=== PATIENT | female | born 1950 | race Hispanic/Latino ===

== ENCOUNTER 2017-05-11 16:00 | Emergency (ER) | payer OTHER, MEDICARE ==
[~2017-05-11 16:00] MED LIST: ACET1TAB25 PO; AMLO10TA2 PO; AMOX-426 PO; CHOL500050 PO; CLON0.1T PO; COLC0.6C3 PO; FAMO20TA8 PO; FENO145T37 PO; FURO20TA4 PO; GABA-531 PO; LACT10SO9 PO; LEVO100 PO; METO25TA6 PO
[2017-05-11 19:16] LABS: BASOPHILS % (AUTO) 0.7 % (0.0-5.0); EOSINOPHILS % (AUTO) 3.3 % (0.0-8.0); HEMATOCRIT 35.8 % (36-48); LYMPHOCYTES % (AUTO) 56.6 % (21.0-51.0); MEAN CORPUSCULAR HEMOGLOBIN 32.7 pg (27.0-33.0); MEAN CORPUSCULAR HGB CONC 34.5 g/dL (32.0-36.0); MONOCYTES % (AUTO) 6.4 % (3.0-13.0); PLATELET COUNT (AUTO) 269 K/uL (130-400); RED BLOOD CELL COUNT(AUTO) 3.77 MIL/uL (4.00-5.50); WHITE BLOOD COUNT (AUTO) 5.8 K/uL (4.8-10.8)
[2017-05-11 19:18] LABS: APPEARANCE,URINE Clear (CLEAR); BILIRUBIN,URINE Negative (NEGATIVE); COLOR,URINE Yellow (YELLOW); GLUCOSE, URINE (UA) Negative (NEGATIVE); KETONES,URINE Negative (NEGATIVE); LEUKOCYTE ESTERASE ,URINE Small (NEGATIVE); NITRATE,URINE Positive (NEGATIVE); OCCULT BLOOD,URINE Negative (NEGATIVE); PROTEIN,URINE 300 (NEGATIVE)
[2017-05-11 19:29] LABS: INR 0.98 (0.85-1.15); PROTHROMBIN TIME 10.3 SEC (9.6-11.6)
[2017-05-11 19:30] LABS: CREATININE 1.6 mg/dL (0.5-1.5); POTASSIUM 4.2 mmol/L (3.5-5.1)
[2017-05-11 19:44] LABS: ALBUMIN 3.2 g/dL (3.5-5.0); BILIRUBIN,TOTAL 0.3 mg/dL (0.2-1.0); CREATINE KINASE MB 0.9 ng/mL (0.5-3.6); TOTAL PROTEIN, SERUM 7.2 g/dL (6.0-8.3)
[2017-05-11 20:04] LABS: B-TYPE NATRIURETIC PEPTIDE 123 pg/mL (0-100)
[2017-05-11 20:08] LABS: BACTERIA,URINE Moderate /HPF (None Seen); RBC,URINE 0-1 /HPF (0-1); SQUAMOUS EPITHELIAL CELL,UR Few /LPF (0-2)
[2017-05-11] MEDS ORDERED: CEPHALEXIN 500 MG CAPSULE ONE (20:38)
== END 2017-05-11 22:25 | disposition home or self-care (01) ==
LOC: EDH 16:00
DX: I16.9 Hypertensive crisis, unspecified (principal); R00.1 Bradycardia, unspecified; R21 Rash and other nonspecific skin eruption; E78.00 Pure hypercholesterolemia, unspecified; E07.9 Disorder of thyroid, unspecified; M19.90 Unspecified osteoarthritis, unspecified site; Z90.49 Acquired absence of other specified parts of digestive tract
CPT/HCPCS: 36415; 71045; 80053; 81001; 82550; 82553; 83880; 84484; 85025; 85610; 85730; 87088; 87186; 93005

== ENCOUNTER 2017-05-14 11:49 | Emergency (ER) | payer OTHER, MEDICARE ==
[2017-05-14 12:35] LABS: BASOPHILS % (AUTO) 0.8 % (0.0-5.0); EOSINOPHILS % (AUTO) 3.5 % (0.0-8.0); HEMATOCRIT 37.9 % (36-48); LYMPHOCYTES % (AUTO) 48.1 % (21.0-51.0); MEAN CORPUSCULAR HEMOGLOBIN 33.2 pg (27.0-33.0); MEAN CORPUSCULAR HGB CONC 35.4 g/dL (32.0-36.0); MEAN CORPUSCULAR VOLUME 93.8 fL (79-99); MONOCYTES % (AUTO) 6.1 % (3.0-13.0); NEUTROPHILS % (AUTO) 41.5 % (40.0-77.0); PLATELET COUNT (AUTO) 247 K/uL (130-400); RED BLOOD CELL COUNT(AUTO) 4.04 MIL/uL (4.00-5.50); WHITE BLOOD COUNT (AUTO) 6.6 K/uL (4.8-10.8)
[2017-05-14 12:44] LABS: CREATININE 1.6 mg/dL (0.5-1.5); POTASSIUM 4.5 mmol/L (3.5-5.1)
[2017-05-14 12:57] LABS: ALBUMIN 3.4 g/dL (3.5-5.0); BILIRUBIN,TOTAL 0.4 mg/dL (0.2-1.0); CREATINE KINASE MB 1.5 ng/mL (0.5-3.6); TOTAL PROTEIN, SERUM 7.6 g/dL (6.0-8.3)
[2017-05-14] MEDS ORDERED: CLONIDINE HCL 0.1 MG TABLET ONE (13:20)
== END 2017-05-14 15:29 | disposition home or self-care (01) ==
LOC: EDH 11:49
DX: I10 Essential (primary) hypertension (principal); R00.1 Bradycardia, unspecified; R07.89 Other chest pain; R42 Dizziness and giddiness; M19.90 Unspecified osteoarthritis, unspecified site; E78.00 Pure hypercholesterolemia, unspecified; E07.9 Disorder of thyroid, unspecified
CPT/HCPCS: 36415; 71045; 80053; 82550; 82553; 83880; 84484; 85025; 93005

== ENCOUNTER 2017-05-16 00:13 | Emergency (ER) | payer OTHER, MEDICARE ==
[2017-05-16 00:56] LABS: EOSINOPHILS % (AUTO) 3.3 % (0.0-8.0); HEMATOCRIT 36.9 % (36-48); LYMPHOCYTES % (AUTO) 46.9 % (21.0-51.0); MEAN CORPUSCULAR HEMOGLOBIN 33.1 pg (27.0-33.0); MEAN CORPUSCULAR HGB CONC 34.2 g/dL (32.0-36.0); MEAN CORPUSCULAR VOLUME 96.8 fL (79-99); NEUTROPHILS % (AUTO) 40.8 % (40.0-77.0); NUCLEATED RED BLOOD CELLS 0.1 % (0.0-0.19); PLATELET COUNT (AUTO) 241 K/uL (130-400); RED BLOOD CELL COUNT(AUTO) 3.81 MIL/uL (4.00-5.50); WHITE BLOOD COUNT (AUTO) 5.8 K/uL (4.8-10.8)
[2017-05-16] MEDS ORDERED: PROCHLORPERAZINE EDISYLATE 10 MG/2 ML VIAL ONE (01:02)
[2017-05-16] MEDS ORDERED: KETOROLAC TROMETHAMINE 30MG/ML ONE (01:02)
[2017-05-16] MEDS ORDERED: ONDANSETRON HCL MDV 20ML 2 MG/ML VIAL ONE (01:08)
[2017-05-16 01:22] LABS: INR 0.97 (0.85-1.15); PARTIAL THROMBOPLASTIN TIME 21.7 SEC (26.3-35.5); PROTHROMBIN TIME 10.2 SEC (9.6-11.6)
[2017-05-16 01:39] LABS: CREATININE 1.8 mg/dL (0.5-1.5); POTASSIUM 4.2 mmol/L (3.5-5.1)
[2017-05-16 01:44] LABS: ALBUMIN 3.4 g/dL (3.5-5.0); BILIRUBIN,TOTAL 0.4 mg/dL (0.2-1.0); TOTAL PROTEIN, SERUM 7.5 g/dL (6.0-8.3)
== END 2017-05-16 02:37 | disposition home or self-care (01) ==
LOC: EDH 00:13
DX: I10 Essential (primary) hypertension (principal); R51 Headache; R07.89 Other chest pain; N28.9 Disorder of kidney and ureter, unspecified; E78.00 Pure hypercholesterolemia, unspecified; E11.9 Type 2 diabetes mellitus without complications; M19.90 Unspecified osteoarthritis, unspecified site
CPT/HCPCS: 36415; 70450; 80053; 84484; 85025; 85610; 85730; 93005; 96374; 96375; 99285; J0780; J1885

== ENCOUNTER → 2018-02-10 | Outpatient (CLI) | payer OTHER, MEDICARE ==
[~2018-02-10] MED LIST changes: -AMLO10TA2 PO; +AMLO10TA6 PO; +REGADENOSON 0.4 MG/5 ML PF SYG IVP SCH
== END | disposition home or self-care (01) ==
LOC: SHCH 08:43
PROVIDERS: ATTEND Internal Medicine Cardiovascular Disease
DX: I10 Essential (primary) hypertension (principal); R06.00 Dyspnea, unspecified; R06.02 Shortness of breath
CPT/HCPCS: 78452; 93017; 96374; A9500 ×2

== ENCOUNTER → 2020-09-30 | Outpatient (CLI) | payer OTHER, MEDICARE ==
[~2020-09-30] MED LIST changes: +AMLO-258 PO; -AMLO10TA6 PO; -AMOX-426 PO; +COLC0.6T73 PO; +FENO145T26 PO; -FENO145T37 PO; +LEVO500T2 PO; +PRED20B PO; -REGADENOSON 0.4 MG/5 ML PF SYG IVP SCH
== END | disposition home or self-care (01) ==
LOC: SHCH 09:33
PROVIDERS: ATTEND Internal Medicine Cardiovascular Disease
DX: I10 Essential (primary) hypertension (principal)
CPT/HCPCS: 93306; 93356

== ENCOUNTER → 2020-10-06 | Outpatient (CLI) | payer OTHER, MEDICARE ==
[~2020-10-06] VITALS: Ht 154.9 cm; Wt 107.5 kg
[~2020-10-06] MED LIST changes: +REGADENOSON 0.4 MG/5 ML PF SYG IVP SCH
== END | disposition home or self-care (01) ==
LOC: SHCH 09:00
PROVIDERS: ATTEND Internal Medicine Cardiovascular Disease
DX: I10 Essential (primary) hypertension (principal); R07.9 Chest pain, unspecified
CPT/HCPCS: 78452; 93017; 96374; A9500 ×2; J2785

== ENCOUNTER 2021-07-10 15:52 | Emergency (ER) | payer OTHER, MEDICARE ==
[~2021-07-10] VITALS: Ht 154.9 cm; Wt 111.1 kg
[~2021-07-10 15:52] MED LIST changes: +ACET-2079 PO; -ACET1TAB25 PO; -REGADENOSON 0.4 MG/5 ML PF SYG IVP SCH
[2021-07-10 16:20] VITALS: BP 194/68
[2021-07-10 16:52] LABS: BASOPHILS % (AUTO) 0.4 % (0.0-5.0); EOSINOPHILS % (AUTO) 2.7 % (0.0-8.0); HEMATOCRIT 33.8 % (36-48); MEAN CORPUSCULAR HEMOGLOBIN 30.7 pg (27.0-33.0); MEAN CORPUSCULAR HGB CONC 31.1 g/dL (32.0-36.0); MEAN CORPUSCULAR VOLUME 98.8 fL (79-99); MONOCYTES % (AUTO) 5.6 % (3.0-13.0); NEUTROPHILS % (AUTO) 64.7 % (40.0-77.0); PLATELET COUNT (AUTO) 207 K/uL (130-400); RED BLOOD CELL COUNT(AUTO) 3.42 MIL/uL (4.00-5.50); RED CELL DISTRIBUTION WIDTH 13.9 % (11.0-15.5)
[2021-07-10 17:02] LABS: CREATININE 3.2 mg/dL (0.5-1.5); POTASSIUM 4.6 mmol/L (3.5-5.1)
[2021-07-10 17:07] LABS: ALBUMIN 2.1 g/dL (3.5-5.0); BILIRUBIN,TOTAL 0.2 mg/dL (0.2-1.0); TOTAL PROTEIN, SERUM 6.4 g/dL (6.0-8.3)
[2021-07-10] MEDS ORDERED: ALBUHFA IH (17:52)
== END 2021-07-10 18:02 | disposition home or self-care (01) ==
LOC: EDH 15:52
DX: J20.9 Acute bronchitis, unspecified (principal); R07.89 Other chest pain; Z20.822 Contact with and (suspected) exposure to COVID-19; M19.90 Unspecified osteoarthritis, unspecified site; I25.10 Atherosclerotic heart disease of native coronary artery without angina pectoris; E11.9 Type 2 diabetes mellitus without complications; I10 Essential (primary) hypertension; E03.9 Hypothyroidism, unspecified; Z90.49 Acquired absence of other specified parts of digestive tract; Z79.899 Other long term (current) drug therapy
CPT/HCPCS: 36415; 71045; 80053; 84484; 85025; 87635; 87804 ×2; 93005; 99285; C9803

== ENCOUNTER → 2021-08-28 | Outpatient (CLI) | payer OTHER, MEDICARE ==
[~2021-08-28] MED LIST changes: +ALBUHFA IH
== END | disposition home or self-care (01) ==
LOC: SHCH 10:04
PROVIDERS: ATTEND Internal Medicine Cardiovascular Disease
DX: I08.2 Rheumatic disorders of both aortic and tricuspid valves (principal); I27.20 Pulmonary hypertension, unspecified; I25.119 Atherosclerotic heart disease of native coronary artery with unspecified angina pectoris
CPT/HCPCS: 93306

== ENCOUNTER 2022-03-20 11:01 | Inpatient (IN) | payer OTHER, MEDICARE ==
[~2022-03-20] VITALS: Ht 160 cm; Wt 105.2 kg
[2022-03-20 11:22] LABS: ABG BASE EXCESS -12.8 mmol/L (-2.0-3.0); ABG OXYGEN SATURATION 83.8 % (95.0-99.0); ABG PCO2 49 mmHg (32-45)
[2022-03-20 11:30] LABS: BASOPHILS % (AUTO) 0.3 % (0.0-5.0); EOSINOPHILS % (AUTO) 0.1 % (0.0-8.0); HEMATOCRIT 32.5 % (36-48); LYMPHOCYTES % (AUTO) 11.5 % (21.0-51.0); MEAN CORPUSCULAR HEMOGLOBIN 31.4 pg (27.0-33.0); MEAN CORPUSCULAR HGB CONC 31.7 g/dL (32.0-36.0); MEAN CORPUSCULAR VOLUME 99.1 fL (79-99); MONOCYTES % (AUTO) 6.9 % (3.0-13.0); NEUTROPHILS % (AUTO) 79.7 % (40.0-77.0); NUCLEATED RED BLOOD CELLS 0.3 % (0.0-0.19); PLATELET COUNT (AUTO) 178 K/uL (130-400); RED BLOOD CELL COUNT(AUTO) 3.28 MIL/uL (4.00-5.50); RED CELL DISTRIBUTION WIDTH 14.1 % (11.0-15.5); WHITE BLOOD COUNT (AUTO) 9.8 K/uL (4.8-10.8)
[2022-03-20 11:52] LABS: B-TYPE NATRIURETIC PEPTIDE 1830 pg/mL (0-100)
[2022-03-20 11:54] LABS: ALBUMIN 2.5 g/dL (3.5-5.0); CREATININE 3.7 mg/dL (0.5-1.5); POTASSIUM 5.1 mmol/L (3.5-5.1); TOTAL PROTEIN, SERUM 6.7 g/dL (6.0-8.3)
[2022-03-20] MEDS ORDERED: FUROSEMIDE 40MG VIAL IV STA (12:09)
[2022-03-20 13:10] LABS: APPEARANCE,URINE CLEAR (CLEAR); BILIRUBIN,URINE NEGATIVE (NEGATIVE); COLOR,URINE LIGHT-YELLOW (YELLOW); GLUCOSE, URINE (UA) 200 mg/dL (NEGATIVE); KETONES,URINE NEGATIVE (NEGATIVE); LEUKOCYTE ESTERASE ,URINE NEGATIVE Leu/uL (NEGATIVE); NITRATE,URINE NEGATIVE (NEGATIVE); OCCULT BLOOD,URINE NEGATIVE (NEGATIVE); PROTEIN,URINE 600 mg/dL (NEGATIVE); UROBILINOGEN,URINE 0.2 mg/dL (0.2-1.0)
[2022-03-20] MEDS ORDERED: ALBUTEROL 0.083% 2.5 MG/3 ML INH IH ONE ×2 (13:14)
[2022-03-20 13:22] LABS: BACTERIA,URINE RARE /HPF (None Seen); MUCUS,URINE RARE LPF (None Seen); SQUAMOUS EPITHELIAL CELL,UR RARE /HPF (0-2)
[2022-03-20] MEDS ORDERED: POTASSIUM CHLORIDE 20MEQ/100ML 100 ML IV PRN (13:30)
[2022-03-20] MEDS ORDERED: MAGNESIUM 2GM PREMIX 50ML 50 ML IV PRN (13:30)
[2022-03-20] MEDS ORDERED: LACTULOSE 20 GM/30 ML UDCUP PO PRN (13:30)
[2022-03-20] MEDS ORDERED: ONDANSETRON 4MG INJ IV PRN (13:30)
[2022-03-20] MEDS ORDERED: DiphenhydrAMINE HCL 50 MG/ML VIAL IV PRN (13:30)
[2022-03-20] MEDS ORDERED: DIPHENHYDRAMINE HCL 25 MG CAPSULE PO PRN (13:30)
[2022-03-20] MEDS ORDERED: ACETAMINOPHEN 325 MG TAB PO PRN (13:30)
[2022-03-20] MEDS ORDERED: GUAIFENESIN-DM 200/20 MG 10 ML PO PRN (13:30)
[2022-03-20] MEDS ORDERED: NITROGLYCERIN 0.4 MG SL TAB SL PRN (13:30)
[2022-03-20] MEDS ORDERED: LIDOCAINE HCL-MPF 1% 2ML VIAL IV PRN (13:30)
[2022-03-20] MEDS ORDERED: GLUCAGON 1MG KIT 1 MG ML IM PRN (13:30)
[2022-03-20] MEDS ORDERED: POTASSIUM CHLORIDE 10% ELIXIR 20 MEQ/15 ML UDCUP PO PRN (13:30)
[2022-03-20] MEDS ORDERED: MAG/ALUM/SIMETH 30 ML UDCUP PO PRN (13:30)
[2022-03-20] MEDS ORDERED: DEXTROSE 50%-WATER 50 ML DISP.SYRIN IV PRN (13:30)
[2022-03-20] MEDS ORDERED: FUROSEMIDE 40MG VIAL IV ONE (14:00)
[2022-03-20] MEDS: HEPARIN 5,000 UNIT VIAL SQ SCH ×2 (14:38→20:11)
[2022-03-20 15:30] VITALS: BP 101/42
[2022-03-20] MEDS: INSULIN HUMULIN R 100 UNIT/ML 3ML SQ SCH ×2 (15:47→21:00)
[2022-03-20] MEDS ORDERED: CARV3.12 PO (17:33)
[2022-03-20] MEDS ORDERED: ROSU20TA31 PO (17:33)
[2022-03-20] MEDS ORDERED: FERR-72 PO (17:33)
[2022-03-20] MEDS ORDERED: LINA5TAB PO (17:33)
[2022-03-20] MEDS ORDERED: HYDR100T27 PO (17:33)
[2022-03-20] MEDS ORDERED: AMLO-257 PO (17:33)
[2022-03-20] MEDS ORDERED: ISOS30TA92 PO (17:33)
[2022-03-20] MEDS ORDERED: CALC0.253 PO (17:33)
[2022-03-20] MEDS ORDERED: GABA-529 PO (17:33)
[2022-03-20] MEDS ORDERED: AEC81 PO (17:33)
[2022-03-20] MEDS ORDERED: LEVO88CA4 PO (17:33)
[2022-03-20] MEDS ORDERED: FUROSEMIDE 40MG VIAL IV SCH (18:00)
[2022-03-20 19:06] VITALS: BP 136/58
[2022-03-20] MEDS: FUROSEMIDE 40MG VIAL IV SCH (20:11)
[2022-03-20] MEDS: ZOSYN 3.375GM+NS 50ML 50 ML IV SCH (20:11)
[2022-03-20] MEDS: FAMOTIDINE 20MG TAB PO SCH (20:12)
[2022-03-20] MEDS: FAMOTIDINE 20MG VIAL IV SCH (20:12)
[2022-03-20] MEDS ORDERED: ZOSYN 3.375GM+NS 50ML 50 ML IV SCH (21:00)
[2022-03-21 00:06] VITALS: BP 140/48
[2022-03-21 03:06] VITALS: BP 124/93
[2022-03-21 03:47] LABS: BASOPHILS % (AUTO) 0.3 % (0.0-5.0); EOSINOPHILS % (AUTO) 0.4 % (0.0-8.0); HEMATOCRIT 28.8 % (36-48); LYMPHOCYTES % (AUTO) 18.1 % (21.0-51.0); MEAN CORPUSCULAR HEMOGLOBIN 31.4 pg (27.0-33.0); MEAN CORPUSCULAR HGB CONC 31.3 g/dL (32.0-36.0); MEAN CORPUSCULAR VOLUME 100.3 fL (79-99); MONOCYTES % (AUTO) 8.7 % (3.0-13.0); NEUTROPHILS % (AUTO) 71.6 % (40.0-77.0); NUCLEATED RED BLOOD CELLS 0.4 % (0.0-0.19); PLATELET COUNT (AUTO) 150 K/uL (130-400); RED BLOOD CELL COUNT(AUTO) 2.87 MIL/uL (4.00-5.50); RED CELL DISTRIBUTION WIDTH 14.1 % (11.0-15.5); WHITE BLOOD COUNT (AUTO) 7.6 K/uL (4.8-10.8)
[2022-03-21 04:02] LABS: CREATININE 4.3 mg/dL (0.5-1.5); MAGNESIUM 2.8 mg/dL (1.80-2.40); PHOSPHORUS 7.4 mg/dL (2.5-4.9); URIC ACID 8.9 mg/dL (2.6-7.2)
[2022-03-21 04:54] LABS: % IRON SATURATION 16.2 % (22-44)
[2022-03-21] MEDS: INSULIN HUMULIN R 100 UNIT/ML 3ML SQ SCH ×4 (06:03→20:58)
[2022-03-21 07:00] VITALS: BP 136/55
[2022-03-21] MEDS: FUROSEMIDE 40MG VIAL IV SCH ×2 (09:09→20:33)
[2022-03-21] MEDS: Vitamin B Complex/Vit C/Folic Acid PO SCH (09:09)
[2022-03-21] MEDS: ZOSYN 3.375GM+NS 50ML 50 ML IV SCH ×2 (09:12→20:29)
[2022-03-21] MEDS: HEPARIN 5,000 UNIT VIAL SQ SCH ×3 (09:16→20:29)
[2022-03-21] MEDS: ACETAMINOPHEN 325 MG TAB PO PRN (09:26)
[2022-03-21 11:00] VITALS: BP 143/45
[2022-03-21] MEDS ORDERED: COMPOUND IV MISC 1 EACH IVSOLN MISC PRN (15:00)
[2022-03-21 16:00] VITALS: BP 136/56
[2022-03-21 17:58] LABS: HEMATOCRIT 31.5 % (36-48)
[2022-03-21 18:14] LABS: ALBUMIN 2.3 g/dL (3.5-5.0)
[2022-03-21 19:06] VITALS: BP 138/61
[2022-03-21] MEDS: IRON SUCROSE COMPLEX 300 MG in 0.9% NACL 250ML 250 ML IV SCH (19:17)
[2022-03-21] MEDS: FAMOTIDINE 20MG VIAL IV SCH (20:28)
[2022-03-21] MEDS: FAMOTIDINE 20MG TAB PO SCH (20:33)
[2022-03-22] VITALS (21 sets, daily range): BP systolic 122–169; BP diastolic 53–91
[2022-03-22 03:58] LABS: BASOPHILS % (AUTO) 0.3 % (0.0-5.0); HEMATOCRIT 30.5 % (36-48); LYMPHOCYTES % (AUTO) 18.5 % (21.0-51.0); MEAN CORPUSCULAR HEMOGLOBIN 30.9 pg (27.0-33.0); MEAN CORPUSCULAR HGB CONC 31.1 g/dL (32.0-36.0); MEAN CORPUSCULAR VOLUME 99.3 fL (79-99); MONOCYTES % (AUTO) 8.7 % (3.0-13.0); NEUTROPHILS % (AUTO) 69.3 % (40.0-77.0); NUCLEATED RED BLOOD CELLS 0.4 % (0.0-0.19); PLATELET COUNT (AUTO) 168 K/uL (130-400); RED BLOOD CELL COUNT(AUTO) 3.07 MIL/uL (4.00-5.50); RED CELL DISTRIBUTION WIDTH 14.1 % (11.0-15.5); WHITE BLOOD COUNT (AUTO) 6.9 K/uL (4.8-10.8)
[2022-03-22 04:10] LABS: INR 0.98 (0.85-1.15); PROTHROMBIN TIME 10.7 SEC (9.6-11.6)
[2022-03-22 04:12] LABS: CREATININE 5.5 mg/dL (0.5-1.5); PHOSPHORUS 8.4 mg/dL (2.5-4.9); POTASSIUM 5.3 mmol/L (3.5-5.1)
[2022-03-22 04:18] LABS: HEPATITIS B SURFACE ANTIGEN Non-Reactive (Nonreactive)
[2022-03-22] MEDS: INSULIN HUMULIN R 100 UNIT/ML 3ML SQ SCH ×4 (06:34→21:00)
[2022-03-22] MEDS: Vitamin B Complex/Vit C/Folic Acid PO SCH (09:00)
[2022-03-22] MEDS: HEPARIN 5,000 UNIT VIAL SQ SCH ×3 (09:00→22:29)
[2022-03-22] MEDS: ZOSYN 3.375GM+NS 50ML 50 ML IV SCH ×2 (11:54→22:06)
[2022-03-22] MEDS: FUROSEMIDE 40MG VIAL IV SCH ×2 (12:18→22:06)
[2022-03-22] MEDS ORDERED: HEPARIN 1,000 UNIT VIAL ONE (15:03)
[2022-03-22] MEDS ORDERED: LIDOCAINE HCL 1% MDV 50ML VIAL ONE (15:04)
[2022-03-22] MEDS: FAMOTIDINE 20MG TAB PO SCH (21:00)
[2022-03-22] MEDS: IRON SUCROSE COMPLEX 300 MG in 0.9% NACL 250ML 250 ML IV SCH (22:06)
[2022-03-22] MEDS: FAMOTIDINE 20MG VIAL IV SCH (22:06)
[2022-03-23] VITALS (19 sets, daily range): BP systolic 96–175; BP diastolic 43–98
[2022-03-23] MEDS: ZOSYN 3.375GM+NS 50ML 50 ML IV SCH ×3 (01:32→21:26)
[2022-03-23 04:41] LABS: HEMATOCRIT 29.8 % (36-48); MEAN CORPUSCULAR HEMOGLOBIN 31.1 pg (27.0-33.0); MEAN CORPUSCULAR HGB CONC 32.2 g/dL (32.0-36.0); MEAN CORPUSCULAR VOLUME 96.4 fL (79-99); NUCLEATED RED BLOOD CELLS 0.3 % (0.0-0.19); PLATELET COUNT (AUTO) 148 K/uL (130-400); RED BLOOD CELL COUNT(AUTO) 3.09 MIL/uL (4.00-5.50); RED CELL DISTRIBUTION WIDTH 13.9 % (11.0-15.5)
[2022-03-23 04:58] LABS: ALBUMIN 2.1 g/dL (3.5-5.0); CREATININE 5.2 mg/dL (0.5-1.5); POTASSIUM 4.1 mmol/L (3.5-5.1); TOTAL PROTEIN, SERUM 6.5 g/dL (6.0-8.3)
[2022-03-23 05:05] LABS: BAND NEUTROPHILS % (MANUAL) 1 % (0-2); EOSINOPHILS % (MANUAL) 3 % (1-6); LYMPHOCYTES % (MANUAL) 13 % (22-44); MAN.DIFF COMMENT-IMPRESSION MANUAL DIFFERENTIAL; MONOCYTES % (MANUAL) 7 % (2-9); PLATELET MORPHOLOGY COMMENT ADEQUATE; SEGMENTED NEUTROPHILS % 76 % (40-70)
[2022-03-23] MEDS: INSULIN HUMULIN R 100 UNIT/ML 3ML SQ SCH ×4 (06:34→20:53)
[2022-03-23] MEDS: Vitamin B Complex/Vit C/Folic Acid PO SCH (09:19)
[2022-03-23] MEDS: ACETAMINOPHEN 325 MG TAB PO PRN ×2 (09:19→21:44)
[2022-03-23] MEDS: HEPARIN 5,000 UNIT VIAL SQ SCH ×3 (09:20→21:45)
[2022-03-23] MEDS: HEPARIN 5,000 UNIT VIAL IJ PRN (14:35)
[2022-03-23] MEDS ORDERED: HYDRALAZINE 20MG/ML VIAL IV PRN (17:00)
[2022-03-23] MEDS ORDERED: LABETALOL 20MG VIAL IV PRN (17:00)
[2022-03-23] MEDS: FAMOTIDINE 20MG TAB PO SCH ×2 (19:48→21:26)
[2022-03-23] MEDS: FAMOTIDINE 20MG VIAL IV SCH (20:54)
[2022-03-23] MEDS: IRON SUCROSE COMPLEX 300 MG in 0.9% NACL 250ML 250 ML IV SCH (21:26)
[2022-03-24] VITALS (8 sets, daily range): BP systolic 116–155; BP diastolic 44–65
[2022-03-24] MEDS: INSULIN HUMULIN R 100 UNIT/ML 3ML SQ SCH ×4 (06:19→20:12)
[2022-03-24 08:44] LABS: HEMATOCRIT 30.3 % (36-48); MEAN CORPUSCULAR HEMOGLOBIN 30.7 pg (27.0-33.0); MEAN CORPUSCULAR VOLUME 95.9 fL (79-99); NUCLEATED RED BLOOD CELLS 0.4 % (0.0-0.19); PLATELET COUNT (AUTO) 117 K/uL (130-400); RED BLOOD CELL COUNT(AUTO) 3.16 MIL/uL (4.00-5.50); RED CELL DISTRIBUTION WIDTH 14.1 % (11.0-15.5); WHITE BLOOD COUNT (AUTO) 6.9 K/uL (4.8-10.8)
[2022-03-24 09:02] LABS: MAGNESIUM 2.5 mg/dL (1.80-2.40); POTASSIUM 3.4 mmol/L (3.5-5.1)
[2022-03-24] MEDS: ZOSYN 3.375GM+NS 50ML 50 ML IV SCH ×2 (09:09→20:26)
[2022-03-24] MEDS: AMLODIPINE 5 MG TAB PO SCH (09:10)
[2022-03-24] MEDS: ACETAMINOPHEN 325 MG TAB PO PRN ×2 (09:10→20:27)
[2022-03-24] MEDS: Vitamin B Complex/Vit C/Folic Acid PO SCH (09:10)
[2022-03-24] MEDS: HEPARIN 5,000 UNIT VIAL SQ SCH ×3 (09:11→20:36)
[2022-03-24 10:51] LABS: EOSINOPHILS % (MANUAL) 4 % (1-6); LYMPHOCYTES % (MANUAL) 18 % (22-44); MAN.DIFF COMMENT-IMPRESSION MANUAL DIFFERENTIAL; MONOCYTES % (MANUAL) 7 % (2-9); PLATELET MORPHOLOGY COMMENT ADEQUATE; SEGMENTED NEUTROPHILS % 71 % (40-70)
[2022-03-24] MEDS: FAMOTIDINE 20MG VIAL IV SCH (19:49)
[2022-03-24] MEDS ORDERED: 0.9%NACL 50ML 50 ML IV ONE (20:08)
[2022-03-24] MEDS: FAMOTIDINE 20MG TAB PO SCH (20:26)
[2022-03-25] VITALS (17 sets, daily range): BP systolic 120–154; BP diastolic 44–76
[2022-03-25 05:21] LABS: BASOPHILS % (AUTO) 0.4 % (0.0-5.0); EOSINOPHILS % (AUTO) 1.6 % (0.0-8.0); HEMATOCRIT 29.7 % (36-48); LYMPHOCYTES % (AUTO) 17.5 % (21.0-51.0); MEAN CORPUSCULAR HEMOGLOBIN 31.4 pg (27.0-33.0); MONOCYTES % (AUTO) 12.2 % (3.0-13.0); NEUTROPHILS % (AUTO) 66.8 % (40.0-77.0); NUCLEATED RED BLOOD CELLS 0.4 % (0.0-0.19); PLATELET COUNT (AUTO) 103 K/uL (130-400); RED BLOOD CELL COUNT(AUTO) 3.03 MIL/uL (4.00-5.50); RED CELL DISTRIBUTION WIDTH 14.1 % (11.0-15.5); WHITE BLOOD COUNT (AUTO) 7.4 K/uL (4.8-10.8)
[2022-03-25 05:35] LABS: CREATININE 5.5 mg/dL (0.5-1.5); MAGNESIUM 2.4 mg/dL (1.80-2.40); POTASSIUM 3.3 mmol/L (3.5-5.1)
[2022-03-25] MEDS: INSULIN HUMULIN R 100 UNIT/ML 3ML SQ SCH ×4 (06:28→21:00)
[2022-03-25] MEDS: AMLODIPINE 5 MG TAB PO SCH (09:00)
[2022-03-25] MEDS: ZOSYN 3.375GM+NS 50ML 50 ML IV SCH ×2 (11:02→21:16)
[2022-03-25] MEDS: Vitamin B Complex/Vit C/Folic Acid PO SCH (11:02)
[2022-03-25] MEDS: HEPARIN 5,000 UNIT VIAL SQ SCH ×3 (11:03→21:29)
[2022-03-25] MEDS: ACETAMINOPHEN 325 MG TAB PO PRN (11:11)
[2022-03-25] MEDS: FAMOTIDINE 20MG VIAL IV SCH (21:00)
[2022-03-25] MEDS: FAMOTIDINE 20MG TAB PO SCH (21:16)
[2022-03-26] VITALS (25 sets, daily range): BP systolic 81–168; BP diastolic 40–93
[2022-03-26 04:38] LABS: BASOPHILS % (AUTO) 0.4 % (0.0-5.0); EOSINOPHILS % (AUTO) 2.7 % (0.0-8.0); HEMATOCRIT 29.8 % (36-48); MEAN CORPUSCULAR HEMOGLOBIN 30.8 pg (27.0-33.0); MEAN CORPUSCULAR HGB CONC 32.6 g/dL (32.0-36.0); MEAN CORPUSCULAR VOLUME 94.6 fL (79-99); MONOCYTES % (AUTO) 12.2 % (3.0-13.0); NEUTROPHILS % (AUTO) 68.5 % (40.0-77.0); NUCLEATED RED BLOOD CELLS 0.5 % (0.0-0.19); PLATELET COUNT (AUTO) 110 K/uL (130-400); RED BLOOD CELL COUNT(AUTO) 3.15 MIL/uL (4.00-5.50); RED CELL DISTRIBUTION WIDTH 14.1 % (11.0-15.5); WHITE BLOOD COUNT (AUTO) 8.3 K/uL (4.8-10.8)
[2022-03-26 04:50] LABS: % IRON SATURATION 19.2 % (22-44)
[2022-03-26 05:17] LABS: CREATININE 4.7 mg/dL (0.5-1.5); POTASSIUM 3.2 mmol/L (3.5-5.1); THYROID STIMULATING HORMONE 2.54 uIU/mL (0.36-3.74)
[2022-03-26] MEDS: INSULIN HUMULIN R 100 UNIT/ML 3ML SQ SCH ×4 (06:26→21:00)
[2022-03-26] MEDS ORDERED: LIDOCAINE HCL 1% 20 ML VIAL ONE (07:13)
[2022-03-26] MEDS ORDERED: HEPARIN 1,000 UNIT VIAL ONE (07:14)
[2022-03-26] MEDS: AMLODIPINE 5 MG TAB PO SCH (09:00)
[2022-03-26] MEDS: HEPARIN 5,000 UNIT VIAL SQ SCH ×3 (09:00→21:23)
[2022-03-26] MEDS: Vitamin B Complex/Vit C/Folic Acid PO SCH (09:34)
[2022-03-26] MEDS: ACETAMINOPHEN 325 MG TAB PO PRN ×2 (09:34→22:22)
[2022-03-26] MEDS: ZOSYN 3.375GM+NS 50ML 50 ML IV SCH ×2 (14:43→21:28)
[2022-03-26] MEDS: KCL 20 MEQ ERTAB PO PRN ×2 (14:53→17:49)
[2022-03-26] MEDS: HEPARIN 5,000 UNIT VIAL IJ PRN (14:56)
[2022-03-26] MEDS ORDERED: LUBIPROSTONE 24 MCG CAP PO SCH (18:00)
[2022-03-26] MEDS: BISACODYL 5 MG TABLET.DR PO SCH (21:00)
[2022-03-26] MEDS: FAMOTIDINE 20MG VIAL IV SCH (21:00)
[2022-03-26] MEDS: FAMOTIDINE 20MG TAB PO SCH (21:17)
[2022-03-27 04:11] VITALS: BP 153/64
[2022-03-27 05:42] LABS: BASOPHILS % (AUTO) 0.2 % (0.0-5.0); EOSINOPHILS % (AUTO) 1.9 % (0.0-8.0); HEMATOCRIT 30.1 % (36-48); LYMPHOCYTES % (AUTO) 20.8 % (21.0-51.0); MEAN CORPUSCULAR HGB CONC 31.9 g/dL (32.0-36.0); MEAN CORPUSCULAR VOLUME 97.1 fL (79-99); MONOCYTES % (AUTO) 11.4 % (3.0-13.0); NEUTROPHILS % (AUTO) 64.3 % (40.0-77.0); NUCLEATED RED BLOOD CELLS 0.2 % (0.0-0.19); PLATELET COUNT (AUTO) 113 K/uL (130-400); RED CELL DISTRIBUTION WIDTH 14.4 % (11.0-15.5); WHITE BLOOD COUNT (AUTO) 8.9 K/uL (4.8-10.8)
[2022-03-27 05:51] LABS: CREATININE 4.3 mg/dL (0.5-1.5); POTASSIUM 3.3 mmol/L (3.5-5.1)
[2022-03-27] MEDS: INSULIN HUMULIN R 100 UNIT/ML 3ML SQ SCH ×4 (06:36→20:25)
[2022-03-27] MEDS: BISACODYL 5 MG TABLET.DR PO SCH ×3 (09:00→20:22)
[2022-03-27] MEDS: Vitamin B Complex/Vit C/Folic Acid PO SCH (09:20)
[2022-03-27] MEDS: KCL 20 MEQ ERTAB PO PRN ×2 (09:21→13:35)
[2022-03-27] MEDS: AMLODIPINE 5 MG TAB PO SCH (09:22)
[2022-03-27] MEDS: ZOSYN 3.375GM+NS 50ML 50 ML IV SCH ×2 (09:23→20:22)
[2022-03-27] MEDS: HEPARIN 5,000 UNIT VIAL SQ SCH ×3 (10:48→20:24)
[2022-03-27] MEDS ORDERED: COLCHICINE 0.6 MG TABLET PO SCH ×2 (13:30)
[2022-03-27 16:00] VITALS: BP 123/47
[2022-03-27 20:00] VITALS: BP 135/48
[2022-03-27] MEDS: FAMOTIDINE 20MG TAB PO SCH (20:22)
[2022-03-27] MEDS: FAMOTIDINE 20MG VIAL IV SCH (20:24)
[2022-03-28] VITALS (22 sets, daily range): BP systolic 100–171; BP diastolic 32–78
[2022-03-28 05:26] LABS: ALBUMIN 1.8 g/dL (3.5-5.0); CREATININE 4.9 mg/dL (0.5-1.5); POTASSIUM 3.5 mmol/L (3.5-5.1); TOTAL PROTEIN, SERUM 6.3 g/dL (6.0-8.3)
[2022-03-28] MEDS: INSULIN HUMULIN R 100 UNIT/ML 3ML SQ SCH ×4 (05:30→20:44)
[2022-03-28] MEDS: BISACODYL 5 MG TABLET.DR PO SCH ×3 (09:00→20:44)
[2022-03-28] MEDS: AMLODIPINE 5 MG TAB PO SCH (09:00)
[2022-03-28] MEDS: ZOSYN 3.375GM+NS 50ML 50 ML IV SCH ×2 (09:44→20:44)
[2022-03-28] MEDS: Vitamin B Complex/Vit C/Folic Acid PO SCH (09:44)
[2022-03-28] MEDS: HEPARIN 5,000 UNIT VIAL SQ SCH ×3 (09:46→20:44)
[2022-03-28] MEDS: ACETAMINOPHEN 325 MG TAB PO PRN (13:28)
[2022-03-28] MEDS: HEPARIN 5,000 UNIT VIAL IJ PRN (14:13)
[2022-03-28] MEDS ORDERED: COLCHICINE 0.6 MG TABLET PO SCH (14:30)
[2022-03-28] MEDS: EPOETIN ALFA-EPBX (NON-ESRD) 10,000 UNIT/ML VIAL SQ SCH (16:58)
[2022-03-28] MEDS: FAMOTIDINE 20MG TAB PO SCH (20:42)
[2022-03-28] MEDS: FAMOTIDINE 20MG VIAL IV SCH (20:45)
[2022-03-29 03:00] LABS: HEMATOCRIT 29.3 % (36-48); MEAN CORPUSCULAR HEMOGLOBIN 31.4 pg (27.0-33.0); MEAN CORPUSCULAR HGB CONC 32.4 g/dL (32.0-36.0); MEAN CORPUSCULAR VOLUME 96.7 fL (79-99); NUCLEATED RED BLOOD CELLS 0.4 % (0.0-0.19); RED BLOOD CELL COUNT(AUTO) 3.03 MIL/uL (4.00-5.50); RED CELL DISTRIBUTION WIDTH 14.4 % (11.0-15.5); WHITE BLOOD COUNT (AUTO) 8.3 K/uL (4.8-10.8)
[2022-03-29 03:08] LABS: CREATININE 4.2 mg/dL (0.5-1.5); POTASSIUM 3.2 mmol/L (3.5-5.1)
[2022-03-29 03:21] LABS: INR 0.98 (0.85-1.15); PROTHROMBIN TIME 10.7 SEC (9.6-11.6)
[2022-03-29 04:06] VITALS: BP 149/75
[2022-03-29] MEDS: INSULIN HUMULIN R 100 UNIT/ML 3ML SQ SCH ×4 (05:37→21:00)
[2022-03-29 08:00] VITALS: BP 133/54
[2022-03-29] MEDS: Vitamin B Complex/Vit C/Folic Acid PO SCH (10:25)
[2022-03-29] MEDS: ZOSYN 3.375GM+NS 50ML 50 ML IV SCH ×2 (10:25→20:34)
[2022-03-29] MEDS: BISACODYL 5 MG TABLET.DR PO SCH ×3 (10:25→20:30)
[2022-03-29] MEDS: AMLODIPINE 5 MG TAB PO SCH (10:26)
[2022-03-29] MEDS: HEPARIN 5,000 UNIT VIAL SQ SCH ×3 (10:27→20:35)
[2022-03-29 11:50] VITALS: BP 112/70
[2022-03-29 16:00] VITALS: BP 140/64
[2022-03-29 20:28] VITALS: BP 165/75
[2022-03-29] MEDS: FAMOTIDINE 20MG VIAL IV SCH (20:34)
[2022-03-29] MEDS: FAMOTIDINE 20MG TAB PO SCH (20:38)
[2022-03-29 23:27] VITALS: BP 167/78
[2022-03-30] VITALS (20 sets, daily range): BP systolic 127–204; BP diastolic 56–94
[2022-03-30] MEDS: INSULIN HUMULIN R 100 UNIT/ML 3ML SQ SCH ×4 (07:11→20:28)
[2022-03-30] MEDS: BISACODYL 5 MG TABLET.DR PO SCH ×3 (09:00→20:27)
[2022-03-30] MEDS: AMLODIPINE 5 MG TAB PO SCH (09:00)
[2022-03-30] MEDS: Vitamin B Complex/Vit C/Folic Acid PO SCH (09:41)
[2022-03-30] MEDS: ZOSYN 3.375GM+NS 50ML 50 ML IV SCH (09:41)
[2022-03-30] MEDS: HEPARIN 5,000 UNIT VIAL SQ SCH ×3 (09:45→20:28)
[2022-03-30 10:37] LABS: HEMATOCRIT 30.3 % (36-48); MEAN CORPUSCULAR HEMOGLOBIN 31.3 pg (27.0-33.0); MEAN CORPUSCULAR HGB CONC 31.4 g/dL (32.0-36.0); MEAN CORPUSCULAR VOLUME 99.7 fL (79-99); NUCLEATED RED BLOOD CELLS 0.3 % (0.0-0.19); PLATELET COUNT (AUTO) 167 K/uL (130-400); RED BLOOD CELL COUNT(AUTO) 3.04 MIL/uL (4.00-5.50); RED CELL DISTRIBUTION WIDTH 14.7 % (11.0-15.5); WHITE BLOOD COUNT (AUTO) 7.3 K/uL (4.8-10.8)
[2022-03-30 10:45] LABS: CREATININE 5.7 mg/dL (0.5-1.5); POTASSIUM 3.1 mmol/L (3.5-5.1)
[2022-03-30 11:18] LABS: EOSINOPHILS % (MANUAL) 3 % (1-6); LYMPHOCYTES % (MANUAL) 31 % (22-44); MONOCYTES % (MANUAL) 9 % (2-9); SEGMENTED NEUTROPHILS % 57 % (40-70)
[2022-03-30 11:19] LABS: MAN.DIFF COMMENT-IMPRESSION MANUAL DIFFERENTIAL; PLATELET MORPHOLOGY COMMENT ADEQUATE
[2022-03-30] MEDS ORDERED: PREDNISONE 10 MG TABLET PO SCH (16:00)
[2022-03-30] MEDS: EPOETIN ALFA-EPBX (NON-ESRD) 10,000 UNIT/ML VIAL SQ SCH (16:56)
[2022-03-30] MEDS: HEPARIN 5,000 UNIT VIAL IJ PRN (18:47)
[2022-03-30] MEDS: FAMOTIDINE 20MG TAB PO SCH (20:27)
[2022-03-30] MEDS: KCL 20 MEQ ERTAB PO PRN (21:43)
[2022-03-31] MEDS ORDERED: ALLOPURINOL 100 MG TABLET PO SCH (09:00)
== END 2022-03-31 00:04 | DRG 640 ==
LOC: EDH 11:01 → EDHIP 13:29 → 2DH 15:31 → 4CH 03-25 00:19
PROVIDERS: ADMIT Internal Medicine; ATTEND Internal Medicine
PROC: 5A09357 Assistance with Respiratory Ventilation, Less than 24 Consecutive Hours, Continuous Positive Airway Pressure (ICD-10-PCS; 2022-03-20)
PROC: 5A09357 Assistance with Respiratory Ventilation, Less than 24 Consecutive Hours, Continuous Positive Airway Pressure (ICD-10-PCS; 2022-03-21)
PROC: 02HV33Z Insertion of Infusion Device into Superior Vena Cava, Percutaneous Approach (ICD-10-PCS; principal; 2022-03-22)
PROC: B5181ZA Fluoroscopy of Superior Vena Cava using Low Osmolar Contrast, Guidance (ICD-10-PCS; 2022-03-22)
PROC: 5A1D70Z Performance of Urinary Filtration, Intermittent, Less than 6 Hours Per Day (ICD-10-PCS; 2022-03-22)
PROC: 5A09357 Assistance with Respiratory Ventilation, Less than 24 Consecutive Hours, Continuous Positive Airway Pressure (ICD-10-PCS; 2022-03-22)
PROC: 5A1D70Z Performance of Urinary Filtration, Intermittent, Less than 6 Hours Per Day (ICD-10-PCS; 2022-03-23)
PROC: 5A09357 Assistance with Respiratory Ventilation, Less than 24 Consecutive Hours, Continuous Positive Airway Pressure (ICD-10-PCS; 2022-03-24)
PROC: 5A1D70Z Performance of Urinary Filtration, Intermittent, Less than 6 Hours Per Day (ICD-10-PCS; 2022-03-25)
PROC: 5A09357 Assistance with Respiratory Ventilation, Less than 24 Consecutive Hours, Continuous Positive Airway Pressure (ICD-10-PCS; 2022-03-25)
PROC: 0JH63XZ Insertion of Tunneled Vascular Access Device into Chest Subcutaneous Tissue and Fascia, Percutaneous Approach (ICD-10-PCS; 2022-03-26)
PROC: 02H633Z Insertion of Infusion Device into Right Atrium, Percutaneous Approach (ICD-10-PCS; 2022-03-26)
PROC: B5181ZA Fluoroscopy of Superior Vena Cava using Low Osmolar Contrast, Guidance (ICD-10-PCS; 2022-03-26)
PROC: 5A1D70Z Performance of Urinary Filtration, Intermittent, Less than 6 Hours Per Day (ICD-10-PCS; 2022-03-26)
PROC: 5A1D70Z Performance of Urinary Filtration, Intermittent, Less than 6 Hours Per Day (ICD-10-PCS; 2022-03-28)
DX: E87.70 Fluid overload, unspecified (principal); J96.01 Acute respiratory failure with hypoxia; N18.6 End stage renal disease; I12.0 Hypertensive chronic kidney disease with stage 5 chronic kidney disease or end stage renal disease; J81.1 Chronic pulmonary edema; Z68.41 Body mass index [BMI] 40.0-44.9, adult; Z20.822 Contact with and (suspected) exposure to COVID-19; D64.9 Anemia, unspecified; E66.01 Morbid (severe) obesity due to excess calories; E11.22 Type 2 diabetes mellitus with diabetic chronic kidney disease; E11.51 Type 2 diabetes mellitus with diabetic peripheral angiopathy without gangrene; E78.00 Pure hypercholesterolemia, unspecified; E87.6 Hypokalemia; Z79.82 Long term (current) use of aspirin; Z91.199 Patient's noncompliance with other medical treatment and regimen due to unspecified reason; Z99.2 Dependence on renal dialysis; Z79.84 Long term (current) use of oral hypoglycemic drugs
CPT/HCPCS: 36415; 36556; 36580; 36600; 71045; 77001; 80048; 80053; 80061; 81001; 82040; 82435; 82565; 82607; 82728; 82746; 82803; 82947; 82948; 83540; 83550; 83605; 83735; 83880; 84100; 84132; 84145; 84295; 84443; 84484; 84520; 84550; 85014; 85018; 85025; 85027; 85045; 85610; 85730; 86701; 86704; 86706; 87040; 87340; 87390; 87635; 90935; 93005; 93306; 93356; 93970; 93971; 94640; 94660; 97039; C1750; C1752; G0378; J0360; J1200; J1644; J1756; J1940; J2543; J3490; J7050; J7512; Q0163

== ENCOUNTER 2022-07-20 20:31 | Emergency (ER) | payer OTHER, MEDICARE ==
[~2022-07-20] VITALS: Ht 157.5 cm; Wt 93.0 kg
[~2022-07-20 20:31] MED LIST changes: -ACET-2079 PO; +AEC81 PO; +AMLO-257 PO; -AMLO-258 PO; +CALC0.253 PO; +CARV3.12 PO; -CHOL500050 PO; -CLON0.1T PO; -COLC0.6C3 PO; -FAMO20TA8 PO; -FENO145T26 PO; +FERR-72 PO; -FURO20TA4 PO; +GABA-529 PO; -GABA-531 PO; +HYDR100T27 PO; +ISOS30TA92 PO; -LACT10SO9 PO; -LEVO100 PO; -LEVO500T2 PO; +LEVO88CA4 PO; +LINA5TAB PO; -METO25TA6 PO; -PRED20B PO; +ROSU20TA31 PO
[2022-07-20 22:02] VITALS: BP 145/45
== END 2022-07-20 23:14 | disposition home or self-care (01) ==
LOC: EDH 20:31
DX: S60.222A Contusion of left hand, initial encounter (principal); X58.XXXA Exposure to other specified factors, initial encounter; Y93.89 Activity, other specified; Y92.89 Other specified places as the place of occurrence of the external cause; Y99.8 Other external cause status; I10 Essential (primary) hypertension; E11.9 Type 2 diabetes mellitus without complications; E78.00 Pure hypercholesterolemia, unspecified; E03.9 Hypothyroidism, unspecified; Z90.49 Acquired absence of other specified parts of digestive tract; Z79.82 Long term (current) use of aspirin; Z79.899 Other long term (current) drug therapy; Z98.890 Other specified postprocedural states
CPT/HCPCS: 73130

== ENCOUNTER 2022-08-07 07:17 | Day surgery (SDC) | payer OTHER, MEDICARE ==
[2022-08-07] VITALS (18 sets, daily range): BP systolic 115–184; BP diastolic 36–90
[~2022-08-07] VITALS: Ht 154.9 cm; Wt 97.3 kg
[~2022-08-07 07:17] MED LIST changes: -ROSU20TA31 PO; +ROSU20TA73 PO
[2022-08-07 08:10] LABS: HEMATOCRIT 31.9 % (36-48); MEAN CORPUSCULAR HEMOGLOBIN 33.1 pg (27.0-33.0); MEAN CORPUSCULAR HGB CONC 32.6 g/dL (32.0-36.0); MEAN CORPUSCULAR VOLUME 101.6 fL (79-99); RED BLOOD CELL COUNT(AUTO) 3.14 MIL/uL (4.00-5.50); RED CELL DISTRIBUTION WIDTH 12.9 % (11.0-15.5); WHITE BLOOD COUNT (AUTO) 7.2 K/uL (4.8-10.8)
[2022-08-07 08:21] LABS: CREATININE 3.3 mg/dL (0.5-1.5); POTASSIUM 4.9 mmol/L (3.5-5.1)
[2022-08-07 08:24] LABS: INR 0.98 (0.85-1.15); PROTHROMBIN TIME 10.7 SEC (9.6-11.6)
[2022-08-07 08:25] LABS: PARTIAL THROMBOPLASTIN TIME 29.2 SEC (26.3-35.5)
[2022-08-07] MEDS ORDERED: CEFAZOLIN SODIUM 2 GM VIAL ONE (08:46)
[2022-08-07] MEDS ORDERED: AMLO-258 PO (09:18)
[2022-08-07] MEDS ORDERED: FOLI0.8T2 PO (09:18)
[2022-08-07] MEDS ORDERED: ISOS30TA92 PO (09:18)
[2022-08-07] MEDS ORDERED: HYDR200T75 PO (09:18)
[2022-08-07] MEDS ORDERED: ASPI-1197 PO (09:18)
[2022-08-07] MEDS ORDERED: LINA5TAB PO (09:18)
[2022-08-07] MEDS ORDERED: HYDR100T27 PO (09:18)
[2022-08-07] MEDS ORDERED: ROSU20TA73 PO (09:18)
[2022-08-07] MEDS ORDERED: LEVO88CA4 PO (09:18)
[2022-08-07] MEDS ORDERED: CARV3.12 PO (09:18)
[2022-08-07] MEDS ORDERED: CLON0.1T PO (09:18)
[2022-08-07] MEDS ORDERED: GABA-529 PO (09:18)
[2022-08-07] MEDS ORDERED: SUCCINYLCHOLINE CHLORIDE 20 MG/ML 10 ML VIAL ONE (09:21)
[2022-08-07] MEDS ORDERED: DEXAMETHASONE SOD PHOSPHATE 10MG/ML 1ML VIAL ONE (09:21)
[2022-08-07] MEDS ORDERED: LIDOCAINE PF 100MG/5ML (2%) SYRINGE 5ML ONE (09:21)
[2022-08-07] MEDS ORDERED: PROPOFOL 10 MG/ML 20ML VIAL IV ONE (09:22)
[2022-08-07] MEDS ORDERED: GLYCOPYRROLATE 1 MG/5 ML SYRINGE ONE (09:22)
[2022-08-07] MEDS ORDERED: NEOSTIGMINE 5MG/5ML SYR IV ONE (09:22)
[2022-08-07] MEDS ORDERED: ROCURONIUM 10MG/1ML SYR 10 MG/ML ML ONE ×2 (09:22→09:54)
[2022-08-07] MEDS ORDERED: ONDANSETRON 4MG INJ ONE ×2 (09:22→11:10)
[2022-08-07] MEDS ORDERED: FENTANYL CITRATE PF 50 MCG/1 ML 2ML VIAL ONE (09:22)
[2022-08-07] MEDS ORDERED: PHENYLEPHRINE HCL 10 MG/ML 1ML VIAL IV ONE (09:23)
[2022-08-07] MEDS ORDERED: EPHEDRINE SULFATE 50 MG/ML AMPULE ONE (09:32)
[2022-08-07] MEDS ORDERED: ATROPINE 1MG SYG IVP ONE (09:33)
[2022-08-07] MEDS ORDERED: CEFAZOLIN SODIUM 1 GM VIAL ONE (09:39)
[2022-08-07] MEDS ORDERED: BUPIVACAINE/PF 0.5% 10ML VIAL ONE (10:18)
[2022-08-07] MEDS ORDERED: BUPIVACAINE/PF 0.25% 30ML VIAL IJ ONE (10:18)
[2022-08-07] MEDS ORDERED: LIDOCAINE HCL-MPF 2% 10ML AMP IJ ONE (10:20)
[2022-08-07] MEDS ORDERED: LIDOCAINE HCL 1% 10 ML VIAL ONE (10:22)
[2022-08-07] MEDS ORDERED: SUGAMMADEX SODIUM 200 MG/2 ML VIAL IV ONE (10:24)
[2022-08-07] MEDS ORDERED: GLYCOPYRROLATE 0.2 MG/ML 5 ML VIAL ONE (11:21)
== END 2022-08-07 11:35 | disposition home or self-care (01) ==
LOC: DAH 07:17
PROVIDERS: ATTEND Thoracic Surgery (Cardiothoracic Vascular Surgery)
DX: E11.22 Type 2 diabetes mellitus with diabetic chronic kidney disease (principal); Z20.822 Contact with and (suspected) exposure to COVID-19; I12.0 Hypertensive chronic kidney disease with stage 5 chronic kidney disease or end stage renal disease; N18.6 End stage renal disease; E03.9 Hypothyroidism, unspecified; E66.01 Morbid (severe) obesity due to excess calories; E78.5 Hyperlipidemia, unspecified; I49.1 Atrial premature depolarization; Z99.2 Dependence on renal dialysis; Z98.890 Other specified postprocedural states; Z90.49 Acquired absence of other specified parts of digestive tract; Z79.899 Other long term (current) drug therapy; Z79.82 Long term (current) use of aspirin; Z68.38 Body mass index [BMI] 38.0-38.9, adult; Z79.01 Long term (current) use of anticoagulants
CPT/HCPCS: 36821; 80048; 85027; 85610; 85730; 86850; 86900; 86901; 82948 ×2; 87426; 36415; 71045; 93005; A4663; A6207; J7030; J0690 ×2; J3490 ×6; J1100; J2710; J0330; J2001; J0461; J2704; J2405 ×2; J1644; J2370; A4649 ×2; C1713 ×2; A4930 ×2; A4215; A4223; A4222; A4221; J3010

== ENCOUNTER 2024-02-14 16:27 | Emergency (ER) | payer OTHER, MEDICARE ==
[~2024-02-14] VITALS: Ht 157.5 cm; Wt 106.6 kg
[~2024-02-14 16:27] MED LIST changes: -AEC81 PO; -ALBUHFA IH; -AMLO-257 PO; +AMLO-258 PO; +ASPI-1197 PO; -CALC0.253 PO; +CLON0.1T PO; -COLC0.6T73 PO; -FERR-72 PO; +FOLI0.8T2 PO; +HYDR100T15 PO; -HYDR100T27 PO; +HYDR200T75 PO; -ROSU20TA73 PO; +ROSU20TA98 PO
--- NOTE | 2024-02-14 16:38 | ERN ---
ED Note History of Present Illness Stated Complaint: BODYACHES Chief Complaint: Flu Symptoms Time Seen by MD: 16:29 Dictation: PATIENT IS A 73-YEAR-OLD FEMALE COMING IN WITH FEVER CHILLS COUGH AND BODY ACHES ONSET THIS MORNING. SHE WAS AT HEMODIALYSIS AND HAD COMPLETED HER HEMODIALYSIS, WHEN SHE STARTED HAVING THE CHILLS AND AN EMS UNIT WAS CALLED TO TRANSPORT HER TO [facility] [place]. SHE DENIES NAUSEA VOMITING NO DIARRHEA NO LOSS OF TASTE OR SMELL. Allergies: Coded Allergies: No Known Drug Allergies (Unverified Allergy, Unknown, 10/20/14) Home Meds Reported Medications Isosorbide Mononitrate (Isosorbide Mononitrate ER) 30 Mg Tab.er.24h, 30 MG PO DAILY, TAB 08/07/22 Amlodipine Besylate (Amlodipine Besylate) 10 Mg Tablet, 10 MG PO DAILY for 30 Days, #30 TAB 0 Refills 08/07/22 Clonidine HCl (Clonidine HCl) 0.1 Mg Tablet, 0.1 MG PO BID, TAB 08/07/22 Carvedilol (Carvedilol) 3.125 Mg Tablet, 3.125 MG PO BID, TAB 08/07/22 Hydralazine HCl (Hydralazine HCl) 100 Mg Tablet, 100 MG PO TID, TAB 08/07/22 Aspirin (Aspirin) 81 Mg Tab.chew, 81 MG PO DAILY, TAB.CHEW 08/07/22 Folic Acid/Vitamin B Comp W-C (Nephro-Eric Tablet) 0.8 Mg Tablet, 0.8 MG PO DAILY, TAB 08/07/22 Rosuvastatin Calcium (Rosuvastatin Calcium) 20 Mg Tablet, 20 MG PO HS, TAB 08/07/22 Linagliptin (Tradjenta) 5 Mg Tablet, 5 MG PO DAILY, TAB 08/07/22 Hydroxychloroquine Sulfate (Hydroxychloroquine Sulfate) 200 Mg Tablet, 200 MG PO DAILY, TAB 08/07/22 Gabapentin (Gabapentin) 100 Mg Capsule, 100 MG PO DAILY, CAP 08/07/22 Levothyroxine Sodium (Levothyroxine) 88 Mcg Capsule, 88 MCG PO DAILY, CAP 08/07/22 Past Medical History Past Medical History: Anemia, Diabetes-Type II, Hypertension, Hypothyroid, Renal Disese, Renal Failure Additional Past Medical Hx: DIALYSIS TUES,THURS,SAT Surgical History: LAVA Surgical History Other: DIALYSIS SHUNT/PORT TO CHEST Social History: Negative, Other RN Note Reviewed/Agreed w/PFSH: Yes Review of System Dictation CONSTITUTIONAL: NEGATIVE EXCEPT FOR HPI FEVER CHILLS HEAD/FACE: NEGATIVE EXCEPT FOR HPI EENT: NEGATIVE EXCEPT FOR HPI RESPIRATORY: NEGATIVE EXCEPT FOR HPI GASTROINTESTINAL/ABDOMINAL: NEGATIVE EXCEPT FOR HPI GENITOURINARY: NEGATIVE EXCEPT FOR HPI MUSCULOSKELETAL: NEGATIVE EXCEPT FOR HPI MALAISE INTEGUMENTARY: NEGATIVE EXCEPT FOR HPI NEUROLOGICAL/PSYCH: NEGATIVE EXCEPT FOR HPI HEMATOLOGIC/LYMPHATIC: NEGATIVE EXCEPT FOR HPI ALL SYSTEMS NEGATIVE, EXCEPT NOTED ABOVE. 13 POINT REVIEW OF SYSTEMS ASSESSED AND ALL NEGATIVE EXCEPT FOR ABOVE. Initial Vital Sign VS Vital Signs Date Time Temp Pulse Resp B/P (MAP) Pulse Ox O2 Delivery O2 Flow Rate FiO2 02/14/24 16:28 98.2 75 18 125/65 98 Room Air 0 02/14/24 16:41 21 Physical Exam Dictation VITAL SIGNS REVIEWED GENERAL APPEARANCE: ALERT, ORIENTED X 3, MY ACUTE DISTRESS, WELL DEVELOPED, NOURISHED. HEAD AND FACE: NON-TRAUMATIC. EYES: PERRL, PINK CONJUNCTIVAS, EYELID NO TRAUMA, ANTERIOR CHAMBER WITH ARCUS SENILIS. EARS: PINNAS INTACT AND NO SIGNS OF TRAUMA OR ERYTHEMA EAR CANALS CLEAR AND NO DISCHARGE TM NO ERYTHEMA NOSE: N CLEAR DISCHARGE, NO BLEEDING. OROPHARYNX: MOUTH NORMAL, TONGUE PINK, PHARYNX CLEAR, MILD PHARYNGEAL ERYTHEMA, TONSILS NO EXUDATES, NO ABSCESSES NOTED, MUCOUS MEMBRANE MOIST UVULA MIDLINE, VOICE IS CLEAR NECK: SUPPLE, NON-TENDER, NO THYROMEGALY, NO MASSES, NO JVD, NO BRUITS BREAST:DEFERRED CHEST:NO TENDERNESS, NO CREPITUS, NO PARADOXICAL MOVEMENT, NO RETRACTIONS LUNGS:CLEAR, WELL-VENTILATED, SYMMETRIC, NO RALES, NO WHEEZING, NO RHONCHI, NO STRIDOR, GOOD BREATH SOUNDS BILATERALLY HEART: REGULAR RATE, REGULAR RHYTHM, NO MURMUR, NO GALLOPS VASCULAR: NO PERIPHERAL EDEMA, LEFT ARM FISTULA WITH A GOOD THRILL AND BRUIT ABDOMEN: SOFT, POSITIVE BOWEL SOUNDS, NONDISTENDED, NO GUARDING, NONTENDER, NO REBOUND, NO MASSES NO HEPATOMEGALY, NO SPLENOMEGALY, NO MARCIAL'S SIGN, NO HERNIAS. RECTAL: DEFERRED GENITAL: DEFERRED NEUROLOGICAL: NORMAL SPEECH, MOTOR FUNCTION INTACT, SENSORY FUNCTION INTACT MUSCULOSKELETAL: NECK NONTENDER, FULL RANGE OF MOTION, BACK NONTENDER, FULL RANGE OF MOTION, EXTREMITIES: NONTENDER, FULL RANGE OF MOTION SKIN: COLOR PINK, DRY, NO TURGOR, NO RASH, NO LACERATIONS, NO ABRASIONS, NO CONTUSIONS. LYMPHATIC: DEFERRED Results (Laboratory/Radiology) Laboratory/Radiology Laboratory Tests Test 02/14/24 16:51 02/14/24 16:57 White Blood Count 8.5 K/uL (4.8-10.8) Red Blood Count 3.32 MIL/uL (4.00-5.50) L Hemoglobin 11.7 g/dL (12.0-16.0) L Hematocrit 33.8 % (36-48) L Mean Corpuscular Volume 101.8 fL (79-99) H Mean Corpuscular Hemoglobin 35.2 pg (27.0-33.0) H Mean Corpuscular Hemoglobin Concent 34.6 g/dL (32.0-36.0) Red Cell Distribution Width 12.4 % (11.0-15.5) Platelet Count 156 K/uL (130-400) Mean Platelet Volume 9.8 fL (7.5-10.5) Immature Granulocyte % (Auto) 0.5 % (0-1) Neutrophils (%) (Auto) 90.1 % (40.0-77.0) H Lymphocytes (%) (Auto) 5.3 % (21.0-51.0) L Monocytes (%) (Auto) 2.6 % (3.0-13.0) L Eosinophils (%) (Auto) 1.1 % (0.0-8.0) Basophils (%) (Auto) 0.4 % (0.0-5.0) Neutrophils # (Auto) 7.6 K/uL (1.8-7.7) Lymphocytes # (Auto) 0.5 K/uL (1.0-4.8) L Monocytes # (Auto) 0.2 K/uL (0.1-1.0) Eosinophils # (Auto) 0.09 K/uL (0.00-0.70) Basophils # (Auto) 0.03 K/uL (0.00-0.20) Absolute Immature Granulocyte (auto 0.04 K/uL (0-1) Nucleated Red Blood Cells 0.0 % (0.0-0.19) White Cell Morphology Comment See comments Sodium Level 142 mmol/L (136-145) Potassium Level 3.6 mmol/L (3.5-5.1) Chloride Level 102 mmol/L (101-111) Carbon Dioxide Level 31 mmol/L (21-32) Blood Urea Nitrogen 31 mg/dL (7-18) H Creatinine 3.4 mg/dL (0.5-1.0) H Glomerular Filtration Rate Calc 14 mL/min (>90) Random Glucose 141 mg/dL (70-105) H Lactic Acid Level 1.9 mmol/L (0.8-2.5) Total Calcium 8.1 mg/dL (8.5-10.1) L Troponin I High Sensitivity 16 ng/L (4-50) Influenza Type A Antigen Negative For Type A Influenza Type B Antigen Negative For Type B SARS-CoV-2 Antigen (Rapid) PRESUMPTIVE NEGATIVE SERVICE 1634 REASON: SOB/COUGH ORDERING PHYSICIAN: CARISSA REYES 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 FINDINGS: Lungs are clear. The cardiac size is enlarged but stable. The bony structures are within normal limits. IMPRESSION: Stable cardiomegaly. Labs Reviewed?: Yes ED Course ED Course Orders Procedure Category Date Status Time Blood Cult YANG 02/14/24 In Process 16:34 Lactic Acid LAB 02/14/24 Complete 16:34 Covid19 (Sars Antigen LAB 02/14/24 Complete Rapid) 16:34 Influenza Type A & B, LAB 02/14/24 Complete Rapid 16:34 Cbc With Differential LAB 02/14/24 Complete 16:34 Troponin I High LAB 02/14/24 Complete Sensitivity 16:34 12 Lead Ekg Tracing- EKG 02/14/24 Logged Technical 16:34 Chest 1vw RAD 02/14/24 Resulted 16:34 Basic Metabolic Panel LAB 02/14/24 Complete 16:34 Acetaminophen 500mg PHA 02/14/24 Complete Tab (Tylenol 500mg T 17:00 Urinalysis Profile LAB 02/14/24 Logged 16:34 Current Medications Medications (Trade) Dose Ordered Sig/Brandon Route PRN Reason Start Time Stop Time Status Last Admin Dose Admin Acetaminophen (TYLenol 500MG TAB) 1,000 mg ONCE ONCE PO 02/14/24 17:00 02/14/24 17:01 DC 02/14/24 16:48 Vital Signs Date Time Temp Pulse Resp B/P (MAP) Pulse Ox O2 Delivery O2 Flow Rate FiO2 02/14/24 18:13 99.0 67 23 120/42 93 Room Air* 0 21 02/14/24 17:01 99.3 73 22 122/43 94 Room Air* 0 21 02/14/24 16:48 100.8 02/14/24 16:41 100.8 80 12 175/50 96 Room Air* 0 21 02/14/24 16:28 98.2 75 18 125/65 98 Room Air 0 EIGHTEEN 50, PATIENT IS HEMODYNAMICALLY STABLE AFEBRILE. NO LABS X-RAY ETC. TO SUPPORT ADMISSION DIAGNOSIS WILL BE VIRAL SYNDROME PATIENT WILL BE DISCHARGED HOME TO FOLLOW UP WITH HER PRIMARY CARE DOCTOR IN THE NEXT 1-2 DAYS. Medical Decision Making MDM MDM: DIFFERENTIAL DIAGNOSIS: PNEUMONIA/BRONCHITIS/COVID SYNDROME/INFLUENZA/VIRAL SYNDROME/ELECTROLYTE IMBALANCE/DEHYDRATION/CHF RATIONALE: TESTS CONSIDERED AND ORDERED SECONDARY TO SHARED DECISION MAKING INCLUDE: EKG/LABS/RADIOLOGY/SWABS PREVIOUS OUTSIDE RECORDS REVIEWED: OLD ER VISITS. REVIEWED RISK OF COMPLICATION AND/OR MORBIDITY OR MORTALITY OF PATIENT MANAGEMENT: NONE MEDICATIONS-PER MEDICATION RECONCILIATION SEE NURSE'S NOTES NEED FOR HOSPITALIZATION: PATIENT DOES NOT MEET CRITERIA FOR HOSPITALIZATION. NO CRITERIA AT THIS TIME NEED FOR EMERGENCY MAJOR/MINOR SURGERY: NO THERE ARE NO SOCIAL CONCERNS WITH THIS PATIENT. PRESCRIPTION DRUG MANAGEMENT NONE PRESCRIPTIONS WILL INCLUDE SYMPTOMATIC CARE PATIENT'S PRIOR EXTERNAL MEDICAL RECORDS FROM OTHER ER VISITS WERE REVIEWED BY ME INDICATED. PRIOR TESTING AND RESULTS FROM PREVIOUS VISITS WERE REVIEWED. PRIOR TESTS WERE TAKEN INTO ACCOUNT WITH MEDICAL DECISION MAKING AND RESOURCE UTILIZATION, INDEPENDENT HISTORIAN/HISTORIANS WERE USED TO OBTAIN COMPLETE MEDICAL HISTORY. I INDEPENDENTLY INTERPRETED THE TEST THAT WERE PERFORMED, RESULTS WERE REVIEWED BY ME AND CONSIDERED FINDINGS ON RADIOLOGY IF ORDERED. MEDICAL MANAGEMENT AND EXAMINATION INTERPRETATION DISCUSSIONS WERE HAD BY ME WITH OTHER QUALIFIED HEALTHCARE PROFESSIONALS INDICATED FOR THE PATIENT'S CARE. DX & DISP Disposition: Discharge Departure Impression: Primary Impression: Viral syndrome Additional Impressions: ESRD (end stage renal disease) on dialysis, Anemia, chronic renal failure Condition: Stable Additional Instructions: FOLLOW-UP WITH PRIMARY CARE PROVIDER IN 1 TO 2 DAYS. TAKE MEDICATIONS DIRECTED HERE IN THE EMERGENCY ROOM. OKAY TO CONTINUE HOME MEDICATIONS UNLESS OTHERWISE DISCUSSED DURING YOUR VISIT IN THE EMERGENCY ROOM TODAY. RETURN TO YOUR NEAREST EMERGENCY ROOM IF SYMPTOMS WORSEN OR IF THERE IS NO IMPROVEMENT. CALL 911 IF YOU NEED IMMEDIATE ASSISTANCE. TAKE TYLENOL OR MOTRIN [id number] NEEDED AND IF NO CONTRAINDICATIONS ARE PRESENT. INCREASE OR AL HYDRATION. A WOUND CULTURE OR URINE CULTURE WAS ORDERED HERE IN THE EMERGENCY ROOM DEPARTMENT PLEASE FOLLOW-UP WITH PRIMARY CARE PROVIDER AND ADVISE THEM TO GET REPEAT PORTS FROM OUR FACILITY. IF YOU HAD ANY JENNY WRAP/SPLINTS THAT WERE APPLIED HERE, PLEASE DO NOT REMOVE THEM UNTIL YOU SEE YOUR PRIMARY CARE OR SPECIALTY. DIET AND ACTIVITY TOLERATED. SEE YOUR PRIMARY CARE DOCTOR ON FRIDAY FOR FOLLOW UP Referrals: AFR[facility] PACE M.D. (PCP) Time of Disposition: 18:55 I have reviewed the case, and I agree with, Diagnosis and Plan CARISSA REYES NP Feb 14, 2024 16:38
[2024-02-14] MEDS: acetaMINOPHEN 500 MG TABLET PO ONE (16:48)
--- NOTE | 2024-02-14 16:49 | NUR ---
PATIENT IS EXTREMELY WEAK AND ONLY VOIDS THREE TO FOUR TIMES A DAY.
[2024-02-14 17:08] LABS: BASOPHILS # (AUTO) 0.03 K/uL (0.00-0.20); BASOPHILS % (AUTO) 0.4 % (0.0-5.0); EOSINOPHILS # (AUTO) 0.09 K/uL (0.00-0.70); EOSINOPHILS % (AUTO) 1.1 % (0.0-8.0); HEMATOCRIT 33.8 % (36-48); IMMATURE GRANULOCYTE ABSOLUTE 0.04 K/uL (0-1); LYMPHOCYTES # (AUTO) 0.5 K/uL (1.0-4.8); LYMPHOCYTES % (AUTO) 5.3 % (21.0-51.0); MEAN CORPUSCULAR HEMOGLOBIN 35.2 pg (27.0-33.0); MEAN CORPUSCULAR HGB CONC 34.6 g/dL (32.0-36.0); MEAN CORPUSCULAR VOLUME 101.8 fL (79-99); MONOCYTES # (AUTO) 0.2 K/uL (0.1-1.0); MONOCYTES % (AUTO) 2.6 % (3.0-13.0); NEUTROPHILS # (AUTO) 7.6 K/uL (1.8-7.7); NEUTROPHILS % (AUTO) 90.1 % (40.0-77.0); PLATELET COUNT (AUTO) 156 K/uL (130-400); RED BLOOD CELL COUNT(AUTO) 3.32 MIL/uL (4.00-5.50); RED CELL DISTRIBUTION WIDTH 12.4 % (11.0-15.5); WHITE BLOOD COUNT (AUTO) 8.5 K/uL (4.8-10.8)
[2024-02-14 17:18] LABS: CREATININE 3.4 mg/dL (0.5-1.0); POTASSIUM 3.6 mmol/L (3.5-5.1)
[2024-02-14 17:20] LABS: COVID19 (SARS ANTIGEN RAPID) PRESUMPTIVE NEGATIVE (NEGATIVE)
[2024-02-14 17:21] LABS: INFLUENZA TYPE A Negative For Type A (NEGATIVE); INFLUENZA TYPE B Negative For Type B (NEGATIVE)
[2024-02-14 17:27] VITALS: TEMP 99.4
[2024-02-14 18:13] VITALS: TEMP 99
--- NOTE | 2024-02-14 18:33 | NUR ---
PLACED PATIENT ON BED [place]ARSON AND WAS UNABLE TO VOID. WILL ATTEMPT TO COLLECT AGAIN AT LATER TIME.
--- NOTE | 2024-02-14 18:44 | HMCIMG ---
CHEST 1VW CLINICAL HISTORY: SOB/COUGH COMPARISON: 08/07/2022 TECHNIQUE: Single view of the chest was obtained. FINDINGS: Lungs are clear. The cardiac size is enlarged but stable. The bony structures are within normal limits. IMPRESSION: Stable cardiomegaly.
[2024-02-14 18:58] VITALS: BP 120/47; PULSE 65; RESP 20; O2SAT 97
--- NOTE | 2024-02-15 17:20 | EKG ---
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1950 Requested By: CARISSA REYES Order Number: [id number] Reading MD: Ryan Mcdonough Measurements Intervals [place] Rate: 80 P: 8 AK: 123 QRS: 21 QRSD: 102 T: 84 QT: 411 QTc: 457 Interpretive Statements Sinus rhythm Multiform ventricular premature complexes Low voltage, precordial leads Consider anterior infarct Compared to ECG 05/16/2023 07:38:42 Ventricular premature complex(es) now present Low QRS voltage now present Myocardial infarct finding now present Atrial premature complex(es) no longer present Electronically Signed On 02-15-2024 17:43:02 CUTTING AND CREASING PRESS OPERATOR by Ryan Mcdonough Please click the below link to view image of tracing.
== END 2024-02-14 19:19 | disposition home or self-care (01) ==
LOC: EDH 16:27
DX: B34.9 Viral infection, unspecified (principal); E11.22 Type 2 diabetes mellitus with diabetic chronic kidney disease; I12.0 Hypertensive chronic kidney disease with stage 5 chronic kidney disease or end stage renal disease; N18.6 End stage renal disease; D63.1 Anemia in chronic kidney disease; E03.9 Hypothyroidism, unspecified; Z20.822 Contact with and (suspected) exposure to COVID-19; Z79.82 Long term (current) use of aspirin; Z79.84 Long term (current) use of oral hypoglycemic drugs; Z79.890 Hormone replacement therapy; Z79.899 Other long term (current) drug therapy; Z99.2 Dependence on renal dialysis
CPT/HCPCS: 36415; 71045; 80048; 83605; 84484; 85025; 87040; 87426; 87804; 93005; 99285

== ENCOUNTER 2024-02-17 21:12 | Inpatient (IN) | payer OTHER, MEDICARE ==
[~2024-02-17] VITALS: Ht 152.4 cm; Wt 90.6 kg
[2024-02-17 21:36] LABS: RAPID GROUP A STREP negative (NEGATIVE)
--- NOTE | 2024-02-17 21:42 | ERN ---
ED Note History of Present Illness Stated Complaint: GENERAL WEAKNESS Chief Complaint: General Complaint Time Seen by MD: 21:19 Time Seen by Midlevel: 21:19 Dictation: The patient is a 73-year-old female with a history of diabetes, ESRD on dialysis, last dialysis today, cholecystectomy who presents to the emergency department with complaints of generalized body weakness, bilateral flank pain, nausea, right upper abdominal pain onset two days ago. Patient reported occasional burning urination. Denies any known fever but patient was febrile in ER. Denies any cough, sore throat, ear pain. Denies hematuria. Allergies: Coded Allergies: No Known Drug Allergies (Unverified Allergy, Unknown, 10/20/14) Home Meds Reported Medications Isosorbide Mononitrate (Isosorbide Mononitrate ER) 30 Mg Tab.er.24h, 30 MG PO DAILY, TAB 08/07/22 Amlodipine Besylate (Amlodipine Besylate) 10 Mg Tablet, 10 MG PO DAILY for 30 Days, #30 TAB 0 Refills 08/07/22 Clonidine HCl (Clonidine HCl) 0.1 Mg Tablet, 0.1 MG PO BID, TAB 08/07/22 Carvedilol (Carvedilol) 3.125 Mg Tablet, 3.125 MG PO BID, TAB 08/07/22 Hydralazine HCl (Hydralazine HCl) 100 Mg Tablet, 100 MG PO TID, TAB 08/07/22 Aspirin (Aspirin) 81 Mg Tab.chew, 81 MG PO DAILY, TAB.CHEW 08/07/22 Folic Acid/Vitamin B Comp W-C (Nephro-Eric Tablet) 0.8 Mg Tablet, 0.8 MG PO DAILY, TAB 08/07/22 Rosuvastatin Calcium (Rosuvastatin Calcium) 20 Mg Tablet, 20 MG PO HS, TAB 08/07/22 Linagliptin (Tradjenta) 5 Mg Tablet, 5 MG PO DAILY, TAB 08/07/22 Hydroxychloroquine Sulfate (Hydroxychloroquine Sulfate) 200 Mg Tablet, 200 MG PO DAILY, TAB 08/07/22 Gabapentin (Gabapentin) 100 Mg Capsule, 100 MG PO DAILY, CAP 08/07/22 Levothyroxine Sodium (Levothyroxine) 88 Mcg Capsule, 88 MCG PO DAILY, CAP 08/07/22 Past Medical History Past Medical History: Diabetes-Type II, Heart Disease, Hypertension, Renal Disese Additional Past Medical Hx: DIALYSIS TUES,THURS,SAT Surgical History: LAVA Surgical History Other: DIALYSIS SHUNT/PORT TO CHEST Social History: Negative, Other RN Note Reviewed/Agreed w/PFSH: Yes Review of System Dictation Constitutional: Negative for ,chills, and weight loss positive for fever Eyes: Negative for injury, pain,redness, and discharge ENT: Negative for injury,pain or swelling Cardiovascular: Negative for chest pain, palpitations, and edema Respiratory: Negative for shortness of breath, cough, and wheezing, Abdomen/GI: Negative for vomiting, diarrhea, and constipation positive for abdominal pain, nausea Back: Negative for injury and pain : Negative for injury, bleeding and discharge positive for burning urination, flank pain MS/Extremity: Negative for injury and deformity Skin: Negative for rash, and discoloration Neuro: Negative for headache, weakness, numbness, tingling, and seizure Psych: Negative for suicide ideation, homicidal ideation, and hallucinations Initial Vital Sign VS Vital Signs Date Time Temp Pulse Resp B/P (MAP) Pulse Ox O2 Delivery O2 Flow Rate FiO2 02/17/24 21:13 101.1 72 18 144/50 97 Room Air 0 02/17/24 21:45 28 Physical Exam Dictation Vital Signs reviewed General Appearance: Alert, oriented x 3, no acute distress, well developed, nourished. Head and Face: non-traumatic. Eyes: PERRL, pink conjunctivas, eyelid no trauma, anterior chamber with arcus senilis. Ears: Pinnas intact and no signs of trauma or erythema ear canals clear and no discharge TM no erythema Nose: No discharge, no bleeding. Oropharynx: Mouth normal, tongue pink. pharynx clear,no erythema, tonsils no exudates, no abscesses noted, mucous membrane moist Neck: Supple, non-tender, no thyromegaly, no masses, no JVD, no bruits Breast:Deferred Chest:No tenderness, no crepitus, no paradoxical movement, no retractions Lungs:Clear, well-ventilated, symmetric, no rales, no wheezing, no rhonchi, no stridor, good breath sounds bilaterally Heart: Regular rate, regular rhythm, no murmur, no gallops Vascular: no peripheral edema, Abdomen: Soft, positive bowel sounds, nondistended, no guarding, Right upper quadrant tenderness, no rebound, no masses no hepatomegaly, no splenomegaly, no Serrano's sign, no hernias. Rectal: Deferred Genital: Deferred Neurological: Normal speech, motor function intact, sensory function intact Musculoskeletal: Neck nontender, full range of motion, back nontender, full range of motion, Extremities: nontender, full range of motion Skin: Color pink, dry, no turgor, no rash, no lacerations, no abrasions, no contusions. Lymphatic: Deferred Results (Laboratory/Radiology) Laboratory/Radiology Laboratory Tests Test 02/17/24 21:17 02/17/24 21:40 02/17/24 22:15 Influenza Type A Antigen Negative For Type A Influenza Type B Antigen Negative For Type B SARS-CoV-2 Antigen (Rapid) PRESUMPTIVE NEGATIVE Group A Streptococcus Rapid negative (NEGATIVE) White Blood Count 14.1 K/uL (4.8-10.8) H Red Blood Count 2.96 MIL/uL (4.00-5.50) L Hemoglobin 10.2 g/dL (12.0-16.0) L Hematocrit 29.9 % (36-48) L Mean Corpuscular Volume 101.0 fL (79-99) H Mean Corpuscular Hemoglobin 34.5 pg (27.0-33.0) H Mean Corpuscular Hemoglobin Concent 34.1 g/dL (32.0-36.0) Red Cell Distribution Width 12.4 % (11.0-15.5) Platelet Count 151 K/uL (130-400) Mean Platelet Volume 10.4 fL (7.5-10.5) Immature Granulocyte % (Auto) 0.8 % (0-1) Neutrophils (%) (Auto) 81.4 % (40.0-77.0) H Lymphocytes (%) (Auto) 7.0 % (21.0-51.0) L Monocytes (%) (Auto) 10.6 % (3.0-13.0) Eosinophils (%) (Auto) 0.0 % (0.0-8.0) Basophils (%) (Auto) 0.2 % (0.0-5.0) Neutrophils # (Auto) 11.4 K/uL (1.8-7.7) H Lymphocytes # (Auto) 1.0 K/uL (1.0-4.8) Monocytes # (Auto) 1.5 K/uL (0.1-1.0) H Eosinophils # (Auto) 0.00 K/uL (0.00-0.70) Basophils # (Auto) 0.03 K/uL (0.00-0.20) Absolute Immature Granulocyte (auto 0.11 K/uL (0-1) Nucleated Red Blood Cells 0.0 % (0.0-0.19) Sodium Level 138 mmol/L (136-145) Potassium Level 3.7 mmol/L (3.5-5.1) Chloride Level 99 mmol/L (101-111) L Carbon Dioxide Level 29 mmol/L (21-32) Blood Urea Nitrogen 31 mg/dL (7-18) H Creatinine 3.6 mg/dL (0.5-1.0) H Glomerular Filtration Rate Calc 13 mL/min (>90) Random Glucose 172 mg/dL (70-105) H Lactic Acid Level 2.3 mmol/L (0.8-2.5) Total Calcium 8.2 mg/dL (8.5-10.1) L Total Bilirubin 1.1 mg/dL (0.2-1.0) H Direct Bilirubin 0.5 mg/dL (0.0-0.3) H Aspartate Amino Transf (AST/SGOT) 35 U/L (10-37) Alanine Aminotransferase (ALT/SGPT) 49 U/L (12-78) Alkaline Phosphatase 282 U/L (50-136) H Troponin I High Sensitivity 29 ng/L (4-50) B-Type Natriuretic Peptide 1430 pg/mL (0-100) H Total Protein 7.3 g/dL (6.0-8.3) Albumin 2.9 g/dL (3.5-5.0) L Lipase 40 U/L (16-77) Procalcitonin 23.66 ng/mL (0.05-0.5) H Urine Color YELLOW (YELLOW) Urine Appearance CLOUDY (CLEAR) H Urine pH 6.0 (5.0-8.0) Urine Specific [place] 1.017 (1.001-1.031) Urine Protein 600 mg/dL (NEGATIVE) H Urine Glucose (UA) 200 mg/dL (NEGATIVE) H Urine Ketones NEGATIVE mg/dL (NEGATIVE) Urine Occult Blood SMALL (NEGATIVE) H Urine Nitrate NEGATIVE (NEGATIVE) Urine Bilirubin 0.5 mg/dL (NEGATIVE) H Urine Urobilinogen 2.0 mg/dL (0.2-1.0) H Urine Leukocyte Esterase NEGATIVE Fidelina/uL Urine RBC 0-1 /HPF (0-1) Urine WBC 2-5 /HPF (0-1) H Urine Squamous Epithelial Cells RARE /HPF (0-2) Urine Bacteria RARE /HPF (None Seen) REASON: bilateral flank pain, ruq pain ORDERING PHYSICIAN: TOM PATEL PROCEDURE: ABD PEL WO - CT ABDOMEN/PELVIS W/O CONTRAST CT ABDOMEN/PELVIS W/O CONTRAST HISTORY: Bilateral flank pain COMPARISON: 01/13/2016 TECHNIQUE: Multiple sequential axial images of the abdomen and pelvis were obtained from the dome of the diaphragm through symphysis pubis. Patient was not given contrast through intravenous route. Oral contrast was not given. FINDINGS: No pleural effusion is seen bilaterally. There is no evidence of parenchymal disease or pulmonary nodule of the visualized lower lungs. Degenerative changes of the thoracolumbar spine are present. The heart is not enlarged. There is 3.7 cm right hepatic nodule. Intrahepatic biliary air is seen. Postcholecystectomy changes are seen. There are bilateral renal cortical scarring. Bilateral renal vascular calcifications are seen. The liver, spleen, adrenal glands and pancreas are unremarkable. There is no evidence of hydronephrosis bilaterally. No evidence of renal stone is seen. There is diverticulosis. Fecal material is seen in the colon. There are normal size retroperitoneal and mesenteric lymph nodes. No ascites is seen. Atherosclerotic changes are present. Uterus is enlarged with calcifications suggestive of fibroid uterus. Pelvic sidewalls are symmetric bilaterally. Bladder is poorly distended. IMPRESSION: 1. There is 3.7 cm right hepatic mass with neoplastic process not excluded. Intrahepatic biliary air is seen with postcholecystectomy changes. Fibroid uterus. Diverticulosis. CT was performed with one or more following dose reduction techniques: automated exposure control, adjustment of the mA and kv according to patient's size, or use of a iterative reconstruction technique. Labs Reviewed?: Yes EKG: (+) rhythm (Sinus rhythm), (+) MS (130) EKG Comment: EKG 02/17/2024 2141 ventricular rate 73, regular rate and rhythm, normal sinus rhythm, no STEMI, Pac ED Course ED Course Orders Procedure Category Date Status Time Influenza Type A & B, LAB 02/17/24 Complete Rapid 21:19 Covid19 (Sars Antigen LAB 02/17/24 Complete Rapid) 21:19 Rapid (Group A Strep) LAB 02/17/24 Complete 21:19 Cbc With Differential LAB 02/17/24 Complete 21:33 Troponin I High LAB 02/17/24 Complete Sensitivity 21:33 Urinalysis Profile LAB 02/17/24 Complete 21:33 12 Lead Ekg Tracing- EKG 02/17/24 Logged Technical 21:33 Acetaminophen 325 Tab PHA 02/17/24 Complete (Tylenol 325mg Tab 22:00 Ondansetron 4mg Inj PHA 02/17/24 Complete (Zofran 4mg Inj) 22:00 Chest 1vw RAD 02/17/24 Taken 21:33 Lipase LAB 02/17/24 Complete 21:33 Basic Metabolic Panel LAB 02/17/24 Complete 21:33 Blood Cult YANG 02/17/24 In Process 21:33 B-Type Natriuretic LAB 02/17/24 Complete Peptide 21:33 Procalcitonin LAB 02/17/24 Complete 21:33 Lactic Acid LAB 02/17/24 Complete 21:33 Ceftriaxone 2gm Vial PHA 02/17/24 Complete (Rocephin 2gm Inj) 22:00 Hepatic Function Panel LAB 02/17/24 Complete 21:33 Ct Abdomen/Pelvis W/O CT 02/17/24 Resulted Contrast 21:38 Zosyn 3.375gm+Ns 50ml PHA 02/18/24 In Process (Zosyn 3.375gm+Ns 00:30 Vancomycin Protocol PHA 02/18/24 In Process (Vancomycin Protocol 00:30 Pharmacy PHA 02/18/24 Complete Communication 00:30 Pharmacy To Renal PHA 02/18/24 Complete Dose (Renal Dose) 00:08 Mrcp(Abdwwo)Cholangiopancreato MRI 02/18/24 Logged 00:08 Vital Signs Every 4 CPOE 02/18/24 Transmitted Hours 00:10 Daily Weights CPOE 02/18/24 Transmitted 00:10 I&O Q Shift CPOE 02/18/24 Transmitted 00:10 Activity: Bed Rest CPOE 02/18/24 Transmitted 00:10 Nothing By Mouth DIET 02/18/24 Transmitted Breakfast Albuterol 0.083% PHA 02/18/24 Logged 2.5mg/3ml (Proventil 00:30 Cbc With Differential LAB 02/19/24 Verified 04:00 Basic Metabolic Panel LAB 02/19/24 Verified 04:00 Magnesium LAB 02/19/24 Verified 04:00 Phosphorus LAB 02/19/24 Verified 04:00 Thyroid Stimulating LAB 02/19/24 Verified Hormone 04:00 Vancomycin Protocol PHA 02/18/24 Complete (Vancomycin Protocol 00:30 Acetaminophen 325 Tab PHA 02/18/24 Logged (Tylenol 325mg Tab 00:30 Lactulose 20 Gm/30 Ml PHA 02/18/24 Logged Udcup (Constulose 00:30 Ondansetron 4mg Inj PHA 02/18/24 Logged (Zofran 4mg Inj) 00:30 Hydralazine 20mg Inj PHA 02/18/24 In Process (Apresoline 20mg In 00:30 Labetalol 20mg Syg PHA 02/18/24 In Process (Trandate 20mg Syg) 00:30 Apply Scds CPOE 02/18/24 Transmitted 00:10 Turn Patient Q2hrs CPOE 02/18/24 Transmitted 00:10 Elevate Hob At 30 CPOE 02/18/24 Transmitted Degrees 00:10 Admit Orders ADM 02/18/24 Transmitted 00:10 Condition: CPOE 02/18/24 Transmitted 00:10 Telemetry Monitoring CPOE 02/18/24 Transmitted 00:10 Initiate PEDRO 02/18/24 In Process Hyperglycemia Protoco 00:10 Hydromorphone 0.5mg PHA 02/18/24 Logged Syg (Dilaudid 0.5mg 00:30 General Surgery CONPHYSVC 02/18/24 Transmitted Consult 00:18 Nephrology Consult CONPHYS 02/18/24 Transmitted 00:18 Vancomycin Level LAB 02/24/24 Verified 05:00 Vancomycin 1.75 PHA 02/18/24 In Process Gm/250 Ml Bag 01:30 Vancomycin 750mg PHA 02/19/24 In Process (Vancomycin 750mg) 16:00 Admit Orders ADM 02/18/24 Transmitted 00:25 Edm Admit Bridge Order ADM 02/18/24 Transmitted 00:25 Current Medications Medications (Trade) Dose Ordered Sig/Brandon Route PRN Reason Start Time Stop Time Status Last Admin Dose Admin Acetaminophen (TYLenol 325MG TAB) 650 mg ONCE ONCE PO 02/17/24 22:00 02/17/24 22:01 DC 12/10/24 22:29 Ceftriaxone Sodium (Rocephin 2gm Inj) 2 gm ONCE ONCE IVPB 02/17/24 22:00 02/17/24 22:01 DC 02/17/24 22:28 Ondansetron HCl (zoFRAN 4MG INJ) 4 mg ONCE ONCE IVP 02/17/24 22:00 02/17/24 22:01 DC 02/17/24 22:28 Vital Signs Date Time Temp Pulse Resp B/P (MAP) Pulse Ox O2 Delivery O2 Flow Rate FiO2 02/17/24 23:44 69 24 146/45 95 Nasal Cannula* 2 28 02/17/24 22:29 100.2 02/17/24 21:45 100.2 71 21 142/48 94 Nasal Cannula* 2 28 02/17/24 21:13 101.1 72 18 144/50 97 Room Air 0 Medical Decision Making MDM The patient is a 73-year-old female with a history of diabetes, ESRD on dialysis, last dialysis today, cholecystectomy who presents to the emergency department with complaints of generalized body weakness, bilateral flank pain, nausea, right upper abdominal pain onset two days ago. Patient reported occasional burning urination. Denies any known fever but patient was febrile in ER. Denies any cough, sore throat, ear pain. Denies hematuria. CBC showed leukocytosis, mild macrocytic anemia, chemistry showed elevated BNP, mild hypochloremia, elevated lactic acid, elevated procalcitonin, urinalysis cloudy with negative leukocyte esterase negative nitrites, slightly elevated bilirubin, CT abdomen showed 3.7 cm right hepatic mass, intrahepatic biliary air . Patient will be admitted for further management Differential diagnosis: Sepsis, UTI, COVID-19 infection, flu, electrolyte imbalance, pyelonephritis Comorbidities: Diabetes, ESRD on dialysis Tests considered and not ordered secondary to shared decision making include: none Previous outside records reviewed: none Risk of complication and/or morbidity or mortality of patient management: The patient meets criteria for admission. Need for emergency major/minor surgery: No There are no social concerns with this patient. I independently interpreted the tests I ordered (labs, urinalysis, etc.). I discussed the case with the hospitalist for admission. Jose Luis who accepts admission. I discussed the case with the following specialists: none. Historian: pateint. I independently interpreted imaging studies and EKGs that I ordered (US, CT, XR, EKG, etc.). External chart review: none. Medical management and examination interpretation discussions were had by me with other qualified healthcare professionals as indicated for the patient's care. DX & DISP Disposition: Inpatient Decision to Admit Date: Feb 18, 2024 Decision to Admit Time: 00:31 Departure Impression: Primary Impression: Sepsis Additional Impressions: Fever, Leukocytosis, ESRD (end stage renal disease) on dialysis, Elevated lactic acid level, Liver mass, Anemia, chronic renal failure, Hypochloremia Condition: Stable Referrals: GERBER HOLLIS (PCP) I have reviewed the case, and I agree with, Diagnosis and Plan TOM PATEL CERTIFIED REGISTERED NURSE PRACTITIONER Feb 17, 2024 21:42
[2024-02-17 21:45] LABS: INFLUENZA TYPE A Negative For Type A (NEGATIVE); INFLUENZA TYPE B Negative For Type B (NEGATIVE)
[2024-02-17 21:46] LABS: COVID19 (SARS ANTIGEN RAPID) PRESUMPTIVE NEGATIVE (NEGATIVE)
[2024-02-17 21:51] LABS: BASOPHILS # (AUTO) 0.03 K/uL (0.00-0.20); BASOPHILS % (AUTO) 0.2 % (0.0-5.0); HEMATOCRIT 29.9 % (36-48); IMMATURE GRANULOCYTE ABSOLUTE 0.11 K/uL (0-1); MEAN CORPUSCULAR HEMOGLOBIN 34.5 pg (27.0-33.0); MEAN CORPUSCULAR HGB CONC 34.1 g/dL (32.0-36.0); MONOCYTES # (AUTO) 1.5 K/uL (0.1-1.0); MONOCYTES % (AUTO) 10.6 % (3.0-13.0); NEUTROPHILS # (AUTO) 11.4 K/uL (1.8-7.7); NEUTROPHILS % (AUTO) 81.4 % (40.0-77.0); PLATELET COUNT (AUTO) 151 K/uL (130-400); RED BLOOD CELL COUNT(AUTO) 2.96 MIL/uL (4.00-5.50); RED CELL DISTRIBUTION WIDTH 12.4 % (11.0-15.5); WHITE BLOOD COUNT (AUTO) 14.1 K/uL (4.8-10.8)
[2024-02-17 22:07] LABS: CREATININE 3.6 mg/dL (0.5-1.0); POTASSIUM 3.7 mmol/L (3.5-5.1)
[2024-02-17 22:12] LABS: ALBUMIN 2.9 g/dL (3.5-5.0); B-TYPE NATRIURETIC PEPTIDE 1430 pg/mL (0-100); BILIRUBIN,DIRECT 0.5 mg/dL (0.0-0.3); BILIRUBIN,TOTAL 1.1 mg/dL (0.2-1.0); TOTAL PROTEIN, SERUM 7.3 g/dL (6.0-8.3)
--- NOTE | 2024-02-17 22:27 | HMCIMG ---
CT ABDOMEN/PELVIS W/O CONTRAST HISTORY: Bilateral flank pain COMPARISON: 01/13/2016 TECHNIQUE: Multiple sequential axial images of the abdomen and pelvis were obtained from the dome of the diaphragm through symphysis pubis. Patient was not given contrast through intravenous route. Oral contrast was not given. FINDINGS: No pleural effusion is seen bilaterally. There is no evidence of parenchymal disease or pulmonary nodule of the visualized lower lungs. Degenerative changes of the thoracolumbar spine are present. The heart is not enlarged. There is 3.7 cm right hepatic nodule. Intrahepatic biliary air is seen. Postcholecystectomy changes are seen. There are bilateral renal cortical scarring. Bilateral renal vascular calcifications are seen. The liver, spleen, adrenal glands and pancreas are unremarkable. There is no evidence of hydronephrosis bilaterally. No evidence of renal stone is seen. There is diverticulosis. Fecal material is seen in the colon. There are normal size retroperitoneal and mesenteric lymph nodes. No ascites is seen. Atherosclerotic changes are present. Uterus is enlarged with calcifications suggestive of fibroid uterus. Pelvic sidewalls are symmetric bilaterally. Bladder is poorly distended. IMPRESSION: 1. There is 3.7 cm right hepatic mass with neoplastic process not excluded. Intrahepatic biliary air is seen with postcholecystectomy changes. Fibroid uterus. Diverticulosis. CT was performed with one or more following dose reduction techniques: automated exposure control, adjustment of the mA and kv according to patient's size, or use of a iterative reconstruction technique.
[2024-02-17] MEDS: CEFTRIAXONE 2GM VIAL IVPB ONE (22:28)
[2024-02-17] MEDS: ondanSETRON 4MG INJ IVP ONE (22:28)
[2024-02-17] MEDS: acetaMINOPHEN 325 MG TAB PO ONE (22:29)
[2024-02-17 23:29] LABS: APPEARANCE,URINE CLOUDY (CLEAR); BILIRUBIN,URINE 0.5 mg/dL (NEGATIVE); COLOR,URINE YELLOW (YELLOW); GLUCOSE, URINE (UA) 200 mg/dL (NEGATIVE); KETONES,URINE NEGATIVE (NEGATIVE); LEUKOCYTE ESTERASE ,URINE NEGATIVE Leu/uL (NEGATIVE); NITRATE,URINE NEGATIVE (NEGATIVE); OCCULT BLOOD,URINE SMALL (NEGATIVE); PROTEIN,URINE 600 mg/dL (NEGATIVE)
[2024-02-17 23:34] LABS: ADD UA MICROSCOPIC YES
[2024-02-17 23:41] LABS: BACTERIA,URINE RARE /HPF (None Seen); MUCUS,URINE RARE LPF (None Seen); RBC,URINE 0-1 /HPF (0-1); SQUAMOUS EPITHELIAL CELL,UR RARE /HPF (0-2)
[2024-02-18] MEDS ORDERED: RENAL DOSE IV STA (00:08)
--- NOTE | 2024-02-18 00:18 | HP ---
[facility] HISTORY & PHYSICAL Date Patient Seen: Feb 18, 2024 Time of Visit: 0000 Supervising Physician: Dr. Andrew Costello ] Primary Care Physician: [Dr. Bret No ] Outpatient Specialists: [ Dr. Herrmann, nephro ]] Inpatient Consults: [Dr. Macias, surgery, Dr. Herrmann, nephro ] PROBLEM LIST: Sepsis-POA, at the time of admission source was unclear 3.7 cm right hepatic mass with neoplastic process not excluded. Intrahepatic biliary air is seen with postcholecystectomy changes-POA Hyperbilirubinemia, mild-POA ESRD HD TT HS Primary hypertension HLD Diabetes mellitus Plan -admit to med surge unit -keep patient NPO -obtain MRCP in a.m. -multimodal pain management -unable to start IV fluid resuscitation due to patient's dialysis status -start on IV Zosyn and vancomycin, deescalate as warranted -pending blood culture result -obtain tumor markers: CEA, AFP, CEA-19, CEA-125 -consulted surgery, Dr. Jones pending evaluation -daily weight -consult Dr. Herrmann in a.m. for dialysis management HPI: [PER ED NOTES: The patient is a 73-year-old female with a history of diabetes, ESRD on dialysis, last dialysis today, cholecystectomy who presents to the emergency department with complaints of generalized body weakness, bilateral flank pain, nausea, right upper abdominal pain onset two days ago. Patient re ported occasional burning urination. Denies any known fever but patient was febrile in ER. Denies any cough, sore throat, ear pain. Denies hematuria." [employer] services provided by bedside RN Greta. Daughter in-law was at bedside and claims that the patient has been suffering from nausea, fever and chills this past few days. She has also been verbalizing right upper abdominal pain for the past 5 months worsening this past 2 days. Today, while the patient was in dialysis, patient was getting more nauseous and weak that done dialysis nurse instructed her go to the ED for evaluation. Apparently, the patient was here 2 days ago but did not find any significant findings on her workup and so she was discharge from the ED. There was no CT abdomen done at that time. At the ED, her preliminary lab works were concerning for sepsis and ED practitioner was suspected that this was secondary to UTI so she was given IV Rocephin. CT abdomen pelvis 3.7 cm right hepatic mass with neoplastic process not excluded. Intrahepatic biliary air is seen with postcholecystectomy changes. According to the patient, her cholecystectomy was done in [facility] but it was so many years ago that she can not remember when. An immediate surgical consult was done with Dr. Jones and recommended to keep patient NPO and to perform a follow-up MRCP in a.m.. Physical assessment was unrevealing except for right upper quadrant swelling with severe tenderness signs of ischemia or peritonitis. PAST MEDICAL HX: see above PAST SURGICAL HX: noncontributory SOCIAL HISTORY: No tobacco, ETOH, or illicit drug use Coded Allergies: No Known Drug Allergies (Unverified Allergy, Unknown, 10/20/14) REVIEW OF SYSTEMS: 12 point ROS reviewed with patient. Pertinent positives mentioned above. Otherwise negative. PHYSICAL EXAM: GENERAL: alert, weak, awake oriented x 3 HEENT: EOMI, Sclera non icteric, moist mucosa NECK: Supple, no JVD, trachea midline LUNGS: Clear breath sounds bilaterally. No wheezes HEART: Regular rate and rhythm. Normal S1 and S2, without murmurs ABD: Abdomen soft but tender on RUQ. Bowel sounds present, RUQ is swollen, negative for ischemia or peritonitis EXT: No clubbing cyanosis or edema NEURO: Alert and oriented to person, follows commands Vital Signs (last 8hr) Date Time Temp Pulse Resp B/P (MAP) Pulse Ox O2 Delivery O2 Flow Rate FiO2 02/17/24 23:44 69 24 146/45 95 Nasal Cannula* 2 28 02/17/24 22:29 100.2 02/17/24 21:45 100.2 71 21 142/48 94 Nasal Cannula* 2 28 02/17/24 21:13 101.1 72 18 144/50 97 Room Air 0 LABS: Hematology Labs: Test 02/17/24 21:40 Range/Units White Blood Count 14.1 H 4.8-10.8 K/uL Red Blood Count 2.96 L 4.00-5.50 MIL/uL Hemoglobin 10.2 L 12.0-16.0 g/dL Hematocrit 29.9 L 36-48 % Mean Corpuscular Volume 101.0 H 79-99 fL Mean Corpuscular Hemoglobin 34.5 H 27.0-33.0 pg Mean Corpuscular Hemoglobin Concent 34.1 32.0-36.0 g/dL Red Cell Distribution Width 12.4 11.0-15.5 % Platelet Count 151 130-400 K/uL Mean Platelet Volume 10.4 7.5-10.5 fL Immature Granulocyte % (Auto) 0.8 0-1 % Neutrophils (%) (Auto) 81.4 H 40.0-77.0 % Lymphocytes (%) (Auto) 7.0 L 21.0-51.0 % Monocytes (%) (Auto) 10.6 3.0-13.0 % Eosinophils (%) (Auto) 0.0 0.0-8.0 % Basophils (%) (Auto) 0.2 0.0-5.0 % Neutrophils # (Auto) 11.4 H 1.8-7.7 K/uL Lymphocytes # (Auto) 1.0 1.0-4.8 K/uL Monocytes # (Auto) 1.5 H 0.1-1.0 K/uL Eosinophils # (Auto) 0.00 0.00-0.70 K/uL Basophils # (Auto) 0.03 0.00-0.20 K/uL Absolute Immature Granulocyte (auto 0.11 0-1 K/uL Nucleated Red Blood Cells 0.0 0.0-0.19 % Chemistry Labs: Test 02/17/24 21:40 Range/Units Sodium Level 138 136-145 mmol/L Potassium Level 3.7 3.5-5.1 mmol/L Chloride Level 99 L 101-111 mmol/L Carbon Dioxide Level 29 21-32 mmol/L Blood Urea Nitrogen 31 H 7-18 mg/dL Creatinine 3.6 H 0.5-1.0 mg/dL Glomerular Filtration Rate Calc 13 >90 mL/min Random Glucose 172 H 70-105 mg/dL Lactic Acid Level 2.3 0.8-2.5 mmol/L Total Calcium 8.2 L 8.5-10.1 mg/dL Total Bilirubin 1.1 H 0.2-1.0 mg/dL Direct Bilirubin 0.5 H 0.0-0.3 mg/dL Aspartate Amino Transf (AST/SGOT) 35 10-37 U/L Alanine Aminotransferase (ALT/SGPT) 49 12-78 U/L Alkaline Phosphatase 282 H 50-136 U/L Troponin I High Sensitivity 29 4-50 ng/L B-Type Natriuretic Peptide 1430 H 0-100 pg/mL Total Protein 7.3 6.0-8.3 g/dL Albumin 2.9 L 3.5-5.0 g/dL Lipase 40 16-77 U/L Procalcitonin 23.66 H 0.05-0.5 ng/mL DIAGNOSTICS / RADIOLOGY RESULTS: [ ] PLAN NEURO: Minimize central acting medications as possible. Maintain fall precautions, adequate lighting during the day PULMONARY: Supplemental 02 as needed. Maintain aspiration precautions at all times CARDIOVASCULAR: Follow hemodynamics. Vital signs per facility protocol GI & NUTRITION: Continue with nutritional support. Continue stool softeners and laxatives as needed. KIDNEYS & ELECTROLYTES: Strict monitoring of intake, output and overall fluid balance. Avoid nephrotoxic medications to the extent possible. Medications to be dosed according to renal function. Monitor electrolytes and replace as needed ENDOCRINE: Maintain blood glucose between 100-180 at all times. Hypoglycemia protocol in place INFECTIOUS DISEASE: Trend temperature, WBC and procalcitonin level Follow cultures, deescalate antibiotics as soon as possible. Panculture if new onset fever ONCOLOGY/HEMATOLOGY/COAGULATION: Monitor for s/s of bleeding Monitor hemoglobin, coagulation studies as needed SKIN: Pressure ulcer prevention per facility protocol Specialty mattress ORTHO/REHAB: Continue PT/OT Prophylaxis: Continue GI and DVT prophylaxis Code Status: Full Resuscitation Disposition: TBD Other: Total patient care time : 45 minutes STEPHEN VICENTE AGPCDAMON Feb 18, 2024 00:18
[2024-02-18] MEDS ORDERED: ALBUTEROL 0.083% 2.5 MG/3 ML INH IH PRN (00:30)
[2024-02-18] MEDS ORDERED: PHARMACY COMMUNICATION MISC SCH (00:30)
[2024-02-18] MEDS ORDERED: LAbetaLOL 20MG SYG IV PRN (00:30)
[2024-02-18] MEDS ORDERED: VANCOMYCIN PROTOCOL PER PHARMACY IV SCH ×2 (00:30)
[2024-02-18] MEDS ORDERED: hydrALAZine 20MG/ML VIAL IV PRN (00:30)
[2024-02-18] MEDS: ZOSYN 3.375GM +NS 50ML IV SCH (01:01)
[2024-02-18] MEDS: hydroMORPHone 0.5 MG SYG (0.5MG/0.5ML) IVP PRN (01:07)
--- NOTE | 2024-02-18 01:25 | NUR ---
PER CINTHIA SILVA HAS BEEN NOTIFIED ABOUT GEN SURGERY CONSULT
[2024-02-18] MEDS: VANCOMYCIN 1.75 GM/250 ML BAG 250 ML IV ONE (01:29)
[2024-02-18 02:05] VITALS: PULSE 64; RESP 18; O2SAT 93
[2024-02-18] MEDS ORDERED: BISA-151 PO (04:27)
[2024-02-18] MEDS ORDERED: LOSA100T59 PO (04:27)
[2024-02-18] MEDS ORDERED: DOXA1TAB2 PO (04:27)
[2024-02-18] MEDS ORDERED: FURO80TA3 PO (04:27)
[2024-02-18] MEDS ORDERED: CINA30TA5 PO (04:27)
--- NOTE | 2024-02-18 04:35 | NUR ---
MEDICATION RECONCILIATION DONE AT THIS TIME
[2024-02-18] MEDS: acetaMINOPHEN 650 MG SUPPOSITORY RC ONE (05:44)
--- NOTE | 2024-02-18 06:25 | EKG ---
[facility] Test Date: 2024-02-17 Test Time: 21:41:52 Pat Name: MADHAVI SABILLON Department: EDHIP Room: 330 Gender: F Jack Strip Assembler: [id number] : 1950 Requested By: TOM PATEL Order Number: [id number] Reading MD: Jose Luis Chan Measurements Intervals [place] Rate: 73 P: 23 DE: 130 QRS: 21 QRSD: 91 T: 84 QT: 414 QTc: 450 Interpretive Statements Sinus rhythm Atrial premature complex Low voltage, extremity leads Compared to ECG 02/14/2024 16:45:54 Atrial premature complex(es) now present Ventricular premature complex(es) no longer present Myocardial infarct finding no longer present Electronically Signed On 02-19-2024 14:00:07 KNITTED CLOTH EXAMINER by Jose Luis Chan Please click the below link to view image of tracing.
[2024-02-18 06:49] VITALS: PULSE 66; RESP 18; O2SAT 96
--- NOTE | 2024-02-18 07:04 | NUR ---
REPORT GIVEN TO MICHAEL JARQUIN AT THIS TIME
[2024-02-18 07:11] LABS: BASOPHILS # (AUTO) 0.02 K/uL (0.00-0.20); BASOPHILS % (AUTO) 0.2 % (0.0-5.0); EOSINOPHILS # (AUTO) 0.03 K/uL (0.00-0.70); EOSINOPHILS % (AUTO) 0.2 % (0.0-8.0); HEMATOCRIT 28.9 % (36-48); IMMATURE GRANULOCYTE ABSOLUTE 0.08 K/uL (0-1); LYMPHOCYTES # (AUTO) 1.4 K/uL (1.0-4.8); LYMPHOCYTES % (AUTO) 10.7 % (21.0-51.0); MEAN CORPUSCULAR HEMOGLOBIN 34.6 pg (27.0-33.0); MEAN CORPUSCULAR HGB CONC 33.6 g/dL (32.0-36.0); MEAN CORPUSCULAR VOLUME 103.2 fL (79-99); MONOCYTES # (AUTO) 1.4 K/uL (0.1-1.0); NEUTROPHILS # (AUTO) 9.8 K/uL (1.8-7.7); NEUTROPHILS % (AUTO) 77.3 % (40.0-77.0); PLATELET COUNT (AUTO) 141 K/uL (130-400); RED CELL DISTRIBUTION WIDTH 12.4 % (11.0-15.5); WHITE BLOOD COUNT (AUTO) 12.7 K/uL (4.8-10.8)
[2024-02-18 07:44] LABS: CREATININE 4.3 mg/dL (0.5-1.0)
[2024-02-18 07:48] LABS: ALBUMIN 2.5 g/dL (3.5-5.0); BILIRUBIN,DIRECT 0.6 mg/dL (0.0-0.3); MAGNESIUM 1.8 mg/dL (1.80-2.40); PHOSPHORUS 5.1 mg/dL (2.5-4.9); TOTAL PROTEIN, SERUM 6.7 g/dL (6.0-8.3)
--- NOTE | 2024-02-18 09:32 | HMCIMG ---
CHEST 1VW REASON: cp COMPARISON: 02/14/2024 FINDINGS: Single view of the chest was obtained. Lungs are clear. There is mild cardiac megaly, unchanged. There is no pulmonary vascular congestion. Mediastinum and bony thorax appear unremarkable. IMPRESSION: 1. Mild cardiomegaly, unchanged no acute finding.
--- NOTE | 2024-02-18 11:32 | NUR ---
SPOKE TO WES SKELTON BENCHMARK CLARIFIED ORDER, PT WILL HAVE MRCP PROCEDURE THIS MORNING, IS AWARE OF PT GFR, [facility].
--- NOTE | 2024-02-18 13:06 | NUR ---
[address] MANZO IS AWARE OF CONSULT WILL COME AND SEE PT.
[2024-02-18] MEDS ORDERED: GADOTERATE MEGLUMINE 10 MMOL/20 ML VIAL IV ONE (13:44)
--- NOTE | 2024-02-18 14:43 | HMCIMG ---
MRCP(ABDWWO)CHOLANGIOPANCREATO REASON: R/O ASCENDING CHOLANGITIS COMPARISON: CT abdomen and pelvis 02/17/2024 TECHNIQUE: Routine imaging protocol was performed. Images were also obtained pre and postgadolinium contrast infusion, 20 cc Clariscan IV. FINDINGS: There is a 3 x 3.4 cm fluid collection in the anterior segment of the right lobe of the liver, relatively high under the diaphragm. This has a short air-fluid level. There is peripheral contrast enhancement. Findings are consistent with a hepatic abscess. There are no other focal liver lesions. Portal and hepatic veins appear patent. Gallbladder is absent. There is a small amount of air in the biliary tree, probably from previous S sphincterotomy. Intrahepatic biliary tree does not appear distended. Common duct measures between 4 and 5 mm near the head of the pancreas. There is renal cortical thinning moderate in degree. There are small bilateral renal cysts. Spleen and pancreas appear normal. Pancreatic duct is not dilated. There are no focal fluid collections. There is no free air or fluid. Anterior abdominal wall appears intact. IMPRESSION: 1. 3 x 3.4 cm focal fluid collection in the anterior segment right lobe of the liver, with an air-fluid level, consistent with abscess. 2. Absent gallbladder 3. Moderate bilateral renal cortical thinning, there are also bilateral renal cysts.
--- NOTE | 2024-02-18 15:28 | NUR ---
DCP: HOME with current services Sw met with pt who lives alone in [facility]. Pt is a dialysis patient at [facility] at 2pm. Pt uses Medicaid transport to treatments. Pt's sister is her provider daily, to assist pt as needed with ADLS, home management and meal prep. Pt has a w/c, and shower chair. PCP is Camryn No and she uses [facility] for rx. Pt denies need for SNF, plans [place]. Addendum: 02/18/24 at 1534 by KYM LI SS Amended: Links added.
--- NOTE | 2024-02-18 16:29 | PN ---
[facility] PROGRESS NOTE Date Patient Seen: Feb 18, 2024 Time of Visit: 16:19 Supervising Physician: CLARENCE MONTIEL Primary Care Physician: [Dr. Bret No ] Outpatient Specialists: [ Dr. Herrmann, nephro ]] Inpatient Consults: [Dr. Macias, surgery, Dr. Herrmann, nephro ] PROBLEM LIST: Sepsis secondary to 3x3.4 Hepatic Abscess ESRD HD TT HS Chronic Congestive Diastolic Heart Failure , Echo 2022 EF of 65% Primary hypertension HLD Diabetes mellitus II Hg A1c of 7.2 % from 2019 INTERVAL HISTORY: Patient was this time is status post MRCP revealing findings consistent with a3 x 3.4 hepatic abscess. Leukocytosis is trending down. Procalcitonin is at 23.66, total bilirubin is now at 1.0, AST 34, ALT 48. Alkaline phosphatase remains elevated at 243. We have consulted General surgery as well as GI for further recommendations regarding abscess. At this time patient will continue with Zosyn, blood cultures have been drawn and pending. T-max of 101.1 overnight. Infectious disease physician will also be consulted. Medication bag at bedside reviewed and plan of care discussed with Her brother. REVIEW OF SYSTEMS: 12 point ROS reviewed with patient. Pertinent positives mentioned above. Otherwise negative. PHYSICAL EXAM: GENERAL: alert, weak, awake oriented x 3 HEENT: EOMI, Sclera non icteric, moist mucosa NECK: Supple, no JVD, trachea midline LUNGS: Clear breath sounds bilaterally. No wheezes HEART: Regular rate and rhythm. Normal S1 and S2, without murmurs ABD: Abdomen soft but tender on RUQ. Bowel sounds present, RUQ is swollen, negative for ischemia or peritonitis EXT: No clubbing cyanosis or edema NEURO: Alert and oriented to person, follows commands Vital Signs (last 8hr) Date Time Temp Pulse Resp B/P (MAP) Pulse Ox O2 Delivery O2 Flow Rate FiO2 02/18/24 10:22 100.6 61 13 131/42 97 Nasal Cannula* 2.0 N/A LABS: Hematology Labs: Test 02/18/24 06:53 Range/Units White Blood Count 12.7 H 4.8-10.8 K/uL Red Blood Count 2.80 L 4.00-5.50 MIL/uL Hemoglobin 9.7 L 12.0-16.0 g/dL Hematocrit 28.9 L 36-48 % Mean Corpuscular Volume 103.2 H 79-99 fL Mean Corpuscular Hemoglobin 34.6 H 27.0-33.0 pg Mean Corpuscular Hemoglobin Concent 33.6 32.0-36.0 g/dL Red Cell Distribution Width 12.4 11.0-15.5 % Platelet Count 141 130-400 K/uL Mean Platelet Volume 10.3 7.5-10.5 fL Immature Granulocyte % (Auto) 0.6 0-1 % Neutrophils (%) (Auto) 77.3 H 40.0-77.0 % Lymphocytes (%) (Auto) 10.7 L 21.0-51.0 % Monocytes (%) (Auto) 11.0 3.0-13.0 % Eosinophils (%) (Auto) 0.2 0.0-8.0 % Basophils (%) (Auto) 0.2 0.0-5.0 % Neutrophils # (Auto) 9.8 H 1.8-7.7 K/uL Lymphocytes # (Auto) 1.4 1.0-4.8 K/uL Monocytes # (Auto) 1.4 H 0.1-1.0 K/uL Eosinophils # (Auto) 0.03 0.00-0.70 K/uL Basophils # (Auto) 0.02 0.00-0.20 K/uL Absolute Immature Granulocyte (auto 0.08 0-1 K/uL Nucleated Red Blood Cells 0.0 0.0-0.19 % Chemistry Labs: Test 02/18/24 06:53 02/18/24 01:03 02/17/24 21:40 Range/Units Sodium Level 138 136-145 mmol/L Potassium Level 4.0 3.5-5.1 mmol/L Chloride Level 101 101-111 mmol/L Carbon Dioxide Level 29 21-32 mmol/L Blood Urea Nitrogen 38 H 7-18 mg/dL Creatinine 4.3 H 0.5-1.0 mg/dL Glomerular Filtration Rate Calc 10 >90 mL/min Random Glucose 116 H 70-105 mg/dL Total Calcium 8.0 L 8.5-10.1 mg/dL Ionized Calcium 1.01 L 1.16-1.32 MMOL/L Phosphorus Level 5.1 H 2.5-4.9 mg/dL Magnesium Level 1.80 1.80-2.40 mg/dL Total Bilirubin 1.0 0.2-1.0 mg/dL Direct Bilirubin 0.6 H 0.0-0.3 mg/dL Aspartate Amino Transf (AST/SGOT) 34 10-37 U/L Alanine Aminotransferase (ALT/SGPT) 48 12-78 U/L Alkaline Phosphatase 243 H 50-136 U/L Total Protein 6.7 6.0-8.3 g/dL Albumin 2.5 L 3.5-5.0 g/dL Lactic Acid Level 0.7 L 0.8-2.5 mmol/L Troponin I High Sensitivity 29 4-50 ng/L B-Type Natriuretic Peptide 1430 H 0-100 pg/mL Lipase 40 16-77 U/L Procalcitonin 23.66 H 0.05-0.5 ng/mL DIAGNOSTICS / RADIOLOGY RESULTS: MRCP(ABDWWO)CHOLANGIOPANCREATO REASON: R/O ASCENDING CHOLANGITIS COMPARISON: CT abdomen and pelvis 02/17/2024 TECHNIQUE: Routine imaging protocol was performed. Images were also obtained pre and postgadolinium contrast infusion, 20 cc Clariscan IV. FINDINGS: There is a 3 x 3.4 cm fluid collection in the anterior segment of the right lobe of the liver, relatively high under the diaphragm. This has a short air-fluid level. There is peripheral contrast enhancement. Findings are consistent with a hepatic abscess. There are no other focal liver lesions. Portal and hepatic veins appear patent. Gallbladder is absent. There is a small amount of air in the biliary tree, probably from previous S sphincterotomy. Intrahepatic biliary tree does not appear distended. Common duct measures between 4 and 5 mm near the head of the pancreas. There is renal cortical thinning moderate in degree. There are small bilateral renal cysts. Spleen and pancreas appear normal. Pancreatic duct is not dilated. There are no focal fluid collections. There is no free air or fluid. Anterior abdominal wall appears intact. IMPRESSION: 1. 3 x 3.4 cm focal fluid collection in the anterior segment right lobe of the liver, with an air-fluid level, consistent with abscess. 2. Absent gallbladder 3. Moderate bilateral renal cortical thinning, there are also bilateral renal cysts. PLAN NEURO: Minimize central acting medications as possible. Maintain fall precautions, adequate lighting during the day PULMONARY: Supplemental 02 as needed. Maintain aspiration precautions at all times IS , nebs prn CARDIOVASCULAR: Follow hemodynamics. Vital signs per facility protocol Several anti HTN medications at bedside, will reconcile into system . Hydralazine Iv prn for now. GI & NUTRITION: Continue with nutritional support.- Clear liquid diet Consult General surgery and GI regarding Liver abscess. Ir for drainage Continue stool softeners and laxatives as needed. KIDNEYS & ELECTROLYTES: HD per nephrology recs ENDOCRINE: Maintain blood glucose between 100-180 at all times. Hypoglycemia protocol in place INFECTIOUS DISEASE: Trend temperature, WBC and procalcitonin level- zosyn Follow cultures, deescalate antibiotics as soon as possible. Panculture if new onset fever ONCOLOGY/HEMATOLOGY/COAGULATION: Monitor for s/s of bleeding Monitor hemoglobin, coagulation studies as needed SKIN: Pressure ulcer prevention per facility protocol Specialty mattress ORTHO/REHAB: Continue PT/OT Prophylaxis: Continue GI and DVT prophylaxis Code Status: Full Resuscitation Disposition: TBD Other: Total patient care time : 45 minutes WES HA Feb 18, 2024 16:29
--- NOTE | 2024-02-18 17:17 | CONS ---
CONSULT NOTE: Consulting physician: Good Consulting service: General surgery Reason for consultation: Concerns of liver abscess History of present illness: This is a 73-year-old female with a significant medical history listed below there has been consulted to surgery for concerns of liver abscess noted on recent imaging. Patient initially presenting to ED for concerns of generalized body weakness with the abdominal pain associated with nausea for the last two days. At time of exam patient reporting no significant abdominal pain. Imaging performed concerning for fluid collection in the anterior segment of the right lobe of the liver measuring 3 x 3.4 cm. Concerns for possible abscess noted. Patient also with history cholecystectomy at this time. WBCs elevated patient also with concerns of elevated temperatures with stable blood pressure. Patient currently NPO. No family at bedside Medical history: Hyperbilirubinemia, mild-POA ESRD HD TT HS Primary hypertension HLD Diabetes mellitus Review of systems: General: No Fever, No Chills, No Night Sweats, No Fatigue, No Malaise, No Appetite, No Other HEENT: No Head Aches, No Visual Changes, No Eye Pain, No Ear Pain, No Dysphasia, No Sinus Congestion, No Post Nasal Drip, No Sore Throat, No Other Pulmonary: No Dyspnea, No Cough, No Pleuritic Chest Pain, No Other Cardiovascular: No: Chest Pain, Palpitations, Orthopnea, Paroxysmal No Dyspnea, Edema, Lt Headedness, Other Gastrointestinal: No: Nausea, Vomiting, Diarrhea, Constipation, Melena, Hematochezia, Other Genitourinary: No Dysuria, No Frequency, No Incontinence, No Hematuria, No Retention, No Other Musculoskeletal: No: other, neck pain, shoulder pain, arm pain, back pain, hand pain, leg pain, foot pain Skin: No Urticaria, No Rash, No Other Neurological: No: Weakness, Numbness, Incoordination, Change in speech, Confusion, Seizures, Other Physical exam: GENERAL: alert, weak, awake oriented x 3 HEENT: EOMI, Sclera non icteric, moist mucosa NECK: Supple, no JVD, trachea midline LUNGS: Clear breath sounds bilaterally. No wheezes HEART: Regular rate and rhythm. Normal S1 and S2, without murmurs ABD: Abdomen soft but tender on RUQ. Bowel sounds present, RUQ is swollen, negative for ischemia or peritonitis EXT: No clubbing cyanosis or edema NEURO: Alert and oriented to person, follows commands Assessment: This is a 73-year-old female with concerns of liver abscess Plan: This point in time recommendation be consultation to IR for possible percutaneous drain placement Patient to continue with IV fluids and IV antibiotics No immediate surgical intervention planned at this time Dr. Jones to be updated in patient's status and surgical team to follow patient closely Nursing report any further acute events JOSE G ZACARIAS Jr. Feb 18, 2024 17:16
[2024-02-18 17:22] LABS: HEMOGLOBIN A1C 5.4 % (4.0-6.0)
--- NOTE | 2024-02-18 18:00 | NUR ---
REPORT RECEIVED FROM MILKA RODRIGUEZ-ER. PT WILL BE TRANSFERRING TO ROOM 330.
--- NOTE | 2024-02-18 18:01 | NUR ---
[address] MOREIRA AWARE OF CONSULT, PROVIDED HER W/ PT MRCP AND CT RESULTS, WILL COME SEE PT. NO NEW ORDERS RIGHT NOW.
--- NOTE | 2024-02-18 18:18 | NUR ---
1809 REPORT GIVEN TO JANELL COREAS, PT STABLE NO DISTRESS VITALS WNL NO C/O PAIN NOW. PT TRANFERRED IN BED W/ PERSONAL BELONGINGS.
--- NOTE | 2024-02-18 18:20 | NUR ---
PT IN ROOM 330 AOX3, STABLE VS, 18G RIGHT HAND, SL. LAVA. NO S/S OF RESPIRATORY DISTRESS. NO PAIN AT THIS TIME. TELE MONITOR IN PLACED TELE #35 SR 70, BED LOW AND LOCKED, SIDERAILS X2 UP, CALL LIGHT WITHIN REACH. WILL CONTINUE TO MONITOR.
[2024-02-18 19:00] VITALS: BP 165/79; PULSE 72; RESP 19; TEMP 98.4
[2024-02-18 19:11] VITALS: PULSE 66; RESP 18; O2SAT 95
[2024-02-18 19:15] VITALS: O2SAT 100
[2024-02-18 23:00] VITALS: BP 135/45; PULSE 74; RESP 19; TEMP 100.4
--- NOTE | 2024-02-18 23:37 | CONS ---
GASTROENTEROLOGY CONSULTATION NOTE Date of Consultation: Feb 18, 2024 Time of Consultation: 23:37 History of Present Illness: This is a 73-year-old female with past medical history of diabetes, end-stage renal disease on hemodialysis, history of cholecystectomy who presented due to generalized body weakness, flank pain, nausea, right upper quadrant pain. She has been having nausea, fever and chills over the past few days and right upper quadrant pain. Upon further evaluation she underwent a CT of the abdomen and pelvis that revealed a 3.7 cm right hepatic mass with neoplastic process not excluded. Intrahepatic biliary air seen with postcholecystectomy, fibroid uter us and diverticulosis. MRCP was done that revealed a 3.4 cm focal fluid collection at the anterior segment right lobe of the liver with an air-fluid level consistent with abscess. Absent gallbladder. WBC 12.7, hemoglobin 9.7 with a platelet count of 141. We were consulted due to liver abscess and possible colonoscopy. Patient was seen outpatient with plan for EGD and colonoscopy. Review of Systems: CONSTITUTIONAL: No malaise or change in sensation of wellbeing. ENMT: No rhinorrhea, otorrhea, sinus pain, ear ache. CARDIOVASCULAR: No angina, palpitations, orthopnea or paroxysmal dyspnea. RESPIRATORY: No SOB. GASTROINTESTINAL: No abdominal pain, nausea, vomiting, diarrhea, hematemesis, melena or change in the patient's habitual bowel movements consistency/number. GENITOURINARY: No dysuria, hematuria or change in bladder continence. MUSCULOSKELETAL: No new muscle pain or decrease in muscular strength. No new joint swelling, redness or tenderness. SKIN: No new rash. Past Medical History: [ ] Past Surgical History: [ ] Past Social History: [ ] Family History: [ ] Coded Allergies: No Known Drug Allergies (Unverified Allergy, Unknown, 10/20/14) Physical Exam: GEN: Awake, alert, oriented in person, time and place, and in no acute distress. HEENT: No sinus tenderness. Tympanic membranes were not examined. No rhinorrhea. Oral pharyngeal mucosa is pink, moist and within normal limits. Neck is supple with no cervical lymphadenopathy, thyromegaly or JVD. CHEST: Inspection, palpation and percussion of the chest were unremarkable. Lung auscultation revealed normal breath sounds bilaterally. CARDIAC: PMI is within normal limits. Heart sounds are regular. Normal S1, S2. No gallop or murmur. ABD: Soft, non-tender and not distended. No peritoneal signs on palpation. No organomegaly. Normal bowel sounds. EXT: No cyanosis or clubbing. No edema. SKIN: Intact. No rashes. JOINTS: No evidence of synovitis or acute arthritis. NEURO: Alert and oriented to name, place and person. Cranial nerve examination is unremarkable. No focal motor deficits. Normal speech. Gait is normal. Strength is normal. Vital Sign (Last 24 Hours) 02/18/24 02/18/24 19:00 19:11 Temp 98.4 Pulse 66 Resp 18 B/P (MAP) 165/79 Pulse Ox 100 O2 Delivery N/Cannula Low lpm O2 Flow Rate 2.0 FiO2 28 Laboratory: [ ] Laboratory: Test 02/18/24 20:53 02/18/24 06:53 02/18/24 01:03 02/17/24 22:15 Range/Units Whole Blood Glucose 117 H 70-110 MG/DL White Blood Count 12.7 H 4.8-10.8 K/uL Red Blood Count 2.80 L 4.00-5.50 MIL/uL Hemoglobin 9.7 L 12.0-16.0 g/dL Hematocrit 28.9 L 36-48 % Mean Corpuscular Volume 103.2 H 79-99 fL Mean Corpuscular Hemoglobin 34.6 H 27.0-33.0 pg Mean Corpuscular Hemoglobin Concent 33.6 32.0-36.0 g/dL Red Cell Distribution Width 12.4 11.0-15.5 % Platelet Count 141 130-400 K/uL Mean Platelet Volume 10.3 7.5-10.5 fL Immature Granulocyte % (Auto) 0.6 0-1 % Neutrophils (%) (Auto) 77.3 H 40.0-77.0 % Lymphocytes (%) (Auto) 10.7 L 21.0-51.0 % Monocytes (%) (Auto) 11.0 3.0-13.0 % Eosinophils (%) (Auto) 0.2 0.0-8.0 % Basophils (%) (Auto) 0.2 0.0-5.0 % Neutrophils # (Auto) 9.8 H 1.8-7.7 K/uL Lymphocytes # (Auto) 1.4 1.0-4.8 K/uL Monocytes # (Auto) 1.4 H 0.1-1.0 K/uL Eosinophils # (Auto) 0.03 0.00-0.70 K/uL Basophils # (Auto) 0.02 0.00-0.20 K/uL Absolute Immature Granulocyte (auto 0.08 0-1 K/uL Nucleated Red Blood Cells 0.0 0.0-0.19 % Sodium Level 138 136-145 mmol/L Potassium Level 4.0 3.5-5.1 mmol/L Chloride Level 101 101-111 mmol/L Carbon Dioxide Level 29 21-32 mmol/L Blood Urea Nitrogen 38 H 7-18 mg/dL Creatinine 4.3 H 0.5-1.0 mg/dL Glomerular Filtration Rate Calc 10 >90 mL/min Random Glucose 116 H 70-105 mg/dL Hemoglobin A1c 5.4 4.0-6.0 % Estimated Average Glucose (eAG) 108 70-126 mg/dL Total Calcium 8.0 L 8.5-10.1 mg/dL Ionized Calcium 1.01 L 1.16-1.32 MMOL/L Phosphorus Level 5.1 H 2.5-4.9 mg/dL Magnesium Level 1.80 1.80-2.40 mg/dL Total Bilirubin 1.0 0.2-1.0 mg/dL Direct Bilirubin 0.6 H 0.0-0.3 mg/dL Aspartate Amino Transf (AST/SGOT) 34 10-37 U/L Alanine Aminotransferase (ALT/SGPT) 48 12-78 U/L Alkaline Phosphatase 243 H 50-136 U/L Total Protein 6.7 6.0-8.3 g/dL Albumin 2.5 L 3.5-5.0 g/dL Lactic Acid Level 0.7 L 0.8-2.5 mmol/L Urine Color YELLOW YELLOW Urine Appearance CLOUDY H CLEAR Urine pH 6.0 5.0-8.0 Urine Specific [place] 1.017 1.001-1.031 Urine Protein 600 H NEGATIVE mg/dL Urine Glucose (UA) 200 H NEGATIVE mg/dL Urine Ketones NEGATIVE NEGATIVE mg/dL Urine Occult Blood SMALL H NEGATIVE Urine Nitrate NEGATIVE NEGATIVE Urine Bilirubin 0.5 H NEGATIVE mg/dL Urine Urobilinogen 2.0 H 0.2-1.0 mg/dL Urine Leukocyte Esterase NEGATIVE NEGATIVE Fidelina/uL Urine RBC 0-1 0-1 /HPF Urine WBC 2-5 H 0-1 /HPF Urine Squamous Epithelial Cells RARE 0-2 /HPF Urine Bacteria RARE None Seen /HPF Test 02/17/24 21:40 02/17/24 21:17 Range/Units Troponin I High Sensitivity 29 4-50 ng/L B-Type Natriuretic Peptide 1430 H 0-100 pg/mL Lipase 40 16-77 U/L Procalcitonin 23.66 H 0.05-0.5 ng/mL Influenza Type A Antigen Negative For Type A NEGATIVE Influenza Type B Antigen Negative For Type B NEGATIVE SARS-CoV-2 Antigen (Rapid) PRESUMPTIVE NEGATIVE NEGATIVE Group A Streptococcus Rapid negative NEGATIVE Current Medications Medications (Trade) Dose Ordered Sig/Brandon Route PRN Reason Start Time Stop Time Status Last Admin Dose Admin Acetaminophen (TYLenol 325MG TAB) 650 mg Q6H PRN PO FEVER/MILD PAIN LEVEL 1-3 02/18/24 00:30 03/19/24 00:29 Albuterol Sulfate (Proventil 0.083% 2.5mg/3ml) 2.5 mg [id number] PRN IH SHORTNESS OF BREATH 02/18/24 00:30 03/19/24 00:29 Hydralazine HCl (APRESOLine 20MG INJ) 10 mg Q6H PRN IV SBP GREATER THAN 180 02/18/24 00:30 03/19/24 00:29 Hydromorphone HCl (DiLAUDid 0.5MG INJ) 0.2 mg Q4H PRN IVP SEVERE PAIN (7-10) 02/18/24 00:30 02/23/24 00:29 02/18/24 10:44 0.2 MG Labetalol HCl (TRANdate 20MG SYG) 10 mg Q2H PRN IV SBP GREATER THAN 180 02/18/24 00:30 03/19/24 00:29 Lactulose (Constulose 20gm/ 30ml Udcup) 20 gm Q6H PRN PO CONSTIPATION 02/18/24 00:30 03/19/24 00:29 Ondansetron HCl (zoFRAN 4MG INJ) 4 mg Q6H PRN IVP NAUSEA/VOMITING 02/18/24 00:30 03/19/24 00:29 Pharmacy Profile Note (Pharmacy Communication) 1 each ONCE MISC 02/18/24 00:30 02/18/24 00:26 DC Piperacillin Sod/ Tazobactam Sod (Zosyn 3.375gm+NS 50ml) 3.375 gm Q12H IV 02/18/24 00:30 02/28/24 00:29 02/18/24 12:45 3.375 GM Vancomycin HCl (Vancomycin 750mg) 750 mg TTHSPHD IVPB 02/19/24 16:00 02/29/24 15:59 Vancomycin HCl (Vancomycin Protocol) 1 each AD IV 02/18/24 00:30 02/18/24 00:25 DC Vancomycin HCl (Vancomycin Protocol) 1 each AD IV 02/18/24 00:30 03/03/24 00:29 Vitamin B Complex/ Vit C/Folic Acid (Nephrovite Tablet) 1 cap DAILY PO 02/19/24 09:00 03/20/24 08:59 Diagnostics / Radiology: [COPY/PASTE HERE IF NO REPORTS PLEASE DELETE SECTION] Assessment: Liver abscess Plan: IV[address] PATIENT ACCOUNT ANALYST Feb 18, 2024 23:37
[2024-02-19] VITALS (31 sets, daily range): BP systolic 109–145; BP diastolic 37–86; PULSE 60–84; RESP 16–19; TEMP 97.9–99.5; O2SAT 93–100
--- NOTE | 2024-02-19 03:11 | CONS ---
NEPHROLOGY NOTE This patient is brought to the emergency room and found to have a positive blood culture and in dialysis with septic features and we have sent her to the ER for that reason. HISTORY OF PRESENT ILLNESS: This patient has multiple medical problems, a 73-year-old with underlying possible liver abscess. This patient has underlying type 2 diabetes, hypertension. The patient has previous cholecystectomy. The patient has end-stage renal disease, hypertension, anemia, hyperlipidemia. The patient is critically ill. Yesterday, I saw her in dialysis and she was having some chills. She has been recently to the emergency room for abdominal pain. The patient now on workup has detected a liver mass versus abscess. No other associated finding. PAST MEDICAL HISTORY: Diabetes, end-stage renal disease, hypertension, anemia and multiple others as per records. PAST SURGICAL HISTORY: AV access, cholecystectomy apparently. ALLERGIES: None. SOCIAL HISTORY: The patient has appendicectomy and eye surgery also. FAMILY HISTORY: Negative for kidney cyst and stone and family members have end-stage renal disease, diabetes in the family. REVIEW OF SYSTEMS: CONSTITUTIONAL: Has fever, chills reported. No rigors. HEENT: With no headache, oral ulcers, sore throat or difficulty swallowing. RESPIRATORY: With no cough, expectoration, hemoptysis or pleuritic pain. CARDIOVASCULAR: No orthopnea or PND. GASTROINTESTINAL: No nausea, vomiting, diarrhea reported. GENITOURINARY: Negative for dysuria or hematuria. DERMATOLOGICAL: No rashes, pruritus or skin lesion. ENDOCRINE: No polyuria, polydipsia or polyphagia. PSYCHIATRIC: Negative for anxiety, depression and hallucinations. PHYSICAL EXAMINATION: GENERAL: Pale, no other distress or deformities, lying in bed. VITAL SIGNS: The patient has a temperature up to 100.6, pulse 60, respiratory rate 13. HEENT: Head is atraumatic. Pupils are round and reactive. Sclerae are anicteric. Conjunctivae not pale. Oral mucosa is not dry. NECK: Without masses or bruits. Thyroid is palpable. Neck has no bruits. CHEST: Shows equal thoracic percussion note being resonant in all areas. CARDIAC: Regular rhythm, no rub, no S3, S4. No parasternal heave. ABDOMEN: No guarding or tenderness. Bowel sounds are normoactive. EXTREMITIES: With no edema and no cyanosis or clubbing. BACK: No tenderness or back deformities. LABORATORY, DIAGNOSTIC AND IMAGING DATA: We have reviewed the laboratories in detail. Hemoglobin is 9.7, BUN of 38, creatinine is 4.3. Imaging studies are reviewed. Serologies are reviewed. Negative SARS and influenza. The patient has recently blood culture positive. Imaging studies personally reviewed with abscess in the liver detected by MRCP. Abdominal pelvic CT was done. Right hepatic mass. PROBLEMS: Multiple. * The patient is septic. * The patient has liver abscess. * Underlying end-stage renal disease. * Underlying diabetic nephropathy. * Underlying anemia. * Underlying hypertension. * Underlying hyperlipidemia, diabetes and multiple other comorbidities. The patient is critically ill. PLAN: * The patient is being admitted. * Broad-spectrum antibiotic coverage. * Blood cultures results will be obtained from the dialysis. * Nephro-Eric one a day. * The patient will be on IV Dilaudid for pain 0.2 q. 4 hours. * Zosyn. * Repeat cultures. * Dialysis on schedule on Friday, and Friday. * The patient will have one Nephro-Eric daily. * We have reviewed the external and old records. * All the laboratories, x-rays were personally reviewed and interpreted. * Follow up CBC, CMP ordered. * I have discussed with other team physicians. We will continue monitoring. Condition remains critical and guarded. Seen several times. Thank you for this patient. TID: [id number] RECEIPT: [id number]
[2024-02-19 04:13] LABS: BASOPHILS # (AUTO) 0.03 K/uL (0.00-0.20); BASOPHILS % (AUTO) 0.2 % (0.0-5.0); EOSINOPHILS # (AUTO) 0.05 K/uL (0.00-0.70); EOSINOPHILS % (AUTO) 0.4 % (0.0-8.0); HEMATOCRIT 29.5 % (36-48); IMMATURE GRANULOCYTE ABSOLUTE 0.09 K/uL (0-1); LYMPHOCYTES # (AUTO) 0.8 K/uL (1.0-4.8); LYMPHOCYTES % (AUTO) 6.5 % (21.0-51.0); MEAN CORPUSCULAR HEMOGLOBIN 34.6 pg (27.0-33.0); MEAN CORPUSCULAR HGB CONC 33.2 g/dL (32.0-36.0); MEAN CORPUSCULAR VOLUME 104.2 fL (79-99); MONOCYTES # (AUTO) 1.2 K/uL (0.1-1.0); MONOCYTES % (AUTO) 9.6 % (3.0-13.0); NEUTROPHILS # (AUTO) 10.1 K/uL (1.8-7.7); NEUTROPHILS % (AUTO) 82.6 % (40.0-77.0); PLATELET COUNT (AUTO) 153 K/uL (130-400); RED BLOOD CELL COUNT(AUTO) 2.83 MIL/uL (4.00-5.50); RED CELL DISTRIBUTION WIDTH 12.3 % (11.0-15.5); WHITE BLOOD COUNT (AUTO) 12.2 K/uL (4.8-10.8)
[2024-02-19 04:48] LABS: ALBUMIN 2.4 g/dL (3.5-5.0); BILIRUBIN,TOTAL 0.9 mg/dL (0.2-1.0); CREATININE 5.5 mg/dL (0.5-1.0); MAGNESIUM 2.1 mg/dL (1.80-2.40); PHOSPHORUS 6.9 mg/dL (2.5-4.9); POTASSIUM 4.7 mmol/L (3.5-5.1); THYROID STIMULATING HORMONE 1.11 uIU/mL (0.36-3.74); TOTAL PROTEIN, SERUM 6.7 g/dL (6.0-8.3)
[2024-02-19] MEDS: 0.9%NACL 1000ML 1,000 ML IV ONE (06:11)
[2024-02-19] MEDS: Vitamin B Complex/Vit C/Folic Acid PO SCH (09:11)
[2024-02-19] MEDS: acetaMINOPHEN 325 MG TAB PO PRN (09:12)
--- NOTE | 2024-02-19 10:14 | PN ---
GASTROENTEROLOGY PROGRESS NOTE Date of Visit: Feb 19, 2024 Time of Visit: 10:14 Events / Notes: No acute events overnight. Patient underwent IR drainage of liver abscess. Review of Systems: CONSTITUTIONAL: No malaise or change in sensation of wellbeing. ENMT: No rhinorrhea, otorrhea, sinus pain, ear ache. CARDIOVASCULAR: No angina, palpitations, orthopnea or paroxysmal dyspnea. RESPIRATORY: No SOB. GASTROINTESTINAL: No abdominal pain, nausea, vomiting, diarrhea, hematemesis, melena or change in the patient's habitual bowel movements consistency/number. GENITOURINARY: No dysuria, hematuria or change in bladder continence. MUSCULOSKELETAL: No new muscle pain or decrease in muscular strength. No new joint swelling, redness or tenderness. SKIN: No new rash. Physical Exam: GEN: Awake, alert, oriented in person, time and place, and in no acute distress. HEENT: No sinus tenderness. Tympanic membranes were not examined. No rhinorrhea. Oral pharyngeal mucosa is pink, moist and within normal limits. Neck is supple with no cervical lymphadenopathy, thyromegaly or JVD. CHEST: Inspection, palpation and percussion of the chest were unremarkable. Lung auscultation revealed normal breath sounds bilaterally. CARDIAC: PMI is within normal limits. Heart sounds are regular. Normal S1, S2. No gallop or murmur. ABD: Soft, non-tender and not distended. No peritoneal signs on palpation. No organomegaly. Normal bowel sounds. EXT: No cyanosis or clubbing. No edema. SKIN: Intact. No rashes. JOINTS: No evidence of synovitis or acute arthritis. NEURO: Alert and oriented to name, place and person. Cranial nerve examination is unremarkable. No focal motor deficits. Normal speech. Gait is normal. Strength is normal. Vital Signs (last 8hr) Date Time Temp Pulse Resp B/P (MAP) Pulse Ox O2 Delivery O2 Flow Rate FiO2 02/19/24 09:29 98.1 62 16 129/50 Room Air 02/19/24 09:15 98.1 66 16 122/51 Room Air 02/19/24 09:00 67 16 123/51 Room Air 02/19/24 08:45 69 16 132/86 Room Air 02/19/24 08:30 67 16 126/44 Room Air 02/19/24 08:15 72 16 109/45 Room Air 02/19/24 08:00 69 16 127/48 Room Air 02/19/24 08:00 98.4 71 18 124/48 94 Room Air 02/19/24 07:45 73 16 124/66 Room Air 02/19/24 07:30 66 16 135/50 Room Air 02/19/24 07:23 69 18 N/Cannula Low lpm 2.0 28 02/19/24 07:15 69 16 137/50 Room Air 02/19/24 07:00 71 16 129/48 Room Air 02/19/24 06:45 68 16 144/49 Room Air 02/19/24 06:30 66 16 130/44 Room Air 02/19/24 06:15 97.9 64 16 130/48 Room Air 02/19/24 05:50 97.9 60 16 128/42 Room Air 02/19/24 03:00 99.1 68 19 126/37 96 Room Air Laboratory: [ ] Laboratory: Test 02/19/24 05:09 02/19/24 03:54 02/18/24 06:53 02/18/24 01:03 Range/Units Whole Blood Glucose 127 H 70-110 MG/DL White Blood Count 12.2 H 4.8-10.8 K/uL Red Blood Count 2.83 L 4.00-5.50 MIL/uL Hemoglobin 9.8 L 12.0-16.0 g/dL Hematocrit 29.5 L 36-48 % Mean Corpuscular Volume 104.2 H 79-99 fL Mean Corpuscular Hemoglobin 34.6 H 27.0-33.0 pg Mean Corpuscular Hemoglobin Concent 33.2 32.0-36.0 g/dL Red Cell Distribution Width 12.3 11.0-15.5 % Platelet Count 153 130-400 K/uL Mean Platelet Volume 10.8 H 7.5-10.5 fL Immature Granulocyte % (Auto) 0.7 0-1 % Neutrophils (%) (Auto) 82.6 H 40.0-77.0 % Lymphocytes (%) (Auto) 6.5 L 21.0-51.0 % Monocytes (%) (Auto) 9.6 3.0-13.0 % Eosinophils (%) (Auto) 0.4 0.0-8.0 % Basophils (%) (Auto) 0.2 0.0-5.0 % Neutrophils # (Auto) 10.1 H 1.8-7.7 K/uL Lymphocytes # (Auto) 0.8 L 1.0-4.8 K/uL Monocytes # (Auto) 1.2 H 0.1-1.0 K/uL Eosinophils # (Auto) 0.05 0.00-0.70 K/uL Basophils # (Auto) 0.03 0.00-0.20 K/uL Absolute Immature Granulocyte (auto 0.09 0-1 K/uL Nucleated Red Blood Cells 0.0 0.0-0.19 % Sodium Level 137 136-145 mmol/L Potassium Level 4.7 3.5-5.1 mmol/L Chloride Level 100 L 101-111 mmol/L Carbon Dioxide Level 25 21-32 mmol/L Blood Urea Nitrogen 53 H 7-18 mg/dL Creatinine 5.5 H 0.5-1.0 mg/dL Glomerular Filtration Rate Calc 8 >90 mL/min Random Glucose 120 H 70-105 mg/dL Total Calcium 8.0 L 8.5-10.1 mg/dL Phosphorus Level 6.9 H 2.5-4.9 mg/dL Magnesium Level 2.10 1.80-2.40 mg/dL Total Bilirubin 0.9 0.2-1.0 mg/dL Aspartate Amino Transf (AST/SGOT) 45 H 10-37 U/L Alanine Aminotransferase (ALT/SGPT) 52 12-78 U/L Alkaline Phosphatase 252 H 50-136 U/L Total Protein 6.7 6.0-8.3 g/dL Albumin 2.4 L 3.5-5.0 g/dL Thyroid Stimulating Hormone (TSH) 1.11 # 0.36-3.74 uIU/mL Hemoglobin A1c 5.4 4.0-6.0 % Estimated Average Glucose (eAG) 108 70-126 mg/dL Ionized Calcium 1.01 L 1.16-1.32 MMOL/L Direct Bilirubin 0.6 H 0.0-0.3 mg/dL Tumor Marker Alpha Fetoprotein 1.8 0.0-9.2 ng/mL Carcinoembryonic Antigen 2.3 0.0-4.7 ng/mL CA 19-9 Antigen 4 0-35 U/mL CA 125 Antigen 8.5 0.0-38.1 U/mL Lactic Acid Level 0.7 L 0.8-2.5 mmol/L Test 02/17/24 22:15 02/17/24 21:40 02/17/24 21:17 Range/Units Urine Color YELLOW YELLOW Urine Appearance CLOUDY H CLEAR Urine pH 6.0 5.0-8.0 Urine Specific [place] 1.017 1.001-1.031 Urine Protein 600 H NEGATIVE mg/dL Urine Glucose (UA) 200 H NEGATIVE mg/dL Urine Ketones NEGATIVE NEGATIVE mg/dL Urine Occult Blood SMALL H NEGATIVE Urine Nitrate NEGATIVE NEGATIVE Urine Bilirubin 0.5 H NEGATIVE mg/dL Urine Urobilinogen 2.0 H 0.2-1.0 mg/dL Urine Leukocyte Esterase NEGATIVE NEGATIVE Fidelina/uL Urine RBC 0-1 0-1 /HPF Urine WBC 2-5 H 0-1 /HPF Urine Squamous Epithelial Cells RARE 0-2 /HPF Urine Bacteria RARE None Seen /HPF Troponin I High Sensitivity 29 4-50 ng/L B-Type Natriuretic Peptide 1430 H 0-100 pg/mL Lipase 40 16-77 U/L Procalcitonin 23.66 H 0.05-0.5 ng/mL Influenza Type A Antigen Negative For Type A NEGATIVE Influenza Type B Antigen Negative For Type B NEGATIVE SARS-CoV-2 Antigen (Rapid) PRESUMPTIVE NEGATIVE NEGATIVE Group A Streptococcus Rapid negative NEGATIVE Current Medications Medications (Trade) Dose Ordered Sig/Brandon Route PRN Reason Start Time Stop Time Status Last Admin Dose Admin Acetaminophen (TYLenol 325MG TAB) 650 mg Q6H PRN PO FEVER/MILD PAIN LEVEL 1-3 02/18/24 00:30 03/19/24 00:29 02/19/24 09:12 650 MG Albuterol Sulfate (Proventil 0.083% 2.5mg/3ml) 2.5 mg [id number] PRN IH SHORTNESS OF BREATH 02/18/24 00:30 03/19/24 00:29 Hydralazine HCl (APRESOLine 20MG INJ) 10 mg Q6H PRN IV SBP GREATER THAN 180 02/18/24 00:30 03/19/24 00:29 Hydromorphone HCl (DiLAUDid 0.5MG INJ) 0.2 mg Q4H PRN IVP SEVERE PAIN (7-10) 02/18/24 00:30 02/23/24 00:29 02/19/24 00:53 0.2 MG Labetalol HCl (TRANdate 20MG SYG) 10 mg Q2H PRN IV SBP GREATER THAN 180 02/18/24 00:30 03/19/24 00:29 Lactulose (Constulose 20gm/ 30ml Udcup) 20 gm Q6H PRN PO CONSTIPATION 02/18/24 00:30 03/19/24 00:29 Ondansetron HCl (zoFRAN 4MG INJ) 4 mg Q6H PRN IVP NAUSEA/VOMITING 02/18/24 00:30 03/19/24 00:29 Pharmacy Profile Note (Pharmacy Communication) 1 each ONCE MISC 02/18/24 00:30 02/18/24 00:26 DC Piperacillin Sod/ Tazobactam Sod (Zosyn 3.375gm+NS 50ml) 3.375 gm Q12H IV 02/18/24 00:30 02/28/24 00:29 02/19/24 00:46 3.375 GM Vancomycin HCl (Vancomycin 750mg) 750 mg TTHSPHD IVPB 02/19/24 16:00 02/29/24 15:59 Vancomycin HCl (Vancomycin Protocol) 1 each AD IV 02/18/24 00:30 02/18/24 00:25 DC Vancomycin HCl (Vancomycin Protocol) 1 each AD IV 02/18/24 00:30 03/03/24 00:29 Vitamin B Complex/ Vit C/Folic Acid (Nephrovite Tablet) 1 cap DAILY PO 02/19/24 09:00 03/20/24 08:59 02/19/24 09:11 1 CAP Diagnostics / Radiology: [COPY/PASTE HERE IF NO REPORTS PLEASE DELETE SECTION] Assessment: Liver abscess Abdominal pain Plan: Tentative plan for egd/colonoscopy in [facility] Feb 19, 2024 10:14
--- NOTE | 2024-02-19 10:38 | PN ---
[facility] PROGRESS NOTE Date Patient Seen: Feb 19, 2024 Time of Visit: 10:33 Supervising Physician: KURTIS SANFORD MD Primary Care Physician: [Dr. Bret No ] Outpatient Specialists: [ Dr. Herrmann, nephro ]] Inpatient Consults: [Dr. Macias, surgery, Dr. Herrmann, nephro ] PROBLEM LIST: Sepsis secondary to 3x3.4 Hepatic Abscess ESRD HD TT HS Chronic Congestive Diastolic Heart Failure , Echo 2022 EF of 65% Primary hypertension HLD Diabetes mellitus II Hg A1c of 7.2 % from 2019 INTERVAL HISTORY: Patient is pending IR for aspiration and drain placement as recommended by General Surgery given her MRCP revealing findings consistent with a3 x 3.4 hepatic abscess. Leukocytosis is trending down. Alk phos trending down. Tumor markers negative. Will continue with Zosyn, blood cultures have been drawn and negative x 1 day. No further fevers. Infectious disease consulted. REVIEW OF SYSTEMS: 12 point ROS reviewed with patient. Pertinent positives mentioned above. Otherwise negative. PHYSICAL EXAM: GENERAL: alert, weak, awake oriented x 3 HEENT: EOMI, Sclera non icteric, moist mucosa NECK: Supple, no JVD, trachea midline LUNGS: Clear breath sounds bilaterally. No wheezes HEART: Regular rate and rhythm. Normal S1 and S2, without murmurs ABD: Abdomen soft but tender on RUQ. Bowel sounds present, EXT: No clubbing cyanosis or edema NEURO: Alert and oriented to person, follows commands Vital Signs (last 8hr) Date Time Temp Pulse Resp B/P (MAP) Pulse Ox O2 Delivery O2 Flow Rate FiO2 02/19/24 09:29 98.1 62 16 129/50 Room Air 02/19/24 09:15 98.1 66 16 122/51 Room Air 02/19/24 09:00 67 16 123/51 Room Air 02/19/24 08:45 69 16 132/86 Room Air 02/19/24 08:30 67 16 126/44 Room Air 02/19/24 08:15 72 16 109/45 Room Air 02/19/24 08:00 69 16 127/48 Room Air 02/19/24 08:00 98.4 71 18 124/48 94 Room Air 02/19/24 07:45 73 16 124/66 Room Air 02/19/24 07:30 66 16 135/50 Room Air 02/19/24 07:23 69 18 N/Cannula Low lpm 2.0 28 02/19/24 07:15 69 16 137/50 Room Air 02/19/24 07:00 71 16 129/48 Room Air 02/19/24 06:45 68 16 144/49 Room Air 02/19/24 06:30 66 16 130/44 Room Air 02/19/24 06:15 97.9 64 16 130/48 Room Air 02/19/24 05:50 97.9 60 16 128/42 Room Air 02/19/24 03:00 99.1 68 19 126/37 96 Room Air LABS: Hematology Labs: Test 02/19/24 03:54 Range/Units White Blood Count 12.2 H 4.8-10.8 K/uL Red Blood Count 2.83 L 4.00-5.50 MIL/uL Hemoglobin 9.8 L 12.0-16.0 g/dL Hematocrit 29.5 L 36-48 % Mean Corpuscular Volume 104.2 H 79-99 fL Mean Corpuscular Hemoglobin 34.6 H 27.0-33.0 pg Mean Corpuscular Hemoglobin Concent 33.2 32.0-36.0 g/dL Red Cell Distribution Width 12.3 11.0-15.5 % Platelet Count 153 130-400 K/uL Mean Platelet Volume 10.8 H 7.5-10.5 fL Immature Granulocyte % (Auto) 0.7 0-1 % Neutrophils (%) (Auto) 82.6 H 40.0-77.0 % Lymphocytes (%) (Auto) 6.5 L 21.0-51.0 % Monocytes (%) (Auto) 9.6 3.0-13.0 % Eosinophils (%) (Auto) 0.4 0.0-8.0 % Basophils (%) (Auto) 0.2 0.0-5.0 % Neutrophils # (Auto) 10.1 H 1.8-7.7 K/uL Lymphocytes # (Auto) 0.8 L 1.0-4.8 K/uL Monocytes # (Auto) 1.2 H 0.1-1.0 K/uL Eosinophils # (Auto) 0.05 0.00-0.70 K/uL Basophils # (Auto) 0.03 0.00-0.20 K/uL Absolute Immature Granulocyte (auto 0.09 0-1 K/uL Nucleated Red Blood Cells 0.0 0.0-0.19 % Chemistry Labs: Test 02/19/24 05:09 02/19/24 03:54 02/18/24 06:53 02/18/24 01:03 Range/Units Whole Blood Glucose 127 H 70-110 MG/DL Sodium Level 137 136-145 mmol/L Potassium Level 4.7 3.5-5.1 mmol/L Chloride Level 100 L 101-111 mmol/L Carbon Dioxide Level 25 21-32 mmol/L Blood Urea Nitrogen 53 H 7-18 mg/dL Creatinine 5.5 H 0.5-1.0 mg/dL Glomerular Filtration Rate Calc 8 >90 mL/min Random Glucose 120 H 70-105 mg/dL Total Calcium 8.0 L 8.5-10.1 mg/dL Phosphorus Level 6.9 H 2.5-4.9 mg/dL Magnesium Level 2.10 1.80-2.40 mg/dL Total Bilirubin 0.9 0.2-1.0 mg/dL Aspartate Amino Transf (AST/SGOT) 45 H 10-37 U/L Alanine Aminotransferase (ALT/SGPT) 52 12-78 U/L Alkaline Phosphatase 252 H 50-136 U/L Total Protein 6.7 6.0-8.3 g/dL Albumin 2.4 L 3.5-5.0 g/dL Thyroid Stimulating Hormone (TSH) 1.11 # 0.36-3.74 uIU/mL Hemoglobin A1c 5.4 4.0-6.0 % Estimated Average Glucose (eAG) 108 70-126 mg/dL Ionized Calcium 1.01 L 1.16-1.32 MMOL/L Direct Bilirubin 0.6 H 0.0-0.3 mg/dL Tumor Marker Alpha Fetoprotein 1.8 0.0-9.2 ng/mL Carcinoembryonic Antigen 2.3 0.0-4.7 ng/mL CA 19-9 Antigen 4 0-35 U/mL CA 125 Antigen 8.5 0.0-38.1 U/mL Lactic Acid Level 0.7 L 0.8-2.5 mmol/L Test 02/17/24 21:40 Range/Units Troponin I High Sensitivity 29 4-50 ng/L B-Type Natriuretic Peptide 1430 H 0-100 pg/mL Lipase 40 16-77 U/L Procalcitonin 23.66 H 0.05-0.5 ng/mL DIAGNOSTICS / RADIOLOGY RESULTS: [ ] PLAN NEURO: Minimize central acting medications as possible. Maintain fall precautions, adequate lighting during the day PULMONARY: Supplemental 02 as needed. Maintain aspiration precautions at all times IS , nebs prn CARDIOVASCULAR: Follow hemodynamics. Vital signs per facility protocol Several anti HTN medications at bedside, will reconcile into system . BP marginal only resume carvedilol and amlodine with parameters to hold Hold Lasix due to septic state Hold statin given abnormal Lfts Hydralazine Iv prn GI & NUTRITION: Npo for procedure Consult General surgery and GI regarding Liver abscess. Ir for drainage Continue stool softeners and laxatives as needed. KIDNEYS & ELECTROLYTES: HD per nephrology recs ENDOCRINE: Maintain blood glucose between 100-180 at all times. Hypoglycemia protocol in place INFECTIOUS DISEASE: Trend temperature, WBC and procalcitonin level- zosyn Follow cultures, deescalate antibiotics as soon as possible. Panculture if new onset fever ONCOLOGY/HEMATOLOGY/COAGULATION: Monitor for s/s of bleeding Monitor hemoglobin, coagulation studies as needed SKIN: Pressure ulcer prevention per facility protocol Specialty mattress ORTHO/REHAB: Continue PT/OT Prophylaxis: Continue GI and DVT prophylaxis Code Status: Full Resuscitation Disposition: TBD Other: Total patient care time : 35 minutes WES HA Feb 19, 2024 10:38
--- NOTE | 2024-02-19 10:45 | PN ---
This is a 73-year-old female concerns of hepatic abscess Interval history: This 53-year-old female seen in her room resting Patient remains NPO White count relatively unchanged Vitals stable No acute events reported overnight Physical exam General: Awake alert and oriented Heart: Regular rate and rhythm} Lungs: Clear to auscultation no distress Abdomen: [Soft, nontender, nondistended Assessment : This is a 73-year-old female with concerns of hepatic abscess Plan: At this point in time we will await for IR possible percutaneous drain placement No immediate surgical intervention at this time Dr. Morelos to be updated in patient's status Nursing report any further acute events Surgical team follow patient closely Vitals/Labs Vital Signs Date Time Temp Pulse Resp B/P (MAP) Pulse Ox O2 Delivery O2 Flow Rate FiO2 02/19/24 09:29 98.1 62 16 129/50 Room Air 02/19/24 08:00 94 02/19/24 07:23 2.0 28 Laboratory Tests 02/19/24 03:54 Medications Current Medications Acetaminophen 650 mg ONCE ONCE PO Last administered on 02/17/24at 22:29; Start 02/17/24 at 22:00; Stop 02/17/24 at 22:01; Status DC Ondansetron HCl 4 mg ONCE ONCE IVP Last administered on 02/17/24at 22:28; Start 02/17/24 at 22:00; Stop 02/17/24 at 22:01; Status DC Ceftriaxone Sodium 2 gm ONCE ONCE IVPB Last administered on 02/17/24at 22:28; Start 02/17/24 at 22:00; Stop 02/17/24 at 22:01; Status DC Piperacillin Sod/ Tazobactam Sod 3.375 gm Q12H IV Last administered on 02/19/24at 00:46; Start 02/18/24 at 00:30; Stop 02/28/24 at 00:29 Vancomycin HCl 1 each AD IV; Start 02/18/24 at 00:30; Stop 03/03/24 at 00:29 Pharmacy Profile Note 1 each ONCE MISC; Start 02/18/24 at 00:30; Stop 02/18/24 at 00:26; Status DC Albuterol Sulfate 2.5 mg [id number] PRN IH; Start 02/18/24 at 00:30; Stop 03/19/24 at 00:29 Vancomycin HCl 1 each AD IV; Start 02/18/24 at 00:30; Stop 02/18/24 at 00:25; Status DC Acetaminophen 650 mg Q6H PRN PO Last administered on 02/19/24at 09:12; Start 02/18/24 at 00:30; Stop 03/19/24 at 00:29 Lactulose 20 gm Q6H PRN PO; Start 02/18/24 at 00:30; Stop 03/19/24 at 00:29 Ondansetron HCl 4 mg Q6H PRN IVP; Start 02/18/24 at 00:30; Stop 03/19/24 at 00:29 Hydralazine HCl 10 mg Q6H PRN IV; Start 02/18/24 at 00:30; Stop 03/19/24 at 00:29 Labetalol HCl 10 mg Q2H PRN IV; Start 02/18/24 at 00:30; Stop 03/19/24 at 00:29 Hydromorphone HCl 0.2 mg Q4H PRN IVP Last administered on 02/19/24at 00:53; Start 02/18/24 at 00:30; Stop 02/23/24 at 00:29 Vancomycin HCl 250 ml @ 125 mls/hr ONCE ONCE IV Last administered on 02/18/24at 01:29; Start 02/18/24 at 01:30; Stop 02/18/24 at 03:29; Status DC Vancomycin HCl 750 mg TTHSPHD IVPB; Start 02/19/24 at 16:00; Stop 02/29/24 at 15:59 Acetaminophen 650 mg ONCE ONCE RC Last administered on 02/18/24at 05:44; Start 02/18/24 at 06:00; Stop 02/18/24 at 06:01; Status DC Gadoterate Meglumine 10 mmol STK-MED ONCE IV; Start 02/18/24 at 13:44; Stop 02/18/24 at 13:45; Status DC Vitamin B Complex/ Vit C/Folic Acid 1 cap DAILY PO Last administered on 02/19/24at 09:11; Start 02/19/24 at 09:00; Stop 03/20/24 at 08:59 Sodium Chloride 1,000 ml @ 0 mls/hr ONCE ONCE IV Last administered on 12/12/24at 06:11; Start 02/19/24 at 06:00; Stop 02/19/24 at 06:01; Status DC Aspirin 81 mg DAILY PO; Start 02/20/24 at 09:00; Stop 03/21/24 at 08:59; Status UNV Carvedilol 3.125 mg BID PO; Start 02/19/24 at 21:00; Stop 03/20/24 at 20:59; Status UNV Cinacalcet 30 mg DAILY PO; Start 02/20/24 at 09:00; Stop 03/21/24 at 08:59; Status UNV Gabapentin 100 mg DAILY PO; Start 02/20/24 at 09:00; Stop 03/21/24 at 08:59; Status UNV Miscellaneous Medication 10 mg DAILY PO; Start 02/20/24 at 09:00; Stop 03/21/24 at 08:59; Status UNV Miscellaneous Medication 1 tab HS PO; Start 02/19/24 at 21:00; Stop 03/20/24 at 20:59; Status UNV Miscellaneous Medication 0.8 mg DAILY PO; Start 02/20/24 at 09:00; Stop 03/21/24 at 08:59; Status UNV Miscellaneous Medication 88 mcg DAILY PO; Start 02/20/24 at 09:00; Stop 03/21/24 at 08:59; Status UNV JOSE G ZACARIAS Jr. Feb 19, 2024 10:45
[2024-02-19 14:02] LABS: INR 1.08 (0.85-1.15); PROTHROMBIN TIME 11.6 SEC (9.6-11.6)
[2024-02-19 14:04] LABS: PARTIAL THROMBOPLASTIN TIME 28.2 SEC (26.3-35.5)
[2024-02-19] MEDS ORDERED: FENTanyl CITRate PF 50 MCG/1 ML 2ML VIAL ONE (14:04)
[2024-02-19] MEDS ORDERED: MIDAZOLAM HCL 1 MG/ML 2ML VIAL ONE (14:04)
[2024-02-19] MEDS: hydroMORPHone 2 MG VIAL (2MG/ML) ONE (15:38)
--- NOTE | 2024-02-19 16:14 | PRN ---
US PERC DRN, LIVER W IMG IR REASON: RT HEPATIC FLUID COLLECTION abscess COMPARISON: Previous CT 02/17/2024. TECHNIQUE: Ultrasound-guided drain placement within right lobe hepatic abscess. FINDINGS: Ultrasound demonstrates complex fluid collection within the right lobe of the liver with air foci present. PROCEDURE: Informed consent obtained from the patient following explanation of risk, benefits, complications. Timeout performed by radiology nursing staff. Right abdomen was prepped and draped in sterile fashion. Patient received intravenous titrated doses of Versed and fentanyl administered by radiology nursing personnel with continuous monitoring of the oxygen saturation, chronic status, respiratory status. 10 mL of 1% lidocaine subcutaneous utilized. Under direct ultrasound guidance, access gained into the abscess collection utilizing 18- gauge needle. Purulent fluid was aspirated and submitted for Gram stain and cultures. Guidewire was placed and visualized on ultrasound. Fascial dilatation performed, 8 [place] drain was placed within the fluid collection under direct ultrasound guidance. Aspirate yielded purulent fluid. Specimen submitted for Gram stain and cultures. Catheter connected to external drainage bag. Retention suture and sterile dressing applied. Patient tolerated procedure well without evidence of complication. IMPRESSION: Ultrasound-guided drain placement within right lobe hepatic abscess. Cultures pending. DANI GARCIA DO Feb 19, 2024 16:14
[2024-02-19 17:08] LABS: APPEARANCE BODY FLUID TURBID (CLEAR); COLOR,BODY FLUID BROWN (LT YELLOW); SPECIMENTYPE,BODY FLUID ASPIRATE; TOTAL VOLUME,BODY FLUID 9 mL
[2024-02-19 17:22] LABS: BODY FLUID RBC 53986 /cu. mm.; BODY FLUID WBC 121991 /cu. mm.
[2024-02-19] MEDS: VANCOMYCIN 750MG VIAL IVPB SCH (17:25)
[2024-02-19] MEDS: PEG 3350/NA SULF,BICARB,CL/KCL 4000 ML SOLN PO ONE (17:25)
[2024-02-19 18:27] LABS: BF LYMPHOCYTE 21 %; BF TOTAL CELLS COUNTED 100
[2024-02-19 19:04] LABS: TOTAL BILIRUBIN, BODY FLUID 6.8 mg/dL
[2024-02-19 19:19] LABS: ALT, BODY FLUID 966 U/L
--- NOTE | 2024-02-19 19:33 | CONS ---
INFECTIOUS DISEASE CONSULTATION REQUESTING PHYSICIAN: Danae Duque. REASON FOR CONSULTATION: Liver abscess. HISTORY OF PRESENT ILLNESS: A 73-year-old female with obesity, hypertension, and diabetes mellitus, who presented to the hospital with abdominal pain, generalized body weakness. The patient also complained of fever. Pain localized to the right upper quadrant. Initial CT scan showed possible mass. MRCP was done, which confirmed abscess to the right lobe of the liver. WBC on admission was 14,000. PAST MEDICAL HISTORY: 1. ESRD. 2. Hypertension. 3. Dyslipidemia. 4. Diabetes mellitus. 5. Obesity. PAST SURGICAL HISTORY: 1. AV fistula surgery. 2. Cholecystectomy. ALLERGIES: No known drug allergies. CURRENT MEDICATIONS: Reviewed. SOCIAL HISTORY: No alcohol, tobacco, or illicit drug use. FAMILY HISTORY: Positive for diabetes mellitus. REVIEW OF SYSTEMS: Greater than 10 systems were reviewed, negative except as documented above. PHYSICAL EXAMINATION: GENERAL: Elderly female, awake. VITAL SIGNS: Temperature 98.4, pulse 67, respirations 16, BP 123/51. EYES: No icterus. Pupils equal and reactive. HENT: No oral thrush seen. Moist oral mucosa. NECK: Supple. No JVD or thyromegaly. LUNGS: Good air entry. No rales, no rhonchi. CARDIOVASCULAR SYSTEM: S1, S2 regular. No murmur heard. ABDOMEN: Obese, soft. Bowel sounds present. Tenderness to the right upper quadrant. CENTRAL NERVOUS SYSTEM: Awake, alert, oriented x 3. No focal deficits. SKIN: No rashes, no itchiness. LYMPHATIC: No peripheral lymphadenopathy. BACK: No deformity, no pressure ulcer. MUSCULOSKELETAL: No joint swelling, erythema, or tenderness. LABORATORY DATA: Sodium 137, potassium 4.7, BUN 53, creatinine 5.1. WBC 12.2, hemoglobin 9.3, platelets 153. Blood culture: No growth for one day. RADIOLOGY: MRI of the abdomen shows a 3.5 cm fluid collection in the right lobe of the liver. ASSESSMENT: A 73-year-old female presenting with abdominal pain and fever. Current problems include: 1. gram-negative sepsis. 2. Liver abscess. 3. End-stage renal disease, on dialysis. 4. Obesity. 5. Hypertension. 6. Diabetes mellitus. 7. Anemia. PLAN: 1. Continue Zosyn. 2. Continue vancomycin. 3. The patient will need percutaneous drainage of abscess. 4. Continue dialysis. 5. Continue pain management. 6. Follow up cultures. 7. Monitor electrolytes. 8. The patient will be followed up closely. Thank you for allowing me to participate in the care of this patient. TID: [id number] RECEIPT: [id number]
--- NOTE | 2024-02-19 20:24 | PN ---
SUBJECTIVE: The patient has been evaluated and seen for dialysis, seen several times. The patient is critically ill. No other localizing finding. No fever, chills, or rigors. No cough, expectoration, or hemoptysis. No other associated finding. No other aggravating or relieving factors. The patient has generalized weakness. The patient is critically ill with these problems. PHYSICAL EXAMINATION: GENERAL: Pale, no other distress or deformities, lying in bed. VITAL SIGNS: Blood pressure is 130/83, pulse 70, respiratory rate is 18. HEENT: Head is atraumatic. Pupils are round and reactive. Sclerae are anicteric. Conjunctivae not pale. Oral mucosa is not dry. LABORATORY DATA: Have been reviewed. Old records have been reviewed. PROBLEMS: Renal failure, anemia, multiple other comorbidities. PLAN: To continue monitoring of renal function. Continued monitoring of electrolytes. The patient has been evaluated and seen for dialysis and seen several times today. Overall, condition remained guarded. I have discussed with other team members. Thank you for this patient. TID: [id number] RECEIPT: [id number]
--- NOTE | 2024-02-19 20:34 | PN ---
SUBJECTIVE: This patient has been evaluated and seen for dialysis and seen several times. The patient has no fever, chills or rigors. No cough, expectoration, or hemoptysis. Has shortness of breath. The patient has a liver abscess and drain placement planned. No other associated finding. No other aggravating or relieving factors. The patient is weak. Otherwise unchanged review. PHYSICAL EXAMINATION: GENERAL: Pale, no other distress or deformities, lying in bed. VITAL SIGNS: Blood pressure has been 130/52, pulse 74, respiratory rate is 18, afebrile. HEENT: Head is atraumatic. Pupils are round and reactive. Sclerae are anicteric. Conjunctivae not pale. Oral mucosa is not dry. NECK: Without masses or bruits. Thyroid is palpable. Neck has no bruits. LABORATORY DATA: Labs have been reviewed. Old records reviewed. Imaging studies are personally reviewed. PLAN: To continue dialysis support. Continue monitoring of renal function. Continued monitoring of electrolytes. We will be monitoring the overall status closely. Overall condition is poor. The patient was evaluated and seen for dialysis multiple times. Thank you for this patient. TID: [id number] RECEIPT: [id number]
[2024-02-19 21:22] LABS: HEPATITIS B CORE AB TOTAL Non-Reactive (Nonreactive); HEPATITIS B SURFACE ANTIBODY Negative (Reactive); HEPATITIS B SURFACE ANTIGEN Non-Reactive (Nonreactive)
[2024-02-19] MEDS: DOXAZOSIN MESYLATE 2 MG TABLET PO SCH (21:22)
[2024-02-19] MEDS: carVEDIlol 3.125 MG TABLET PO SCH (21:23)
[2024-02-20] VITALS (8 sets, daily range): BP systolic 145–164; BP diastolic 47–62; PULSE 62–78; RESP 18–21; TEMP 97.6–98.8; O2SAT 91–97
[2024-02-20 03:48] LABS: BASOPHILS # (AUTO) 0.03 K/uL (0.00-0.20); BASOPHILS % (AUTO) 0.3 % (0.0-5.0); HEMATOCRIT 30.6 % (36-48); IMMATURE GRANULOCYTE ABSOLUTE 0.14 K/uL (0-1); LYMPHOCYTES # (AUTO) 0.6 K/uL (1.0-4.8); LYMPHOCYTES % (AUTO) 5.5 % (21.0-51.0); MEAN CORPUSCULAR HEMOGLOBIN 34.6 pg (27.0-33.0); MEAN CORPUSCULAR HGB CONC 33.7 g/dL (32.0-36.0); MEAN CORPUSCULAR VOLUME 102.7 fL (79-99); MONOCYTES % (AUTO) 9.2 % (3.0-13.0); NEUTROPHILS # (AUTO) 9.3 K/uL (1.8-7.7); NEUTROPHILS % (AUTO) 83.7 % (40.0-77.0); NUCLEATED RED BLOOD CELLS 0.2 % (0.0-0.19); PLATELET COUNT (AUTO) 178 K/uL (130-400); RED BLOOD CELL COUNT(AUTO) 2.98 MIL/uL (4.00-5.50); RED CELL DISTRIBUTION WIDTH 12.5 % (11.0-15.5); WHITE BLOOD COUNT (AUTO) 11.1 K/uL (4.8-10.8)
[2024-02-20 03:58] LABS: INR 1.11 (0.85-1.15); PROTHROMBIN TIME 11.9 SEC (9.6-11.6)
[2024-02-20 04:04] LABS: ALBUMIN 2.4 g/dL (3.5-5.0); BILIRUBIN,TOTAL 0.9 mg/dL (0.2-1.0); MAGNESIUM 2.1 mg/dL (1.80-2.40); PHOSPHORUS 7.1 mg/dL (2.5-4.9); POTASSIUM 4.1 mmol/L (3.5-5.1)
[2024-02-20] MEDS: levoTHYROxine 88 MCG TABLET PO SCH (06:27)
--- NOTE | 2024-02-20 08:00 | NUR ---
RE: LIVER ABSCESS DRAIN PLACEMENT PLACED 02/19/24 AT [address] Anna GARCIA IN RADIOLOGY. PUNCTURE SITE RUQ. PATIENT TOLERATE PROCEDURE FAIR. 8.5FR DRAIN PLACED TO LIVER ABSCESS COLLECTION AND SUTURED IN PLACE. DRESSING DRY AND INTACT. SPECIMEN COLLECTED AND SENT TO LAB. END OF PROCEDURE AT 1500. DILAUDID 2MG GIVEN FOR POST PROCEDURE PAIN MANAGEMENT. REPORT GIVEN TO Jes SAEED LVN AND PATIENT TRANSPORTED TO [facility] VIA BED WITH O2 3L NC. PATENT COMFORTABLE WITH NO C/O PAIN ON ARRIVAL TO ROOM.
[2024-02-20] MEDS: CINACALCET 30 MG TAB PO SCH (09:00)
[2024-02-20] MEDS: Vitamin B Complex/Vit C/Folic Acid PO SCH (09:00)
[2024-02-20] MEDS: ASPIRIN 81MG CHEW TAB PO SCH (09:00)
[2024-02-20] MEDS: amLODIPine 5 MG TAB PO SCH (09:00)
[2024-02-20] MEDS: GABApentin 100 MG CAPSULE PO SCH (09:00)
--- NOTE | 2024-02-20 10:32 | PN ---
This is a 73-year-old female with concerns of hepatic abscess with recent IR drain placed Interval history: This 73-year-old female seen in her room resting IR able to place percutaneous drain yesterday with no complications WBCs 11hemoglobin stable. Patient tolerating diet No abdominal pain reported at time of exam patient is hemodynamically stable Physical exam General: Awake alert and oriented Heart: Regular rate and rhythm} Lungs: Clear to auscultation no distress Abdomen: [Soft, nontender, nondistended percutaneous drain in place Assessment : This is a 73-year-old female status post percutaneous drain placed for hepatic abscess Plan: From surgical standpoint no further intervention planned Patient to continue with antibiotic recommendations by primary team Patient to follow up in outpatient setting for evaluation and removal of drain Dr. Jones to be updated in patient's status and surgical team sign off at this time. Thank you Vitals/Labs Vital Signs Date Time Temp Pulse Resp B/P (MAP) Pulse Ox O2 Delivery O2 Flow Rate FiO2 02/20/24 08:00 98.8 77 20 159/47 91 Room Air 02/20/24 04:00 2.0 02/19/24 19:10 32 Laboratory Tests 02/20/24 03:00 Medications Current Medications Acetaminophen 650 mg ONCE ONCE PO Last administered on 02/17/24at 22:29; Start 02/17/24 at 22:00; Stop 02/17/24 at 22:01; Status DC Ondansetron HCl 4 mg ONCE ONCE IVP Last administered on 02/17/24at 22:28; Start 02/17/24 at 22:00; Stop 02/17/24 at 22:01; Status DC Ceftriaxone Sodium 2 gm ONCE ONCE IVPB Last administered on 02/17/24at 22:28; Start 02/17/24 at 22:00; Stop 02/17/24 at 22:01; Status DC Piperacillin Sod/ Tazobactam Sod 3.375 gm Q12H IV Last administered on 02/20/24at 01:44; Start 02/18/24 at 00:30; Stop 02/28/24 at 00:29 Vancomycin HCl 1 each AD IV; Start 02/18/24 at 00:30; Stop 03/03/24 at 00:29 Pharmacy Profile Note 1 each ONCE MISC; Start 02/18/24 at 00:30; Stop 02/18/24 at 00:26; Status DC Albuterol Sulfate 2.5 mg [id number] PRN IH; Start 02/18/24 at 00:30; Stop 03/19/24 at 00:29 Vancomycin HCl 1 each AD IV; Start 02/18/24 at 00:30; Stop 02/18/24 at 00:25; Status DC Acetaminophen 650 mg Q6H PRN PO Last administered on 02/19/24at 09:12; Start 02/18/24 at 00:30; Stop 03/19/24 at 00:29 Lactulose 20 gm Q6H PRN PO; Start 02/18/24 at 00:30; Stop 03/19/24 at 00:29 Ondansetron HCl 4 mg Q6H PRN IVP; Start 02/18/24 at 00:30; Stop 03/19/24 at 00:29 Hydralazine HCl 10 mg Q6H PRN IV; Start 02/18/24 at 00:30; Stop 03/19/24 at 00:29 Labetalol HCl 10 mg Q2H PRN IV; Start 02/18/24 at 00:30; Stop 03/19/24 at 00:29 Hydromorphone HCl 0.2 mg Q4H PRN IVP Last administered on 02/19/24at 00:53; Start 02/18/24 at 00:30; Stop 02/23/24 at 00:29 Vancomycin HCl 250 ml @ 125 mls/hr ONCE ONCE IV Last administered on 02/18/24at 01:29; Start 02/18/24 at 01:30; Stop 02/18/24 at 03:29; Status DC Vancomycin HCl 750 mg TTHSPHD IVPB Last administered on 02/19/24at 17:25; Start 02/19/24 at 16:00; Stop 02/29/24 at 15:59 Acetaminophen 650 mg ONCE ONCE RC Last administered on 02/18/24at 05:44; Start 02/18/24 at 06:00; Stop 02/18/24 at 06:01; Status DC Gadoterate Meglumine 10 mmol STK-MED ONCE IV; Start 02/18/24 at 13:44; Stop 02/18/24 at 13:45; Status DC Vitamin B Complex/ Vit C/Folic Acid 1 cap DAILY PO Last administered on 02/19/24at 09:11; Start 02/19/24 at 09:00; Stop 03/20/24 at 08:59 Sodium Chloride 1,000 ml @ 0 mls/hr ONCE ONCE IV Last administered on 02/19/24at 06:11; Start 02/19/24 at 06:00; Stop 02/19/24 at 06:01; Status DC Aspirin 81 mg DAILY PO; Start 02/20/24 at 09:00; Stop 03/21/24 at 08:59 Carvedilol 3.125 mg BID PO Last administered on 02/19/24at 21:23; Start 02/19/24 at 21:00; Stop 03/20/24 at 20:59 Cinacalcet 30 mg DAILY PO; Start 02/20/24 at 09:00; Stop 03/21/24 at 08:59 Gabapentin 100 mg DAILY PO; Start 02/20/24 at 09:00; Stop 03/21/24 at 08:59 Amlodipine Besylate 10 mg DAILY PO; Start 02/20/24 at 09:00; Stop 03/21/24 at 08:59 Doxazosin Mesylate 1 mg HS PO Last administered on 02/19/24at 21:22; Start 02/19/24 at 21:00; Stop 03/20/24 at 20:59 Vitamin B Complex/ Vit C/Folic Acid 1 cap DAILY PO; Start 02/20/24 at 09:00; Stop 03/21/24 at 08:59 Levothyroxine Sodium 88 mcg SYN PO; Start 02/20/24 at 06:30; Stop 03/21/24 at 06:29 Fentanyl Citrate 100 mcg STK-MED ONCE .ROUTE; Start 02/19/24 at 14:04; Stop 02/19/24 at 14:05; Status DC Midazolam HCl 2 mg STK-MED ONCE .ROUTE; Start 02/19/24 at 14:04; Stop 02/19/24 at 14:05; Status DC Hydromorphone HCl 2 mg STK-MED ONCE .ROUTE Last administered on 02/19/24at 15:38; Start 02/19/24 at 15:31; Stop 02/19/24 at 15:32; Status DC Polyethylene Glycol/ Electrolytes 4,000 ml ONCE ONCE PO Last administered on 02/19/24at 17:25; Start 02/19/24 at 16:00; Stop 02/19/24 at 16:01; Status DC JOSE G ZACARIAS Jr. Feb 20, 2024 10:32
--- NOTE | 2024-02-20 13:10 | PN ---
INFECTIOUS DISEASE PROGRESS NOTE Date of Service: Feb 20, 2024 SUBJECTIVE: This is a 73-year-old female patient with past medical history of diabetes mellitus and end-stage renal disease, on dialysis who presented to the hospital with chief complaint of generalized body weakness, and right upper abdominal quadrant pain. An MRCP showed fluid collection in the anterior segment of the right lobe of the liver consistent with abscess and the reason for this consult. Patient was seen and examined at bedside in room 330. Patient is status post percutaneous drain placement day #1. No fever, temperature is 98.8 and a WBC of 11.1. We will follow up on the aspirate cultures. Currently continues on vancomycin per pharmacy protocol and Zosyn IV. Patient was dialyzed yesterday and 2.5 L removed. We will continue to monitor patient's care. PHYSICAL EXAM EYES: Anicteric. Pupils equal and reactive. HENT: No oral thrush seen, moist Oral mucosa. NECK: Supple, no JVD or thyromegaly. LUNGS: Good air entry. No rales, no rhonchi. CARDIOVASCULAR: S1, S2 regular. No murmur heard. ABDOMEN: Soft, non tender, bowel sounds present, no organomegaly. Right percutaneous drainage catheter. CENTRAL NERVOUS SYSTEM: Awake, alert, oriented x 3. SKIN: No rashes, no swelling. LYMPHATICS: No peripheral lymphadenopathy. MUSCULOSKELETAL: No joint swelling, erythema or tenderness. EXTREMITIES: No cyanosis or clubbing. BACK: No deformity, no pressure ulcer. GENITOURINARY: No dysuria or hematuria. Vital Sign (Last 12 Hours) 02/20/24 02/20/24 02/20/24 04:00 08:00 12:00 Temp 97.5 98.8 98.8 Pulse 67 77 63 Resp 20 20 19 B/P (MAP) 151/58 159/47 153/55 Pulse Ox 91 91 94 O2 Delivery Nasal Cannula Room Air Nasal Cannula O2 Flow Rate 2.0 3.0 Intake & Output (last 24hrs) 02/19/24 02/19/24 02/20/24 14:59 22:59 06:59 Intake Total 800 ml Output Total 2500 ml Balance -2500 ml 800 ml LABS: Laboratory: Test 02/20/24 11:13 02/20/24 03:00 02/19/24 15:00 02/19/24 13:43 Range/Units Whole Blood Glucose 108 70-110 MG/DL White Blood Count 11.1 H 4.8-10.8 K/uL Red Blood Count 2.98 L 4.00-5.50 MIL/uL Hemoglobin 10.3 L 12.0-16.0 g/dL Hematocrit 30.6 L 36-48 % Mean Corpuscular Volume 102.7 H 79-99 fL Mean Corpuscular Hemoglobin 34.6 H 27.0-33.0 pg Mean Corpuscular Hemoglobin Concent 33.7 32.0-36.0 g/dL Red Cell Distribution Width 12.5 11.0-15.5 % Platelet Count 178 130-400 K/uL Mean Platelet Volume 10.6 H 7.5-10.5 fL Immature Granulocyte % (Auto) 1.3 H 0-1 % Neutrophils (%) (Auto) 83.7 H 40.0-77.0 % Lymphocytes (%) (Auto) 5.5 L 21.0-51.0 % Monocytes (%) (Auto) 9.2 3.0-13.0 % Eosinophils (%) (Auto) 0.0 0.0-8.0 % Basophils (%) (Auto) 0.3 0.0-5.0 % Neutrophils # (Auto) 9.3 H 1.8-7.7 K/uL Lymphocytes # (Auto) 0.6 L 1.0-4.8 K/uL Monocytes # (Auto) 1.0 0.1-1.0 K/uL Eosinophils # (Auto) 0.00 0.00-0.70 K/uL Basophils # (Auto) 0.03 0.00-0.20 K/uL Absolute Immature Granulocyte (auto 0.14 0-1 K/uL Nucleated Red Blood Cells 0.2 H 0.0-0.19 % Prothrombin Time 11.9 H 9.6-11.6 SEC Prothromb Time International Ratio 1.11 0.85-1.15 Sodium Level 141 136-145 mmol/L Potassium Level 4.1 3.5-5.1 mmol/L Chloride Level 99 L 101-111 mmol/L Carbon Dioxide Level 30 21-32 mmol/L Blood Urea Nitrogen 45 H 7-18 mg/dL Creatinine 5.0 H 0.5-1.0 mg/dL Glomerular Filtration Rate Calc 9 >90 mL/min Random Glucose 139 H 70-105 mg/dL Total Calcium 8.0 L 8.5-10.1 mg/dL Phosphorus Level 7.1 H 2.5-4.9 mg/dL Magnesium Level 2.10 1.80-2.40 mg/dL Total Bilirubin 0.9 0.2-1.0 mg/dL Aspartate Amino Transf (AST/SGOT) 41 H 10-37 U/L Alanine Aminotransferase (ALT/SGPT) 57 12-78 U/L Alkaline Phosphatase 262 H 50-136 U/L Total Protein 7.0 6.0-8.3 g/dL Albumin 2.4 L 3.5-5.0 g/dL Body Fluid Source ASPIRATE Body Fluid Volume 9 mL Body Fluid Color BROWN H LT YELLOW Body Fluid Supernatant Appearance TURBID H CLEAR Body Fluid WBC 428015 /cu. mm. Body Fluid RBC 01420 /cu. mm. Body Fluid Neutrophils 79.0 % Body Fluid Lymphocytes 21 % Body Fluid ALT 966 U/L Body Fluid Total Bilirubin 6.8 mg/dL Body Fluid Lactate Dehydrogenase 05248 U/L Activated Partial Thromboplast Time 28.2 26.3-35.5 SEC Test 02/19/24 06:45 02/19/24 03:54 Range/Units Hepatitis B Surface Antigen. Non-Reactive Nonreactive Hepatitis B Surface Antibody. Negative L Reactive Hepatitis B Core Total Antibody. Non-Reactive Nonreactive Thyroid Stimulating Hormone (TSH) 1.11 # 0.36-3.74 uIU/mL ASSESSMENT: Liver abscess status post percutaneous drain placement. Leukocytosis. End-stage renal disease, on dialysis. Diabetes mellitus. Anemia. PLAN: Continue vancomycin per pharmacy protocol. Continue Zosyn IV. Continue pain management. We will follow up on the culture results. Monitoring drain output. Monitor electrolytes. This case was reviewed and discussed with my supervising physician and the above assessment and plan was formulated and agreed upon. ATTESTATION BY PHYSICIAN I have seen and examined the patient. I reviewed the documentation, medical de cision making, and treatment plan as noted by the mid-level provider above. I agree with the findings and plan of care. SAVANNAH PERDUE MD, [facility] Feb 20, 2024 13:10
--- NOTE | 2024-02-20 14:10 | PN ---
GASTROENTEROLOGY PROGRESS NOTE Date of Visit: Feb 20, 2024 Time of Visit: 14:10 Events / Notes: No acute events overnight. Patient underwent IR drainage of liver abscess. Review of Systems: CONSTITUTIONAL: No malaise or change in sensation of wellbeing. ENMT: No rhinorrhea, otorrhea, sinus pain, ear ache. CARDIOVASCULAR: No angina, palpitations, orthopnea or paroxysmal dyspnea. RESPIRATORY: No SOB. GASTROINTESTINAL: No abdominal pain, nausea, vomiting, diarrhea, hematemesis, melena or change in the patient's habitual bowel movements consistency/number. GENITOURINARY: No dysuria, hematuria or change in bladder continence. MUSCULOSKELETAL: No new muscle pain or decrease in muscular strength. No new joint swelling, redness or tenderness. SKIN: No new rash. Physical Exam: GEN: Awake, alert, oriented in person, time and place, and in no acute distress. HEENT: No sinus tenderness. Tympanic membranes were not examined. No rhinorrhea. Oral pharyngeal mucosa is pink, moist and within normal limits. Neck is supple with no cervical lymphadenopathy, thyromegaly or JVD. CHEST: Inspection, palpation and percussion of the chest were unremarkable. Lung auscultation revealed normal breath sounds bilaterally. CARDIAC: PMI is within normal limits. Heart sounds are regular. Normal S1, S2. No gallop or murmur. ABD: Soft, non-tender and not distended. No peritoneal signs on palpation. No organomegaly. Normal bowel sounds. EXT: No cyanosis or clubbing. No edema. SKIN: Intact. No rashes. JOINTS: No evidence of synovitis or acute arthritis. NEURO: Alert and oriented to name, place and person. Cranial nerve examination is unremarkable. No focal motor deficits. Normal speech. Gait is normal. Strength is normal. Vital Signs (last 8hr) Date Time Temp Pulse Resp B/P (MAP) Pulse Ox O2 Delivery O2 Flow Rate FiO2 02/20/24 12:00 98.8 63 19 153/55 94 Nasal Cannula 3.0 02/20/24 08:00 98.8 77 20 159/47 91 Room Air Laboratory: [ ] Laboratory: Test 02/20/24 11:13 02/20/24 03:00 02/19/24 15:00 02/19/24 13:43 Range/Units Whole Blood Glucose 108 70-110 MG/DL White Blood Count 11.1 H 4.8-10.8 K/uL Red Blood Count 2.98 L 4.00-5.50 MIL/uL Hemoglobin 10.3 L 12.0-16.0 g/dL Hematocrit 30.6 L 36-48 % Mean Corpuscular Volume 102.7 H 79-99 fL Mean Corpuscular Hemoglobin 34.6 H 27.0-33.0 pg Mean Corpuscular Hemoglobin Concent 33.7 32.0-36.0 g/dL Red Cell Distribution Width 12.5 11.0-15.5 % Platelet Count 178 130-400 K/uL Mean Platelet Volume 10.6 H 7.5-10.5 fL Immature Granulocyte % (Auto) 1.3 H 0-1 % Neutrophils (%) (Auto) 83.7 H 40.0-77.0 % Lymphocytes (%) (Auto) 5.5 L 21.0-51.0 % Monocytes (%) (Auto) 9.2 3.0-13.0 % Eosinophils (%) (Auto) 0.0 0.0-8.0 % Basophils (%) (Auto) 0.3 0.0-5.0 % Neutrophils # (Auto) 9.3 H 1.8-7.7 K/uL Lymphocytes # (Auto) 0.6 L 1.0-4.8 K/uL Monocytes # (Auto) 1.0 0.1-1.0 K/uL Eosinophils # (Auto) 0.00 0.00-0.70 K/uL Basophils # (Auto) 0.03 0.00-0.20 K/uL Absolute Immature Granulocyte (auto 0.14 0-1 K/uL Nucleated Red Blood Cells 0.2 H 0.0-0.19 % Prothrombin Time 11.9 H 9.6-11.6 SEC Prothromb Time International Ratio 1.11 0.85-1.15 Sodium Level 141 136-145 mmol/L Potassium Level 4.1 3.5-5.1 mmol/L Chloride Level 99 L 101-111 mmol/L Carbon Dioxide Level 30 21-32 mmol/L Blood Urea Nitrogen 45 H 7-18 mg/dL Creatinine 5.0 H 0.5-1.0 mg/dL Glomerular Filtration Rate Calc 9 >90 mL/min Random Glucose 139 H 70-105 mg/dL Total Calcium 8.0 L 8.5-10.1 mg/dL Phosphorus Level 7.1 H 2.5-4.9 mg/dL Magnesium Level 2.10 1.80-2.40 mg/dL Total Bilirubin 0.9 0.2-1.0 mg/dL Aspartate Amino Transf (AST/SGOT) 41 H 10-37 U/L Alanine Aminotransferase (ALT/SGPT) 57 12-78 U/L Alkaline Phosphatase 262 H 50-136 U/L Total Protein 7.0 6.0-8.3 g/dL Albumin 2.4 L 3.5-5.0 g/dL Body Fluid Source ASPIRATE Body Fluid Volume 9 mL Body Fluid Color BROWN H LT YELLOW Body Fluid Supernatant Appearance TURBID H CLEAR Body Fluid WBC 363227 /cu. mm. Body Fluid RBC 33995 /cu. mm. Body Fluid Neutrophils 79.0 % Body Fluid Lymphocytes 21 % Body Fluid ALT 966 U/L Body Fluid Total Bilirubin 6.8 mg/dL Body Fluid Lactate Dehydrogenase 95947 U/L Activated Partial Thromboplast Time 28.2 26.3-35.5 SEC Test 02/19/24 06:45 02/19/24 03:54 Range/Units Hepatitis B Surface Antigen. Non-Reactive Nonreactive Hepatitis B Surface Antibody. Negative L Reactive Hepatitis B Core Total Antibody. Non-Reactive Nonreactive Thyroid Stimulating Hormone (TSH) 1.11 # 0.36-3.74 uIU/mL Current Medications Medications (Trade) Dose Ordered Sig/Brandon Route PRN Reason Start Time Stop Time Status Last Admin Dose Admin Acetaminophen (TYLenol 325MG TAB) 650 mg Q6H PRN PO FEVER/MILD PAIN LEVEL 1-3 02/18/24 00:30 03/19/24 00:29 02/19/24 09:12 650 MG Albuterol Sulfate (Proventil 0.083% 2.5mg/3ml) 2.5 mg [id number] PRN IH SHORTNESS OF BREATH 02/18/24 00:30 03/19/24 00:29 Amlodipine Besylate (NorvASC 5MG TAB) 10 mg DAILY PO 02/20/24 09:00 03/21/24 08:59 Aspirin (Aspirin 81mg Chew Tab) 81 mg DAILY PO 02/20/24 09:00 03/21/24 08:59 Carvedilol (Coreg 3.125MG) 3.125 mg BID PO 02/19/24 21:00 03/20/24 20:59 02/19/24 21:23 3.125 MG Cinacalcet (Sensipar 30mg Tab) 30 mg DAILY PO 02/20/24 09:00 03/21/24 08:59 Doxazosin Mesylate (Doxazosin Mesylate) 1 mg HS PO 02/19/24 21:00 03/20/24 20:59 02/19/24 21:22 1 MG Gabapentin (NEURontin 100 mg CAP) 100 mg DAILY PO 02/20/24 09:00 03/21/24 08:59 Hydralazine HCl (APRESOLine 20MG INJ) 10 mg Q6H PRN IV SBP GREATER THAN 180 02/18/24 00:30 03/19/24 00:29 Hydromorphone HCl (DiLAUDid 0.5MG INJ) 0.2 mg Q4H PRN IVP SEVERE PAIN (7-10) 02/18/24 00:30 02/23/24 00:29 02/19/24 00:53 0.2 MG Labetalol HCl (TRANdate 20MG SYG) 10 mg Q2H PRN IV SBP GREATER THAN 180 02/18/24 00:30 03/19/24 00:29 Lactulose (Constulose 20gm/ 30ml Udcup) 20 gm Q6H PRN PO CONSTIPATION 02/18/24 00:30 03/19/24 00:29 Levothyroxine Sodium (SYNTHroid 88MCG TAB) 88 mcg SYN PO 02/20/24 06:30 03/21/24 06:29 Ondansetron HCl (zoFRAN 4MG INJ) 4 mg Q6H PRN IVP NAUSEA/VOMITING 02/18/24 00:30 03/19/24 00:29 Pharmacy Profile Note (Pharmacy Communication) 1 each ONCE MISC 02/18/24 00:30 02/18/24 00:26 DC Piperacillin Sod/ Tazobactam Sod (Zosyn 3.375gm+NS 50ml) 3.375 gm Q12H IV 02/18/24 00:30 02/28/24 00:29 02/20/24 13:33 3.375 GM Vancomycin HCl (Vancomycin 750mg) 750 mg TTHSPHD IVPB 02/19/24 16:00 02/29/24 15:59 02/19/24 17:25 750 MG Vancomycin HCl (Vancomycin Protocol) 1 each AD IV 02/18/24 00:30 02/18/24 00:25 DC Vancomycin HCl (Vancomycin Protocol) 1 each AD IV 02/18/24 00:30 03/03/24 00:29 Vitamin B Complex/ Vit C/Folic Acid (Nephrovite Tablet) 1 cap DAILY PO 02/19/24 09:00 03/20/24 08:59 02/19/24 09:11 1 CAP Vitamin B Complex/ Vit C/Folic Acid (Nephrovite Tablet) 1 cap DAILY PO 02/20/24 09:00 03/21/24 08:59 Diagnostics / Radiology: [COPY/PASTE HERE IF NO REPORTS PLEASE DELETE SECTION] Assessment: Liver abscess Abdominal pain Plan: Tentative plan for egd/colonoscopy in [facility] Feb 20, 2024 14:10
--- NOTE | 2024-02-20 14:17 | PN ---
NEPHROLOGY PROGRESS NOTE Date/Time Patient Seen: Feb 20, 2024 SUBJECTIVE: The patient is a 73-year-old female with a history of diabetes, end stage renal disease on hemodialysis Friday, recent cholecystectomy She presents to the emergency department with complaints of generalized body weakness, bilateral flank pain, nausea, right upper abdominal pain onset two days ago. Blood cultures from outpatient dialysis clinic positive for gram negative bacilli Continues on antibiotics. Blood cultures collected on 02/17/2024 have been negative Pending body fluid cultures. S/P percutaneous drain placed for hepatic abscess on 02/18 She tolerated this without difficulty. Dialysis planned for tomorrow She was seen in the medical floor, no acute distress REVIEW OF SYSTEMS: GENERAL: Negative for any nausea, vomiting, fevers, chills, or weight loss. NEUROLOGIC: Negative for any blurry vision, blind spots, double vision, facial asymmetry, dysphagia, dysarthria, hemiparesis, hemisensory deficits, vertigo, ataxia. HEENT: Negative for any head trauma, neck trauma, neck stiffness, photophobia, phonophobia, sinusitis, rhinitis. CARDIAC: Negative for any chest pain, dyspnea on exertion, paroxysmal nocturnal dyspnea, peripheral edema. PULMONARY: Negative for any shortness of breath, wheezing, COPD, or TB exposure. GASTROINTESTINAL: Negative for any abdominal pain, nausea, vomiting, bright red blood per rectum, melena. GENITOURINARY: Negative for any dysuria, hematuria, incontinence. INTEGUMENTARY: Negative for any rashes, cuts, insect bites. RHEUMATOLOGIC: Negative for any joint pains, photosensitive rashes, history of vasculitis or kidney problems. HEMATOLOGIC: Negative for any abnormal bruising, frequent infections or bleeding. Vital Signs (last 8hr) Date Time Temp Pulse Resp B/P (MAP) Pulse Ox O2 Delivery O2 Flow Rate FiO2 02/20/24 12:00 98.8 63 19 153/55 94 Nasal Cannula 3.0 02/20/24 08:00 98.8 77 20 159/47 91 Room Air PHYSICAL EXAM: GENERAL: Alert and oriented x 3. No acute distress. Well-nourished. EYES: EOMI. Anicteric. HENT: Moist mucous membranes. No scleral icterus. No cervical lymphadenopathy. LUNGS: Clear to auscultation bilaterally. No accessory muscle use. CARDIOVASCULAR: Regular rate and rhythm. No murmur. No JVD. ABDOMEN: Soft, non-tender and non-distended. No palpable masses. EXTREMITIES: No edema. Non-tender.?SKIN: No rashes or lesions. Warm. NEUROLOGIC: No focal neurological deficits. CN II-XII grossly intact, but not individually tested. PSYCHIATRIC: Cooperative. Appropriate mood and affect. Current Medications Medications (Trade) Dose Ordered Sig/Brandon Route PRN Reason Start Time Stop Time Status Last Admin Dose Admin Acetaminophen (TYLenol 325MG TAB) 650 mg Q6H PRN PO FEVER/MILD PAIN LEVEL 1-3 02/18/24 00:30 03/19/24 00:29 02/19/24 09:12 650 MG Albuterol Sulfate (Proventil 0.083% 2.5mg/3ml) 2.5 mg [id number] PRN IH SHORTNESS OF BREATH 02/18/24 00:30 03/19/24 00:29 Amlodipine Besylate (NorvASC 5MG TAB) 10 mg DAILY PO 02/20/24 09:00 03/21/24 08:59 Aspirin (Aspirin 81mg Chew Tab) 81 mg DAILY PO 02/20/24 09:00 03/21/24 08:59 Carvedilol (Coreg 3.125MG) 3.125 mg BID PO 02/19/24 21:00 03/20/24 20:59 02/19/24 21:23 3.125 MG Cinacalcet (Sensipar 30mg Tab) 30 mg DAILY PO 02/20/24 09:00 03/21/24 08:59 Doxazosin Mesylate (Doxazosin Mesylate) 1 mg HS PO 02/19/24 21:00 03/20/24 20:59 02/19/24 21:22 1 MG Gabapentin (NEURontin 100 mg CAP) 100 mg DAILY PO 02/20/24 09:00 03/21/24 08:59 Hydralazine HCl (APRESOLine 20MG INJ) 10 mg Q6H PRN IV SBP GREATER THAN 180 02/18/24 00:30 03/19/24 00:29 Hydromorphone HCl (DiLAUDid 0.5MG INJ) 0.2 mg Q4H PRN IVP SEVERE PAIN (7-10) 02/18/24 00:30 02/23/24 00:29 02/19/24 00:53 0.2 MG Labetalol HCl (TRANdate 20MG SYG) 10 mg Q2H PRN IV SBP GREATER THAN 180 02/18/24 00:30 03/19/24 00:29 Lactulose (Constulose 20gm/ 30ml Udcup) 20 gm Q6H PRN PO CONSTIPATION 02/18/24 00:30 03/19/24 00:29 Levothyroxine Sodium (SYNTHroid 88MCG TAB) 88 mcg SYN PO 02/20/24 06:30 03/21/24 06:29 Ondansetron HCl (zoFRAN 4MG INJ) 4 mg Q6H PRN IVP NAUSEA/VOMITING 02/18/24 00:30 03/19/24 00:29 Pharmacy Profile Note (Pharmacy Communication) 1 each ONCE MISC 02/18/24 00:30 02/18/24 00:26 DC Piperacillin Sod/ Tazobactam Sod (Zosyn 3.375gm+NS 50ml) 3.375 gm Q12H IV 02/18/24 00:30 02/28/24 00:29 02/20/24 13:33 3.375 GM Vancomycin HCl (Vancomycin 750mg) 750 mg TTHSPHD IVPB 02/19/24 16:00 02/29/24 15:59 02/19/24 17:25 750 MG Vancomycin HCl (Vancomycin Protocol) 1 each AD IV 02/18/24 00:30 02/18/24 00:25 DC Vancomycin HCl (Vancomycin Protocol) 1 each AD IV 02/18/24 00:30 03/03/24 00:29 Vitamin B Complex/ Vit C/Folic Acid (Nephrovite Tablet) 1 cap DAILY PO 02/19/24 09:00 03/20/24 08:59 02/19/24 09:11 1 CAP Vitamin B Complex/ Vit C/Folic Acid (Nephrovite Tablet) 1 cap DAILY PO 02/20/24 09:00 03/21/24 08:59 LABORATORY: [ ] Hematology Labs: Test 02/20/24 03:00 Range/Units White Blood Count 11.1 H 4.8-10.8 K/uL Red Blood Count 2.98 L 4.00-5.50 MIL/uL Hemoglobin 10.3 L 12.0-16.0 g/dL Hematocrit 30.6 L 36-48 % Mean Corpuscular Volume 102.7 H 79-99 fL Mean Corpuscular Hemoglobin 34.6 H 27.0-33.0 pg Mean Corpuscular Hemoglobin Concent 33.7 32.0-36.0 g/dL Red Cell Distribution Width 12.5 11.0-15.5 % Platelet Count 178 130-400 K/uL Mean Platelet Volume 10.6 H 7.5-10.5 fL Immature Granulocyte % (Auto) 1.3 H 0-1 % Neutrophils (%) (Auto) 83.7 H 40.0-77.0 % Lymphocytes (%) (Auto) 5.5 L 21.0-51.0 % Monocytes (%) (Auto) 9.2 3.0-13.0 % Eosinophils (%) (Auto) 0.0 0.0-8.0 % Basophils (%) (Auto) 0.3 0.0-5.0 % Neutrophils # (Auto) 9.3 H 1.8-7.7 K/uL Lymphocytes # (Auto) 0.6 L 1.0-4.8 K/uL Monocytes # (Auto) 1.0 0.1-1.0 K/uL Eosinophils # (Auto) 0.00 0.00-0.70 K/uL Basophils # (Auto) 0.03 0.00-0.20 K/uL Absolute Immature Granulocyte (auto 0.14 0-1 K/uL Nucleated Red Blood Cells 0.2 H 0.0-0.19 % Chemistry Labs: Test 02/20/24 11:13 02/20/24 03:00 02/19/24 03:54 Range/Units Whole Blood Glucose 108 70-110 MG/DL Sodium Level 141 136-145 mmol/L Potassium Level 4.1 3.5-5.1 mmol/L Chloride Level 99 L 101-111 mmol/L Carbon Dioxide Level 30 21-32 mmol/L Blood Urea Nitrogen 45 H 7-18 mg/dL Creatinine 5.0 H 0.5-1.0 mg/dL Glomerular Filtration Rate Calc 9 >90 mL/min Random Glucose 139 H 70-105 mg/dL Total Calcium 8.0 L 8.5-10.1 mg/dL Phosphorus Level 7.1 H 2.5-4.9 mg/dL Magnesium Level 2.10 1.80-2.40 mg/dL Total Bilirubin 0.9 0.2-1.0 mg/dL Aspartate Amino Transf (AST/SGOT) 41 H 10-37 U/L Alanine Aminotransferase (ALT/SGPT) 57 12-78 U/L Alkaline Phosphatase 262 H 50-136 U/L Total Protein 7.0 6.0-8.3 g/dL Albumin 2.4 L 3.5-5.0 g/dL Thyroid Stimulating Hormone (TSH) 1.11 # 0.36-3.74 uIU/mL Coagulation Labs: Test 02/20/24 03:00 02/19/24 13:43 Range/Units Prothrombin Time 11.9 H 9.6-11.6 SEC Prothromb Time International Ratio 1.11 0.85-1.15 Activated Partial Thromboplast Time 28.2 26.3-35.5 SEC DIAGNOSTICS / RADIOLOGY: REASON: RT HEPATIC FLUID COLLECTION ORDERING PHYSICIAN: WES HA PROCEDURE: DRNG LIVR - US PERC DRN, LIVER W IMG IR US PERC DRN, LIVER W IMG IR REASON: RT HEPATIC FLUID COLLECTION abscess COMPARISON: Previous CT 02/17/2024. TECHNIQUE: Ultrasound-guided drain placement within right lobe hepatic abscess. FINDINGS: Ultrasound demonstrates complex fluid collection within the right lobe of the liver with air foci present. PROCEDURE: Informed consent obtained from the patient following explanation of risk, benefits, complications. Timeout performed by radiology nursing staff. Right abdomen was prepped and draped in sterile fashion. Patient received intravenous titrated doses of Versed and fentanyl administered by radiology nursing personnel with continuous monitoring of the oxygen saturation, chronic status, respiratory status. 10 mL of 1% lidocaine subcutaneous utilized. Under direct ultrasound guidance, access gained into the abscess collection utilizing 18-gauge needle. Purulent fluid was aspirated and submitted for Gram stain and cultures. Guidewire was placed and visualized on ultrasound. Fascial dilatation performed, 8 Sami drain was placed within the fluid collection under direct ultrasound guidance. Aspirate yielded purulent fluid. Specimen submitted for Gram stain and cultures. Catheter connected to external drainage bag. Retention suture and sterile dressing applied. Patient tolerated procedure well without evidence of complication. IMPRESSION: Ultrasound-guided drain placement within right lobe hepatic abscess. Cultures pending. DICTATED BY: DANI GARCIA DO DATE: 02/19/24 1606 REASON: R/O ASCENDING CHOLANGITIS ORDERING PHYSICIAN: STEPHEN VICENTE [facility] PROCEDURE: MRCP WWO - MRCP([id number])CHOLANGIOPANCREATO MRCP(ABDWWO)CHOLANGIOPANCREATO REASON: R/O ASCENDING CHOLANGITIS COMPARISON: CT abdomen and pelvis 02/17/2024 TECHNIQUE: Routine imaging protocol was performed. Images were also obtained pre and postgadolinium contrast infusion, 20 cc Clariscan IV. FINDINGS: There is a 3 x 3.4 cm fluid collection in the anterior segment of the right lobe of the liver, relatively high under the diaphragm. This has a short air-fluid level. There is peripheral contrast enhancement. Findings are consistent with a hepatic abscess. There are no other focal liver lesions. Portal and hepatic veins appear patent. Gallbladder is absent. There is a small amount of air in the biliary tree, probably from previous S sphincterotomy. Intrahepatic biliary tree does not appear distended. Common duct measures between 4 and 5 mm near the head of the pancreas. There is renal cortical thinning moderate in degree. There are small bilateral renal cysts. Spleen and pancreas appear normal. Pancreatic duct is not dilated. There are no focal fluid collections. There is no free air or fluid. Anterior abdominal wall appears intact. IMPRESSION: 1. 3 x 3.4 cm focal fluid collection in the anterior segment right lobe of the liver, with an air-fluid level, consistent with abscess. 2. Absent gallbladder 3. Moderate bilateral renal cortical thinning, there are also bilateral renal cysts. DICTATED BY: ROBERTO LONGORIA MD DATE: 02/18/24 1434 REASON: bilateral flank pain, ruq pain ORDERING PHYSICIAN: TOM PATEL [employer]NAGER [employer] MANAGEMENT PROCEDURE: ABD PEL WO - CT ABDOMEN/PELVIS W/O CONTRAST CT ABDOMEN/PELVIS W/O CONTRAST HISTORY: Bilateral flank pain COMPARISON: 01/13/2016 TECHNIQUE: Multiple sequential axial images of the abdomen and pelvis were obtained from the dome of the diaphragm through symphysis pubis. Patient was not given contrast through intravenous route. Oral contrast was not given. FINDINGS: No pleural effusion is seen bilaterally. There is no evidence of parenchymal disease or pulmonary nodule of the visualized lower lungs. Degenerative changes of the thoracolumbar spine are present. The heart is not enlarged. There is 3.7 cm right hepatic nodule. Intrahepatic biliary air is seen. Postcholecystectomy changes are seen. There are bilateral renal cortical scarring. Bilateral renal vascular calcifications are seen. The liver, spleen, adrenal glands and pancreas are unremarkable. There is no evidence of hydronephrosis bilaterally. No evidence of renal stone is seen. There is diverticulosis. Fecal material is seen in the colon. There are normal size retroperitoneal and mesenteric lymph nodes. No ascites is seen. Atherosclerotic changes are present. Uterus is enlarged with calcifications suggestive of fibroid uterus. Pelvic sidewalls are symmetric bilaterally. Bladder is poorly distended. IMPRESSION: 1. There is 3.7 cm right hepatic mass with neoplastic process not excluded. Intrahepatic biliary air is seen with postcholecystectomy changes. Fibroid uterus. Diverticulosis. CT was performed with one or more following dose reduction techniques: automated exposure control, adjustment of the mA and kv according to patient's size, or use of a iterative reconstruction technique. DICTATED BY: LORELEI HERRERA MD DATE: 02/17/242219..REASON: cp ORDERING PHYSICIAN: TOM PATEL PROCEDURE: CXR1VW - CHEST 1VW CHEST 1VW REASON: cp COMPARISON: 02/14/2024 FINDINGS: Single view of the chest was obtained. Lungs are clear. There is mild cardiac megaly, unchanged. There is no pulmonary vascular congestion. Mediastinum and bony thorax appear unremarkable. IMPRESSION: 1. Mild cardiomegaly, unchanged no acute finding. DICTATED BY: ROBERTO LONGORIA MD DATE: 02/18/24928 ASSESSMENT: End stage renal disease Anemia Sepsis Hepatic Abscess Chronic Congestive Diastolic Heart Failure , Echo 2022 EF of 65% Primary hypertension HLD Diabetes mellitus II PLAN: Labs and Diagnostics/ Radiology personally reviewed and interpreted by myself and supervising physician We have reviewed dialysis and external records in detail Continue dialysis schedule Friday Obtain Sensitivity from outpatient clinic 1.5 L fluid restriction Continue to monitor H&H Epogen on dialysis days, as needed Continue with frequent monitoring of renal function, anemia, and electrolytes Order CBC, BMP, and electrolytes in the morning May use Dilaudid 0.5 mg IV every 6 hours as needed for severe pain Maintain glucose between 100-180mg/dl, AccuCheks QC and HS Monitor blood pressure adjust medication doses as needed Maintain normotensive state; keep systolic blood pressure between 110-160 Strict intake, output, and daily weight should be monitored Please renally adjust medications. Avoid nephrotoxics and nonsteroidal drugs. We will continue to monitor the patient closely We have discussed with the other team physicians in detail about the care plan ATTESTATION BY PHYSICIAN I have seen and examined the patient. I reviewed the documentation, medical decision making, and treatment plan as noted by the mid-level provider above. I agree with the findings and plan of care. YANCY MANZO MD, [facility] Feb 20, 2024 14:17
--- NOTE | 2024-02-20 16:28 | PN ---
[facility] PROGRESS NOTE Date Patient Seen: Feb 20, 2024 Time of Visit: 16:27 Supervising Physician: Payal Humphreys MD Primary Care Physician: [Dr. Bret No ] Outpatient Specialists: [ Dr. Herrmann, nephro ]] Inpatient Consults: [Dr. Macias, surgery, Dr. Herrmann, nephro ] PROBLEM LIST: Sepsis secondary to 3x3.4 Hepatic Abscess S/P IR drain placement within rt lobe heaptic abscess cultures pending 02/20/24 ESRD HD TT HS Chronic Congestive Diastolic Heart Failure , Echo 2022 EF of 65% Primary hypertension HLD Diabetes mellitus II Hg A1c of 7.2 % from 2019 INTERVAL HISTORY: 02/19-patient awaiting IR for aspiration and drain placement as recommended per General surgery for this morning. GI has planned EGD and colonoscopy for tomorrow morning. No further fevers in the last 24 hours with a T-max of 98.8, hemodynamically stable in no apparent respiratory distress respiratory rate of 19 saturating 94% with 3 L via nasal cannula. Patient has good urine output and a bowel movement today. White count trending down today 11.1 H&H is 10.3/30.6 slightly improved from yesterday which was 9.8/29.5 platelet count is normal. On chemistry chloride 99 BUN is 45 creatinine is 5.0 with a GFR of 9. Total calcium is eight phosphorus 7.1 AST is 41 alkaline phosphatase 262 albumin 2.4. Antibiotics per ID. REVIEW OF SYSTEMS: 12 point ROS reviewed with patient. Pertinent positives mentioned above. Otherwise negative. PHYSICAL EXAM: GENERAL: alert, weak, awake oriented x 3 HEENT: EOMI, Sclera non icteric, moist mucosa NECK: Supple, no JVD, trachea midline LUNGS: Clear breath sounds bilaterally. No wheezes HEART: Regular rate and rhythm. Normal S1 and S2, without murmurs ABD: Abdomen soft but tender on RUQ. Bowel sounds present, EXT: No clubbing cyanosis or edema NEURO: Alert and oriented to person, follows commands Vital Signs (last 8hr) Date Time Temp Pulse Resp B/P (MAP) Pulse Ox O2 Delivery O2 Flow Rate FiO2 02/20/24 12:00 98.8 63 19 153/55 94 Nasal Cannula 3.0 LABS: Hematology Labs: Test 02/20/24 03:00 Range/Units White Blood Count 11.1 H 4.8-10.8 K/uL Red Blood Count 2.98 L 4.00-5.50 MIL/uL Hemoglobin 10.3 L 12.0-16.0 g/dL Hematocrit 30.6 L 36-48 % Mean Corpuscular Volume 102.7 H 79-99 fL Mean Corpuscular Hemoglobin 34.6 H 27.0-33.0 pg Mean Corpuscular Hemoglobin Concent 33.7 32.0-36.0 g/dL Red Cell Distribution Width 12.5 11.0-15.5 % Platelet Count 178 130-400 K/uL Mean Platelet Volume 10.6 H 7.5-10.5 fL Immature Granulocyte % (Auto) 1.3 H 0-1 % Neutrophils (%) (Auto) 83.7 H 40.0-77.0 % Lymphocytes (%) (Auto) 5.5 L 21.0-51.0 % Monocytes (%) (Auto) 9.2 3.0-13.0 % Eosinophils (%) (Auto) 0.0 0.0-8.0 % Basophils (%) (Auto) 0.3 0.0-5.0 % Neutrophils # (Auto) 9.3 H 1.8-7.7 K/uL Lymphocytes # (Auto) 0.6 L 1.0-4.8 K/uL Monocytes # (Auto) 1.0 0.1-1.0 K/uL Eosinophils # (Auto) 0.00 0.00-0.70 K/uL Basophils # (Auto) 0.03 0.00-0.20 K/uL Absolute Immature Granulocyte (auto 0.14 0-1 K/uL Nucleated Red Blood Cells 0.2 H 0.0-0.19 % Chemistry Labs: Test 02/20/24 15:52 02/20/24 03:00 02/19/24 03:54 Range/Units Whole Blood Glucose 112 H 70-110 MG/DL Sodium Level 141 136-145 mmol/L Potassium Level 4.1 3.5-5.1 mmol/L Chloride Level 99 L 101-111 mmol/L Carbon Dioxide Level 30 21-32 mmol/L Blood Urea Nitrogen 45 H 7-18 mg/dL Creatinine 5.0 H 0.5-1.0 mg/dL Glomerular Filtration Rate Calc 9 >90 mL/min Random Glucose 139 H 70-105 mg/dL Total Calcium 8.0 L 8.5-10.1 mg/dL Phosphorus Level 7.1 H 2.5-4.9 mg/dL Magnesium Level 2.10 1.80-2.40 mg/dL Total Bilirubin 0.9 0.2-1.0 mg/dL Aspartate Amino Transf (AST/SGOT) 41 H 10-37 U/L Alanine Aminotransferase (ALT/SGPT) 57 12-78 U/L Alkaline Phosphatase 262 H 50-136 U/L Total Protein 7.0 6.0-8.3 g/dL Albumin 2.4 L 3.5-5.0 g/dL Thyroid Stimulating Hormone (TSH) 1.11 # 0.36-3.74 uIU/mL Coagulation Labs: Test 02/20/24 03:00 02/19/24 13:43 Range/Units Prothrombin Time 11.9 H 9.6-11.6 SEC Prothromb Time International Ratio 1.11 0.85-1.15 Activated Partial Thromboplast Time 28.2 26.3-35.5 SEC DIAGNOSTICS / RADIOLOGY RESULTS: Signed PATIENT: MADHAVI SABILLON MR#: [id number] : 1950 SEX: F AGE: 73 LOCATION: 3AH ORDER 1343 STATUS: ADM IN [facility] REPORT#: [id number] SERVICE 1400 REASON: RT HEPATIC FLUID COLLECTION ORDERING PHYSICIAN: WES HA PROCEDURE: [place] LIVR - US PERC DRN, LIVER W IMG IR US PERC DRN, LIVER W IMG IR REASON: RT HEPATIC FLUID COLLECTION abscess COMPARISON: Previous CT 02/17/2024. TECHNIQUE: Ultrasound-guided drain placement within right lobe hepatic abscess. FINDINGS: Ultrasound demonstrates complex fluid collection within the right lobe of the liver with air foci present. PROCEDURE: Informed consent obtained from the patient following explanation of risk, benefits, complications. Timeout performed by radiology nursing staff. Right abdomen was prepped and draped in sterile fashion. Patient received intravenous titrated doses of Versed and fentanyl administered by radiology nursing personnel with continuous monitoring of the oxygen saturation, chronic status, respiratory status. 10 mL of 1% lidocaine subcutaneous utilized. Under direct ultrasound guidance, access gained into the abscess collection utilizing 18-gauge needle. Purulent fluid was aspirated and submitted for Gram stain and cultures. Guidewire was placed and visualized on ultrasound. Fascial dilatation performed, 8 Slovak drain was placed within the fluid collection under direct ultrasound guidance. Aspirate yielded purulent fluid. Specimen submitted for Gram stain and cultures. Catheter connected to external drainage bag. Retention suture and sterile dressing applied. Patient tolerated procedure well without evidence of complication. IMPRESSION: Ultrasound-guided drain placement within right lobe hepatic abscess. Cultures pending. DICTATED BY: DANI GARCIA DO DATE: 02/19/24 1606 ELECTRONICALLY SIGNED BY: DANI GARCIA DO DATE: 02/19/24 1616 PLAN PER GI recs, EGD and colonoscopy in am ABX per ID Follow nephrology HD recs NEURO: Minimize central acting medications as possible. Maintain fall precautions, adequate lighting during the day PULMONARY: Supplemental 02 as needed. Maintain aspiration precautions at all times IS , nebs prn CARDIOVASCULAR: Follow hemodynamics. Vital signs per facility protocol Several anti HTN medications at bedside, will reconcile into system . BP marginal only resume carvedilol and amlodine with parameters to hold Hold Lasix due to septic state Hold statin given abnormal Lfts Hydralazine Iv prn GI & NUTRITION: Npo for procedure Consult General surgery and GI regarding Liver abscess. Ir for drainage Continue stool softeners and laxatives as needed. KIDNEYS & ELECTROLYTES: HD per nephrology recs ENDOCRINE: Maintain blood glucose between 100-180 at all times. Hypoglycemia protocol in place INFECTIOUS DISEASE: Trend temperature, WBC and procalcitonin level- zosyn Follow cultures, deescalate antibiotics as soon as possible. Panculture if new onset fever ONCOLOGY/HEMATOLOGY/COAGULATION: Monitor for s/s of bleeding Monitor hemoglobin, coagulation studies as needed SKIN: Pressure ulcer prevention per facility protocol Specialty mattress ORTHO/REHAB: Continue PT/OT Prophylaxis: Continue GI and DVT prophylaxis Code Status: Full Resuscitation Disposition: TBD Other: Total patient care time : 35 minutes MONISHA SMITH Feb 20, 2024 16:27
[2024-02-20] MEDS: PEG 3350/NA SULF,BICARB,CL/KCL 4000 ML SOLN PO SCH (17:59)
[2024-02-21] VITALS (40 sets, daily range): BP systolic 98–177; BP diastolic 47–91; PULSE 55–75; RESP 16–21; TEMP 97.5–98.8; O2SAT 94–96
[2024-02-21 05:10] LABS: BASOPHILS # (AUTO) 0.03 K/uL (0.00-0.20); BASOPHILS % (AUTO) 0.4 % (0.0-5.0); EOSINOPHILS # (AUTO) 0.08 K/uL (0.00-0.70); EOSINOPHILS % (AUTO) 1.1 % (0.0-8.0); HEMATOCRIT 28.6 % (36-48); IMMATURE GRANULOCYTE ABSOLUTE 0.14 K/uL (0-1); LYMPHOCYTES % (AUTO) 14.5 % (21.0-51.0); MEAN CORPUSCULAR HEMOGLOBIN 34.5 pg (27.0-33.0); MEAN CORPUSCULAR HGB CONC 33.2 g/dL (32.0-36.0); MONOCYTES # (AUTO) 0.6 K/uL (0.1-1.0); MONOCYTES % (AUTO) 8.9 % (3.0-13.0); NEUTROPHILS # (AUTO) 5.2 K/uL (1.8-7.7); NEUTROPHILS % (AUTO) 73.1 % (40.0-77.0); NUCLEATED RED BLOOD CELLS 0.3 % (0.0-0.19); PLATELET COUNT (AUTO) 176 K/uL (130-400); RED BLOOD CELL COUNT(AUTO) 2.75 MIL/uL (4.00-5.50); RED CELL DISTRIBUTION WIDTH 12.4 % (11.0-15.5); WHITE BLOOD COUNT (AUTO) 7.1 K/uL (4.8-10.8)
[2024-02-21 05:34] LABS: ALBUMIN 2.1 g/dL (3.5-5.0); BILIRUBIN,TOTAL 0.6 mg/dL (0.2-1.0); CREATININE 5.5 mg/dL (0.5-1.0); PHOSPHORUS 5.9 mg/dL (2.5-4.9); POTASSIUM 3.5 mmol/L (3.5-5.1); TOTAL PROTEIN, SERUM 6.2 g/dL (6.0-8.3)
[2024-02-21] MEDS ORDERED: ketaMINE 50MG/ML SYRINGE 50 MG/ML DISP.SYRIN ONE (07:07)
[2024-02-21] MEDS ORDERED: proPOFol 10 MG/ML 20ML VIAL IV ONE (07:07)
[2024-02-21] MEDS ORDERED: LIDOCAINE PF 100MG/5ML (2%) SYRINGE 5ML ONE (07:07)
[2024-02-21] MEDS: 0.9%NACL 1000ML 1,000 ML IV SCH (12:17)
[2024-02-21] MEDS: ondanSETRON 4MG INJ IVP PRN (13:58)
--- NOTE | 2024-02-21 14:11 | PN ---
DIALYSIS NOTE SUBJECTIVE: The patient is seen and evaluated, on hemodialysis, prescription noted. OBJECTIVE: VITAL SIGNS: Blood pressure is 123/59, pulse in the 60s. CARDIOVASCULAR: Regular. LUNGS: Coarse. IMPRESSION: End-stage renal disease. PLAN: The patient will continue with maximal ultrafiltration as blood pressure allows. The patient remains on the IV antibiotics. Repeat cultures have been negative. TID: [id number] RECEIPT: [id number]
--- NOTE | 2024-02-21 16:05 | PN ---
INFECTIOUS DISEASE PROGRESS NOTE Date of Service: Feb 21, 2024 SUBJECTIVE: This is a 73-year-old female patient with past medical history of diabetes mellitus and end-stage renal disease, on dialysis who presented to the hospital with chief complaint of generalized body weakness, and right upper abdominal quadrant pain. An MRCP showed fluid collection in the anterior segment of the right lobe of the liver consistent with abscess and the reason for this consult. Patient was seen and examined at bedside in room 330. Patient is status post percutaneous drain placement on 02/19/2024. The WBC has trended down to a normal level of 7.1 and patient remains afebrile with a temperature 98.1. Preliminary aspirate cultures growing Gram-negative rods. We will follow up on the final cultures. We will continue on vancomycin per pharmacy protocol and Zosyn IV. Patient is scheduled to be dialyzed today. We will continue to monitor patient's care. PHYSICAL EXAM EYES: Anicteric. Pupils equal and reactive. HENT: No oral thrush seen, moist Oral mucosa. NECK: Supple, no JVD or thyromegaly. LUNGS: Good air entry. No rales, no rhonchi. CARDIOVASCULAR: S1, S2 regular. No murmur heard. ABDOMEN: Soft, non tender, bowel sounds present, no organomegaly. Right percutaneous drainage catheter. CENTRAL NERVOUS SYSTEM: Awake, alert, oriented x 3. SKIN: No rashes, no swelling. LYMPHATICS: No peripheral lymphadenopathy. MUSCULOSKELETAL: No joint swelling, erythema or tenderness. EXTREMITIES: No cyanosis or clubbing. BACK: No deformity, no pressure ulcer. GENITOURINARY: No dysuria or hematuria. Vital Sign (Last 12 Hours) 02/21/24 02/21/24 02/21/24 02/21/24 07:07 07:07 07:35 07:35 Temp 97.5 Pulse 60 63 Resp 18 19 B/P (MAP) 145/49 Pulse Ox 91 O2 Delivery Mask Mask N/Cannula Low lpm SIMPLE FACE MASK O2 Flow Rate 10.0 2.0 10.0 FiO2 28 02/21/24 02/21/24 02/21/24 02/21/24 07:40 07:45 07:50 07:55 Pulse 67 62 60 59 Resp 21 19 19 18 B/P (MAP) 146/53 156/59 158/59 155/57 Pulse Ox 95 95 94 94 O2 Delivery SIMPLE FACE MASK SIMPLE FACE MASK Nasal Cannula Nasal Cannula O2 Flow Rate 10.0 10.0 4.0 4.0 02/21/24 02/21/24 02/21/24 02/21/24 08:00 08:05 08:10 08:25 Temp 97.5 98.6 98.6 Pulse 59 60 63 55 Resp 21 19 18 18 B/P (MAP) 159/57 151/58 164/59 149/73 Pulse Ox 95 95 96 94 O2 Delivery Nasal Cannula Nasal Cannula Room Air Nasal Cannula O2 Flow Rate 4.0 4.0 4.0 02/21/24 02/21/24 02/21/24 02/21/24 08:40 08:49 08:55 09:10 Temp 97.7 Pulse 66 56 60 60 Resp 18 16 18 18 B/P (MAP) 177/66 155/61 155/61 157/62 Pulse Ox 94 94 94 O2 Delivery Nasal Cannula Room Air Nasal Cannula Nasal Cannula O2 Flow Rate 4.0 4.0 4.0 02/21/24 02/21/24 02/21/24 02/21/24 09:25 09:30 09:40 09:45 Temp 97.7 Pulse 66 63 58 64 Resp 16 16 18 16 B/P (MAP) 151/53 151/53 166/61 164/64 Pulse Ox 94 O2 Delivery Nasal Cannula Nasal Cannula Nasal Cannula Nasal Cannula O2 Flow Rate 4.0 4.0 4.0 4.0 02/21/24 02/21/24 02/21/24 02/21/24 10:00 10:10 10:15 10:30 Pulse 57 63 64 61 Resp 16 18 16 16 B/P (MAP) 165/91 164/69 164/69 125/59 Pulse Ox 94 95 94 94 O2 Delivery Nasal Cannula Nasal Cannula Nasal Cannula Nasal Cannula O2 Flow Rate 4.0 4.0 4.0 4.0 02/21/24 02/21/24 02/21/24 02/21/24 10:45 11:00 11:10 11:15 Temp 98.1 Pulse 74 68 68 Resp 16 16 18 16 B/P (MAP) 145/63 117/60 123/59 123/59 Pulse Ox 94 94 95 94 O2 Delivery Nasal Cannula Nasal Cannula Nasal Cannula Nasal Cannula O2 Flow Rate 4.0 4.0 4.0 4.0 1202/21/24 02/21/24 02/21/24 11:30 11:35 11:45 12:00 Pulse 63 60 56 56 Resp 16 16 16 16 B/P (MAP) 98/53 104/47 124/55 124/55 Pulse Ox 94 94 94 94 O2 Delivery Nasal Cannula Nasal Cannula Nasal Cannula Nasal Cannula O2 Flow Rate 4.0 4.0 4.0 4.0 02/21/24 02/21/24 02/21/24 02/21/24 12:10 12:15 12:30 13:10 Pulse 58 68 60 61 Resp 18 16 16 18 B/P (MAP) 135/58 135/58 150/69 148/70 Pulse Ox 94 94 94 96 O2 Delivery Nasal Cannula Nasal Cannula Nasal Cannula Nasal Cannula O2 Flow Rate 4.0 4.0 4.0 4.0 02/21/24 02/21/24 14:10 14:19 Temp 97.5 Pulse 62 60 Resp 18 16 B/P (MAP) 161/67 158/63 Pulse Ox 96 O2 Delivery Nasal Cannula Room Air O2 Flow Rate 4.0 Intake & Output (last 24hrs) 02/20/24 02/20/24 02/21/24 15:00 23:00 07:00 Intake Total 4000 ml Balance 4000 ml LABS: Laboratory: Test 02/21/24 11:16 02/21/24 04:31 02/20/24 03:00 Range/Units Whole Blood Glucose 107 70-110 MG/DL White Blood Count 7.1 4.8-10.8 K/uL Red Blood Count 2.75 L 4.00-5.50 MIL/uL Hemoglobin 9.5 L 12.0-16.0 g/dL Hematocrit 28.6 L 36-48 % Mean Corpuscular Volume 104.0 H 79-99 fL Mean Corpuscular Hemoglobin 34.5 H 27.0-33.0 pg Mean Corpuscular Hemoglobin Concent 33.2 32.0-36.0 g/dL Red Cell Distribution Width 12.4 11.0-15.5 % Platelet Count 176 130-400 K/uL Mean Platelet Volume 10.5 7.5-10.5 fL Immature Granulocyte % (Auto) 2.0 H 0-1 % Neutrophils (%) (Auto) 73.1 40.0-77.0 % Lymphocytes (%) (Auto) 14.5 L 21.0-51.0 % Monocytes (%) (Auto) 8.9 3.0-13.0 % Eosinophils (%) (Auto) 1.1 0.0-8.0 % Basophils (%) (Auto) 0.4 0.0-5.0 % Neutrophils # (Auto) 5.2 1.8-7.7 K/uL Lymphocytes # (Auto) 1.0 1.0-4.8 K/uL Monocytes # (Auto) 0.6 0.1-1.0 K/uL Eosinophils # (Auto) 0.08 0.00-0.70 K/uL Basophils # (Auto) 0.03 0.00-0.20 K/uL Absolute Immature Granulocyte (auto 0.14 0-1 K/uL Nucleated Red Blood Cells 0.3 H 0.0-0.19 % Sodium Level 146 H 136-145 mmol/L Potassium Level 3.5 3.5-5.1 mmol/L Chloride Level 101 101-111 mmol/L Carbon Dioxide Level 31 21-32 mmol/L Blood Urea Nitrogen 52 H 7-18 mg/dL Creatinine 5.5 H 0.5-1.0 mg/dL Glomerular Filtration Rate Calc 8 >90 mL/min Random Glucose 89 70-105 mg/dL Total Calcium 8.2 L 8.5-10.1 mg/dL Phosphorus Level 5.9 H 2.5-4.9 mg/dL Total Bilirubin 0.6 0.2-1.0 mg/dL Aspartate Amino Transf (AST/SGOT) 22 10-37 U/L Alanine Aminotransferase (ALT/SGPT) 43 12-78 U/L Alkaline Phosphatase 249 H 50-136 U/L Total Protein 6.2 6.0-8.3 g/dL Albumin 2.1 L 3.5-5.0 g/dL Prothrombin Time 11.9 H 9.6-11.6 SEC Prothromb Time International Ratio 1.11 0.85-1.15 Magnesium Level 2.10 1.80-2.40 mg/dL ASSESSMENT: Liver abscess status post percutaneous drain placement on 02/19/2024. Leukocytosis, resolving. End-stage renal disease, on dialysis. Diabetes mellitus. Anemia. PLAN: Continue vancomycin per pharmacy protocol. Continue Zosyn IV. Continue pain management. We will follow up on the final aspirate culture results. Monitoring drain output. Monitor electrolytes. Continue dialysis as recommended by headwaiter/headwaitress. This case was reviewed and discussed with my supervising physician and the above assessment and plan was formulated and agreed upon. ATTESTATION BY PHYSICIAN I have seen and examined the patient. I reviewed the documentation, medical decision making, and treatment plan as noted by the mid-level provider above. I agree with the findings and plan of care. SAVANNAH PERDUE MD, [facility] Feb 21, 2024 16:05
--- NOTE | 2024-02-21 23:03 | PN ---
[facility] PROGRESS NOTE Date Patient Seen: Feb 21, 2024 Time of Visit: 11:30 Supervising Physician: [Andrew Costello MD Primary Care Physician: [Dr. Bret No ] Outpatient Specialists: [ Dr. Herrmann, nephro ]] Inpatient Consults: [Dr. Macias, surgery, Dr. Herrmann, nephro ] PROBLEM LIST: Sepsis secondary to 3x3.4 Hepatic Abscess S/P IR drain placement within rt lobe hepatic abscess cultures pending 02/20/24 ESRD HD TT HS Chronic Congestive Diastolic Heart Failure , Echo 2022 EF of 65% Primary hypertension HLD Diabetes mellitus II Hg A1c of 7.2 % from 2019 LA grade B reflux esophagitis w/ no bleeding on EGD 02/21/24 non bleeding gastric ulcers on EGD 02/21/24 2 mm polyp in cecum s/p resection on colonoscopy 02/21/24 3-5mm polyp in descending colon and transverse colon on colonoscopy 02/21/24 none bleeding internal hemorrhoids on colonoscopy 02/21/24 INTERVAL HISTORY: 02/19-patient awaiting IR for aspiration and drain placement as recommended per General surgery for this morning. GI has planned EGD and colonoscopy for tomorrow morning. No further fevers in the last 24 hours with a T-max of 98.8, hemodynamically stable in no apparent respiratory distress respiratory rate of 19 saturating 94% with 3 L via nasal cannula. Patient has good urine output and a bowel movement today. White count trending down today 11.1 H&H is 10.3/30.6 slightly improved from yesterday which was 9.8/29.5 platelet count is normal. On chemistry chloride 99 BUN is 45 creatinine is 5.0 with a GFR of 9. Total calcium is eight phosphorus 7.1 AST is 41 alkaline phosphatase 262 albumin 2.4. Antibiotics per ID. 02/21/24- pt is s/p EGD and colonoscopy in which they found all laid grade B reflux esophagitis with no bleed. Nonbleeding gastric ulcers. Normal duodenum. Colonoscopy 2 mm polyp in 2nd resected, 3-5 mm polyp in the descending colon and transverse colon. Nonbleeding internal hemorrhoids also noted per report. We will advance diet today as tolerated and possibly DC in the next 24-48 hours. REVIEW OF SYSTEMS: 12 point ROS reviewed with patient. Pertinent positives mentioned above. Otherwise negative. PHYSICAL EXAM: GENERAL: alert, weak, awake oriented x 3 HEENT: EOMI, Sclera non icteric, moist mucosa NECK: Supple, no JVD, trachea midline LUNGS: Clear breath sounds bilaterally. No wheezes HEART: Regular rate and rhythm. Normal S1 and S2, without murmurs ABD: Abdomen soft but tender on RUQ. Bowel sounds present, EXT: No clubbing cyanosis or edema NEURO: Alert and oriented to person, follows commands Vital Signs (last 8hr) Date Time Temp Pulse Resp B/P (MAP) Pulse Ox O2 Delivery O2 Flow Rate FiO2 02/21/24 21:16 151/80 02/21/24 20:00 98.1 75 18 151/80 95 Room Air 02/21/24 20:00 96 Nasal Cannula* 3 32 02/21/24 18:43 62 18 N/Cannula Low lpm 2.0 28 02/21/24 17:01 98.2 68 18 135/50 98 Room Air LABS: Hematology Labs: Test 02/21/24 04:31 Range/Units White Blood Count 7.1 4.8-10.8 K/uL Red Blood Count 2.75 L 4.00-5.50 MIL/uL Hemoglobin 9.5 L 12.0-16.0 g/dL Hematocrit 28.6 L 36-48 % Mean Corpuscular Volume 104.0 H 79-99 fL Mean Corpuscular Hemoglobin 34.5 H 27.0-33.0 pg Mean Corpuscular Hemoglobin Concent 33.2 32.0-36.0 g/dL Red Cell Distribution Width 12.4 11.0-15.5 % Platelet Count 176 130-400 K/uL Mean Platelet Volume 10.5 7.5-10.5 fL Immature Granulocyte % (Auto) 2.0 H 0-1 % Neutrophils (%) (Auto) 73.1 40.0-77.0 % Lymphocytes (%) (Auto) 14.5 L 21.0-51.0 % Monocytes (%) (Auto) 8.9 3.0-13.0 % Eosinophils (%) (Auto) 1.1 0.0-8.0 % Basophils (%) (Auto) 0.4 0.0-5.0 % Neutrophils # (Auto) 5.2 1.8-7.7 K/uL Lymphocytes # (Auto) 1.0 1.0-4.8 K/uL Monocytes # (Auto) 0.6 0.1-1.0 K/uL Eosinophils # (Auto) 0.08 0.00-0.70 K/uL Basophils # (Auto) 0.03 0.00-0.20 K/uL Absolute Immature Granulocyte (auto 0.14 0-1 K/uL Nucleated Red Blood Cells 0.3 H 0.0-0.19 % Chemistry Labs: Test 02/21/24 19:19 02/21/24 04:31 02/20/24 03:00 Range/Units Whole Blood Glucose 125 H 70-110 MG/DL Sodium Level 146 H 136-145 mmol/L Potassium Level 3.5 3.5-5.1 mmol/L Chloride Level 101 101-111 mmol/L Carbon Dioxide Level 31 21-32 mmol/L Blood Urea Nitrogen 52 H 7-18 mg/dL Creatinine 5.5 H 0.5-1.0 mg/dL Glomerular Filtration Rate Calc 8 >90 mL/min Random Glucose 89 70-105 mg/dL Total Calcium 8.2 L 8.5-10.1 mg/dL Phosphorus Level 5.9 H 2.5-4.9 mg/dL Total Bilirubin 0.6 0.2-1.0 mg/dL Aspartate Amino Transf (AST/SGOT) 22 10-37 U/L Alanine Aminotransferase (ALT/SGPT) 43 12-78 U/L Alkaline Phosphatase 249 H 50-136 U/L Total Protein 6.2 6.0-8.3 g/dL Albumin 2.1 L 3.5-5.0 g/dL Magnesium Level 2.10 1.80-2.40 mg/dL Coagulation Labs: Test 02/20/24 03:00 Range/Units Prothrombin Time 11.9 H 9.6-11.6 SEC Prothromb Time International Ratio 1.11 0.85-1.15 DIAGNOSTICS / RADIOLOGY RESULTS: [ ] PLAN advance diet as tolerated ABX per ID Follow nephrology HD recs follow drainage output follow aspirate cultures per general surgery pt can follow up in 1 week post discharge for drain management Plan for DC in the next 24 -48 hrs will reconsult case management for DC planning post drain placement and ABX, will benefit from SNF vs LTAC NEURO: Minimize central acting medications as possible. Maintain fall precautions, adequate lighting during the day PULMONARY: Supplemental 02 as needed. Maintain aspiration precautions at all times IS , nebs prn CARDIOVASCULAR: Follow hemodynamics. Vital signs per facility protocol Several anti HTN medications at bedside, will reconcile into system . BP marginal only resume carvedilol and amlodine with parameters to hold Hold Lasix due to septic state Hold statin given abnormal Lfts Hydralazine Iv prn GI & NUTRITION: Npo for procedure Consult General surgery and GI regarding Liver abscess. Ir for drainage Continue stool softeners and laxatives as needed. KIDNEYS & ELECTROLYTES: HD per nephrology recs ENDOCRINE: Maintain blood glucose between 100-180 at all times. Hypoglycemia protocol in place INFECTIOUS DISEASE: Trend temperature, WBC and procalcitonin level- zosyn Follow cultures, deescalate antibiotics as soon as possible. Panculture if new onset fever ONCOLOGY/HEMATOLOGY/COAGULATION: Monitor for s/s of bleeding Monitor hemoglobin, coagulation studies as needed SKIN: Pressure ulcer prevention per facility protocol Specialty mattress ORTHO/REHAB: Continue PT/OT Prophylaxis: Continue GI and DVT prophylaxis Code Status: Full Resuscitation Disposition: TBD Other: Total patient care time : 35 minutes MONISHA SMITHP Feb 21, 2024 23:03
[2024-02-22] VITALS (7 sets, daily range): BP systolic 127–141; BP diastolic 51–63; PULSE 61–74; RESP 17–20; TEMP 97.8–98.1; O2SAT 92–95
[2024-02-22 05:10] LABS: BASOPHILS # (AUTO) 0.04 K/uL (0.00-0.20); BASOPHILS % (AUTO) 0.5 % (0.0-5.0); EOSINOPHILS # (AUTO) 0.12 K/uL (0.00-0.70); EOSINOPHILS % (AUTO) 1.4 % (0.0-8.0); HEMATOCRIT 31.9 % (36-48); IMMATURE GRANULOCYTE ABSOLUTE 0.29 K/uL (0-1); LYMPHOCYTES # (AUTO) 1.5 K/uL (1.0-4.8); LYMPHOCYTES % (AUTO) 17.7 % (21.0-51.0); MEAN CORPUSCULAR HEMOGLOBIN 34.1 pg (27.0-33.0); MEAN CORPUSCULAR HGB CONC 32.9 g/dL (32.0-36.0); MEAN CORPUSCULAR VOLUME 103.6 fL (79-99); MONOCYTES # (AUTO) 0.7 K/uL (0.1-1.0); MONOCYTES % (AUTO) 8.4 % (3.0-13.0); NEUTROPHILS # (AUTO) 5.9 K/uL (1.8-7.7); NEUTROPHILS % (AUTO) 68.6 % (40.0-77.0); PLATELET COUNT (AUTO) 210 K/uL (130-400); RED BLOOD CELL COUNT(AUTO) 3.08 MIL/uL (4.00-5.50); RED CELL DISTRIBUTION WIDTH 12.2 % (11.0-15.5); WHITE BLOOD COUNT (AUTO) 8.6 K/uL (4.8-10.8)
[2024-02-22 05:20] LABS: ALBUMIN 2.2 g/dL (3.5-5.0); BILIRUBIN,TOTAL 0.5 mg/dL (0.2-1.0); CREATININE 4.5 mg/dL (0.5-1.0); POTASSIUM 3.2 mmol/L (3.5-5.1); TOTAL PROTEIN, SERUM 6.7 g/dL (6.0-8.3)
--- NOTE | 2024-02-22 10:24 | PN ---
[facility] PROGRESS NOTE Date Patient Seen: Feb 22, 2024 Time of Visit: 10:23 Supervising Physician: Dr. Costello Primary Care Physician: [Dr. Bret No ] Outpatient Specialists: [ Dr. Herrmann, nephro ]] Inpatient Consults: General surgery, Infectious Disease, GI, Nephrology PROBLEM LIST: Sepsis secondary to 3x3.4 Hepatic Abscess S/P IR drain placement within rt lobe hepatic abscess, culture positive for polymicrobial infection ESRD HD TTS Chronic Congestive Diastolic Heart Failure , Echo 2022 EF of 65% Primary hypertension Hyperlipidemia Diabetes mellitus II Hg A1c of 7.2 % from 2019 LA grade B reflux esophagitis w/ no bleeding on EGD 02/21/24 non bleeding gastric ulcers on EGD 02/21/24 2 mm polyp in cecum s/p resection on colonoscopy 02/21/24 3-5mm polyp in descending colon and transverse colon on colonoscopy 02/21/24 none bleeding internal hemorrhoids on colonoscopy 02/21/24 INTERVAL HISTORY: Pt remains weak at this point. Drain in place to RUQ. Continues on IV abx: Vancomycin and Zosyn. Will need SNF placement for abx/rehab/drain management Denies any headache or dizziness. Denies any chest pain or palpitations. Denies any cough or shortness of breath at rest. Denies any nausea, vomiting, abdominal pain, or melena Tolerating oral diet. Appetite is fair Denies any dysuria or hematuria REVIEW OF SYSTEMS: 12 point ROS reviewed with patient. Pertinent positives mentioned above. Otherwise negative. PHYSICAL EXAM: GENERAL: alert, weak, awake oriented x 3 HEENT: EOMI, Sclera non icteric, moist mucosa NECK: Supple, no JVD, trachea midline LUNGS: Clear breath sounds bilaterally. No wheezes HEART: Regular rate and rhythm. Normal S1 and S2, without murmurs ABD: Abdomen soft but tender on RUQ. Bowel sounds present, EXT: No clubbing cyanosis or edema NEURO: Alert and oriented to person, follows commands Vital Signs (last 8hr) Date Time Temp Pulse Resp B/P (MAP) Pulse Ox O2 Delivery O2 Flow Rate FiO2 02/22/24 09:16 132/51 02/22/24 08:08 98.1 61 20 132/51 92 Room Air 02/22/24 04:00 97.9 70 17 127/54 97 Nasal Cannula 4.0 LABS: Hematology Labs: Test 02/22/24 04:40 Range/Units White Blood Count 8.6 4.8-10.8 K/uL Red Blood Count 3.08 L 4.00-5.50 MIL/uL Hemoglobin 10.5 L 12.0-16.0 g/dL Hematocrit 31.9 L 36-48 % Mean Corpuscular Volume 103.6 H 79-99 fL Mean Corpuscular Hemoglobin 34.1 H 27.0-33.0 pg Mean Corpuscular Hemoglobin Concent 32.9 32.0-36.0 g/dL Red Cell Distribution Width 12.2 11.0-15.5 % Platelet Count 210 130-400 K/uL Mean Platelet Volume 9.9 7.5-10.5 fL Immature Granulocyte % (Auto) 3.4 H 0-1 % Neutrophils (%) (Auto) 68.6 40.0-77.0 % Lymphocytes (%) (Auto) 17.7 L 21.0-51.0 % Monocytes (%) (Auto) 8.4 3.0-13.0 % Eosinophils (%) (Auto) 1.4 0.0-8.0 % Basophils (%) (Auto) 0.5 0.0-5.0 % Neutrophils # (Auto) 5.9 1.8-7.7 K/uL Lymphocytes # (Auto) 1.5 1.0-4.8 K/uL Monocytes # (Auto) 0.7 0.1-1.0 K/uL Eosinophils # (Auto) 0.12 0.00-0.70 K/uL Basophils # (Auto) 0.04 0.00-0.20 K/uL Absolute Immature Granulocyte (auto 0.29 0-1 K/uL Nucleated Red Blood Cells 0.0 0.0-0.19 % Chemistry Labs: Test 02/22/24 04:49 02/22/24 04:40 02/21/24 04:31 Range/Units Whole Blood Glucose 101 70-110 MG/DL Sodium Level 138 136-145 mmol/L Potassium Level 3.2 L 3.5-5.1 mmol/L Chloride Level 98 L 101-111 mmol/L Carbon Dioxide Level 32 21-32 mmol/L Blood Urea Nitrogen 37 H 7-18 mg/dL Creatinine 4.5 H 0.5-1.0 mg/dL Glomerular Filtration Rate Calc 10 >90 mL/min Random Glucose 100 70-105 mg/dL Total Calcium 8.3 L 8.5-10.1 mg/dL Total Bilirubin 0.5 0.2-1.0 mg/dL Aspartate Amino Transf (AST/SGOT) 16 10-37 U/L Alanine Aminotransferase (ALT/SGPT) 33 12-78 U/L Alkaline Phosphatase 227 H 50-136 U/L Total Protein 6.7 6.0-8.3 g/dL Albumin 2.2 L 3.5-5.0 g/dL Phosphorus Level 5.9 H 2.5-4.9 mg/dL DIAGNOSTICS / RADIOLOGY RESULTS: Reviewed with supervising MD Plan: Neuro: Minimize central acting medications as possible. Maintain fall precautions, adequate lighting during the day Cardiovascular: Follow hemodynamics. Vital signs per facility protocol Pulmonary: Supplemental 02 as needed. Maintain aspiration precautions at all times GI and nutrition: Continue with nutritional support. Continue stool softeners and laxatives as needed. Kidney and electrolytes: Strict monitoring of intake, output and overall fluid balance. Avoid nephrotoxic medications to the extent possible. Medications to be dosed according to renal function. Monitor electrolytes and replace as needed Endocrine: Maintain blood glucose between 100-180 at all times. Hypoglycemia protocol in place Infectious disease: Trend temperature, WBC and procalcitonin level Follow cultures, deescalate antibiotics as soon as possible. Panculture if new onset fever Oncology/Hematology/Coagulation: Monitor for s/s of bleeding Monitor hemoglobin, coagulation studies as needed Skin: Pressure ulcer prevention per facility protocol Specialty mattress Ortho/Rehab: Continue PT/OT Prophylaxis:. Continue GI and DVT prophylaxis as appropriate Disposition:. SNF Total patient care time excluding any procedures: 40 min LASHAE PALMA NP Feb 22, 2024 10:24
[2024-02-22] MEDS: LACTULOSE 20 GM/30 ML UDCUP PO PRN (12:05)
--- NOTE | 2024-02-22 12:26 | PN ---
SUBJECTIVE: The patient is a 73-year-old female with a history of diabetes mellitus and hypertension. The patient is with a history of end-stage renal disease, on dialysis three times per week. The patient is status post recent cholecystectomy. The patient presented to the hospital with bacteremia. The patient remains on the antibiotics. Repeat cultures thus far have been negative. The patient is with a recent percutaneous drain placement for the abscess. She is being seen as a followup visit for all the above. She did receive dialysis yesterday without difficulty. REVIEW OF SYSTEMS: GENERAL: She is feeling weak and tired. HEENT: No change in vision. No change in hearing. CARDIOVASCULAR: There are no current chest pains or palpitations. PULMONARY: There is no shortness of breath. GASTROINTESTINAL: The patient is tolerating diet. MUSCULOSKELETAL: Complains of weakness. PHYSICAL EXAMINATION: VITAL SIGNS: Blood pressure 132/51, pulse 60s. GENERAL: Chronically ill female, lying in bed on medical floor. HEENT: Head is atraumatic. Pupils equal, roving to light. Oropharynx is without exudate. Nares clear. NECK: There is no JVP. There is no thyromegaly, no mass. CARDIOVASCULAR: Regular. There is no S3, S4, or gallop. LUNGS: Coarse with equal thoracic movement. ABDOMEN: Soft, nondistended, and nontender. EXTREMITIES: Reveal no clubbing, no cyanosis. LABORATORY DATA: Hemoglobin 10, hematocrit 31. Sodium 138, potassium 3.2, BUN 37, creatinine is 4.5. IMPRESSION: 1. Bacteremia. 2. History of abdominal abscess, status post drainage. 3. Diabetes mellitus. 4. Hypertension. 5. End-stage renal disease. PLAN: The patient continues with the IV antibiotics. The patient's repeat cultures thus far have been negative. The patient has the drain in place. We will continue to follow closely. She remains dialysis on a Friday, , and Friday schedule. TID: [id number] RECEIPT: [id number]
--- NOTE | 2024-02-22 12:30 | NUR ---
Patient seen and evaluated. No chair pad alarm available on the floor. Nurse aware. Patient sat in chair with family present.
--- NOTE | 2024-02-22 13:00 | NUR ---
PLACED 20G ON RIGHT WRIST. PIV PATENT, FLUSHED WITH 10CC OF NORMAL SALINE. NOTIFY MRS. MARCO CANNON ASSIGNED TO PATIENT.
--- NOTE | 2024-02-22 13:47 | PN ---
INFECTIOUS DISEASE PROGRESS NOTE Date of Service: Feb 22, 2024 SUBJECTIVE: This is a 73-year-old female patient with past medical history of diabetes mellitus and end-stage renal disease, on dialysis who presented to the hospital with chief complaint of generalized body weakness, and right upper abdominal quadrant pain. An MRCP showed fluid collection in the anterior segment of the right lobe of the liver consistent with abscess and the reason for this consult. Patient was seen and examined at bedside in room 330. Patient is status post percutaneous drain placement on 02/19/2024. Only about 10 mL of drainage observe in the bag at this time. The aspirate cultures from the aspirate came back positive for Enterococcus Raffinosus, E coli and Klebsiella oxytoca. Patient reported that the abdominal pain is much less after the insertion of the drain. Patient remains afebrile, temperature is 98.1 and a WBC of 8.6. We will continue on vancomycin per pharmacy protocol and Zosyn IV. Patient was dialyzed yesterday and 2.8 L were removed. We will continue to monitor patient's care. PHYSICAL EXAM EYES: Anicteric. Pupils equal and reactive. HENT: No oral thrush seen, moist Oral mucosa. NECK: Supple, no JVD or thyromegaly. LUNGS: Good air entry. No rales, no rhonchi. CARDIOVASCULAR: S1, S2 regular. No murmur heard. ABDOMEN: Soft, non tender, bowel sounds present, no organomegaly. Right percutaneous drainage catheter. CENTRAL NERVOUS SYSTEM: Awake, alert, oriented x 3. SKIN: No rashes, no swelling. LYMPHATICS: No peripheral lymphadenopathy. MUSCULOSKELETAL: No joint swelling, erythema or tenderness. EXTREMITIES: No cyanosis or clubbing. BACK: No deformity, no pressure ulcer. GENITOURINARY: No dysuria or hematuria. Vital Sign (Last 12 Hours) 02/22/24 02/22/24 02/22/24 02/22/24 04:00 08:08 09:16 11:55 Temp 97.9 98.1 97.9 Pulse 70 61 67 Resp 17 20 18 B/P (MAP) 127/54 132/51 132/51 138/53 Pulse Ox 97 92 93 O2 Delivery Nasal Cannula Room Air Room Air O2 Flow Rate 4.0 Intake & Output (last 24hrs) 02/21/24 02/21/24 02/22/24 15:00 23:00 07:00 Intake Total 0 ml 150 ml Output Total 2800 ml 15 ml Balance -2800 ml 150 ml -15 ml LABS: Laboratory: Test 02/22/24 11:38 02/22/24 04:40 02/21/24 04:31 Range/Units Whole Blood Glucose 152 #H 70-110 MG/DL White Blood Count 8.6 4.8-10.8 K/uL Red Blood Count 3.08 L 4.00-5.50 MIL/uL Hemoglobin 10.5 L 12.0-16.0 g/dL Hematocrit 31.9 L 36-48 % Mean Corpuscular Volume 103.6 H 79-99 fL Mean Corpuscular Hemoglobin 34.1 H 27.0-33.0 pg Mean Corpuscular Hemoglobin Concent 32.9 32.0-36.0 g/dL Red Cell Distribution Width 12.2 11.0-15.5 % Platelet Count 210 130-400 K/uL Mean Platelet Volume 9.9 7.5-10.5 fL Immature Granulocyte % (Auto) 3.4 H 0-1 % Neutrophils (%) (Auto) 68.6 40.0-77.0 % Lymphocytes (%) (Auto) 17.7 L 21.0-51.0 % Monocytes (%) (Auto) 8.4 3.0-13.0 % Eosinophils (%) (Auto) 1.4 0.0-8.0 % Basophils (%) (Auto) 0.5 0.0-5.0 % Neutrophils # (Auto) 5.9 1.8-7.7 K/uL Lymphocytes # (Auto) 1.5 1.0-4.8 K/uL Monocytes # (Auto) 0.7 0.1-1.0 K/uL Eosinophils # (Auto) 0.12 0.00-0.70 K/uL Basophils # (Auto) 0.04 0.00-0.20 K/uL Absolute Immature Granulocyte (auto 0.29 0-1 K/uL Nucleated Red Blood Cells 0.0 0.0-0.19 % Sodium Level 138 136-145 mmol/L Potassium Level 3.2 L 3.5-5.1 mmol/L Chloride Level 98 L 101-111 mmol/L Carbon Dioxide Level 32 21-32 mmol/L Blood Urea Nitrogen 37 H 7-18 mg/dL Creatinine 4.5 H 0.5-1.0 mg/dL Glomerular Filtration Rate Calc 10 >90 mL/min Random Glucose 100 70-105 mg/dL Total Calcium 8.3 L 8.5-10.1 mg/dL Total Bilirubin 0.5 0.2-1.0 mg/dL Aspartate Amino Transf (AST/SGOT) 16 10-37 U/L Alanine Aminotransferase (ALT/SGPT) 33 12-78 U/L Alkaline Phosphatase 227 H 50-136 U/L Total Protein 6.7 6.0-8.3 g/dL Albumin 2.2 L 3.5-5.0 g/dL Phosphorus Level 5.9 H 2.5-4.9 mg/dL ASSESSMENT: Liver abscess status post percutaneous drain placement on 02/19/2024. Leukocytosis, resolving. End-stage renal disease, on dialysis. Diabetes mellitus. Anemia. PLAN: Continue vancomycin per pharmacy protocol. Continue Zosyn IV. Continue pain management. We will follow up on the final aspirate culture results. Monitoring drain output. Monitor electrolytes. Continue dialysis as recommended by road grader. This case was reviewed and discussed with my supervising physician and the above assessment and plan was formulated and agreed upon. ATTESTATION BY PHYSICIAN I have seen and examined the patient. I reviewed the documentation, medical decision making, and treatment plan as noted by the mid-level provider above. I agree with the findings and plan of care. SAVANNAH PERDUE MD, [facility] Feb 22, 2024 13:47
[2024-02-22 15:11] LABS: INR 0.98 (0.85-1.15)
[2024-02-22 15:12] LABS: PARTIAL THROMBOPLASTIN TIME 29.1 SEC (26.3-35.5)
--- NOTE | 2024-02-22 17:23 | NUR ---
CM NOTE MET with pt and discussed snf orders , pt in agreement, but requested i call her sister law Geovanny Conway [phone]. so call made to geovanny conway and states is in agreement for snf referral and prefers [facility], she has been there before. choice letter obtained. and referral faxed to [facility] pending approval.
[2024-02-23] VITALS (10 sets, daily range): BP systolic 122–147; BP diastolic 50–67; PULSE 60–67; RESP 17–20; TEMP 98–98.7; O2SAT 95–98
--- NOTE | 2024-02-23 13:27 | PN ---
GASTROENTEROLOGY PROGRESS NOTE Date of Visit: Feb 23, 2024 Time of Visit: 13:27 Events / Notes: No acute events overnight. Patient underwent IR drainage of liver abscess. EGD revealing LA grade B reflux esophagitis with nonbleeding gastric ulcers and colonoscopy revealing colon polyp status post polypectomy. Nonbleeding internal hemorrhoids. Review of Systems: CONSTITUTIONAL: No malaise or change in sensation of wellbeing. ENMT: No rhinorrhea, otorrhea, sinus pain, ear ache. CARDIOVASCULAR: No angina, palpitations, orthopnea or paroxysmal dyspnea. RESPIRATORY: No SOB. GASTROINTESTINAL: No abdominal pain, nausea, vomiting, diarrhea, hematemesis, melena or change in the patient's habitual bowel movements consistency/number. GENITOURINARY: No dysuria, hematuria or change in bladder continence. MUSCULOSKELETAL: No new muscle pain or decrease in muscular strength. No new joint swelling, redness or tenderness. SKIN: No new rash. Physical Exam: GEN: Awake, alert, oriented in person, time and place, and in no acute distress. HEENT: No sinus tenderness. Tympanic membranes were not examined. No rhinorrhea. Oral pharyngeal mucosa is pink, moist and within normal limits. Neck is supple with no cervical lymphadenopathy, thyromegaly or JVD. CHEST: Inspection, palpation and percussion of the chest were unremarkable. Lung auscultation revealed normal breath sounds bilaterally. CARDIAC: PMI is within normal limits. Heart sounds are regular. Normal S1, S2. No gallop or murmur. ABD: Soft, non-tender and not distended. No peritoneal signs on palpation. No organomegaly. Normal bowel sounds. EXT: No cyanosis or clubbing. No edema. SKIN: Intact. No rashes. JOINTS: No evidence of synovitis or acute arthritis. NEURO: Alert and oriented to name, place and person. Cranial nerve examination is unremarkable. No focal motor deficits. Normal speech. Gait is normal. Strength is normal. Vital Signs (last 8hr) Date Time Temp Pulse Resp B/P (MAP) Pulse Ox O2 Delivery O2 Flow Rate FiO2 02/23/24 11:22 98.1 61 17 139/53 96 Nasal Cannula 3.5 02/23/24 08:26 147/59 02/23/24 07:51 98.2 63 17 147/59 95 Nasal Cannula 3.5 02/23/24 07:16 65 20 N/Cannula Low lpm 3.5 Laboratory: [ ] Laboratory: Test 02/23/24 11:06 02/22/24 14:45 02/22/24 04:40 Range/Units Whole Blood Glucose 138 H 70-110 MG/DL Prothrombin Time 11.0 9.6-11.6 SEC Prothromb Time International Ratio 0.98 0.85-1.15 Activated Partial Thromboplast Time 29.1 26.3-35.5 SEC White Blood Count 8.6 4.8-10.8 K/uL Red Blood Count 3.08 L 4.00-5.50 MIL/uL Hemoglobin 10.5 L 12.0-16.0 g/dL Hematocrit 31.9 L 36-48 % Mean Corpuscular Volume 103.6 H 79-99 fL Mean Corpuscular Hemoglobin 34.1 H 27.0-33.0 pg Mean Corpuscular Hemoglobin Concent 32.9 32.0-36.0 g/dL Red Cell Distribution Width 12.2 11.0-15.5 % Platelet Count 210 130-400 K/uL Mean Platelet Volume 9.9 7.5-10.5 fL Immature Granulocyte % (Auto) 3.4 H 0-1 % Neutrophils (%) (Auto) 68.6 40.0-77.0 % Lymphocytes (%) (Auto) 17.7 L 21.0-51.0 % Monocytes (%) (Auto) 8.4 3.0-13.0 % Eosinophils (%) (Auto) 1.4 0.0-8.0 % Basophils (%) (Auto) 0.5 0.0-5.0 % Neutrophils # (Auto) 5.9 1.8-7.7 K/uL Lymphocytes # (Auto) 1.5 1.0-4.8 K/uL Monocytes # (Auto) 0.7 0.1-1.0 K/uL Eosinophils # (Auto) 0.12 0.00-0.70 K/uL Basophils # (Auto) 0.04 0.00-0.20 K/uL Absolute Immature Granulocyte (auto 0.29 0-1 K/uL Nucleated Red Blood Cells 0.0 0.0-0.19 % Sodium Level 138 136-145 mmol/L Potassium Level 3.2 L 3.5-5.1 mmol/L Chloride Level 98 L 101-111 mmol/L Carbon Dioxide Level 32 21-32 mmol/L Blood Urea Nitrogen 37 H 7-18 mg/dL Creatinine 4.5 H 0.5-1.0 mg/dL Glomerular Filtration Rate Calc 10 >90 mL/min Random Glucose 100 70-105 mg/dL Total Calcium 8.3 L 8.5-10.1 mg/dL Total Bilirubin 0.5 0.2-1.0 mg/dL Aspartate Amino Transf (AST/SGOT) 16 10-37 U/L Alanine Aminotransferase (ALT/SGPT) 33 12-78 U/L Alkaline Phosphatase 227 H 50-136 U/L Total Protein 6.7 6.0-8.3 g/dL Albumin 2.2 L 3.5-5.0 g/dL Current Medications Medications (Trade) Dose Ordered Sig/Brandon Route PRN Reason Start Time Stop Time Status Last Admin Dose Admin Acetaminophen (TYLenol 325MG TAB) 650 mg Q6H PRN PO FEVER/MILD PAIN LEVEL 1-3 02/18/24 00:30 03/19/24 00:29 02/19/24 09:12 650 MG Albuterol Sulfate (Proventil 0.083% 2.5mg/3ml) 2.5 mg [id number] PRN IH SHORTNESS OF BREATH 02/18/24 00:30 03/19/24 00:29 Amlodipine Besylate (NorvASC 5MG TAB) 10 mg DAILY PO 02/20/24 09:00 03/21/24 08:59 02/23/24 08:26 10 MG Aspirin (Aspirin 81mg Chew Tab) 81 mg DAILY PO 02/20/24 09:00 03/21/24 08:59 02/23/24 08:25 81 MG Carvedilol (Coreg 3.125MG) 3.125 mg BID PO 02/19/24 21:00 03/20/24 20:59 02/23/24 08:26 3.125 MG Cinacalcet (Sensipar 30mg Tab) 30 mg DAILY PO 02/20/24 09:00 03/21/24 08:59 02/23/24 08:25 30 MG Doxazosin Mesylate (Doxazosin Mesylate) 1 mg HS PO 02/19/24 21:00 03/20/24 20:59 02/22/24 21:01 1 MG Gabapentin (NEURontin 100 mg CAP) 100 mg DAILY PO 02/20/24 09:00 03/21/24 08:59 02/23/24 08:26 100 MG Hydralazine HCl (APRESOLine 20MG INJ) 10 mg Q6H PRN IV SBP GREATER THAN 180 02/18/24 00:30 03/19/24 00:29 Hydromorphone HCl (DiLAUDid 0.5MG INJ) 0.2 mg Q4H PRN IVP SEVERE PAIN (7-10) 02/18/24 00:30 02/23/24 00:29 DC 02/22/24 05:01 0.2 MG Labetalol HCl (TRANdate 20MG SYG) 10 mg Q2H PRN IV SBP GREATER THAN 180 02/18/24 00:30 03/19/24 00:29 Lactulose (Constulose 20gm/ 30ml Udcup) 20 gm Q6H PRN PO CONSTIPATION 02/18/24 00:30 03/19/24 00:29 02/22/24 12:05 20 GM Levothyroxine Sodium (SYNTHroid 88MCG TAB) 88 mcg SYN PO 02/20/24 06:30 03/21/24 06:29 02/23/24 05:39 88 MCG Ondansetron HCl (zoFRAN 4MG INJ) 4 mg Q6H PRN IVP NAUSEA/VOMITING 02/18/24 00:30 03/19/24 00:29 02/21/24 13:58 4 MG Pharmacy Profile Note (Pharmacy Communication) 1 each ONCE MISC 02/18/24 00:30 02/18/24 00:26 DC Piperacillin Sod/ Tazobactam Sod (Zosyn 3.375gm+NS 50ml) 3.375 gm Q12H IV 02/18/24 00:30 02/28/24 00:29 02/23/24 12:34 3.375 GM Polyethylene Glycol/ Electrolytes (Golytely/Colyte Soln) 4,000 ml ONCE PO 02/20/24 17:00 02/20/24 23:59 DC 02/20/24 17:59 4,000 ML Sodium Chloride 1,000 ml @ 0 mls/hr ONCE IV 02/21/24 10:00 03/22/24 09:59 02/21/24 12:17 333 MLS/HR Vancomycin HCl (Vancomycin 750mg) 750 mg TTHSPHD IVPB 02/19/24 16:00 02/23/24 12:25 DC 02/21/24 17:42 750 MG Vancomycin HCl (Vancomycin Protocol) 1 each AD IV 02/18/24 00:30 02/18/24 00:25 DC Vancomycin HCl (Vancomycin Protocol) 1 each AD IV 02/18/24 00:30 02/23/24 12:25 DC Vitamin B Complex/ Vit C/Folic Acid (Nephrovite Tablet) 1 cap DAILY PO 02/19/24 09:00 03/20/24 08:59 02/23/24 08:27 1 CAP Vitamin B Complex/ Vit C/Folic Acid (Nephrovite Tablet) 1 cap DAILY PO 02/20/24 09:00 03/21/24 08:59 Diagnostics / Radiology: [COPY/PASTE HERE IF NO REPORTS PLEASE DELETE SECTION] Assessment: GERD Gastric ulcers Colon polyps Hemorrhoids Liver abscess Abdominal pain Plan: Continue GI prophylaxis Advance diet as tolerated Avoid NSAIDs Antireflux measures Monitor H&H and transfuse as needed Call with questions, concerns or change in clinical status Patient to follow-up at clinic post discharge Thank you for this consult [address] [employer] Feb 23, 2024 13:27
--- NOTE | 2024-02-23 13:52 | PN ---
NEPHROLOGY PROGRESS NOTE Date/Time Patient Seen: Feb 23, 2024 SUBJECTIVE: The patient is a 73-year-old female with a history of diabetes, end stage renal disease on hemodialysis Friday, recent cholecystectomy She presents to the emergency department with complaints of generalized body weakness, bilateral flank pain, nausea, right upper abdominal pain onset two days ago. Blood cultures from outpatient dialysis clinic positive for gram negative bacilli Blood cultures collected on 02/17/2024 are negative Body fluid cultures are positive for Enterococcus raffinosus, E coli, Klebsiella oxytoca She continues on antibiotics as per ID S/P percutaneous drain placed for hepatic abscess on 02/18 Case management coordinating SNF placement She tolerated this without difficulty. Dialysis planned for tomorrow She was seen in the medical floor, no acute distress REVIEW OF SYSTEMS: GENERAL: Negative for any nausea, vomiting, fevers, chills, or weight loss. NEUROLOGIC: Negative for any blurry vision, blind spots, double vision, facial asymmetry, dysphagia, dysarthria, hemiparesis, hemisensory deficits, vertigo, ataxia. HEENT: Negative for any head trauma, neck trauma, neck stiffness, photophobia, phonophobia, sinusitis, rhinitis. CARDIAC: Negative for any chest pain, dyspnea on exertion, paroxysmal nocturnal dyspnea, peripheral edema. PULMONARY: Negative for any shortness of breath, wheezing, COPD, or TB exposure. GASTROINTESTINAL: Negative for any abdominal pain, nausea, vomiting, bright red blood per rectum, melena. GENITOURINARY: Negative for any dysuria, hematuria, incontinence. INTEGUMENTARY: Negative for any rashes, cuts, insect bites. RHEUMATOLOGIC: Negative for any joint pains, photosensitive rashes, history of vasculitis or kidney problems. HEMATOLOGIC: Negative for any abnormal bruising, frequent infections or bleeding. Vital Signs (last 8hr) Date Time Temp Pulse Resp B/P (MAP) Pulse Ox O2 Delivery O2 Flow Rate FiO2 02/20/24 12:00 98.8 63 19 153/55 94 Nasal Cannula 3.0 02/20/24 08:00 98.8 77 20 159/47 91 Room Air PHYSICAL EXAM: GENERAL: Alert and oriented x 3. No acute distress. Well-nourished. EYES: EOMI. Anicteric. HENT: Moist mucous membranes. No scleral icterus. No cervical lymphadenopathy. LUNGS: Clear to auscultation bilaterally. No accessory muscle use. CARDIOVASCULAR: Regular rate and rhythm. No murmur. No JVD. ABDOMEN: Soft, non-tender and non-distended. No palpable masses. EXTREMITIES: No edema. Non-tender.?SKIN: No rashes or lesions. Warm. NEUROLOGIC: No focal neurological deficits. CN II-XII grossly intact, but not individually tested. PSYCHIATRIC: Cooperative. Appropriate mood and affect. Current Medications Medications (Trade) Dose Ordered Sig/Brandon Route PRN Reason Start Time Stop Time Status Last Admin Dose Admin Acetaminophen (TYLenol 325MG TAB) 650 mg Q6H PRN PO FEVER/MILD PAIN LEVEL 1-3 02/18/24 00:30 03/19/24 00:29 02/19/24 09:12 650 MG Albuterol Sulfate (Proventil 0.083% 2.5mg/3ml) 2.5 mg [id number] PRN IH SHORTNESS OF BREATH 02/18/24 00:30 03/19/24 00:29 Amlodipine Besylate (NorvASC 5MG TAB) 10 mg DAILY PO 02/20/24 09:00 03/21/24 08:59 Aspirin (Aspirin 81mg Chew Tab) 81 mg DAILY PO 02/20/24 09:00 03/21/24 08:59 Carvedilol (Coreg 3.125MG) 3.125 mg BID PO 02/19/24 21:00 03/20/24 20:59 02/19/24 21:23 3.125 MG Cinacalcet (Sensipar 30mg Tab) 30 mg DAILY PO 02/20/24 09:00 03/21/24 08:59 Doxazosin Mesylate (Doxazosin Mesylate) 1 mg HS PO 02/19/24 21:00 03/20/24 20:59 02/19/24 21:22 1 MG Gabapentin (NEURontin 100 mg CAP) 100 mg DAILY PO 02/20/24 09:00 03/21/24 08:59 Hydralazine HCl (APRESOLine 20MG INJ) 10 mg Q6H PRN IV SBP GREATER THAN 180 02/18/24 00:30 03/19/24 00:29 Hydromorphone HCl (DiLAUDid 0.5MG INJ) 0.2 mg Q4H PRN IVP SEVERE PAIN (7-10) 02/18/24 00:30 02/23/24 00:29 02/19/24 00:53 0.2 MG Labetalol HCl (TRANdate 20MG SYG) 10 mg Q2H PRN IV SBP GREATER THAN 180 02/18/24 00:30 03/19/24 00:29 Lactulose (Constulose 20gm/ 30ml Udcup) 20 gm Q6H PRN PO CONSTIPATION 02/18/24 00:30 03/19/24 00:29 Levothyroxine Sodium (SYNTHroid 88MCG TAB) 88 mcg SYN PO 02/20/24 06:30 03/21/24 06:29 Ondansetron HCl (zoFRAN 4MG INJ) 4 mg Q6H PRN IVP NAUSEA/VOMITING 02/18/24 00:30 03/19/24 00:29 Pharmacy Profile Note (Pharmacy Communication) 1 each ONCE MISC 02/18/24 00:30 02/18/24 00:26 DC Piperacillin Sod/ Tazobactam Sod (Zosyn 3.375gm+NS 50ml) 3.375 gm Q12H IV 02/18/24 00:30 02/28/24 00:29 02/20/24 13:33 3.375 GM Vancomycin HCl (Vancomycin 750mg) 750 mg TTHSPHD IVPB 02/19/24 16:00 02/29/24 15:59 02/19/24 17:25 750 MG Vancomycin HCl (Vancomycin Protocol) 1 each AD IV 02/18/24 00:30 02/18/24 00:25 DC Vancomycin HCl (Vancomycin Protocol) 1 each AD IV 02/18/24 00:30 03/03/24 00:29 Vitamin B Complex/ Vit C/Folic Acid (Nephrovite Tablet) 1 cap DAILY PO 02/19/24 09:00 03/20/24 08:59 02/19/24 09:11 1 CAP Vitamin B Complex/ Vit C/Folic Acid (Nephrovite Tablet) 1 cap DAILY PO 02/20/24 09:00 03/21/24 08:59 LABORATORY: [ ] Hematology Labs: Test 02/22/24 04:40 Range/Units White Blood Count 8.6 4.8-10.8 K/uL Red Blood Count 3.08 L 4.00-5.50 MIL/uL Hemoglobin 10.5 L 12.0-16.0 g/dL Hematocrit 31.9 L 36-48 % Mean Corpuscular Volume 103.6 H 79-99 fL Mean Corpuscular Hemoglobin 34.1 H 27.0-33.0 pg Mean Corpuscular Hemoglobin Concent 32.9 32.0-36.0 g/dL Red Cell Distribution Width 12.2 11.0-15.5 % Platelet Count 210 130-400 K/uL Mean Platelet Volume 9.9 7.5-10.5 fL Immature Granulocyte % (Auto) 3.4 H 0-1 % Neutrophils (%) (Auto) 68.6 40.0-77.0 % Lymphocytes (%) (Auto) 17.7 L 21.0-51.0 % Monocytes (%) (Auto) 8.4 3.0-13.0 % Eosinophils (%) (Auto) 1.4 0.0-8.0 % Basophils (%) (Auto) 0.5 0.0-5.0 % Neutrophils # (Auto) 5.9 1.8-7.7 K/uL Lymphocytes # (Auto) 1.5 1.0-4.8 K/uL Monocytes # (Auto) 0.7 0.1-1.0 K/uL Eosinophils # (Auto) 0.12 0.00-0.70 K/uL Basophils # (Auto) 0.04 0.00-0.20 K/uL Absolute Immature Granulocyte (auto 0.29 0-1 K/uL Nucleated Red Blood Cells 0.0 0.0-0.19 % Chemistry Labs: Test 02/23/24 11:06 02/22/24 04:40 Range/Units Whole Blood Glucose 138 H 70-110 MG/DL Sodium Level 138 136-145 mmol/L Potassium Level 3.2 L 3.5-5.1 mmol/L Chloride Level 98 L 101-111 mmol/L Carbon Dioxide Level 32 21-32 mmol/L Blood Urea Nitrogen 37 H 7-18 mg/dL Creatinine 4.5 H 0.5-1.0 mg/dL Glomerular Filtration Rate Calc 10 >90 mL/min Random Glucose 100 70-105 mg/dL Total Calcium 8.3 L 8.5-10.1 mg/dL Total Bilirubin 0.5 0.2-1.0 mg/dL Aspartate Amino Transf (AST/SGOT) 16 10-37 U/L Alanine Aminotransferase (ALT/SGPT) 33 12-78 U/L Alkaline Phosphatase 227 H 50-136 U/L Total Protein 6.7 6.0-8.3 g/dL Albumin 2.2 L 3.5-5.0 g/dL Coagulation Labs: Test 02/22/24 14:45 Range/Units Prothrombin Time 11.0 9.6-11.6 SEC Prothromb Time International Ratio 0.98 0.85-1.15 Activated Partial Thromboplast Time 29.1 26.3-35.5 SEC DIAGNOSTICS / RADIOLOGY: REASON: RT HEPATIC FLUID COLLECTION ORDERING PHYSICIAN: WES HA PROCEDURE: DRNG LIVR - US PERC DRN, LIVER W IMG IR US PERC DRN, LIVER W IMG IR REASON: RT HEPATIC FLUID COLLECTION abscess COMPARISON: Previous CT 02/17/2024. TECHNIQUE: Ultrasound-guided drain placement within right lobe hepatic abscess. FINDINGS: Ultrasound demonstrates complex fluid collection within the right lobe of the liver with air foci present. PROCEDURE: Informed consent obtained from the patient following explanation of risk, benefits, complications. Timeout performed by radiology nursing staff. Right abdomen was prepped and draped in sterile fashion. Patient received intravenous titrated doses of Versed and fentanyl administered by radiology nursing personnel with continuous monitoring of the oxygen saturation, chronic status, respiratory status. 10 mL of 1% lidocaine subcutaneous utilized. Under direct ultrasound guidance, access gained into the abscess collection utilizing 18-gauge needle. Purulent fluid was aspirated and submitted for Gram stain and cultures. Guidewire was placed and visualized on ultrasound. Fascial dilatation performed, 8 Wolof drain was placed within the fluid collection under direct ultrasound guidance. Aspirate yielded purulent fluid. Specimen submitted for Gram stain and cultures. Catheter connected to external drainage bag. Retention suture and sterile dressing applied. Patient tolerated procedure well without evidence of complication. IMPRESSION: Ultrasound-guided drain placement within right lobe hepatic abscess. Cultures pending. DICTATED BY: DANI GARCIA DO DATE: 02/19/24 1606 REASON: R/O ASCENDING CHOLANGITIS ORDERING PHYSICIAN: STEPHEN VICENTE PROCEDURE: MRCP WWO - MRCP([id number])CHOLANGIOPANCREATO MRCP([id number])CHOLANGIOPANCREATO REASON: R/O ASCENDING CHOLANGITIS COMPARISON: CT abdomen and pelvis 02/17/2024 TECHNIQUE: Routine imaging protocol was performed. Images were also obtained pre and postgadolinium contrast infusion, 20 cc Clariscan IV. FINDINGS: There is a 3 x 3.4 cm fluid collection in the anterior segment of the right lobe of the liver, relatively high under the diaphragm. This has a short air-fluid level. There is peripheral contrast enhancement. Findings are consistent with a hepatic abscess. There are no other focal liver lesions. Portal and hepatic veins appear patent. Gallbladder is absent. There is a small amount of air in the biliary tree, probably from previous S sphincterotomy. Intrahepatic biliary tree does not appear distended. Common duct measures between 4 and 5 mm near the head of the pancreas. There is renal cortical thinning moderate in degree. There are small bilateral renal cysts. Spleen and pancreas appear normal. Pancreatic duct is not dilated. There are no focal fluid collections. There is no free air or fluid. Anterior abdominal wall appears intact. IMPRESSION: 1. 3 x 3.4 cm focal fluid collection in the anterior segment right lobe of the liver, with an air-fluid level, consistent with abscess. 2. Absent gallbladder 3. Moderate bilateral renal cortical thinning, there are also bilateral renal cysts. DICTATED BY: ROBERTO LONGORIA MD DATE: 02/18/24 1434 REASON: bilateral flank pain, ruq pain ORDERING PHYSICIAN: TOM PATEL PROCEDURE: ABD PEL WO - CT ABDOMEN/PELVIS W/O CONTRAST CT ABDOMEN/PELVIS W/O CONTRAST HISTORY: Bilateral flank pain COMPARISON: 01/13/2016 TECHNIQUE: Multiple sequential axial images of the abdomen and pelvis were obtained from the dome of the diaphragm through symphysis pubis. Patient was not given contrast through intravenous route. Oral contrast was not given. FINDINGS: No pleural effusion is seen bilaterally. There is no evidence of parenchymal disease or pulmonary nodule of the visualized lower lungs. Degenerative changes of the thoracolumbar spine are present. The heart is not enlarged. There is 3.7 cm right hepatic nodule. Intrahepatic biliary air is seen. Postcholecystectomy changes are seen. There are bilateral renal cortical scarring. Bilateral renal vascular calcifications are seen. The liver, spleen, adrenal glands and pancreas are unremarkable. There is no evidence of hydronephrosis bilaterally. No evidence of renal stone is seen. There is diverticulosis. Fecal material is seen in the colon. There are normal size retroperitoneal and mesenteric lymph nodes. No ascites is seen. Atherosclerotic changes are present. Uterus is enlarged with calcifications suggestive of fibroid uterus. Pelvic sidewalls are symmetric bilaterally. Bladder is poorly distended. IMPRESSION: 1. There is 3.7 cm right hepatic mass with neoplastic process not excluded. Intrahepatic biliary air is seen with postcholecystectomy changes. Fibroid uterus. Diverticulosis. CT was performed with one or more following dose reduction techniques: automated exposure control, adjustment of the mA and kv according to patient's size, or use of a iterative reconstruction technique. DICTATED BY: LORELEI HERRERA MD DATE: 02/17/242219..REASON: cp ORDERING PHYSICIAN: TOM PATEL PROCEDURE: CXR1VW - CHEST 1VW CHEST 1VW REASON: cp COMPARISON: 02/14/2024 FINDINGS: Single view of the chest was obtained. Lungs are clear. There is mild cardiac megaly, unchanged. There is no pulmonary vascular congestion. Mediastinum and bony thorax appear unremarkable. IMPRESSION: 1. Mild cardiomegaly, unchanged no acute finding. DICTATED BY: ROBERTO LONGORIA MD DATE: 02/18/24928 ASSESSMENT: End stage renal disease Anemia Sepsis Hepatic Abscess Chronic Congestive Diastolic Heart Failure , Echo 2022 EF of 65% Primary hypertension HLD Diabetes mellitus II PLAN: Labs and Diagnostics/ Radiology personally reviewed and interpreted by myself and supervising physician We have reviewed dialysis and external records in detail Continue dialysis schedule Friday Continue with antibiotics as per ID. Case management coordinating SNF placement 1.5 L fluid restriction Continue to monitor H&H Epogen on dialysis days, as needed Continue with frequent monitoring of renal function, anemia, and electrolytes Order CBC, BMP, and electrolytes in the morning May use Dilaudid 0.5 mg IV every 6 hours as needed for severe pain Monitor blood pressure adjust medication doses as needed Maintain normotensive state Strict intake, output, and daily weight should be monitored Please renally adjust medications. Avoid nephrotoxics and nonsteroidal drugs. We will continue to monitor the patient closely We have discussed with the other team physicians in detail about the care plan ATTESTATION BY PHYSICIAN I have seen and examined the patient. I reviewed the documentation, medical decision making, and treatment plan as noted by the mid-level provider above. I agree with the findings and plan of care. YANCY MANZO MD, [facility] [employer] Feb 23, 2024 13:52
--- NOTE | 2024-02-23 13:55 | PN ---
[facility] PROGRESS NOTE Date Patient Seen: Feb 23, 2024 Time of Visit: 13:53 Supervising Physician: MORRIS MESSINA MD Primary Care Physician: [Dr. Bret No ] Outpatient Specialists: [ Dr. Herrmann, nephro ]] Inpatient Consults: General surgery, Infectious Disease, GI, Nephrology PROBLEM LIST: Sepsis secondary to 3x3.4 Hepatic Abscess + AMEBIASIS S/P IR drain placement within rt lobe hepatic abscess, culture positive for polymicrobial infection ESRD HD TTS Chronic Congestive Diastolic Heart Failure , Echo 2022 EF of 65% Primary hypertension Hyperlipidemia Diabetes mellitus II Hg A1c of 7.2 % from 2018 LA grade B reflux esophagitis w/ no bleeding on EGD 02/21/24 non bleeding gastric ulcers on EGD 02/21/24 2 mm polyp in cecum s/p resection on colonoscopy 02/21/24 3-5mm polyp in descending colon and transverse colon on colonoscopy 02/21/24 none bleeding internal hemorrhoids on colonoscopy 02/21/24 INTERVAL HISTORY: Pt remains weak at this point, In good spirits, following commands , toleraing po Drain in place to RUQ- total of 20cc overnight. Continues on IV abx: Vancomycin and Zosyn. Per Fluid cultures , + E Histolytica - will Start Metronidazole Will need SNF placement for abx/rehab/drain management Per General Surgery , drain to remain in place and will Follow up outpatient for drain removal . Nursing staff to make appt prior to DC . Id consult at SNF for vanco mgt. REVIEW OF SYSTEMS: 12 point ROS reviewed with patient. Pertinent positives mentioned above. Otherwise negative. PHYSICAL EXAM: GENERAL: alert, weak, awake oriented x 3 HEENT: EOMI, Sclera non icteric, moist mucosa NECK: Supple, no JVD, trachea midline LUNGS: Clear breath sounds bilaterally. No wheezes HEART: Regular rate and rhythm. Normal S1 and S2, without murmurs ABD: Abdomen soft but tender on RUQ. Bowel sounds present, EXT: No clubbing cyanosis or edema NEURO: Alert and oriented to person, follows commands Vital Signs (last 8hr) Date Time Temp Pulse Resp B/P (MAP) Pulse Ox O2 Delivery O2 Flow Rate FiO2 02/23/24 11:22 98.1 61 17 139/53 96 Nasal Cannula 3.5 02/23/24 08:26 147/59 02/23/24 07:51 98.2 63 17 147/59 95 Nasal Cannula 3.5 02/23/24 07:16 65 20 N/Cannula Low lpm 3.5 LABS: Hematology Labs: Test 02/22/24 04:40 Range/Units White Blood Count 8.6 4.8-10.8 K/uL Red Blood Count 3.08 L 4.00-5.50 MIL/uL Hemoglobin 10.5 L 12.0-16.0 g/dL Hematocrit 31.9 L 36-48 % Mean Corpuscular Volume 103.6 H 79-99 fL Mean Corpuscular Hemoglobin 34.1 H 27.0-33.0 pg Mean Corpuscular Hemoglobin Concent 32.9 32.0-36.0 g/dL Red Cell Distribution Width 12.2 11.0-15.5 % Platelet Count 210 130-400 K/uL Mean Platelet Volume 9.9 7.5-10.5 fL Immature Granulocyte % (Auto) 3.4 H 0-1 % Neutrophils (%) (Auto) 68.6 40.0-77.0 % Lymphocytes (%) (Auto) 17.7 L 21.0-51.0 % Monocytes (%) (Auto) 8.4 3.0-13.0 % Eosinophils (%) (Auto) 1.4 0.0-8.0 % Basophils (%) (Auto) 0.5 0.0-5.0 % Neutrophils # (Auto) 5.9 1.8-7.7 K/uL Lymphocytes # (Auto) 1.5 1.0-4.8 K/uL Monocytes # (Auto) 0.7 0.1-1.0 K/uL Eosinophils # (Auto) 0.12 0.00-0.70 K/uL Basophils # (Auto) 0.04 0.00-0.20 K/uL Absolute Immature Granulocyte (auto 0.29 0-1 K/uL Nucleated Red Blood Cells 0.0 0.0-0.19 % Chemistry Labs: Test 02/23/24 11:06 02/22/24 04:40 Range/Units Whole Blood Glucose 138 H 70-110 MG/DL Sodium Level 138 136-145 mmol/L Potassium Level 3.2 L 3.5-5.1 mmol/L Chloride Level 98 L 101-111 mmol/L Carbon Dioxide Level 32 21-32 mmol/L Blood Urea Nitrogen 37 H 7-18 mg/dL Creatinine 4.5 H 0.5-1.0 mg/dL Glomerular Filtration Rate Calc 10 >90 mL/min Random Glucose 100 70-105 mg/dL Total Calcium 8.3 L 8.5-10.1 mg/dL Total Bilirubin 0.5 0.2-1.0 mg/dL Aspartate Amino Transf (AST/SGOT) 16 10-37 U/L Alanine Aminotransferase (ALT/SGPT) 33 12-78 U/L Alkaline Phosphatase 227 H 50-136 U/L Total Protein 6.7 6.0-8.3 g/dL Albumin 2.2 L 3.5-5.0 g/dL Coagulation Labs: Test 02/22/24 14:45 Range/Units Prothrombin Time 11.0 9.6-11.6 SEC Prothromb Time International Ratio 0.98 0.85-1.15 Activated Partial Thromboplast Time 29.1 26.3-35.5 SEC DIAGNOSTICS / RADIOLOGY RESULTS: [ ] Plan: Neuro: Minimize central acting medications as possible. Maintain fall precautions, adequate lighting during the day Cardiovascular: Follow hemodynamics. Vital signs per facility protocol Pulmonary: Supplemental 02 as needed. Maintain aspiration precautions at all times GI and nutrition: Continue with nutritional support. Continue stool softeners and laxatives as needed. Kidney and electrolytes: Strict monitoring of intake, output and overall fluid balance. Avoid nephrotoxic medications to the extent possible. Medications to be dosed according to renal function. Monitor electrolytes and replace as needed Endocrine: Maintain blood glucose between 100-180 at all times. Hypoglycemia protocol in place Infectious disease: Trend temperature, WBC and procalcitonin level Follow cultures, deescalate antibiotics as soon as possible. Panculture if new onset fever Oncology/Hematology/Coagulation: Monitor for s/s of bleeding Monitor hemoglobin, coagulation studies as needed Skin: Pressure ulcer prevention per facility protocol Specialty mattress Ortho/Rehab: Continue PT/OT Prophylaxis:. Continue GI and DVT prophylaxis as appropriate Disposition:. SNF Total patient care time excluding any procedures: 40 min WES HA Feb 23, 2024 13:55
[2024-02-23] MEDS ORDERED: metRONIDazole 500MG/100ML BAG IV SCH (14:00)
--- NOTE | 2024-02-23 21:24 | PN ---
INFECTIOUS DISEASE PROGRESS NOTE Date of Service: Feb 23, 2024 SUBJECTIVE: This is a 73-year-old female patient with past medical history of diabetes mellitus and end-stage renal disease, on dialysis who presented to the hospital with chief complaint of generalized body weakness, and right upper abdominal quadrant pain. An MRCP showed fluid collection in the anterior segment of the right lobe of the liver consistent with abscess and the reason for this consult. Patient was seen and examined at bedside in room 330. Patient is status post percutaneous drain placement on 02/19/2024. Hepatic fluid aspirate cultures positive for polymicrobial infection with Enterococcus Raffinosus, E coli and Klebsiella oxytoca. No reports of fever, temperature is 98.2. We will discontinue vancomycin and continue on Zosyn IV. We will continue to monitor patient's care. PHYSICAL EXAM EYES: Anicteric. Pupils equal and reactive. HENT: No oral thrush seen, moist Oral mucosa. NECK: Supple, no JVD or thyromegaly. LUNGS: Good air entry. No rales, no rhonchi. CARDIOVASCULAR: S1, S2 regular. No murmur heard. ABDOMEN: Soft, non tender, bowel sounds present, no organomegaly. Right percutaneous drainage catheter. CENTRAL NERVOUS SYSTEM: Awake, alert, oriented x 3. SKIN: No rashes, no swelling. LYMPHATICS: No peripheral lymphadenopathy. MUSCULOSKELETAL: No joint swelling, erythema or tenderness. EXTREMITIES: No cyanosis or clubbing. BACK: No deformity, no pressure ulcer. GENITOURINARY: No dysuria or hematuria. Vital Sign (Last 12 Hours) 02/23/24 02/23/24 02/23/24 02/23/24 11:22 16:37 19:42 20:00 Temp 98.1 98.1 98.1 Pulse 61 64 65 65 Resp 17 17 20 18 B/P (MAP) 139/53 122/53 141/67 Pulse Ox 96 98 96 O2 Delivery Nasal Cannula Nasal Cannula N/Cannula Low lpm Nasal Cannula O2 Flow Rate 3.5 3.5 2.0 2.5 FiO2 28 02/23/24 20:58 B/P (MAP) 141/67 Intake & Output (last 24hrs) 02/22/24 02/22/24 02/23/24 15:00 23:00 07:00 Intake Total 400 ml 150 ml Balance 400 ml 150 ml LABS: Laboratory: Test 02/23/24 19:42 02/22/24 14:45 02/22/24 04:40 Range/Units Whole Blood Glucose 127 H 70-110 MG/DL Prothrombin Time 11.0 9.6-11.6 SEC Prothromb Time International Ratio 0.98 0.85-1.15 Activated Partial Thromboplast Time 29.1 26.3-35.5 SEC White Blood Count 8.6 4.8-10.8 K/uL Red Blood Count 3.08 L 4.00-5.50 MIL/uL Hemoglobin 10.5 L 12.0-16.0 g/dL Hematocrit 31.9 L 36-48 % Mean Corpuscular Volume 103.6 H 79-99 fL Mean Corpuscular Hemoglobin 34.1 H 27.0-33.0 pg Mean Corpuscular Hemoglobin Concent 32.9 32.0-36.0 g/dL Red Cell Distribution Width 12.2 11.0-15.5 % Platelet Count 210 130-400 K/uL Mean Platelet Volume 9.9 7.5-10.5 fL Immature Granulocyte % (Auto) 3.4 H 0-1 % Neutrophils (%) (Auto) 68.6 40.0-77.0 % Lymphocytes (%) (Auto) 17.7 L 21.0-51.0 % Monocytes (%) (Auto) 8.4 3.0-13.0 % Eosinophils (%) (Auto) 1.4 0.0-8.0 % Basophils (%) (Auto) 0.5 0.0-5.0 % Neutrophils # (Auto) 5.9 1.8-7.7 K/uL Lymphocytes # (Auto) 1.5 1.0-4.8 K/uL Monocytes # (Auto) 0.7 0.1-1.0 K/uL Eosinophils # (Auto) 0.12 0.00-0.70 K/uL Basophils # (Auto) 0.04 0.00-0.20 K/uL Absolute Immature Granulocyte (auto 0.29 0-1 K/uL Nucleated Red Blood Cells 0.0 0.0-0.19 % Sodium Level 138 136-145 mmol/L Potassium Level 3.2 L 3.5-5.1 mmol/L Chloride Level 98 L 101-111 mmol/L Carbon Dioxide Level 32 21-32 mmol/L Blood Urea Nitrogen 37 H 7-18 mg/dL Creatinine 4.5 H 0.5-1.0 mg/dL Glomerular Filtration Rate Calc 10 >90 mL/min Random Glucose 100 70-105 mg/dL Total Calcium 8.3 L 8.5-10.1 mg/dL Total Bilirubin 0.5 0.2-1.0 mg/dL Aspartate Amino Transf (AST/SGOT) 16 10-37 U/L Alanine Aminotransferase (ALT/SGPT) 33 12-78 U/L Alkaline Phosphatase 227 H 50-136 U/L Total Protein 6.7 6.0-8.3 g/dL Albumin 2.2 L 3.5-5.0 g/dL ASSESSMENT: Liver abscess status post percutaneous drain placement on 02/19/2024. Hepatic fluid aspirate Polymicrobial infection with Enterococcus Raffinosus, E coli and Klebsiella oxytoca. Leukocytosis, resolving. End-stage renal disease, on dialysis. Diabetes mellitus. Anemia. PLAN: Discontinue vancomycin. Continue Zosyn IV. Continue pain management. Monitoring drain output. Monitor electrolytes. Continue dialysis as recommended by nutritional assistant. This case was reviewed and discussed with my supervising physician and the above assessment and plan was formulated and agreed upon. ATTESTATION BY PHYSICIAN I have seen and examined the patient. I reviewed the documentation, medical decision making, and treatment plan as noted by the mid-level provider above. I agree with the findings and plan of care. SAVANNAH PERDUE MD, [facility]IRTA L [facility] Feb 23, 2024 21:24
[2024-02-24] VITALS (25 sets, daily range): BP systolic 111–144; BP diastolic 51–90; PULSE 60–74; RESP 16–19; TEMP 97.7–98.7; O2SAT 95–99
[2024-02-24 05:16] LABS: BASOPHILS # (AUTO) 0.06 K/uL (0.00-0.20); BASOPHILS % (AUTO) 0.7 % (0.0-5.0); EOSINOPHILS # (AUTO) 0.34 K/uL (0.00-0.70); EOSINOPHILS % (AUTO) 3.7 % (0.0-8.0); IMMATURE GRANULOCYTE ABSOLUTE 0.37 K/uL (0-1); LYMPHOCYTES # (AUTO) 2.5 K/uL (1.0-4.8); MEAN CORPUSCULAR HEMOGLOBIN 34.6 pg (27.0-33.0); MEAN CORPUSCULAR HGB CONC 34.1 g/dL (32.0-36.0); MEAN CORPUSCULAR VOLUME 101.4 fL (79-99); MONOCYTES # (AUTO) 0.8 K/uL (0.1-1.0); MONOCYTES % (AUTO) 9.3 % (3.0-13.0); NEUTROPHILS % (AUTO) 55.2 % (40.0-77.0); PLATELET COUNT (AUTO) 220 K/uL (130-400); RED BLOOD CELL COUNT(AUTO) 2.86 MIL/uL (4.00-5.50); WHITE BLOOD COUNT (AUTO) 9.1 K/uL (4.8-10.8)
[2024-02-24 05:30] LABS: CREATININE 6.8 mg/dL (0.5-1.0); PHOSPHORUS 7.8 mg/dL (2.5-4.9); POTASSIUM 3.5 mmol/L (3.5-5.1); VANCOMYCIN LEVEL 21.7 mcg/mL (20.0-30.0)
[2024-02-24] MEDS: SIMETHICONE 80 MG TAB.CHEW PO PRN (05:52)
[2024-02-24 07:24] LABS: EOSINOPHILS % (MANUAL) 2 % (1-6); LYMPHOCYTES % (MANUAL) 34 % (22-44); MONOCYTES % (MANUAL) 8 % (2-9); SEGMENTED NEUTROPHILS % 56 % (40-70); TOTAL CELLS COUNTED 100
[2024-02-24 07:25] LABS: MAN.DIFF COMMENT-IMPRESSION MANUAL DIFFERENTIAL; PLATELET MORPHOLOGY COMMENT ADEQUATE; WBC MORPHOLOGY NORMAL
--- NOTE | 2024-02-24 19:30 | PN ---
GASTROENTEROLOGY PROGRESS NOTE Date of Visit: Feb 24, 2024 Time of Visit: 19:30 Events / Notes: No acute events overnight. Patient underwent IR drainage of liver abscess. EGD revealing LA grade B reflux esophagitis with nonbleeding gastric ulcers and colonoscopy revealing colon polyp status post polypectomy. Nonbleeding internal hemorrhoids. Review of Systems: CONSTITUTIONAL: No malaise or change in sensation of wellbeing. ENMT: No rhinorrhea, otorrhea, sinus pain, ear ache. CARDIOVASCULAR: No angina, palpitations, orthopnea or paroxysmal dyspnea. RESPIRATORY: No SOB. GASTROINTESTINAL: No abdominal pain, nausea, vomiting, diarrhea, hematemesis, melena or change in the patient's habitual bowel movements consistency/number. GENITOURINARY: No dysuria, hematuria or change in bladder continence. MUSCULOSKELETAL: No new muscle pain or decrease in muscular strength. No new joint swelling, redness or tenderness. SKIN: No new rash. Physical Exam: GEN: Awake, alert, oriented in person, time and place, and in no acute distress. HEENT: No sinus tenderness. Tympanic membranes were not examined. No rhinorrhea. Oral pharyngeal mucosa is pink, moist and within normal limits. Neck is supple with no cervical lymphadenopathy, thyromegaly or JVD. CHEST: Inspection, palpation and percussion of the chest were unremarkable. Lung auscultation revealed normal breath sounds bilaterally. CARDIAC: PMI is within normal limits. Heart sounds are regular. Normal S1, S2. No gallop or murmur. ABD: Soft, non-tender and not distended. No peritoneal signs on palpation. No organomegaly. Normal bowel sounds. EXT: No cyanosis or clubbing. No edema. SKIN: Intact. No rashes. JOINTS: No evidence of synovitis or acute arthritis. NEURO: Alert and oriented to name, place and person. Cranial nerve examination is unremarkable. No focal motor deficits. Normal speech. Gait is normal. Strength is normal. Vital Signs (last 8hr) Date Time Temp Pulse Resp B/P (MAP) Pulse Ox O2 Delivery O2 Flow Rate FiO2 02/24/24 19:13 74 18 N/Cannula Low lpm 2.0 28 02/24/24 17:30 97.7 70 16 127/62 Nasal Cannula 2.0 02/24/24 17:15 97.7 64 16 119/55 Nasal Cannula 2.0 02/24/24 17:00 69 16 116/51 Nasal Cannula 2.0 02/24/24 16:45 70 16 125/57 Nasal Cannula 2.0 02/24/24 16:30 67 16 144/66 Nasal Cannula 2.0 02/24/24 16:28 98.1 65 17 140/62 96 Nasal Cannula 2.0 02/24/24 16:15 68 16 132/61 Nasal Cannula 2.0 02/24/24 16:00 69 16 140/66 Nasal Cannula 2.0 02/24/24 15:45 68 16 140/87 Nasal Cannula 2.0 02/24/24 15:30 64 16 140/62 Nasal Cannula 2.0 02/24/24 15:15 63 16 143/62 Nasal Cannula 2.0 02/24/24 15:00 60 16 127/90 Nasal Cannula 2.0 02/24/24 14:45 65 16 142/57 Nasal Cannula 2.0 02/24/24 14:30 64 16 140/64 Nasal Cannula 2.0 02/24/24 14:15 98.1 62 16 138/61 Nasal Cannula 2.0 02/24/24 14:05 98.1 66 16 144/56 Nasal Cannula 2.0 02/24/24 11:46 98.8 68 17 129/65 95 Nasal Cannula 2.0 Laboratory: [ ] Laboratory: Test 02/24/24 15:41 02/24/24 04:40 Range/Units Whole Blood Glucose 107 70-110 MG/DL White Blood Count 9.1 4.8-10.8 K/uL Red Blood Count 2.86 L 4.00-5.50 MIL/uL Hemoglobin 9.9 L 12.0-16.0 g/dL Hematocrit 29.0 L 36-48 % Mean Corpuscular Volume 101.4 H 79-99 fL Mean Corpuscular Hemoglobin 34.6 H 27.0-33.0 pg Mean Corpuscular Hemoglobin Concent 34.1 32.0-36.0 g/dL Red Cell Distribution Width 12.0 11.0-15.5 % Platelet Count 220 130-400 K/uL Mean Platelet Volume 9.8 7.5-10.5 fL Immature Granulocyte % (Auto) 4.1 H 0-1 % Neutrophils (%) (Auto) 55.2 40.0-77.0 % Lymphocytes (%) (Auto) 27.0 21.0-51.0 % Monocytes (%) (Auto) 9.3 3.0-13.0 % Eosinophils (%) (Auto) 3.7 0.0-8.0 % Basophils (%) (Auto) 0.7 0.0-5.0 % Neutrophils # (Auto) 5.0 1.8-7.7 K/uL Lymphocytes # (Auto) 2.5 1.0-4.8 K/uL Monocytes # (Auto) 0.8 0.1-1.0 K/uL Eosinophils # (Auto) 0.34 0.00-0.70 K/uL Basophils # (Auto) 0.06 0.00-0.20 K/uL Absolute Immature Granulocyte (auto 0.37 0-1 K/uL Segmented Neutrophils % 56 40-70 % Lymphocytes % (Manual) 34 22-44 % Monocytes % (Manual) 8 2-9 % Eosinophils % (Manual) 2 1-6 % Nucleated Red Blood Cells 0.0 0.0-0.19 % Differential Comment MANUAL DIFFERENTIAL White Cell Morphology Comment NORMAL Platelet Morphology Comment ADEQUATE Red Blood Cell Morphology ANISO 2+ Sodium Level 137 136-145 mmol/L Potassium Level 3.5 3.5-5.1 mmol/L Chloride Level 98 L 101-111 mmol/L Carbon Dioxide Level 28 21-32 mmol/L Blood Urea Nitrogen 59 H 7-18 mg/dL Creatinine 6.8 H 0.5-1.0 mg/dL Glomerular Filtration Rate Calc 6 >90 mL/min Random Glucose 93 70-105 mg/dL Total Calcium 7.4 L 8.5-10.1 mg/dL Phosphorus Level 7.8 H 2.5-4.9 mg/dL Vancomycin Level 21.7 20.0-30.0 mcg/mL Current Medications Medications (Trade) Dose Ordered Sig/Brandon Route PRN Reason Start Time Stop Time Status Last Admin Dose Admin Acetaminophen (TYLenol 325MG TAB) 650 mg Q6H PRN PO FEVER/MILD PAIN LEVEL 1-3 02/18/24 00:30 03/19/24 00:29 02/19/24 09:12 650 MG Albuterol Sulfate (Proventil 0.083% 2.5mg/3ml) 2.5 mg [id number] PRN IH SHORTNESS OF BREATH 02/18/24 00:30 03/19/24 00:29 Amlodipine Besylate (NorvASC 5MG TAB) 10 mg DAILY PO 02/20/24 09:00 03/21/24 08:59 02/24/24 08:18 10 MG Aspirin (Aspirin 81mg Chew Tab) 81 mg DAILY PO 02/20/24 09:00 03/21/24 08:59 02/24/24 08:17 81 MG Carvedilol (Coreg 3.125MG) 3.125 mg BID PO 02/19/24 21:00 03/20/24 20:59 02/24/24 08:17 3.125 MG Cinacalcet (Sensipar 30mg Tab) 30 mg DAILY PO 02/20/24 09:00 03/21/24 08:59 02/24/24 08:16 30 MG Doxazosin Mesylate (Doxazosin Mesylate) 1 mg HS PO 02/19/24 21:00 03/20/24 20:59 02/23/24 20:58 1 MG Gabapentin (NEURontin 100 mg CAP) 100 mg DAILY PO 02/20/24 09:00 03/21/24 08:59 02/24/24 08:17 100 MG Hydralazine HCl (APRESOLine 20MG INJ) 10 mg Q6H PRN IV SBP GREATER THAN 180 02/18/24 00:30 03/19/24 00:29 Hydromorphone HCl (DiLAUDid 0.5MG INJ) 0.2 mg Q4H PRN IVP SEVERE PAIN (7-10) 02/18/24 00:30 02/23/24 00:29 DC 02/22/24 05:01 0.2 MG Labetalol HCl (TRANdate 20MG SYG) 10 mg Q2H PRN IV SBP GREATER THAN 180 02/18/24 00:30 03/19/24 00:29 Lactulose (Constulose 20gm/ 30ml Udcup) 20 gm Q6H PRN PO CONSTIPATION 02/18/24 00:30 03/19/24 00:29 02/22/24 12:05 20 GM Levothyroxine Sodium (SYNTHroid 88MCG TAB) 88 mcg SYN PO 02/20/24 06:30 03/21/24 06:29 02/24/24 05:52 88 MCG Metronidazole/ Sodium Chloride (flaGYL) 500 mg Q8H IV 02/23/24 14:00 02/23/24 14:09 DC Ondansetron HCl (zoFRAN 4MG INJ) 4 mg Q6H PRN IVP NAUSEA/VOMITING 02/18/24 00:30 03/19/24 00:29 02/21/24 13:58 4 MG Pharmacy Profile Note (Pharmacy Communication) 1 each ONCE MISC 02/18/24 00:30 02/18/24 00:26 DC Piperacillin Sod/ Tazobactam Sod (Zosyn 3.375gm+NS 50ml) 3.375 gm Q12H IV 02/18/24 00:30 02/28/24 00:29 02/24/24 12:49 3.375 GM Polyethylene Glycol/ Electrolytes (Golytely/Colyte Soln) 4,000 ml ONCE PO 02/20/24 17:00 02/20/24 23:59 DC 02/20/24 17:59 4,000 ML Simethicone (Mylicon) 80 mg ONCE PRN PO GI GAS 02/24/24 04:30 02/24/24 05:52 DC 02/24/24 05:52 80 MG Sodium Chloride 1,000 ml @ 0 mls/hr ONCE IV 02/21/24 10:00 03/22/24 09:59 02/24/24 16:50 1,000 MLS/HR Vancomycin HCl (Vancomycin 750mg) 750 mg TTHSPHD IVPB 02/19/24 16:00 02/23/24 12:25 DC 02/21/24 17:42 750 MG Vancomycin HCl (Vancomycin Protocol) 1 each AD IV 02/18/24 00:30 02/18/24 00:25 DC Vancomycin HCl (Vancomycin Protocol) 1 each AD IV 02/18/24 00:30 02/23/24 12:25 DC Vitamin B Complex/ Vit C/Folic Acid (Nephrovite Tablet) 1 cap DAILY PO 02/19/24 09:00 03/20/24 08:59 02/24/24 08:16 1 CAP Vitamin B Complex/ Vit C/Folic Acid (Nephrovite Tablet) 1 cap DAILY PO 02/20/24 09:00 03/21/24 08:59 Diagnostics / Radiology: [COPY/PASTE HERE IF NO REPORTS PLEASE DELETE SECTION] Assessment: GERD Gastric ulcers Colon polyps Hemorrhoids Liver abscess Abdominal pain Plan: Continue GI prophylaxis Advance diet as tolerated Avoid NSAIDs Antireflux measures Monitor H&H and transfuse as needed Call with questions, concerns or change in clinical status Patient to follow-up at clinic post discharge Thank you for this consult [address] [employer] Feb 24, 2024 19:30
--- NOTE | 2024-02-24 19:59 | DS ---
[facility] DISCHARGE SUMMARY Date Patient Seen: Feb 24, 2024 Time of Visit: 13:54 Supervising Physician: SIDDHARTH CACERES Primary Care Physician: [Dr. Bret No ] Outpatient Specialists: [ Dr. Herrmann, nephro ]] Inpatient Consults: General surgery, Infectious Disease, GI, Nephrology PROBLEM LIST: Sepsis secondary to 3x3.4 Hepatic Abscess S/P IR drain placement within rt lobe hepatic abscess, culture positive for polymicrobial infection ESRD HD TTS Chronic Congestive Diastolic Heart Failure , Echo 2022 EF of 65% Primary hypertension Hyperlipidemia Diabetes mellitus II Hg A1c of 7.2 % from 2019 LA grade B reflux esophagitis w/ no bleeding on EGD 02/21/24 non bleeding gastric ulcers on EGD 02/21/24 2 mm polyp in cecum s/p resection on colonoscopy 02/21/24 3-5mm polyp in descending colon and transverse colon on colonoscopy 02/21/24 none bleeding internal hemorrhoids on colonoscopy 02/21/24 HPI AND HOSPITAL COURSE: Patient is a 73 year old lady with multiple comorbidities as mentioned above presented with sepsis secondary to hepatic abscess drain was placed, and started on antibiotic therapy as well, she is awake, alert, well oriented, not in distress, no nausea or vomiting reported, and plan is to be discharge to [facility] with antibiotic therapy, patient will be follow by ID . CHRONIC PROBLEMS: continue previous management per PCP unless otherwise indicated PROCEDURES: as mentioned above DISCHARGE MEDICATIONS: medication list reconciled. Pt hemodynamically stable and afebrile at time of discharge. PCP notified of patients admission, hospital course and discharge. PHYSICAL EXAM: GENERAL: alert, weak, awake oriented x 3 HEENT: EOMI, Sclera non icteric, moist mucosa NECK: Supple, no JVD, trachea midline LUNGS: Clear breath sounds bilaterally. No wheezes HEART: Regular rate and rhythm. Normal S1 and S2, without murmurs ABD: Abdomen soft but tender on RUQ. Bowel sounds present, EXT: No clubbing cyanosis or edema NEURO: Alert and oriented to person, follows commands RECOMMENDATIONS: See Discharge Instructions More than 30 minutes spent on discharge process, including evaluation of the patient, discussion with nursing staff, medication reconciliation and follow-up appointments ATTESTATION BY PHYSICIAN Documentation assistance provided by a scribe, information recorded by the scribe was done at my direction and has been reviewed and validated by me." MORRIS MESSINA MD I personally scribed for MORRIS MESSINA MD ([email or web address]) on 02/24/24 at 19:59. Electronically submitted by Veda Hay ([id number]). MORRIS MESSINA MD Feb 24, 2024 19:59
--- NOTE | 2024-02-24 21:04 | PN ---
NEPHROLOGY NOTE SUBJECTIVE: This patient has been evaluated and seen for dialysis and seen several times. The patient has no other associated finding. No other aggravating or relieving factors. The patient is weak. Other systemic review is unchanged. PHYSICAL EXAMINATION: GENERAL: Pale, no other distress. VITAL SIGNS: Blood pressure is 118/70, respiratory rate is 18, afebrile. HEENT: Head is atraumatic. Pupils are round and reactive. Sclerae are anicteric. Conjunctivae not pale. Oral mucosa is not dry. NECK: Supple. No masses or bruits. Thyroid is palpable. Neck has no bruits. CHEST: Shows equal to thoracic percussion note being resonant in all areas. CARDIAC: Regular rhythm. No rub. No S3, S4. No parasternal heave. ABDOMEN: No guarding or tenderness. Bowel sounds are normoactive. No free fluid. EXTREMITIES: No edema. No cyanosis or clubbing. LABORATORY DATA: I have reviewed available labs in detail. IMAGING STUDIES: Personally reviewed. PROBLEMS: Renal failure, anemia, and shortness of breath. PLAN: To continue dialysis support. Follow up on renal function. Follow up on electrolytes. The patient has been counseled on the diet. Intake, output, weight, and overall condition will be monitored. The patient was evaluated and seen for dialysis and seen multiple times. We will be monitoring closely. I have discussed with other team members in detail. TID: [id number] RECEIPT: [id number]
--- NOTE | 2024-02-24 21:11 | PN ---
INFECTIOUS DISEASE PROGRESS NOTE Date of Service: Feb 24, 2024 SUBJECTIVE: This is a 73-year-old female patient with past medical history of diabetes mellitus and end-stage renal disease, on dialysis who presented to the hospital with chief complaint of generalized body weakness, and right upper abdominal quadrant pain. An MRCP showed fluid collection in the anterior segment of the right lobe of the liver consistent with abscess and the reason for this consult. Patient was seen and examined at bedside in room 330. Patient is status post percutaneous drain placement on 02/19/2024. Hepatic fluid aspirate cultures with polymicrobial infection. Patient continues on Zosyn IV. Patient has been approved to [facility]. Patient is pending a PICC line placement today. Patient is afebrile, temperature is 98.8. We will continue to monitor patient's care. PHYSICAL EXAM EYES: Anicteric. Pupils equal and reactive. HENT: No oral thrush seen, moist Oral mucosa. NECK: Supple, no JVD or thyromegaly. LUNGS: Good air entry. No rales, no rhonchi. CARDIOVASCULAR: S1, S2 regular. No murmur heard. ABDOMEN: Soft, non tender, bowel sounds present, no organomegaly. Right percutaneous drainage catheter. CENTRAL NERVOUS SYSTEM: Awake, alert, oriented x 3. SKIN: No rashes, no swelling. LYMPHATICS: No peripheral lymphadenopathy. MUSCULOSKELETAL: No joint swelling, erythema or tenderness. EXTREMITIES: No cyanosis or clubbing. BACK: No deformity, no pressure ulcer. GENITOURINARY: No dysuria or hematuria. Vital Sign (Last 12 Hours) 02/24/24 02/24/24 02/24/24 02/24/24 11:46 14:05 14:15 14:30 Temp 98.8 98.1 98.1 Pulse 68 66 62 64 Resp 17 16 16 16 B/P (MAP) 129/65 144/56 138/61 140/64 Pulse Ox 95 O2 Delivery Nasal Cannula Nasal Cannula Nasal Cannula Nasal Cannula O2 Flow Rate 2.0 2.0 2.0 2.0 02/24/24 02/24/24 02/24/24 02/24/24 14:45 15:00 15:15 15:30 Pulse 65 60 63 64 Resp 16 16 16 16 B/P (MAP) 142/57 127/90 143/62 140/62 O2 Delivery Nasal Cannula Nasal Cannula Nasal Cannula Nasal Cannula O2 Flow Rate 2.0 2.0 2.0 2.0 02/24/24 02/24/24 02/24/24 02/24/24 15:45 16:00 16:15 16:28 Temp 98.1 Pulse 68 69 68 65 Resp 16 16 16 17 B/P (MAP) 140/87 140/66 132/61 140/62 Pulse Ox 96 O2 Delivery Nasal Cannula Nasal Cannula Nasal Cannula Nasal Cannula O2 Flow Rate 2.0 2.0 2.0 2.0 02/24/24 02/24/24 02/24/24 02/24/24 16:30 16:45 17:00 17:15 Temp 97.7 Pulse 67 70 69 64 Resp 16 16 16 16 B/P (MAP) 144/66 125/57 116/51 119/55 O2 Delivery Nasal Cannula Nasal Cannula Nasal Cannula Nasal Cannula O2 Flow Rate 2.0 2.0 2.0 2.0 02/24/24 02/24/24 02/24/24 02/24/24 17:30 19:13 20:00 20:45 Temp 97.7 98.2 Pulse 70 74 74 Resp 16 18 18 B/P (MAP) 127/62 115/54 115/54 Pulse Ox 97 O2 Delivery Nasal Cannula N/Cannula Low lpm Nasal Cannula O2 Flow Rate 2.0 2.0 1.0 FiO2 28 Intake & Output (last 24hrs) 02/23/24 02/23/24 02/24/24 15:00 23:00 07:00 Intake Total 850 ml 400 ml Output Total 15 ml Balance 850 ml 385 ml LABS: Laboratory: Test 02/24/24 19:38 02/24/24 04:40 Range/Units Whole Blood Glucose 180 #H 70-110 MG/DL White Blood Count 9.1 4.8-10.8 K/uL Red Blood Count 2.86 L 4.00-5.50 MIL/uL Hemoglobin 9.9 L 12.0-16.0 g/dL Hematocrit 29.0 L 36-48 % Mean Corpuscular Volume 101.4 H 79-99 fL Mean Corpuscular Hemoglobin 34.6 H 27.0-33.0 pg Mean Corpuscular Hemoglobin Concent 34.1 32.0-36.0 g/dL Red Cell Distribution Width 12.0 11.0-15.5 % Platelet Count 220 130-400 K/uL Mean Platelet Volume 9.8 7.5-10.5 fL Immature Granulocyte % (Auto) 4.1 H 0-1 % Neutrophils (%) (Auto) 55.2 40.0-77.0 % Lymphocytes (%) (Auto) 27.0 21.0-51.0 % Monocytes (%) (Auto) 9.3 3.0-13.0 % Eosinophils (%) (Auto) 3.7 0.0-8.0 % Basophils (%) (Auto) 0.7 0.0-5.0 % Neutrophils # (Auto) 5.0 1.8-7.7 K/uL Lymphocytes # (Auto) 2.5 1.0-4.8 K/uL Monocytes # (Auto) 0.8 0.1-1.0 K/uL Eosinophils # (Auto) 0.34 0.00-0.70 K/uL Basophils # (Auto) 0.06 0.00-0.20 K/uL Absolute Immature Granulocyte (auto 0.37 0-1 K/uL Segmented Neutrophils % 56 40-70 % Lymphocytes % (Manual) 34 22-44 % Monocytes % (Manual) 8 2-9 % Eosinophils % (Manual) 2 1-6 % Nucleated Red Blood Cells 0.0 0.0-0.19 % Differential Comment MANUAL DIFFERENTIAL White Cell Morphology Comment NORMAL Platelet Morphology Comment ADEQUATE Red Blood Cell Morphology ANISO 2+ Sodium Level 137 136-145 mmol/L Potassium Level 3.5 3.5-5.1 mmol/L Chloride Level 98 L 101-111 mmol/L Carbon Dioxide Level 28 21-32 mmol/L Blood Urea Nitrogen 59 H 7-18 mg/dL Creatinine 6.8 H 0.5-1.0 mg/dL Glomerular Filtration Rate Calc 6 >90 mL/min Random Glucose 93 70-105 mg/dL Total Calcium 7.4 L 8.5-10.1 mg/dL Phosphorus Level 7.8 H 2.5-4.9 mg/dL Vancomycin Level 21.7 20.0-30.0 mcg/mL ASSESSMENT: Liver abscess status post percutaneous drain placement on 02/19/2024. Hepatic fluid aspirate Polymicrobial infection with Enterococcus Raffinosus, E coli and Klebsiella oxytoca. Leukocytosis, resolving. End-stage renal disease, on dialysis. Diabetes mellitus. Anemia. PLAN: Continue Zosyn IV. Continue pain management. Monitoring drain output. Monitor electrolytes. Continue dialysis as recommended by procurement professional. Patient was referred to [facility] and has been approved. Patient is pending a PICC line. This case was reviewed and discussed with my supervising physician and the above assessment and plan was formulated and agreed upon. ATTESTATION BY PHYSICIAN I have seen and examined the patient. I reviewed the documentation, medical decision making, and treatment plan as noted by the mid-level provider above. I agree with the findings and plan of care. SAVANNAH PERDUE MD, [facility] Feb 24, 2024 21:11
--- NOTE | 2024-02-24 23:12 | PN ---
NEPHROLOGY NOTE SUBJECTIVE: The patient has been evaluated, seen for dialysis and seen multiple times. The patient has multiple other comorbidities. No fever, chills or rigors. No cough, expectoration, or hemoptysis. No abdominal pain. No nausea or vomiting. No other associated finding. Other systemic review is unchanged. The patient has been weak. Further systemic review is unchanged. PLAN: To continue monitoring. Follow up on renal function. Follow up on electrolytes. Intake, output, and weight will be monitored. The patient was evaluated and seen for dialysis and seen multiple times. We will be monitoring closely. I have discussed with other team members. Thank you for this patient. TID: [id number] RECEIPT: [id number]
[2024-02-25] VITALS (7 sets, daily range): BP systolic 126–154; BP diastolic 54–75; PULSE 57–71; RESP 16–18; TEMP 98–98.5; O2SAT 94–99
[2024-02-25 09:19] LABS: INR 1.02 (0.85-1.15); PROTHROMBIN TIME 11.4 SEC (9.6-11.6)
[2024-02-25 09:20] LABS: PARTIAL THROMBOPLASTIN TIME 29.1 SEC (26.3-35.5)
--- NOTE | 2024-02-25 13:37 | HMCIMG ---
CHEST 1VW HISTORY: PICC line placement COMPARISON: 02/17/2024 FINDINGS: A frontal projection of the chest was obtained. Mild bilateral pulmonary infiltrates are seen may be related to mild pulmonary vascular congestion with possible superimposed pneumonitis. The heart is borderline enlarged. PICC line is seen entering from the right with distal tip in the plane of the superior vena cava. No evidence of aortic calcification is seen. IMPRESSION: 1. Mild bilateral pulmonary infiltrates are seen may be related to mild pulmonary vascular congestion with possible superimposed pneumonitis.
--- NOTE | 2024-02-25 14:03 | PN ---
NEPHROLOGY PROGRESS NOTE Date/Time Patient Seen: Feb 25, 2024 SUBJECTIVE: The patient is a 73-year-old female with a history of diabetes, end stage renal disease on hemodialysis Friday, recent cholecystectomy She presents to the emergency department with complaints of generalized body weakness, bilateral flank pain, nausea, right upper abdominal pain onset two days ago. Blood cultures from outpatient dialysis clinic positive for E. coli Blood cultures collected on 02/17/2024 are negative Body fluid cultures are positive for Enterococcus raffinosus, E coli, Klebsiella oxytoca She continues on antibiotics as per ID S/P percutaneous drain placed for hepatic abscess on 02/18 Case management coordinating SNF placement Pending PICC line placement She tolerated this without difficulty. Dialysis planned for tomorrow She was seen in the medical floor, no acute distress REVIEW OF SYSTEMS: GENERAL: Negative for any nausea, vomiting, fevers, chills, or weight loss. NEUROLOGIC: Negative for any blurry vision, blind spots, double vision, facial asymmetry, dysphagia, dysarthria, hemiparesis, hemisensory deficits, vertigo, ataxia. HEENT: Negative for any head trauma, neck trauma, neck stiffness, photophobia, phonophobia, sinusitis, rhinitis. CARDIAC: Negative for any chest pain, dyspnea on exertion, paroxysmal nocturnal dyspnea, peripheral edema. PULMONARY: Negative for any shortness of breath, wheezing, COPD, or TB exposure. GASTROINTESTINAL: Negative for any abdominal pain, nausea, vomiting, bright red blood per rectum, melena. GENITOURINARY: Negative for any dysuria, hematuria, incontinence. INTEGUMENTARY: Negative for any rashes, cuts, insect bites. RHEUMATOLOGIC: Negative for any joint pains, photosensitive rashes, history of vasculitis or kidney problems. HEMATOLOGIC: Negative for any abnormal bruising, frequent infections or bleeding. Vital Signs (last 8hr) Date Time Temp Pulse Resp B/P (MAP) Pulse Ox O2 Delivery O2 Flow Rate FiO2 02/20/24 12:00 98.8 63 19 153/55 94 Nasal Cannula 3.0 02/20/24 08:00 98.8 77 20 159/47 91 Room Air PHYSICAL EXAM: GENERAL: Alert and oriented x 3. No acute distress. Well-nourished. EYES: EOMI. Anicteric. HENT: Moist mucous membranes. No scleral icterus. No cervical lymphadenopathy. LUNGS: Clear to auscultation bilaterally. No accessory muscle use. CARDIOVASCULAR: Regular rate and rhythm. No murmur. No JVD. ABDOMEN: Soft, non-tender and non-distended. No palpable masses. EXTREMITIES: No edema. Non-tender.?SKIN: No rashes or lesions. Warm. NEUROLOGIC: No focal neurological deficits. CN II-XII grossly intact, but not individually tested. PSYCHIATRIC: Cooperative. Appropriate mood and affect. Current Medications Medications (Trade) Dose Ordered Sig/Brandon Route PRN Reason Start Time Stop Time Status Last Admin Dose Admin Acetaminophen (TYLenol 325MG TAB) 650 mg Q6H PRN PO FEVER/MILD PAIN LEVEL 1-3 02/18/24 00:30 03/19/24 00:29 02/19/24 09:12 650 MG Albuterol Sulfate (Proventil 0.083% 2.5mg/3ml) 2.5 mg [id number] PRN IH SHORTNESS OF BREATH 02/18/24 00:30 03/19/24 00:29 Amlodipine Besylate (NorvASC 5MG TAB) 10 mg DAILY PO 02/20/24 09:00 03/21/24 08:59 Aspirin (Aspirin 81mg Chew Tab) 81 mg DAILY PO 02/20/24 09:00 03/21/24 08:59 Carvedilol (Coreg 3.125MG) 3.125 mg BID PO 02/19/24 21:00 03/20/24 20:59 02/19/24 21:23 3.125 MG Cinacalcet (Sensipar 30mg Tab) 30 mg DAILY PO 02/20/24 09:00 03/21/24 08:59 Doxazosin Mesylate (Doxazosin Mesylate) 1 mg HS PO 02/19/24 21:00 03/20/24 20:59 02/19/24 21:22 1 MG Gabapentin (NEURontin 100 mg CAP) 100 mg DAILY PO 02/20/24 09:00 03/21/24 08:59 Hydralazine HCl (APRESOLine 20MG INJ) 10 mg Q6H PRN IV SBP GREATER THAN 180 02/18/24 00:30 03/19/24 00:29 Hydromorphone HCl (DiLAUDid 0.5MG INJ) 0.2 mg Q4H PRN IVP SEVERE PAIN (7-10) 02/18/24 00:30 02/23/24 00:29 02/19/24 00:53 0.2 MG Labetalol HCl (TRANdate 20MG SYG) 10 mg Q2H PRN IV SBP GREATER THAN 180 02/18/24 00:30 03/19/24 00:29 Lactulose (Constulose 20gm/ 30ml Udcup) 20 gm Q6H PRN PO CONSTIPATION 02/18/24 00:30 03/19/24 00:29 Levothyroxine Sodium (SYNTHroid 88MCG TAB) 88 mcg SYN PO 02/20/24 06:30 03/21/24 06:29 Ondansetron HCl (zoFRAN 4MG INJ) 4 mg Q6H PRN IVP NAUSEA/VOMITING 02/18/24 00:30 03/19/24 00:29 Pharmacy Profile Note (Pharmacy Communication) 1 each ONCE MISC 02/18/24 00:30 02/18/24 00:26 DC Piperacillin Sod/ Tazobactam Sod (Zosyn 3.375gm+NS 50ml) 3.375 gm Q12H IV 02/18/24 00:30 02/28/24 00:29 02/20/24 13:33 3.375 GM Vancomycin HCl (Vancomycin 750mg) 750 mg TTHSPHD IVPB 02/19/24 16:00 02/29/24 15:59 02/19/24 17:25 750 MG Vancomycin HCl (Vancomycin Protocol) 1 each AD IV 02/18/24 00:30 02/18/24 00:25 DC Vancomycin HCl (Vancomycin Protocol) 1 each AD IV 02/18/24 00:30 03/03/24 00:29 Vitamin B Complex/ Vit C/Folic Acid (Nephrovite Tablet) 1 cap DAILY PO 02/19/24 09:00 03/20/24 08:59 02/19/24 09:11 1 CAP Vitamin B Complex/ Vit C/Folic Acid (Nephrovite Tablet) 1 cap DAILY PO 02/20/24 09:00 03/21/24 08:59 LABORATORY: [ ] Hematology Labs: Test 02/24/24 04:40 Range/Units White Blood Count 9.1 4.8-10.8 K/uL Red Blood Count 2.86 L 4.00-5.50 MIL/uL Hemoglobin 9.9 L 12.0-16.0 g/dL Hematocrit 29.0 L 36-48 % Mean Corpuscular Volume 101.4 H 79-99 fL Mean Corpuscular Hemoglobin 34.6 H 27.0-33.0 pg Mean Corpuscular Hemoglobin Concent 34.1 32.0-36.0 g/dL Red Cell Distribution Width 12.0 11.0-15.5 % Platelet Count 220 130-400 K/uL Mean Platelet Volume 9.8 7.5-10.5 fL Immature Granulocyte % (Auto) 4.1 H 0-1 % Neutrophils (%) (Auto) 55.2 40.0-77.0 % Lymphocytes (%) (Auto) 27.0 21.0-51.0 % Monocytes (%) (Auto) 9.3 3.0-13.0 % Eosinophils (%) (Auto) 3.7 0.0-8.0 % Basophils (%) (Auto) 0.7 0.0-5.0 % Neutrophils # (Auto) 5.0 1.8-7.7 K/uL Lymphocytes # (Auto) 2.5 1.0-4.8 K/uL Monocytes # (Auto) 0.8 0.1-1.0 K/uL Eosinophils # (Auto) 0.34 0.00-0.70 K/uL Basophils # (Auto) 0.06 0.00-0.20 K/uL Absolute Immature Granulocyte (auto 0.37 0-1 K/uL Segmented Neutrophils % 56 40-70 % Lymphocytes % (Manual) 34 22-44 % Monocytes % (Manual) 8 2-9 % Eosinophils % (Manual) 2 1-6 % Nucleated Red Blood Cells 0.0 0.0-0.19 % Differential Comment MANUAL DIFFERENTIAL White Cell Morphology Comment NORMAL Platelet Morphology Comment ADEQUATE Red Blood Cell Morphology ANISO 2+ Chemistry Labs: Test 02/25/24 11:08 02/24/24 04:40 Range/Units Whole Blood Glucose 101 70-110 MG/DL Sodium Level 137 136-145 mmol/L Potassium Level 3.5 3.5-5.1 mmol/L Chloride Level 98 L 101-111 mmol/L Carbon Dioxide Level 28 21-32 mmol/L Blood Urea Nitrogen 59 H 7-18 mg/dL Creatinine 6.8 H 0.5-1.0 mg/dL Glomerular Filtration Rate Calc 6 >90 mL/min Random Glucose 93 70-105 mg/dL Total Calcium 7.4 L 8.5-10.1 mg/dL Phosphorus Level 7.8 H 2.5-4.9 mg/dL Coagulation Labs: Test 02/25/24 08:50 Range/Units Prothrombin Time 11.4 9.6-11.6 SEC Prothromb Time International Ratio 1.02 0.85-1.15 Activated Partial Thromboplast Time 29.1 26.3-35.5 SEC DIAGNOSTICS / RADIOLOGY: REASON: PICC LINE PLACEMENT ORDERING PHYSICIAN: SAVANNAH PERDUE MD PROCEDURE: CXR1VW - CHEST 1VW CHEST 1VW HISTORY: PICC line placement COMPARISON: 02/17/2024 FINDINGS: A frontal projection of the chest was obtained. Mild bilateral pulmonary infiltrates are seen may be related to mild pulmonary vascular congestion with possible superimposed pneumonitis. The heart is borderline enlarged. PICC line is seen entering from the right with distal tip in the plane of the superior vena cava. No evidence of aortic calcification is seen. IMPRESSION: 1. Mild bilateral pulmonary infiltrates are seen may be related to mild pulmonary vascular congestion with possible superimposed pneumonitis. DICTATED BY: LORELEI HERRERA MD DATE: 02/25/244 REASON: RT HEPATIC FLUID COLLECTION ORDERING PHYSICIAN: WES HA PROCEDURE: ALLYSON JORDAN - US PERC DRN, LIVER W IMG IR US PERC DRN, LIVER W IMG IR REASON: RT HEPATIC FLUID COLLECTION abscess COMPARISON: Previous CT 02/17/2024. TECHNIQUE: Ultrasound-guided drain placement within right lobe hepatic abscess. FINDINGS: Ultrasound demonstrates complex fluid collection within the right lobe of the liver with air foci present. PROCEDURE: Informed consent obtained from the patient following explanation of risk, benefits, complications. Timeout performed by radiology nursing staff. Right abdomen was prepped and draped in sterile fashion. Patient received intravenous titrated doses of Versed and fentanyl administered by radiology nursing personnel with continuous monitoring of the oxygen saturation, chronic status, respiratory status. 10 mL of 1% lidocaine subcutaneous utilized. Under direct ultrasound guidance, access gained into the abscess collection utilizing 18-gauge needle. Purulent fluid was aspirated and submitted for Gram stain and cultures. Guidewire was placed and visualized on ultrasound. Fascial dilatation performed, 8 Cypriot drain was placed within the fluid collection under direct ultrasound guidance. Aspirate yielded purulent fluid. Specimen submitted for Gram stain and cultures. Catheter connected to external drainage bag. Retention suture and sterile dressing applied. Patient tolerated procedure well without evidence of complication. IMPRESSION: Ultrasound-guided drain placement within right lobe hepatic abscess. Cultures pending. DICTATED BY: DANI GARCIA DO DATE: 02/19/24 1606 REASON: R/O ASCENDING CHOLANGITIS ORDERING PHYSICIAN: STEPHEN VICENTE AGPCDAMON PROCEDURE: MRCP WWO - MRCP([id number])CHOLANGIOPANCREATO MRCP([id number])CHOLANGIOPANCREATO REASON: R/O ASCENDING CHOLANGITIS COMPARISON: CT abdomen and pelvis 02/17/2024 TECHNIQUE: Routine imaging protocol was performed. Images were also obtained pre and postgadolinium contrast infusion, 20 cc Clariscan IV. FINDINGS: There is a 3 x 3.4 cm fluid collection in the anterior segment of the right lobe of the liver, relatively high under the diaphragm. This has a short air-fluid level. There is peripheral contrast enhancement. Findings are consistent with a hepatic abscess. There are no other focal liver lesions. Portal and hepatic veins appear patent. Gallbladder is absent. There is a small amount of air in the biliary tree, probably from previous S sphincterotomy. Intrahepatic biliary tree does not appear distended. Common duct measures between 4 and 5 mm near the head of the pancreas. There is renal cortical thinning moderate in degree. There are small bilateral renal cysts. Spleen and pancreas appear normal. Pancreatic duct is not dilated. There are no focal fluid collections. There is no free air or fluid. Anterior abdominal wall appears intact. IMPRESSION: 1. 3 x 3.4 cm focal fluid collection in the anterior segment right lobe of the liver, with an air-fluid level, consistent with abscess. 2. Absent gallbladder 3. Moderate bilateral renal cortical thinning, there are also bilateral renal cysts. DICTATED BY: ROBERTO LONGORIA MD DATE: 02/18/24 1434 REASON: bilateral flank pain, ruq pain ORDERING PHYSICIAN: TOM PATEL PROCEDURE: ABD PEL WO - CT ABDOMEN/PELVIS W/O CONTRAST CT ABDOMEN/PELVIS W/O CONTRAST HISTORY: Bilateral flank pain COMPARISON: 01/13/2016 TECHNIQUE: Multiple sequential axial images of the abdomen and pelvis were obtained from the dome of the diaphragm through symphysis pubis. Patient was not given contrast through intravenous route. Oral contrast was not given. FINDINGS: No pleural effusion is seen bilaterally. There is no evidence of parenchymal disease or pulmonary nodule of the visualized lower lungs. Degenerative changes of the thoracolumbar spine are present. The heart is not enlarged. There is 3.7 cm right hepatic nodule. Intrahepatic biliary air is seen. Postcholecystectomy changes are seen. There are bilateral renal cortical scarring. Bilateral renal vascular calcifications are seen. The liver, spleen, adrenal glands and pancreas are unremarkable. There is no evidence of hydronephrosis bilaterally. No evidence of renal stone is seen. There is diverticulosis. Fecal material is seen in the colon. There are normal size retroperitoneal and mesenteric lymph nodes. No ascites is seen. Atherosclerotic changes are present. Uterus is enlarged with calcifications suggestive of fibroid uterus. Pelvic sidewalls are symmetric bilaterally. Bladder is poorly distended. IMPRESSION: 1. There is 3.7 cm right hepatic mass with neoplastic process not excluded. Intrahepatic biliary air is seen with postcholecystectomy changes. Fibroid uterus. Diverticulosis. CT was performed with one or more following dose reduction techniques: automated exposure control, adjustment of the mA and kv according to patient's size, or use of a iterative reconstruction technique. DICTATED BY: LORELEI HERRERA MD DATE: 02/17/242219..REASON: cp ORDERING PHYSICIAN: TOM PATEL PROCEDURE: CXR1VW - CHEST 1VW CHEST 1VW REASON: cp COMPARISON: 02/14/2024 FINDINGS: Single view of the chest was obtained. Lungs are clear. There is mild cardiac megaly, unchanged. There is no pulmonary vascular congestion. Mediastinum and bony thorax appear unremarkable. IMPRESSION: 1. Mild cardiomegaly, unchanged no acute finding. DICTATED BY: ROBERTO LONGORIA MD DATE: 02/18/24 2786 ASSESSMENT: End stage renal disease Anemia Sepsis Hepatic Abscess Chronic Congestive Diastolic Heart Failure , Echo 2022 EF of 65% Primary hypertension HLD Diabetes mellitus II PLAN: Labs and Diagnostics/ Radiology personally reviewed and interpreted by myself and supervising physician We have reviewed dialysis and external records in detail Continue dialysis schedule Friday Continue with antibiotics as per ID. Case management coordinating SNF placement 1.5 L fluid restriction Continue to monitor H&H Epogen on dialysis days, as needed Continue with frequent monitoring of renal function, anemia, and electrolytes Order CBC, BMP, and electrolytes in the morning May use Dilaudid 0.5 mg IV every 6 hours as needed for severe pain Monitor blood pressure adjust medication doses as needed Maintain normotensive state Strict intake, output, and daily weight should be monitored Please renally adjust medications. Avoid nephrotoxics and nonsteroidal drugs. We will continue to monitor the patient closely We have discussed with the other team physicians in detail about the care plan ATTESTATION BY PHYSICIAN I have seen and examined the patient. I reviewed the documentation, medical decision making, and treatment plan as noted by the mid-level provider above. I agree with the findings and plan of care. YANCY MANZO MD, [facility] Feb 25, 2024 14:03
--- NOTE | 2024-02-25 15:00 | NUR ---
PICC LINE PLACEMENT 5FR 2 lumen PICC line placed on right upper arm basilic vein with ultrasound guidance under sterile technique. Patient tolerated procedure well. Catheter trimmed to 45 cm. Internal length 42 cm, External length 3 cm. Arm circumference 29 cm. Blood returned obtained from both lumen. (+) VPS [place] and Chest Xray obtained for placement verification. Please report chest xray results to MD for ok to use catheter order. PICC LINE Care Perform hand hygiene, don gloves, scrub each hub with alcohol prep pad for 15 seconds each before every access. Flush each port with 10ml NS flush, if line is not in use, and clamp after every access. Change PICC dressing every 7 days and/or PRN if soiled or peeling off using sterile technique.
--- NOTE | 2024-02-25 16:27 | PN ---
GASTROENTEROLOGY PROGRESS NOTE Date of Visit: Feb 25, 2024 Time of Visit: 16:27 Events / Notes: No acute events overnight. Patient underwent IR drainage of liver abscess. EGD revealing LA grade B reflux esophagitis with nonbleeding gastric ulcers and colonoscopy revealing colon polyp status post polypectomy. Nonbleeding internal hemorrhoids. Review of Systems: CONSTITUTIONAL: No malaise or change in sensation of wellbeing. ENMT: No rhinorrhea, otorrhea, sinus pain, ear ache. CARDIOVASCULAR: No angina, palpitations, orthopnea or paroxysmal dyspnea. RESPIRATORY: No SOB. GASTROINTESTINAL: No abdominal pain, nausea, vomiting, diarrhea, hematemesis, melena or change in the patient's habitual bowel movements consistency/number. GENITOURINARY: No dysuria, hematuria or change in bladder continence. MUSCULOSKELETAL: No new muscle pain or decrease in muscular strength. No new joint swelling, redness or tenderness. SKIN: No new rash. Physical Exam: GEN: Awake, alert, oriented in person, time and place, and in no acute distress. HEENT: No sinus tenderness. Tympanic membranes were not examined. No rhinorrhea. Oral pharyngeal mucosa is pink, moist and within normal limits. Neck is supple with no cervical lymphadenopathy, thyromegaly or JVD. CHEST: Inspection, palpation and percussion of the chest were unremarkable. Lung auscultation revealed normal breath sounds bilaterally. CARDIAC: PMI is within normal limits. Heart sounds are regular. Normal S1, S2. No gallop or murmur. ABD: Soft, non-tender and not distended. No peritoneal signs on palpation. No organomegaly. Normal bowel sounds. EXT: No cyanosis or clubbing. No edema. SKIN: Intact. No rashes. JOINTS: No evidence of synovitis or acute arthritis. NEURO: Alert and oriented to name, place and person. Cranial nerve examination is unremarkable. No focal motor deficits. Normal speech. Gait is normal. Strength is normal. Vital Signs (last 8hr) Date Time Temp Pulse Resp B/P (MAP) Pulse Ox O2 Delivery O2 Flow Rate FiO2 02/25/24 11:25 98.1 57 16 126/59 99 Nasal Cannula 2.0 24 02/25/24 09:23 150/75 02/25/24 08:33 98.1 65 16 150/75 98 Nasal Cannula 2.0 24 Laboratory: [ ] Laboratory: Test 02/25/24 11:08 02/25/24 08:50 02/24/24 04:40 Range/Units Whole Blood Glucose 101 70-110 MG/DL Prothrombin Time 11.4 9.6-11.6 SEC Prothromb Time International Ratio 1.02 0.85-1.15 Activated Partial Thromboplast Time 29.1 26.3-35.5 SEC White Blood Count 9.1 4.8-10.8 K/uL Red Blood Count 2.86 L 4.00-5.50 MIL/uL Hemoglobin 9.9 L 12.0-16.0 g/dL Hematocrit 29.0 L 36-48 % Mean Corpuscular Volume 101.4 H 79-99 fL Mean Corpuscular Hemoglobin 34.6 H 27.0-33.0 pg Mean Corpuscular Hemoglobin Concent 34.1 32.0-36.0 g/dL Red Cell Distribution Width 12.0 11.0-15.5 % Platelet Count 220 130-400 K/uL Mean Platelet Volume 9.8 7.5-10.5 fL Immature Granulocyte % (Auto) 4.1 H 0-1 % Neutrophils (%) (Auto) 55.2 40.0-77.0 % Lymphocytes (%) (Auto) 27.0 21.0-51.0 % Monocytes (%) (Auto) 9.3 3.0-13.0 % Eosinophils (%) (Auto) 3.7 0.0-8.0 % Basophils (%) (Auto) 0.7 0.0-5.0 % Neutrophils # (Auto) 5.0 1.8-7.7 K/uL Lymphocytes # (Auto) 2.5 1.0-4.8 K/uL Monocytes # (Auto) 0.8 0.1-1.0 K/uL Eosinophils # (Auto) 0.34 0.00-0.70 K/uL Basophils # (Auto) 0.06 0.00-0.20 K/uL Absolute Immature Granulocyte (auto 0.37 0-1 K/uL Segmented Neutrophils % 56 40-70 % Lymphocytes % (Manual) 34 22-44 % Monocytes % (Manual) 8 2-9 % Eosinophils % (Manual) 2 1-6 % Nucleated Red Blood Cells 0.0 0.0-0.19 % Differential Comment MANUAL DIFFERENTIAL White Cell Morphology Comment NORMAL Platelet Morphology Comment ADEQUATE Red Blood Cell Morphology ANISO 2+ Sodium Level 137 136-145 mmol/L Potassium Level 3.5 3.5-5.1 mmol/L Chloride Level 98 L 101-111 mmol/L Carbon Dioxide Level 28 21-32 mmol/L Blood Urea Nitrogen 59 H 7-18 mg/dL Creatinine 6.8 H 0.5-1.0 mg/dL Glomerular Filtration Rate Calc 6 >90 mL/min Random Glucose 93 70-105 mg/dL Total Calcium 7.4 L 8.5-10.1 mg/dL Phosphorus Level 7.8 H 2.5-4.9 mg/dL Vancomycin Level 21.7 20.0-30.0 mcg/mL Current Medications Medications (Trade) Dose Ordered Sig/Brandon Route PRN Reason Start Time Stop Time Status Last Admin Dose Admin Acetaminophen (TYLenol 325MG TAB) 650 mg Q6H PRN PO FEVER/MILD PAIN LEVEL 1-3 02/18/24 00:30 03/19/24 00:29 02/24/24 20:45 650 MG Albuterol Sulfate (Proventil 0.083% 2.5mg/3ml) 2.5 mg [id number] PRN IH SHORTNESS OF BREATH 02/18/24 00:30 03/19/24 00:29 Amlodipine Besylate (NorvASC 5MG TAB) 10 mg DAILY PO 02/20/24 09:00 03/21/24 08:59 02/25/24 09:24 10 MG Aspirin (Aspirin 81mg Chew Tab) 81 mg DAILY PO 02/20/24 09:00 03/21/24 08:59 02/25/24 09:22 81 MG Carvedilol (Coreg 3.125MG) 3.125 mg BID PO 02/19/24 21:00 03/20/24 20:59 02/25/24 09:23 3.125 MG Cinacalcet (Sensipar 30mg Tab) 30 mg DAILY PO 02/20/24 09:00 03/21/24 08:59 02/25/24 09:24 30 MG Doxazosin Mesylate (Doxazosin Mesylate) 1 mg HS PO 02/19/24 21:00 03/20/24 20:59 02/24/24 20:43 1 MG Gabapentin (NEURontin 100 mg CAP) 100 mg DAILY PO 02/20/24 09:00 03/21/24 08:59 02/25/24 09:22 100 MG Hydralazine HCl (APRESOLine 20MG INJ) 10 mg Q6H PRN IV SBP GREATER THAN 180 02/18/24 00:30 03/19/24 00:29 Hydromorphone HCl (DiLAUDid 0.5MG INJ) 0.2 mg Q4H PRN IVP SEVERE PAIN (7-10) 02/18/24 00:30 02/23/24 00:29 DC 02/22/24 05:01 0.2 MG Labetalol HCl (TRANdate 20MG SYG) 10 mg Q2H PRN IV SBP GREATER THAN 180 02/18/24 00:30 02/25/24 09:29 DC Lactulose (Constulose 20gm/ 30ml Udcup) 20 gm Q6H PRN PO CONSTIPATION 02/18/24 00:30 03/19/24 00:29 02/22/24 12:05 20 GM Levothyroxine Sodium (SYNTHroid 88MCG TAB) 88 mcg SYN PO 02/20/24 06:30 03/21/24 06:29 02/25/24 06:50 88 MCG Metronidazole/ Sodium Chloride (flaGYL) 500 mg Q8H IV 02/23/24 14:00 02/23/24 14:09 DC Ondansetron HCl (zoFRAN 4MG INJ) 4 mg Q6H PRN IVP NAUSEA/VOMITING 02/18/24 00:30 03/19/24 00:29 02/21/24 13:58 4 MG Pharmacy Profile Note (Pharmacy Communication) 1 each ONCE MISC 02/18/24 00:30 02/18/24 00:26 DC Piperacillin Sod/ Tazobactam Sod (Zosyn 3.375gm+NS 50ml) 3.375 gm Q12H IV 02/18/24 00:30 02/28/24 00:29 02/25/24 13:24 3.375 GM Polyethylene Glycol/ Electrolytes (Golytely/Colyte Soln) 4,000 ml ONCE PO 02/20/24 17:00 02/20/24 23:59 DC 02/20/24 17:59 4,000 ML Simethicone (Mylicon) 80 mg ONCE PRN PO GI GAS 02/24/24 04:30 02/24/24 05:52 DC 02/24/24 05:52 80 MG Sodium Chloride 1,000 ml @ 0 mls/hr ONCE IV 02/21/24 10:00 03/22/24 09:59 02/24/24 16:50 1,000 MLS/HR Vancomycin HCl (Vancomycin 750mg) 750 mg TTHSPHD IVPB 02/19/24 16:00 02/23/24 12:25 DC 02/21/24 17:42 750 MG Vancomycin HCl (Vancomycin Protocol) 1 each AD IV 02/18/24 00:30 02/18/24 00:25 DC Vancomycin HCl (Vancomycin Protocol) 1 each AD IV 02/18/24 00:30 02/23/24 12:25 DC Vitamin B Complex/ Vit C/Folic Acid (Nephrovite Tablet) 1 cap DAILY PO 02/19/24 09:00 02/25/24 09:29 DC 02/25/24 09:23 1 CAP Vitamin B Complex/ Vit C/Folic Acid (Nephrovite Tablet) 1 cap DAILY PO 02/20/24 09:00 03/21/24 08:59 Diagnostics / Radiology: [COPY/PASTE HERE IF NO REPORTS PLEASE DELETE SECTION] Assessment: GERD Gastric ulcers Colon polyps Hemorrhoids Liver abscess Abdominal pain Plan: Continue GI prophylaxis Advance diet as tolerated Avoid NSAIDs Antireflux measures Monitor H&H and transfuse as needed Call with questions, concerns or change in clinical status Patient to follow-up at clinic post discharge Thank you for this consult [address] Feb 25, 2024 16:27
--- NOTE | 2024-02-25 17:53 | PN ---
INFECTIOUS DISEASE PROGRESS NOTE Date of Service: Feb 25, 2024 SUBJECTIVE: This is a 73-year-old female patient with past medical history of diabetes mellitus and end-stage renal disease, on dialysis who presented to the hospital with chief complaint of generalized body weakness, and right upper abdominal quadrant pain. An MRCP showed fluid collection in the anterior segment of the right lobe of the liver consistent with abscess and the reason for this consult. Patient was seen and examined at bedside in room 330. Patient is status post percutaneous drain placement on 02/19/2024. No fever reported this morning, temperature is 98.1. Patient continues on Zosyn IV. Patient has been approved to [facility]. A PICC line is being placed today will be discharged today. Patient will need a an abscessogram in one or two weeks to follow up on the abscess and possible removal of drain placement. PHYSICAL EXAM EYES: Anicteric. Pupils equal and reactive. HENT: No oral thrush seen, moist Oral mucosa. NECK: Supple, no JVD or thyromegaly. LUNGS: Good air entry. No rales, no rhonchi. CARDIOVASCULAR: S1, S2 regular. No murmur heard. ABDOMEN: Soft, non tender, bowel sounds present, no organomegaly. Right percutaneous drainage catheter. CENTRAL NERVOUS SYSTEM: Awake, alert, oriented x 3. SKIN: No rashes, no swelling. LYMPHATICS: No peripheral lymphadenopathy. MUSCULOSKELETAL: No joint swelling, erythema or tenderness. EXTREMITIES: No cyanosis or clubbing. BACK: No deformity, no pressure ulcer. GENITOURINARY: No dysuria or hematuria. Vital Sign (Last 12 Hours) 02/25/24 02/25/24 02/25/24 02/25/24 06:50 08:00 08:33 09:23 Temp 98.1 Pulse 67 65 Resp 18 16 B/P (MAP) 150/75 150/75 Pulse Ox 99 98 O2 Delivery N/Cannula Low lpm Nasal Cannula* Nasal Cannula O2 Flow Rate 2.0 2 2.0 FiO2 28 02/25/24 02/25/24 11:25 16:45 Temp 98.1 98.1 Pulse 57 61 Resp 16 18 B/P (MAP) 126/59 154/71 Pulse Ox 99 96 O2 Delivery Nasal Cannula Nasal Cannula O2 Flow Rate 2.0 2.0 FiO2 24 Intake & Output (last 24hrs) 02/24/24 02/24/24 02/25/24 15:00 23:00 07:00 Intake Total 1000 ml Output Total 3600 ml Balance -2600 ml LABS: Laboratory: Test 02/25/24 16:32 02/25/24 08:50 02/24/24 04:40 Range/Units Whole Blood Glucose 100 70-110 MG/DL Prothrombin Time 11.4 9.6-11.6 SEC Prothromb Time International Ratio 1.02 0.85-1.15 Activated Partial Thromboplast Time 29.1 26.3-35.5 SEC White Blood Count 9.1 4.8-10.8 K/uL Red Blood Count 2.86 L 4.00-5.50 MIL/uL Hemoglobin 9.9 L 12.0-16.0 g/dL Hematocrit 29.0 L 36-48 % Mean Corpuscular Volume 101.4 H 79-99 fL Mean Corpuscular Hemoglobin 34.6 H 27.0-33.0 pg Mean Corpuscular Hemoglobin Concent 34.1 32.0-36.0 g/dL Red Cell Distribution Width 12.0 11.0-15.5 % Platelet Count 220 130-400 K/uL Mean Platelet Volume 9.8 7.5-10.5 fL Immature Granulocyte % (Auto) 4.1 H 0-1 % Neutrophils (%) (Auto) 55.2 40.0-77.0 % Lymphocytes (%) (Auto) 27.0 21.0-51.0 % Monocytes (%) (Auto) 9.3 3.0-13.0 % Eosinophils (%) (Auto) 3.7 0.0-8.0 % Basophils (%) (Auto) 0.7 0.0-5.0 % Neutrophils # (Auto) 5.0 1.8-7.7 K/uL Lymphocytes # (Auto) 2.5 1.0-4.8 K/uL Monocytes # (Auto) 0.8 0.1-1.0 K/uL Eosinophils # (Auto) 0.34 0.00-0.70 K/uL Basophils # (Auto) 0.06 0.00-0.20 K/uL Absolute Immature Granulocyte (auto 0.37 0-1 K/uL Segmented Neutrophils % 56 40-70 % Lymphocytes % (Manual) 34 22-44 % Monocytes % (Manual) 8 2-9 % Eosinophils % (Manual) 2 1-6 % Nucleated Red Blood Cells 0.0 0.0-0.19 % Differential Comment MANUAL DIFFERENTIAL White Cell Morphology Comment NORMAL Platelet Morphology Comment ADEQUATE Red Blood Cell Morphology ANISO 2+ Sodium Level 137 136-145 mmol/L Potassium Level 3.5 3.5-5.1 mmol/L Chloride Level 98 L 101-111 mmol/L Carbon Dioxide Level 28 21-32 mmol/L Blood Urea Nitrogen 59 H 7-18 mg/dL Creatinine 6.8 H 0.5-1.0 mg/dL Glomerular Filtration Rate Calc 6 >90 mL/min Random Glucose 93 70-105 mg/dL Total Calcium 7.4 L 8.5-10.1 mg/dL Phosphorus Level 7.8 H 2.5-4.9 mg/dL Vancomycin Level 21.7 20.0-30.0 mcg/mL ASSESSMENT: Liver abscess status post percutaneous drain placement on 02/19/2024. Hepatic fluid aspirate Polymicrobial infection with Enterococcus Raffinosus, E coli and Klebsiella oxytoca. Leukocytosis, resolving. End-stage renal disease, on dialysis. Diabetes mellitus. Anemia. PLAN: Continue Zosyn IV. PICC line has been placed. Patient has been approved to [facility] and will be discharged today. Patient will need a an abscessogram in 1 or 2 weeks to follow up on the abscess and possible removal of drain placement. This case was reviewed and discussed with my supervising physician and the above assessment and plan was formulated and agreed upon. ATTESTATION BY PHYSICIAN I have seen and examined the patient. I reviewed the documentation, medical decision making, and treatment plan as noted by the mid-level provider above. I agree with the findings and plan of care. SAVANNAH PERDUE MD, [facility] Feb 25, 2024 17:53
--- NOTE | 2024-02-25 17:57 | NUR ---
PATIENT DISCHARGED TO SNF ID BAND AND IV REMOVED. DISCHARGE INSTRUCTIONS EXPLAINED AND GIVEN TO PATIENT. PATIENT VERBALIZED UNDERSTANDING. BELONGINGS PACKED AND TAKEN BY PATIENT. TRANSFERRED VIA WHEELCHAIR TO FACILITY [facility].
--- NOTE | 2024-02-25 23:31 | DS ---
[facility] DISCHARGE SUMMARY Date Patient Seen: Feb 25, 2024 Time of Visit: 14:28 Supervising Physician: [ ] Primary Care Physician: [Dr. Bret No ] Outpatient Specialists: [ Dr. Herrmann, nephro ]] Inpatient Consults: General surgery, Infectious Disease, GI, Nephrology DISCHARGE DIAGNOSES Sepsis secondary to 3x3.4 Hepatic Abscess S/P IR drain placement within rt lobe hepatic abscess, culture positive for polymicrobial infection ESRD HD TTS Chronic Congestive Diastolic Heart Failure , Echo 2022 EF of 65% Primary hypertension Hyperlipidemia Diabetes mellitus II Hg A1c of 7.2 % from 2019 LA grade B reflux esophagitis w/ no bleeding on EGD 02/21/24 non bleeding gastric ulcers on EGD 02/21/24 2 mm polyp in cecum s/p resection on colonoscopy 02/21/24 3-5mm polyp in descending colon and transverse colon on colonoscopy 02/21/24 none bleeding internal hemorrhoids on colonoscopy 02/21/24 HPI AND HOSPITAL COURSE: Patient seen and examined at the bedside, she is awake, alert , well oriented, not in distress doing much better and she is going to be discharge on antibiotic therapy, denies fever, chills, nausea or vomiting no new events over the last 24 hours , plan is to be discharge to [facility] PROCEDURES: as mentioned above DISCHARGE MEDICATIONS: Pt hemodynamically stable and afebrile at time of discharge. PCP notified of patients admission, hospital course and discharge. PHYSICAL EXAM: GENERAL: alert, weak, awake oriented x 3 HEENT: EOMI, Sclera non icteric, moist mucosa NECK: Supple, no JVD, trachea midline LUNGS: Clear breath sounds bilaterally. No wheezes HEART: Regular rate and rhythm. Normal S1 and S2, without murmurs ABD: Abdomen soft but tender on RUQ. Bowel sounds present, EXT: No clubbing cyanosis or edema NEURO: Alert and oriented to person, follows commands FOLLOW-UP: RECOMMENDATIONS: See Discharge Instructions More than 30 minutes spent on discharge process, including evaluation of the patient, discussion with nursing staff, medication reconciliation and follow-up appointments ATTESTATION BY PHYSICIAN Documentation assistance provided by a scribe, information recorded by the scribe was done at my direction and has been reviewed and validated by me." CLARIBEL HULL MD I personally scribed for KURTIS SANFORD MD ([email or web address]) on 02/25/24 at 23:31. Electronically submitted by Veda Hay ([id number]). KURTIS SANFORD MD Feb 25, 2024 23:31
== END 2024-02-25 17:50 | DRG 871 ==
LOC: EDH 21:12 → EDHIP 02-18 00:10 → OBSVTOIN 02-18 00:10 → 3DH 02-18 01:35 → EDHIP 02-18 01:38 → 3AH 02-18 18:20
PROVIDERS: ADMIT Internal Medicine; ATTEND Internal Medicine
PROC: 0F9130Z Drainage of Right Lobe Liver with Drainage Device, Percutaneous Approach (ICD-10-PCS; principal; 2024-02-19)
PROC: 5A1D70Z Performance of Urinary Filtration, Intermittent, Less than 6 Hours Per Day (ICD-10-PCS; 2024-02-19)
PROC: 5A1D70Z Performance of Urinary Filtration, Intermittent, Less than 6 Hours Per Day (ICD-10-PCS; 2024-02-21)
PROC: 0DB68ZX Excision of Stomach, Via Natural or Artificial Opening Endoscopic, Diagnostic (ICD-10-PCS; 2024-02-21)
PROC: 0DBK8ZX Excision of Ascending Colon, Via Natural or Artificial Opening Endoscopic, Diagnostic (ICD-10-PCS; 2024-02-21)
PROC: 0DBM8ZX Excision of Descending Colon, Via Natural or Artificial Opening Endoscopic, Diagnostic (ICD-10-PCS; 2024-02-21)
PROC: 5A1D70Z Performance of Urinary Filtration, Intermittent, Less than 6 Hours Per Day (ICD-10-PCS; 2024-02-24)
PROC: 02HV33Z Insertion of Infusion Device into Superior Vena Cava, Percutaneous Approach (ICD-10-PCS; 2024-02-25)
DX: A41.50 Gram-negative sepsis, unspecified (principal); K75.0 Abscess of liver; N18.6 End stage renal disease; I50.32 Chronic diastolic (congestive) heart failure; I13.2 Hypertensive heart and chronic kidney disease with heart failure and with stage 5 chronic kidney disease, or end stage renal disease; E87.20 Acidosis, unspecified; L02.211 Cutaneous abscess of abdominal wall; Z20.822 Contact with and (suspected) exposure to COVID-19; E11.22 Type 2 diabetes mellitus with diabetic chronic kidney disease; R16.0 Hepatomegaly, not elsewhere classified; E78.5 Hyperlipidemia, unspecified; E66.9 Obesity, unspecified; N28.1 Cyst of kidney, acquired; K63.5 Polyp of colon; D25.9 Leiomyoma of uterus, unspecified; K57.30 Diverticulosis of large intestine without perforation or abscess without bleeding; K21.9 Gastro-esophageal reflux disease without esophagitis; A06.9 Amebiasis, unspecified; R91.8 Other nonspecific abnormal finding of lung field; K64.8 Other hemorrhoids; D12.0 Benign neoplasm of cecum; D12.4 Benign neoplasm of descending colon; D12.3 Benign neoplasm of transverse colon; K64.1 Second degree hemorrhoids; K21.00 Gastro-esophageal reflux disease with esophagitis, without bleeding; K25.9 Gastric ulcer, unspecified as acute or chronic, without hemorrhage or perforation; Z90.49 Acquired absence of other specified parts of digestive tract; Z68.39 Body mass index [BMI] 39.0-39.9, adult; Z99.2 Dependence on renal dialysis; Z79.899 Other long term (current) drug therapy; Z83.3 Family history of diabetes mellitus
CPT/HCPCS: 36415; 36569; 43239; 45380; 45385; 49405; 71045; 74176; 74183; 76942; 80048; 80053; 80076; 80202; 81001; 82105; 82247; 82330; 82378; 82948; 83036; 83605; 83615; 83690; 83735; 83880; 84100; 84145; 84443; 84460; 84484; 85025; 85610; 85730; 86038; 86304; 86316; 86704; 86706; 86753; 87040; 87071; 87086; 87186; 87205; 87340; 87426; 87804; 87880; 88305; 88312; 89051; 90935; 93005; 94664; 96365; 99152; 99153; 99285; A4606; C1894; G0378; J0696; J1171; J2003; J2250; J2405; J2543; J2704; J3010; J7030; A4215; A4222; A4223; A4620; A4657; A9575; C1729; G0500; J3370; J3490

== ENCOUNTER 2024-04-16 10:03 | Day surgery (SDC) | payer OTHER, MEDICARE ==
[2024-04-14 15:17] VITALS: BP 199/99; PULSE 70; RESP 18; TEMP 98.3
[2024-04-14 15:19] LABS: BASOPHILS # (AUTO) 0.03 K/uL (0.00-0.20); BASOPHILS % (AUTO) 0.5 % (0.0-5.0); EOSINOPHILS # (AUTO) 0.13 K/uL (0.00-0.70); HEMATOCRIT 29.4 % (36-48); IMMATURE GRANULOCYTE ABSOLUTE 0.05 K/uL (0-1); LYMPHOCYTES # (AUTO) 2.6 K/uL (1.0-4.8); LYMPHOCYTES % (AUTO) 40.7 % (21.0-51.0); MEAN CORPUSCULAR VOLUME 106.1 fL (79-99); MONOCYTES # (AUTO) 0.7 K/uL (0.1-1.0); MONOCYTES % (AUTO) 11.5 % (3.0-13.0); NEUTROPHILS # (AUTO) 2.9 K/uL (1.8-7.7); NEUTROPHILS % (AUTO) 44.5 % (40.0-77.0); PLATELET COUNT (AUTO) 146 K/uL (130-400); RED BLOOD CELL COUNT(AUTO) 2.77 MIL/uL (4.00-5.50); WHITE BLOOD COUNT (AUTO) 6.4 K/uL (4.8-10.8)
[2024-04-14 15:40] LABS: POTASSIUM 4.1 mmol/L (3.5-5.1)
[2024-04-14 15:44] LABS: INR 1.03 (0.85-1.15); PROTHROMBIN TIME 11.5 SEC (9.6-11.6)
[2024-04-14 15:45] LABS: PARTIAL THROMBOPLASTIN TIME 30.9 SEC (26.3-35.5)
[2024-04-16] VITALS (10 sets, daily range): BP systolic 140–200; BP diastolic 47–60; PULSE 58–66; RESP 16–18; TEMP 97.2–97.8
[~2024-04-16] VITALS: Ht 152.4 cm; Wt 91.1 kg
[~2024-04-16 10:03] MED LIST changes: +BISA-151 PO; +CINA30TA5 PO; +DOXA1TAB2 PO; +FURO80TA3 PO; +LOSA100T59 PO
[2024-04-16] MEDS: 0.9% NACL 500ML IV.SOLN 500 ML IV SCH (11:33)
[2024-04-16] MEDS ORDERED: IOHEXOL-350 75 ML VIAL IV ONE (14:01)
[2024-04-16] MEDS ORDERED: LIDOCAINE HCL 400MG/20ML VIAL ONE (14:01)
[2024-04-16] MEDS ORDERED: HEParin-NS 1,000 UNIT/500 ML 500 ML IV ONE (14:02)
[2024-04-16] MEDS ORDERED: CORTSOL OT (14:03)
--- NOTE | 2024-04-16 14:44 | PRN ---
TRACK INSPECTING SUPERVISOR PROCEDURE REQUEST INDICATION: Hepatic abscess. Chronic right hepatic drainage. FINDINGS: Abscess cavity is completely collapsed without evidence of fistula formation following injection of pre-existing drain. PROCEDURE: Informed consent obtained from the patient following explanation of risks, benefits, complications. Timeout performed by nursing staff. The pre-existing hepatic drain was prepped and draped in sterile fashion. Under fluoroscopy, the drain was injected with 5 mL of Omnipaque contrast media. There is no refilling of abscess cavity or evidence of fistula formation. Contrast media leaked along the catheter tract to the skin. Catheter was removed. Sterile dressing applied. Patient tolerated procedure well without evidence of complication. Total fluoroscopic time: 0.2 minutes. IMPRESSION: Collapse of hepatic abscess cavity. No fistula formation. Drainage catheter removed without incident. DANI GARCIA DO Apr 16, 2024 14:44
--- NOTE | 2024-04-16 14:48 | HMCIMG ---
COUNTY AGENT PROCEDURE REQUEST INDICATION: Hepatic abscess. Chronic right hepatic drainage. FINDINGS: Abscess cavity is completely collapsed without evidence of fistula formation following injection of pre-existing drain. PROCEDURE: Informed consent obtained from the patient following explanation of risks, benefits, complications. Timeout performed by nursing staff. The pre-existing hepatic drain was prepped and draped in sterile fashion. Under fluoroscopy, the drain was injected with 5 mL of Omnipaque contrast media. There is no refilling of abscess cavity or evidence of fistula formation. Contrast media leaked along the catheter tract to the skin. Catheter was removed. Sterile dressing applied. Patient tolerated procedure well without evidence of complication. Total fluoroscopic time: 0.2 minutes. IMPRESSION: Collapse of hepatic abscess cavity. No fistula formation. Drainage catheter removed without incident.
== END 2024-04-16 16:50 | disposition home or self-care (01) ==
LOC: DAH 10:03
PROVIDERS: ATTEND Student in an Organized Health Care Education/Training Program
DX: Z48.03 Encounter for change or removal of drains (principal); K75.0 Abscess of liver; I10 Essential (primary) hypertension; N19 Unspecified kidney failure; E66.9 Obesity, unspecified; E11.9 Type 2 diabetes mellitus without complications; Z68.34 Body mass index [BMI] 34.0-34.9, adult; Z79.899 Other long term (current) drug therapy; Z90.49 Acquired absence of other specified parts of digestive tract
CPT/HCPCS: 80048; 85025; 85610; 85730; 36415; 76080; 49424; 82948 ×2; J3490; J1644; Q9967; A4215; A4222; A4221; A4663; A4216; A4606; A4223 ×3

== ENCOUNTER 2024-12-13 12:37 | Inpatient (IN) | payer OTHER, MEDICAID ==
[~2024-12-13] VITALS: Ht 157.5 cm; Wt 83.5 kg
[~2024-12-13 12:37] MED LIST changes: +AMLO-915 PO; -ASPI-1197 PO; -BISA-151 PO; -CARV3.12 PO; +CORTSOL OT; -FOLI0.8T2 PO; -HYDR200T75 PO; -LEVO88CA4 PO; +LEVO88CA5 PO
--- NOTE | 2024-12-13 12:48 | ERN ---
ED Note History of Present Illness Stated Complaint: RUQ PAIN, LIVER MASS, NAUSEA Chief Complaint: Abdominal Pain Time Seen by MD: 12:40 Dictation: PATIENT IS A 74-YEAR-OLD FEMALE COMING IN FROM HER PRIMARY CARE DOCTOR'S OFFICE TODAY WITH COMPLAINTS OF INTERMITTENT ACHY RIGHT UPPER QUADRANT PAIN WITH NAUSEA NO VOMITING NO FEVER NO CHILLS FOR ONE MONTH. SHE HAS A HISTORY OF A RECENT LIVER ABSCESS HOWEVER THAT WAS RESOLVED SEVERAL WEEKS AGO. SHE HAS NO CHEST PAIN NO BACK PAIN NO SOB SHE DOES GO TO HEMODIALYSIS TTS, PATIENT OF DR. GARCIA FOR HEMODIALYSIS. Allergies: Coded Allergies: No Known Drug Allergies (Unverified Allergy, Unknown, 10/20/14) Home Meds Reported Medications Amlodipine Besylate (Norvasc) 10 Mg Tablet, 1 TAB PO DAILY for 90 Days, #30 TAB 0 Refills 06/23/24 Rosuvastatin Calcium (Rosuvastatin Calcium) 20 Mg Tablet, 20 MG PO DAILY, TAB 06/23/24 Clonidine HCl (Clonidine HCl) 0.1 Mg Tablet, 0.1 MG PO BID, TAB 06/23/24 Neomycin/Polymyxin B Sulf/Hc (Omrmdgqs-Hfybayhjl-Cr Ear Soln) 3.5 Mg/Ml-10,000 Unit/Ml-1 % Solution, 10 ML OT AD, ML 04/16/24 Doxazosin Mesylate (Doxazosin Mesylate) 1 Mg Tablet, 1 TAB PO HS for 30 Days, #30 TAB 0 Refills 02/18/24 Cinacalcet HCl (Cinacalcet HCl) 30 Mg Tablet, 30 MG PO DAILY, TAB 02/18/24 Furosemide (Furosemide) 80 Mg Tablet, 1 TAB PO DAILY for 30 Days, #30 TAB 0 Refills 02/18/24 Losartan Potassium (Losartan Potassium) 100 Mg Tablet, 1 TAB PO DAILY for 30 Days, #30 TAB 0 Refills 02/18/24 Isosorbide Mononitrate (Isosorbide Mononitrate ER) 30 Mg Tab.er.24h, 30 MG PO DAILY, TAB 08/07/22 Amlodipine Besylate (Amlodipine Besylate) 10 Mg Tablet, 10 MG PO DAILY for 30 Days, #30 TAB 0 Refills 08/07/22 Hydralazine HCl (Hydralazine HCl) 100 Mg Tablet, 100 MG PO TID, TAB 08/07/22 Linagliptin (Tradjenta) 5 Mg Tablet, 5 MG PO DAILY, TAB 08/07/22 Gabapentin (Gabapentin) 100 Mg Capsule, 100 MG PO DAILY, CAP 08/07/22 Levothyroxine Sodium (Levothyroxine) 88 Mcg Capsule, 88 MCG PO DAILY, CAP 08/07/22 Past Medical History Past Medical History: Diabetes-Type II, High Cholesterol, Hypertension, Schizophrenia, Other Additional Past Medical Hx: THYROID Surgical History: Cholecystectomy, LAVA Surgical History Other: DIALYSIS SHUNT/PORT TO CHEST Social History: Negative, Other History: Not Applicable RN Note Reviewed/Agreed w/PFSH: Yes Review of System Dictation CONSTITUTIONAL: Negative except for HPI HEAD/FACE: Negative except for HPI EENT: Negative except for HPI RESPIRATORY: Negative except for HPI GASTROINTESTINAL/ABDOMINAL: Negative except for HPI intermittent right upper quadrant pain severe GENITOURINARY: Negative except for HPI MUSCULOSKELETAL: Negative except for HPI INTEGUMENTARY: Negative except for HPI NEUROLOGICAL/PSYCH: Negative except for HPI HEMATOLOGIC/LYMPHATIC: Negative except for HPI All Systems Negative, Except as noted above. 13 point review of systems assessed and all negative except for above. Initial Vital Sign VS Vital Signs Date Time Temp Pulse Resp B/P (MAP) Pulse Ox O2 Delivery O2 Flow Rate FiO2 12/13/24 12:39 97.9 52 16 184/68 96 Room Air 0 12/13/24 16:04 21 Physical Exam Dictation Vital Signs reviewed General Appearance: Alert, oriented x 3, moderate acute distress, well developed, nourished. Head and Face: non-traumatic. Eyes: PERRL, pink conjunctivas, eyelid no trauma, anterior chamber with arcus senilis. Ears: Pinnas intact and no signs of trauma or erythema ear canals clear and no discharge TM no erythema Nose: No discharge, no bleeding. Oropharynx: Mouth normal, tongue pink, pharynx clear,no erythema, tonsils no exudates, no abscesses noted, mucous membrane moist Neck: Supple, non-tender, no thyromegaly, no masses, no JVD, no bruits Breast:Deferred Chest:No tenderness, no crepitus, no paradoxical movement, no retractions Lungs:Clear, well-ventilated, symmetric, no rales, no wheezing, no rhonchi, no stridor, good breath sounds bilaterally Heart: Regular rate, regular rhythm, no murmur, no gallops Vascular: no peripheral edema, Abdomen: Soft, positive bowel sounds, nondistended, no guarding, n right upper quadrant pain tenderness r, no rebound, no masses no hepatomegaly, no splenomegaly, no Serrano's sign, no hernias. Rectal: Deferred Genital: Deferred Neurological: Normal speech, motor function intact, sensory function intact Musculoskeletal: Neck nontender, full range of motion, back nontender, full range of motion, Extremities: nontender, full range of motion Skin: Color pink, dry, no turgor, no rash, no lacerations, no abrasions, no contusions. Lymphatic: Deferred Results (Laboratory/Radiology) Laboratory/Radiology Laboratory Tests Test 12/13/24 12:54 White Blood Count 7.0 K/uL (4.8-10.8) Red Blood Count 3.28 MIL/uL (4.00-5.50) L Hemoglobin 11.1 g/dL (12.0-16.0) L Hematocrit 33.5 % (36-48) L Mean Corpuscular Volume 102.1 fL (79-99) H Mean Corpuscular Hemoglobin 33.8 pg (27.0-33.0) H Mean Corpuscular Hemoglobin Concent 33.1 g/dL (32.0-36.0) Red Cell Distribution Width 14.1 % (11.0-15.5) Platelet Count 198 K/uL (130-400) Mean Platelet Volume 9.9 fL (7.5-10.5) Immature Granulocyte % (Auto) 0.4 % (0-1) Neutrophils (%) (Auto) 52.9 % (40.0-77.0) Lymphocytes (%) (Auto) 35.4 % (21.0-51.0) Monocytes (%) (Auto) 7.3 % (3.0-13.0) Eosinophils (%) (Auto) 3.4 % (0.0-8.0) Basophils (%) (Auto) 0.6 % (0.0-5.0) Neutrophils # (Auto) 3.7 K/uL (1.8-7.7) Lymphocytes # (Auto) 2.5 K/uL (1.0-4.8) Monocytes # (Auto) 0.5 K/uL (0.1-1.0) Eosinophils # (Auto) 0.24 K/uL (0.00-0.70) Basophils # (Auto) 0.04 K/uL (0.00-0.20) Absolute Immature Granulocyte (auto 0.03 K/uL (0-1) Nucleated Red Blood Cells 0.0 % (0.0-0.19) Sodium Level 139 mmol/L (136-145) Potassium Level 4.1 mmol/L (3.5-5.1) Chloride Level 100 mmol/L (101-111) L Carbon Dioxide Level 28 mmol/L (21-32) Blood Urea Nitrogen 35 mg/dL (7-18) H Creatinine 5.3 mg/dL (0.5-1.0) H Glomerular Filtration Rate Calc 8 mL/min (>90) Random Glucose 104 mg/dL (70-105) Lactic Acid Level 1.4 mmol/L (0.8-2.5) Total Calcium 7.6 mg/dL (8.5-10.1) L Total Bilirubin 0.4 mg/dL (0.2-1.0) Aspartate Amino Transf (AST/SGOT) 13 U/L (10-37) Alanine Aminotransferase (ALT/SGPT) 9 U/L (12-78) L Alkaline Phosphatase 168 U/L (50-136) H Troponin I High Sensitivity 27 ng/L (4-50) Total Protein 6.6 g/dL (6.0-8.3) Albumin 2.6 g/dL (3.5-5.0) L Lipase 42 U/L (16-77) Labs Reviewed?: Yes ED Course ED Course Orders Procedure Category Date Status Time Blood Cult YANG 12/13/24 In Process 12:45 Lactic Acid LAB 12/13/24 Complete 12:45 Cbc With Differential LAB 12/13/24 Complete 12:45 Comprehensive LAB 12/13/24 Complete Metabolic Panel 12:45 Troponin I High LAB 12/13/24 Complete Sensitivity 12:45 Us Abdominal Ruq\Ltd US 12/13/24 Resulted 12:45 0.9%Nacl 1000ml (Ns PHA 12/13/24 Complete 1000ml) 13:00 Ondansetron 4mg Inj PHA 12/13/24 Complete (Zofran 4mg Inj) 13:00 Lipase LAB 12/13/24 Complete 12:45 Morphine 4mg Syg PHA 12/13/24 Complete (Morphine 4mg Syg) 13:00 Ct Abdomen/Pelvis W/O CT 12/13/24 Resulted Contrast 14:22 Current Medications Medications (Trade) Dose Ordered Sig/Brandon Route PRN Reason Start Time Stop Time Status Last Admin Dose Admin Morphine Sulfate (morPHINE 4MG SYG) 2 mg ONCE ONCE IVP 12/13/24 13:00 12/13/24 13:01 DC Ondansetron HCl (zoFRAN 4MG INJ) 4 mg ONCE ONCE IVP 12/13/24 13:00 12/13/24 13:01 DC 12/13/24 14:35 Sodium Chloride 1,000 ml @ 0 mls/hr ONCE ONCE IV 12/13/24 13:00 12/13/24 13:01 DC 12/13/24 14:35 Vital Signs Date Time Temp Pulse Resp B/P (MAP) Pulse Ox O2 Delivery O2 Flow Rate FiO2 12/13/24 16:04 98.2 84 16 188/61 98 Room Air* 0 21 12/13/24 12:39 97.9 52 16 184/68 96 Room Air 0 DX & DISP Departure Condition: Stable Referrals: GERBER HOLLIS (PCP) CARISSA REYES [employer]TER Dec 13, 2024 12:48
[2024-12-13 13:04] LABS: IMMATURE GRANULOCYTE ABSOLUTE 0.03 K/uL (0-1); NUCLEATED RED BLOOD CELLS 0.0 % (0.0-0.19); PLATELET COUNT (AUTO) 198 K/uL (130-400); RED BLOOD CELL COUNT(AUTO) 3.28 MIL/uL (4.00-5.50); RED CELL DISTRIBUTION WIDTH 14.1 % (11.0-15.5); WHITE BLOOD COUNT (AUTO) 7.0 K/uL (4.8-10.8)
[2024-12-13 13:13] LABS: CREATININE 5.3 mg/dL (0.5-1.0); GLOMERULAR FILTR. RATE CALC 8.0 mL/min (>90); GLUCOSE,RANDOM 104.0 mg/dL (70-105); SODIUM SERUM 139.0 mmol/L (136-145); UREA NITROGEN, BLOOD 35.0 mg/dL (7-18)
[2024-12-13 13:17] LABS: ASPARTATE AMINOTRANSFERASE 13.0 U/L (10-37); TOTAL PROTEIN, SERUM 6.6 g/dL (6.0-8.3)
--- NOTE | 2024-12-13 14:00 | NUR ---
room not cleaned and pt not rec
--- NOTE | 2024-12-13 14:22 | HMCIMG ---
EXAM: US Abdomen, Right Upper Quadrant. CLINICAL HISTORY: Adominal Pain TECHNIQUE: Right upper quadrant sonography performed with image documentation. COMPARISON: None provided. FINDINGS: Liver: The liver measures 16.1 cm, indicating mild hepatomegaly. Parenchymal echotexture is normal. No focal hepatic lesion is identified. No intrahepatic biliary dilatation is seen. Gallbladder: Gallbladder is not visualized, consistent with post-cholecystectomy status. Common Bile Duct (CBD): Pneumobilia is noted. CBD is visualized and measures 6 mm in diameter, which is within normal limits for post-cholecystectomy status. No evidence of choledocholithiasis or biliary dilatation. Pancreas: Head and body of pancreas appear within normal limits. The tail is obscured by overlying bowel gas. No focal lesion or peripancreatic collection is seen. Right Kidney: Right kidney measures 7.1 x 3.5 x 4 cm. A renal cortical cyst is seen in the inferior pole of the right kidney, measuring 3 x 3 x 2.2 cm. The right kidney appears echogenic, suggestive of medical renal disease. No hydronephrosis or renal calculi are seen. Corticomedullary differentiation is reduced. No perinephric collection. IMPRESSION: 1. Mild hepatomegaly with liver span of 16.1 cm. 2. Post-cholecystectomy status with pneumobilia. 3. Right renal cortical cyst measuring 3 x 3 x 2.2 cm. 4. Echogenic appearance of right kidney suggestive of medical renal disease. /[place]
[2024-12-13] MEDS: 0.9%NACL 1000ML 1,000 ML IV ONE (14:35)
--- NOTE | 2024-12-13 14:38 | NUR ---
pt rec however refused pain meds at this time
--- NOTE | 2024-12-13 15:53 | HMCIMG ---
EXAM: CT Abdomen and Pelvis Without IV contrast CLINICAL HISTORY: Right upper quadrant pain tenderness one month pneumobilia on ultrasound TECHNIQUE: Axial computed tomography images of the abdomen and pelvis without intravenous contrast. CONTRAST: No IV contrast. COMPARISON: Study dated 02/17/24. FINDINGS: LUNG BASES: There is mild dependent airspace disease within the bilateral lower lobes that is presumed to reflect atelectasis. No pleural effusions are seen. Cardiomegaly. LIVER: The liver is enlarged in size. The right hepatic lobe measures up to 16 cm. GALLBLADDER AND BILE DUCTS: Post-cholecystectomy status with pneumobilia. No biliary ductal dilatation is evident. PANCREAS: Unremarkable. SPLEEN: Unremarkable. ADRENAL GLANDS: Unremarkable. KIDNEYS, URETERS, AND BLADDER: There are a few well-defined hypodense lesions in the bilateral kidneys, the largest of which is 3.5 x 3.4 cm in the mid pole of the right kidney and 1.5 x 1.4 cm in the mid pole of the left kidney, likely simple renal cysts. (Recommendation for ultrasonography correlation) Bilateral perinephric fat stranding that is concerning for renal parenchymal disease. There is no hydronephrosis or hydroureter. No urinary calculi are seen. STOMACH AND BOWEL: Unremarkable appearance of the stomach and bowel. No evidence of bowel obstruction. No evidence suggesting enteritis or colitis. APPENDIX: No evidence of acute appendicitis on CT examination. PERITONEUM: No free fluid. No free air. LYMPH NODES: No lymphadenopathy is evident. REPRODUCTIVE: Multiple calcified intramural fibroids, the largest of which being 4 x 3.7 cm in the anterior wall of the uterus. VASCULATURE: No evidence of abdominal aortic aneurysm. Severe atherosclerotic changes in the aorta and origin of the celiac, superior mesenteric artery, and bilateral renal arteries, causing significant stenosis. BONES: No aggressive appearing osseous lesion. No acute osseous pathology evident. Severe degenerative changes in the form of multilevel air vacuum phenomena and osteophytes. Grade I anterolisthesis of the L4 over the L5 vertebra. IMPRESSION: 1. Post-cholecystectomy status with pneumobilia. 2. Severe atherosclerosis of the aorta and major abdominal arteries with significant stenosis. 3. No acute findings. /[place]
--- NOTE | 2024-12-13 18:40 | HP ---
[facility] HISTORY & PHYSICAL Date Patient Seen: Dec 13, 2024 Time of Visit: 18:40 Supervising Physician: Dr. Andrew Costello Primary Care Physician: Dr. Bret No Outpatient Specialists: Dr. Mendoza, nephrology Inpatient Consults: Nephrology GI, Cardiology PROBLEM LIST: Intractable abdominal pain, POA Pneumobilia, POA Severe arteriosclerosis of the aorta and major abdominal arteries with significant stenosis, POA Anemia chronic disease Hypochloremia ESRD on hemodialysis T, , Elevated alk-phos Hypoalbuminemia Hypertension, POA Chronic problem list: DM type 2, hypercholesteremia, hypertension, schizophrenia, hypothyroidism, ESRD HPI: Ms. oCnway is a 74-year-old female with a history of the thyroid, diabetes- type II, high cholesterol, hypertension, schizophrenia, and a recent liver abscess who presented to [facility] [place] for evaluation of intermittent achy right upper quadrant pain with nausea onset one month. The patient denied vomiting, fever, chills, chest pain, back pain, and no sob. She does go to hemodialysis on Friday, and Saturdays with Dr. Mendoza. VS: HR 52 bmp, RR 16 bmp, BP 184/68, 96% RA, 97.9 F. Labs: Hematology: RBC 3.28, Hgb 11.1, Hct 33.5, MCV 102.1, MCH 33.8, Chemistry: Chloride 100, BUN 35, Creatinine 5.3, Total Calcium 7.6, ALT 9, Alkaline Phosphatase 168, Albumin 2.6. Abdomen/Pelvis CT: 1. Post-cholecystectomy status with pneumobilia. 2. Severe atherosclerosis of the aorta and major abdominal arteries with significant stenosis. 3. No acute findings. Abdomen US: 1. Mild hepatomegaly with liver span of 16.1 cm. 2. Post-cholecystectomy status with pneumobilia. 3. Right renal cortical cyst measuring 3 x 3 x 2.2 cm. 4. Echogenic appearance of right kidney suggestive of medical renal disease. I assessed the patient at bedside in ED 20. Booking Clerk at bedside. The patient breathing was even, unlabored, in no distress. I informed them of labs, diagnostics, and plan of care. They verbalized understanding and are in agreement with the plan. Plan and assessment are listed below. PAST MEDICAL HX: see above PAST SURGICAL HX: Lava, dialysis shunt/port to chest SOCIAL HISTORY: No tobacco, ETOH, or illicit drug use Coded Allergies: No Known Drug Allergies (Unverified Allergy, Unknown, 10/20/14) REVIEW OF SYSTEMS: 12 point ROS reviewed with patient. Pertinent positives mentioned above. Otherwise negative. PHYSICAL EXAM: GENERAL: Alert, weak, awake oriented x 3 HEENT: EOMI, Sclera non icteric, moist mucosa NECK: Supple, no JVD, trachea midline LUNGS: Clear breath sounds bilaterally. No wheezes HEART: Regular rate and rhythm. Normal S1 and S2, without murmurs ABD: Abdomen soft, nontender. Bowel sounds present. Obese EXT: No clubbing cyanosis or edema NEURO: Alert and oriented to person, follows commands Vital Signs (last 8hr) Date Time Temp Pulse Resp B/P (MAP) Pulse Ox O2 Delivery O2 Flow Rate FiO2 12/13/24 16:04 98.2 84 16 188/61 98 Room Air* 0 21 12/13/24 12:39 97.9 52 16 184/68 96 Room Air 0 LABS: Hematology Labs: Test 12/13/24 12:54 Range/Units White Blood Count 7.0 4.8-10.8 K/uL Red Blood Count 3.28 L 4.00-5.50 MIL/uL Hemoglobin 11.1 L 12.0-16.0 g/dL Hematocrit 33.5 L 36-48 % Mean Corpuscular Volume 102.1 H 79-99 fL Mean Corpuscular Hemoglobin 33.8 H 27.0-33.0 pg Mean Corpuscular Hemoglobin Concent 33.1 32.0-36.0 g/dL Red Cell Distribution Width 14.1 11.0-15.5 % Platelet Count 198 130-400 K/uL Mean Platelet Volume 9.9 7.5-10.5 fL Immature Granulocyte % (Auto) 0.4 0-1 % Neutrophils (%) (Auto) 52.9 40.0-77.0 % Lymphocytes (%) (Auto) 35.4 21.0-51.0 % Monocytes (%) (Auto) 7.3 3.0-13.0 % Eosinophils (%) (Auto) 3.4 0.0-8.0 % Basophils (%) (Auto) 0.6 0.0-5.0 % Neutrophils # (Auto) 3.7 1.8-7.7 K/uL Lymphocytes # (Auto) 2.5 1.0-4.8 K/uL Monocytes # (Auto) 0.5 0.1-1.0 K/uL Eosinophils # (Auto) 0.24 0.00-0.70 K/uL Basophils # (Auto) 0.04 0.00-0.20 K/uL Absolute Immature Granulocyte (auto 0.03 0-1 K/uL Nucleated Red Blood Cells 0.0 0.0-0.19 % Chemistry Labs: Test 12/13/24 12:54 Range/Units Sodium Level 139 136-145 mmol/L Potassium Level 4.1 3.5-5.1 mmol/L Chloride Level 100 L 101-111 mmol/L Carbon Dioxide Level 28 21-32 mmol/L Blood Urea Nitrogen 35 H 7-18 mg/dL Creatinine 5.3 H 0.5-1.0 mg/dL Glomerular Filtration Rate Calc 8 >90 mL/min Random Glucose 104 70-105 mg/dL Lactic Acid Level 1.4 0.8-2.5 mmol/L Total Calcium 7.6 L 8.5-10.1 mg/dL Total Bilirubin 0.4 0.2-1.0 mg/dL Aspartate Amino Transf (AST/SGOT) 13 10-37 U/L Alanine Aminotransferase (ALT/SGPT) 9 L 12-78 U/L Alkaline Phosphatase 168 H 50-136 U/L Troponin I High Sensitivity 27 4-50 ng/L Total Protein 6.6 6.0-8.3 g/dL Albumin 2.6 L 3.5-5.0 g/dL Lipase 42 16-77 U/L DIAGNOSTICS / RADIOLOGY RESULTS: [ ] PLAN Admit to medical floor with telemetry monitoring. Consult GI for Pneumobilia, POA Consult Cardiology for evaluation of severe arteriosclerosis of the aorta and major abdominal arteries with significant stenosis, POA Consult hazardous materials handler for hemodialysis. P.r.n. medications for pain management, nausea, vomiting, hypertension, fever, constipation. Continued home medication carvedilol, clonidine, Protonix, rosuvastatin, doxazosin mesylate, losartan, gabapentin, hydrochlorothiazide, levothyroxine. Hold Tradjenta and start glucometer checks a.c. and HS with insulin regular sliding scale per protocol. Blood pressure checks every4 hours and as needed. Reconcile home medications once available. Monitor renal and liver function. Monitor electrolytes and treat accordingly. A.m. labs. GI and DVT prophylaxis. Further orders/plan per hospitalization course. NEURO: Minimize central acting medications as possible. Maintain fall precautions, adequate lighting during the day PULMONARY: Supplemental 02 as needed. Maintain aspiration precautions at all times CARDIOVASCULAR: Follow hemodynamics. Vital signs per facility protocol GI & NUTRITION: Continue with nutritional support. Continue stool softeners and laxatives as needed. KIDNEYS & ELECTROLYTES: Strict monitoring of intake, output and overall fluid balance. Avoid nephrotoxic medications to the extent possible. Medications to be dosed according to renal function. Monitor electrolytes and replace as needed ENDOCRINE: Maintain blood glucose between 100-180 at all times. Hypoglycemia protocol in place INFECTIOUS DISEASE: Trend temperature, WBC and procalcitonin level Follow cultures, deescalate antibiotics as soon as possible. Panculture if new onset fever ONCOLOGY/HEMATOLOGY/COAGULATION: Monitor for s/s of bleeding Monitor hemoglobin, coagulation studies as needed SKIN: Pressure ulcer prevention per facility protocol Specialty mattress ORTHO/REHAB: Continue PT/OT Prophylaxis: Continue GI and DVT prophylaxis Code Status: Full Resuscitation Disposition: TBD ATTESTATION BY PHYSICIAN I reviewed the documentation, medical decision making, and treatment plan as noted by the STEPHANI above. I agree with the findings and plan of care. Andrew Costello MD, LUCIA M FNP Dec 13, 2024 18:40
[2024-12-13] MEDS ORDERED: CARV3.12 PO (19:55)
[2024-12-13] MEDS ORDERED: CLON0.1T PO (19:55)
[2024-12-13] MEDS ORDERED: PANT40TA54 PO (19:55)
[2024-12-13] MEDS ORDERED: LACTULOSE 20 GM/30 ML UDCUP PO PRN (20:30)
[2024-12-13] MEDS: FAMOTIDINE 20MG TAB PO SCH (22:31)
[2024-12-13 23:25] VITALS: BP 135/75; PULSE 65; RESP 17; TEMP 98
[2024-12-14] VITALS (22 sets, daily range): BP systolic 122–205; BP diastolic 55–89; PULSE 54–74; RESP 16–20; TEMP 97.4–98.9; O2SAT 94
[2024-12-14 05:58] LABS: NUCLEATED RED BLOOD CELLS 0.0 % (0.0-0.19); PLATELET COUNT (AUTO) 181.0 K/uL (130-400); RED BLOOD CELL COUNT(AUTO) 3.0 MIL/uL (4.00-5.50); RED CELL DISTRIBUTION WIDTH 14.4 % (11.0-15.5); WHITE BLOOD COUNT (AUTO) 6.3 K/uL (4.8-10.8)
[2024-12-14 06:23] LABS: CREATININE 5.7 mg/dL (0.5-1.0); GLOMERULAR FILTR. RATE CALC 7.0 mL/min (>90); GLUCOSE,RANDOM 84.0 mg/dL (70-105); PHOSPHORUS 6.5 mg/dL (2.5-4.9); SODIUM SERUM 141.0 mmol/L (136-145); UREA NITROGEN, BLOOD 37.0 mg/dL (7-18)
[2024-12-14 09:02] LABS: APPEARANCE,URINE CLOUDY (CLEAR); GLUCOSE, URINE (UA) TRACE mg/dL (NEGATIVE); LEUKOCYTE ESTERASE ,URINE NEGATIVE Leu/uL (NEGATIVE); NITRATE,URINE NEGATIVE (NEGATIVE); OCCULT BLOOD,URINE NEGATIVE (NEGATIVE)
[2024-12-14 09:08] LABS: ADD UA MICROSCOPIC YES
[2024-12-14 09:13] LABS: SQUAMOUS EPITHELIAL CELL,UR MANY /HPF (0-2)
--- NOTE | 2024-12-14 13:05 | NUR ---
DCP:HOME Pt currently lives in a housing apartment alone. Pt receives $144 in [employer] benefits a month. Pt has a wheelchair and walker that she uses to ambulate. Pt states that he has a o2 concentrator but could not recall who services it. Pt does go to dialysis at [facility] on Fri. Pt states that her sister is her provider for approx 40 hrs a week and she assists with ADLs, home management, and meals. PCP is Dr. Bret No and uses [facility] for any RX needs.At [place] pt will want to go home and family can assist with transportation. Addendum: 12/14/24 at 1311 by WES DIGGS SS Amended: Links added.
--- NOTE | 2024-12-14 13:10 | CONS ---
NEPHROLOGY CONSULTATION NOTE Date/Time Patient Seen: Dec 14, 2024 [id number] Reason for Consultation: End-stage renal disease, intractable abdominal pain HISTORY OF PRESENT ILLNESS: This is a 74-year-old female with a past medical history of end-stage renal disease on hemodialysis Friday, diabetes mellitus type 2, hypertension, anemia, history of liver abscess, schizophrenia She presented to the emergency room via EMS for evaluation of right upper quadrant abdominal pain and nausea. Abdominal CT showed post-cholecystectomy status with pneumobilia. Pending further GI recommendations She was seen in the medical floor, continues to complain of abdominal pain Family at the bedside Prognosis remains guarded REVIEW OF SYSTEMS: GENERAL: Positive for abdominal pain NEUROLOGIC: Negative for any blurry vision, blind spots, double vision, facial asymmetry, dysphagia, dysarthria, hemiparesis, hemisensory deficits, vertigo, ataxia. HEENT: Negative for any head trauma, neck trauma, neck stiffness, photophobia, phonophobia, sinusitis, rhinitis. CARDIAC: Negative for any chest pain, dyspnea on exertion, paroxysmal nocturnal dyspnea, peripheral edema. PULMONARY: Negative for any shortness of breath, wheezing, COPD, or TB exposure. GASTROINTESTINAL: Negative for any abdominal pain, nausea, vomiting, bright red blood per rectum, melena. GENITOURINARY: Negative for any dysuria, hematuria, incontinence. INTEGUMENTARY: Negative for any rashes, cuts, insect bites. RHEUMATOLOGIC: Negative for any joint pains, photosensitive rashes, history of vasculitis or kidney problems. HEMATOLOGIC: Negative for any abnormal bruising, frequent infections or bleeding. PAST MEDICAL HISTORY: End-stage renal disease on hemodialysis Friday, diabetes mellitus type 2, hypertension, anemia, hyperlipidemia, history of liver abscess, schizophrenia PAST SURGICAL HISTORY: Cholecystectomy, left AV fistula PAST SOCIAL HISTORY: Denies use of alcohol, tobacco or illicit drugs FAMILY HISTORY: Noncontributory PHYSICAL EXAM: GENERAL: Alert and oriented x 3. No acute distress. Well-nourished. EYES: EOMI. Anicteric. HENT: Moist mucous membranes. No scleral icterus. No cervical lymphadenopathy. LUNGS: Clear to auscultation bilaterally. No accessory muscle use. CARDIOVASCULAR: Regular rate and rhythm. No murmur. No JVD. ABDOMEN: Soft, non-tender and non-distended. No palpable masses. EXTREMITIES: No edema. Non-tender. SKIN: No rashes or lesions. Warm. NEUROLOGIC: No focal neurological deficits. CN II-XII grossly intact, but not individually tested. PSYCHIATRIC: Cooperative. Appropriate mood and affect. MEDICATIONS: [ ] Current Medications Medications (Trade) Dose Ordered Sig/Brandon Route PRN Reason Start Time Stop Time Status Last Admin Dose Admin Acetaminophen (TYLenol 325MG TAB) 650 mg Q6H PRN PO FEVER/MILD PAIN LEVEL 1-3 12/13/24 20:30 01/12/25 20:29 Acetaminophen (TYLenol 650MG SUPPOSITORY) 650 mg Q6H PRN RC FEVER / MILD PAIN 1-3 IF NPO 12/13/24 20:30 01/12/25 20:29 Atorvastatin Calcium (LIPItor 40MG) 80 mg DAILY PO 12/15/24 09:00 01/14/25 08:59 Carvedilol (Coreg 3.125MG) 3.125 mg BID PO 12/14/24 21:00 01/13/25 20:59 Clonidine HCl (CATApres 0.1 mg TAB) 0.1 mg BID PO 12/14/24 21:00 01/13/25 20:59 Docusate Sodium (COLace 100MG CAP) 100 mg BID PRN PO CONSTIPATION 12/13/24 20:30 01/12/25 20:29 Doxazosin Mesylate (Doxazosin Mesylate) 1 mg HS PO 12/14/24 21:00 01/13/25 20:59 Famotidine (Pepcid 20mg Tab) 20 mg Q48H PO 12/13/24 21:00 12/14/24 11:21 DC 12/13/24 22:31 20 MG Gabapentin (NEURontin 100 mg CAP) 100 mg DAILY PO 12/15/24 09:00 01/14/25 08:59 Hydralazine HCl ([id number] TAB) 100 mg TID PO 12/14/24 14:00 01/13/25 13:59 Insulin Human Regular (humuLIN R 100 UNIT/ML 3ML) INSULIN SLIDING SCAL... ACHS SQ 12/13/24 21:00 01/12/25 20:59 Labetalol HCl (TRANdate 20MG SYG) 10 mg Q2H PRN IV SBP GREATER THAN 160 12/13/24 20:30 01/12/25 20:29 Lactulose (Constulose 20gm/ 30ml Udcup) 20 gm Q6H PRN PO CONSTIPATION 12/13/24 20:30 01/12/25 20:29 Levothyroxine Sodium (SYNTHroid 88MCG TAB) 88 mcg SYN PO 12/15/24 06:30 01/14/25 06:29 Linagliptin (TradJENTA) 5 mg DAILY PO 12/15/24 09:00 12/14/24 11:20 DC Losartan Potassium (CozAAR 100MG TAB) 100 mg DAILY PO 12/15/24 09:00 01/14/25 08:59 Ondansetron HCl (zoFRAN 4MG INJ) 4 mg Q6H PRN IVP NAUSEA/VOMITING 12/13/24 20:30 01/12/25 20:29 Pantoprazole Sodium (PROTonix 40MG TAB) 40 mg DAILY PO 12/15/24 09:00 01/14/25 08:59 Temazepam (restORIL 15 MG CAP) 15 mg HS PRN PO INSOMNIA/SLEEP 12/13/24 20:30 01/12/25 20:29 Vitamin B Complex/ Vit C/Folic Acid (Nephrovite Tablet) 1 cap DAILY PO 12/15/24 09:00 01/14/25 08:59 Vital Signs (last 8hr) Date Time Temp Pulse Resp B/P (MAP) Pulse Ox O2 Delivery O2 Flow Rate FiO2 12/14/24 11:15 97.3 65 19 166/82 93 Room Air 21 12/14/24 08:00 98.4 61 17 150/79 91 Room Air 21 DIAGNOSTICS / RADIOLOGY: [place] [address] IMAGING REPORT Signed PATIENT: MADHAVI SABILLON MR#: [id number] : 1950 SEX: F AGE: 74 LOCATION: [facility] ORDER 22 STATUS: REG ER REPORT#: [id number] SERVICE 21 REASON: Right upper quadrant pain tenderness one month pneumobilia on ultrasound ORDERING PHYSICIAN: CARISSA REYES NP PROCEDURE: ABD PEL WO - CT ABDOMEN/PELVIS W/O CONTRAST EXAM: CT Abdomen and Pelvis Without IV contrast CLINICAL HISTORY: Right upper quadrant pain tenderness one month pneumobilia on ultrasound TECHNIQUE: Axial computed tomography images of the abdomen and pelvis without intravenous contrast. CONTRAST: No IV contrast. COMPARISON: Study dated 02/17/24. FINDINGS: LUNG BASES: There is mild dependent airspace disease within the bilateral lower lobes that is presumed to reflect atelectasis. No pleural effusions are seen. Cardiomegaly. LIVER: The liver is enlarged in size. The right hepatic lobe measures up to 16 cm. GALLBLADDER AND BILE DUCTS: Post-cholecystectomy status with pneumobilia. No biliary ductal dilatation is evident. PANCREAS: Unremarkable. SPLEEN: Unremarkable. ADRENAL GLANDS: Unremarkable. KIDNEYS, URETERS, AND BLADDER: There are a few well-defined hypodense lesions in the bilateral kidneys, the largest of which is 3.5 x 3.4 cm in the mid pole of the right kidney and 1.5 x 1.4 cm in the mid pole of the left kidney, likely simple renal cysts. (Recommendation for ultrasonography correlation) Bilateral perinephric fat stranding that is concerning for renal parenchymal disease. There is no hydronephrosis or hydroureter. No urinary calculi are seen. STOMACH AND BOWEL: Unremarkable appearance of the stomach and bowel. No evidence of bowel obstruction. No evidence suggesting enteritis or colitis. APPENDIX: No evidence of acute appendicitis on CT examination. PERITONEUM: No free fluid. No free air. LYMPH NODES: No lymphadenopathy is evident. REPRODUCTIVE: Multiple calcified intramural fibroids, the largest of which being 4 x 3.7 cm in the anterior wall of the uterus. VASCULATURE: No evidence of abdominal aortic aneurysm. Severe atherosclerotic changes in the aorta and origin of the celiac, superior mesenteric artery, and bilateral renal arteries, causing significant stenosis. BONES: No aggressive appearing osseous lesion. No acute osseous pathology evident. Severe degenerative changes in the form of multilevel air vacuum phenomena and osteophytes. Grade I anterolisthesis of the L4 over the L5 vertebra. IMPRESSION: 1. Post-cholecystectomy status with pneumobilia. 2. Severe atherosclerosis of the aorta and major abdominal arteries with significant stenosis. 3. No acute findings. /Art DICTATED BY: DEMETRIS HERNANDEZ MD DATE: 12/13/241651 ELECTRONICALLY SIGNED BY: DEMETRIS HERNANDEZ MD DATE: 12/13/241651 [facility] [address] [place] [address] IMAGING REPORT Signed PATIENT: MADHAVI SABILLON MR#: [id number] : 1950 SEX: F AGE: 74 LOCATION: [facility] ORDER 46 STATUS: REG ER REPORT#: [id number] SERVICE 1245 REASON: Adominal Pain ORDERING PHYSICIAN: CARISSA REYES NP PROCEDURE: ABDRUQLTD - US ABDOMINAL RUQ\LTD EXAM: US Abdomen, Right Upper Quadrant. CLINICAL HISTORY: Adominal Pain TECHNIQUE: Right upper quadrant sonography performed with image documentation. COMPARISON: None provided. FINDINGS: Liver: The liver measures 16.1 cm, indicating mild hepatomegaly. Parenchymal echotexture is normal. No focal hepatic lesion is identified. No intrahepatic biliary dilatation is seen. Gallbladder: Gallbladder is not visualized, consistent with post-cholecystectomy status. Common Bile Duct (CBD): Pneumobilia is noted. CBD is visualized and measures 6 mm in diameter, which is within normal limits for post-cholecystectomy status. No evidence of choledocholithiasis or biliary dilatation. Pancreas: Head and body of pancreas appear within normal limits. The tail is obscured by overlying bowel gas. No focal lesion or peripancreatic collection is seen. Right Kidney: Right kidney measures 7.1 x 3.5 x 4 cm. A renal cortical cyst is seen in the inferior pole of the right kidney, measuring 3 x 3 x 2.2 cm. The right kidney appears echogenic, suggestive of medical renal disease. No hydronephrosis or renal calculi are seen. Corticomedullary differentiation is reduced. No perinephric collection. IMPRESSION: 1. Mild hepatomegaly with liver span of 16.1 cm. 2. Post-cholecystectomy status with pneumobilia. 3. Right renal cortical cyst measuring 3 x 3 x 2.2 cm. 4. Echogenic appearance of right kidney suggestive of medical renal disease. /[place] DICTATED BY: DEMETRIS HERNANDEZ MD DATE: 12/13/241520 ELECTRONICALLY SIGNED BY: DEMETRIS HRENANDEZ MD DATE: 12/13/241520 LABORATORY: [ ] Hematology Labs: Test 12/14/24 05:40 12/13/24 12:54 Range/Units White Blood Count 6.3 4.8-10.8 K/uL Red Blood Count 3.00 L 4.00-5.50 MIL/uL Hemoglobin 9.8 L 12.0-16.0 g/dL Hematocrit 31.0 L 36-48 % Mean Corpuscular Volume 103.3 H 79-99 fL Mean Corpuscular Hemoglobin 32.7 27.0-33.0 pg Mean Corpuscular Hemoglobin Concent 31.6 L 32.0-36.0 g/dL Red Cell Distribution Width 14.4 11.0-15.5 % Platelet Count 181 130-400 K/uL Mean Platelet Volume 10.0 7.5-10.5 fL Nucleated Red Blood Cells 0.0 0.0-0.19 % Immature Granulocyte % (Auto) 0.4 0-1 % Neutrophils (%) (Auto) 52.9 40.0-77.0 % Lymphocytes (%) (Auto) 35.4 21.0-51.0 % Monocytes (%) (Auto) 7.3 3.0-13.0 % Eosinophils (%) (Auto) 3.4 0.0-8.0 % Basophils (%) (Auto) 0.6 0.0-5.0 % Neutrophils # (Auto) 3.7 1.8-7.7 K/uL Lymphocytes # (Auto) 2.5 1.0-4.8 K/uL Monocytes # (Auto) 0.5 0.1-1.0 K/uL Eosinophils # (Auto) 0.24 0.00-0.70 K/uL Basophils # (Auto) 0.04 0.00-0.20 K/uL Absolute Immature Granulocyte (auto 0.03 0-1 K/uL Chemistry Labs: Test 12/14/24 11:01 12/14/24 05:40 12/13/24 12:54 Range/Units Whole Blood Glucose 86 70-110 MG/DL Sodium Level 141 136-145 mmol/L Potassium Level 3.8 3.5-5.1 mmol/L Chloride Level 104 101-111 mmol/L Carbon Dioxide Level 26 21-32 mmol/L Blood Urea Nitrogen 37 H 7-18 mg/dL Creatinine 5.7 H 0.5-1.0 mg/dL Glomerular Filtration Rate Calc 7 >90 mL/min Random Glucose 84 70-105 mg/dL Total Calcium 7.1 L 8.5-10.1 mg/dL Phosphorus Level 6.5 H 2.5-4.9 mg/dL Magnesium Level 2.00 1.80-2.40 mg/dL Thyroid Stimulating Hormone (TSH) 3.28 # 0.36-3.74 uIU/mL Lactic Acid Level 1.4 0.8-2.5 mmol/L Total Bilirubin 0.4 0.2-1.0 mg/dL Aspartate Amino Transf (AST/SGOT) 13 10-37 U/L Alanine Aminotransferase (ALT/SGPT) 9 L 12-78 U/L Alkaline Phosphatase 168 H 50-136 U/L Troponin I High Sensitivity 27 4-50 ng/L Total Protein 6.6 6.0-8.3 g/dL Albumin 2.6 L 3.5-5.0 g/dL Lipase 42 16-77 U/L ASSESSMENT: End-stage renal disease Anemia Intractable abdominal pain Pneumobilia Severe arteriosclerosis of the aorta and major abdominal arteries with significant stenosis Anemia chronic disease Hypoalbuminemia Hypertension DM type 2 Hyperlipidemia Hypertension Schizophrenia Hypothyroidism History of liver abscess PLAN: Labs and Diagnostics/ Radiology personally reviewed and interpreted by myself and supervising physician We have reviewed dialysis and external records in detail Continue dialysis schedule Friday Pending further GI recommendations 1.5 L fluid restriction Continue to monitor H&H Epogen on dialysis days, as needed Continue with frequent monitoring of renal function, anemia, and electrolytes Order CBC, BMP, and electrolytes in the morning May use Dilaudid 0.5 mg IV every 6 hours as needed for severe pain Monitor blood pressure adjust medication doses as needed Maintain normotensive state Strict intake, output, and daily weight should be monitored Please renally adjust medications. Avoid nephrotoxics and nonsteroidal drugs. We will continue to monitor the patient closely We have discussed with the other team physicians in detail about the care plan Thank you for allowing us to participate in the care of this patient ATTESTATION BY PHYSICIAN I have seen and examined the patient. I reviewed the documentation, medical decision making, and treatment plan as noted by the mid-level provider above. I agree with the findings and plan of care. YANCY MANZO MD, ELIZABETH FNP Dec 14, 2024 13:09
--- NOTE | 2024-12-14 16:35 | CONS ---
GASTROENTEROLOGY CONSULTATION NOTE Date of Consultation: Dec 14, 2024 Time of Consultation: 16:20 History of Present Illness: [This is a 74-year-old female patient with past medical history for type 2 diabetes, hypercholesteremia, hypertension, schizophrenia, thyroid disease, and a recent history of liver abscess (who had a drain placement and had drain removed on 04/16/2024) who was sent in by her PCP to the emergency room with complaints of right upper quadrant pain associated with nausea and vomiting for the past month. Abdominal ultrasound showing mild hepatomegaly with liver span of 16.1 cm. Post cholecystectomy status with pneumobilia. Right renal cortical cyst measuring 3 x 3 x 2.2 cm. Echogenic appearance of right kidney suggestive of medical renal disease. CT of abdomen and pelvis without contrast showing post cholecystectomy status with pneumobilia. Severe atherosclerosis of the aorta and major abdominal a rteries with significant stenosis. No acute findings. WBC of 6.3, hemoglobin has trended down, hematocrit 31.0, platelets 181. Chemistries significant for BUN of 37, creatinine 5.7, total calcium 7.1, phosphorus 6.5, total bilirubin 0.4, AST 13, ALT 9, alkaline phos 168. Albumin 2.6, lipase 42. Blood cultures negative after 24 hours. We were consulted for pneumobilia, intractable right upper quadrant abdominal pain. Patient is awake alert and oriented x3 in no acute distress. Her respirations are unlabored. Bilateral breath sounds are clear. Abdomen is soft and not distended, and nontender. Positive bowel sounds noted. Reports having last BM on 12/13/2024. Patient currently receiving dialysis during exam. Discussed plan of care and informed no need for endoscopic evaluation unless nausea and vomiting persists. Patient verbalized understanding and agreement. ] Review of Systems: CONSTITUTIONAL: No malaise or change in sensation of wellbeing. ENMT: No rhinorrhea, otorrhea, sinus pain, ear ache. CARDIOVASCULAR: No angina, palpitations, orthopnea or paroxysmal dyspnea. RESPIRATORY: No SOB. GASTROINTESTINAL: No abdominal pain, nausea, vomiting, diarrhea, hematemesis, melena or change in the patient's habitual bowel movements consistency/number. GENITOURINARY: No dysuria, hematuria or change in bladder continence. MUSCULOSKELETAL: No new muscle pain or decrease in muscular strength. No new joint swelling, redness or tenderness. SKIN: No new rash. Past Medical History: HTN, Hypercholesteremia, schizophrenia, thyroid disease, abscess of liver (drained). PAST SURGICAL HX: Lava, dialysis shunt/port to chest SOCIAL HISTORY: No tobacco, ETOH, or illicit drug use Coded Allergies: No Known Drug Allergies (Unverified Allergy, Unknown, 10/20/14) Physical Exam: GEN: Awake, alert, oriented in person, time and place, and in no acute distress. HEENT: No rhinorrhea. Oral mucosa is pink, moist and within normal limits. CHEST: Lung auscultation revealed normal breath sounds bilaterally. CARDIAC:Heart sounds are regular. ABD: Soft, non-tender and not distended. No peritoneal signs on palpation. Normal bowel sounds. Last bm EXT: No cyanosis or clubbing. No edema. SKIN: Intact. No rashes. NEURO: Alert and oriented to name, place and person.No focal motor deficits. Normal speech. Vital Sign (Last 24 Hours) 12/14/24 12/14/24 14:36 16:01 Temp 97.5 Pulse 59 Resp 20 B/P (MAP) 205/89 Pulse Ox 91 O2 Delivery Room Air O2 Flow Rate 0 FiO2 21 Laboratory: [ ] Laboratory: Test 12/14/24 15:36 12/14/24 08:35 12/14/24 05:40 12/13/24 12:54 Range/Units Whole Blood Glucose 105 70-110 MG/DL Urine Color LIGHT-YELLOW YELLOW Urine Appearance CLOUDY H CLEAR Urine pH 7.0 5.0-8.0 Urine Specific [place] 1.013 1.001-1.031 Urine Protein 300 H NEGATIVE mg/dL Urine Glucose (UA) TRACE H NEGATIVE mg/dL Urine Ketones NEGATIVE NEGATIVE mg/dL Urine Occult Blood NEGATIVE NEGATIVE Urine Nitrate NEGATIVE NEGATIVE Urine Bilirubin NEGATIVE NEGATIVE mg/dL Urine Urobilinogen 0.2 0.2-1.0 mg/dL Urine Leukocyte Esterase NEGATIVE NEGATIVE [place]idelina/uL Urine RBC 2-5 H 0-1 /HPF Urine WBC 2-5 H 0-1 /HPF Urine Squamous Epithelial Cells MANY 0-2 /HPF Urine Bacteria Rare None Seen /HPF White Blood Count 6.3 4.8-10.8 K/uL Red Blood Count 3.00 L 4.00-5.50 MIL/uL Hemoglobin 9.8 L 12.0-16.0 g/dL Hematocrit 31.0 L 36-48 % Mean Corpuscular Volume 103.3 H 79-99 fL Mean Corpuscular Hemoglobin 32.7 27.0-33.0 pg Mean Corpuscular Hemoglobin Concent 31.6 L 32.0-36.0 g/dL Red Cell Distribution Width 14.4 11.0-15.5 % Platelet Count 181 130-400 K/uL Mean Platelet Volume 10.0 7.5-10.5 fL Nucleated Red Blood Cells 0.0 0.0-0.19 % Sodium Level 141 136-145 mmol/L Potassium Level 3.8 3.5-5.1 mmol/L Chloride Level 104 101-111 mmol/L Carbon Dioxide Level 26 21-32 mmol/L Blood Urea Nitrogen 37 H 7-18 mg/dL Creatinine 5.7 H 0.5-1.0 mg/dL Glomerular Filtration Rate Calc 7 >90 mL/min Random Glucose 84 70-105 mg/dL Total Calcium 7.1 L 8.5-10.1 mg/dL Phosphorus Level 6.5 H 2.5-4.9 mg/dL Magnesium Level 2.00 1.80-2.40 mg/dL Thyroid Stimulating Hormone (TSH) 3.28 # 0.36-3.74 uIU/mL Immature Granulocyte % (Auto) 0.4 0-1 % Neutrophils (%) (Auto) 52.9 40.0-77.0 % Lymphocytes (%) (Auto) 35.4 21.0-51.0 % Monocytes (%) (Auto) 7.3 3.0-13.0 % Eosinophils (%) (Auto) 3.4 0.0-8.0 % Basophils (%) (Auto) 0.6 0.0-5.0 % Neutrophils # (Auto) 3.7 1.8-7.7 K/uL Lymphocytes # (Auto) 2.5 1.0-4.8 K/uL Monocytes # (Auto) 0.5 0.1-1.0 K/uL Eosinophils # (Auto) 0.24 0.00-0.70 K/uL Basophils # (Auto) 0.04 0.00-0.20 K/uL Absolute Immature Granulocyte (auto 0.03 0-1 K/uL Lactic Acid Level 1.4 0.8-2.5 mmol/L Total Bilirubin 0.4 0.2-1.0 mg/dL Aspartate Amino Transf (AST/SGOT) 13 10-37 U/L Alanine Aminotransferase (ALT/SGPT) 9 L 12-78 U/L Alkaline Phosphatase 168 H 50-136 U/L Troponin I High Sensitivity 27 4-50 ng/L Total Protein 6.6 6.0-8.3 g/dL Albumin 2.6 L 3.5-5.0 g/dL Lipase 42 16-77 U/L Current Medications Medications (Trade) Dose Ordered Sig/Brandon Route PRN Reason Start Time Stop Time Status Last Admin Dose Admin Acetaminophen (TYLenol 325MG TAB) 650 mg Q6H PRN PO FEVER/MILD PAIN LEVEL 1-3 12/13/24 20:30 01/12/25 20:29 Acetaminophen (TYLenol 650MG SUPPOSITORY) 650 mg Q6H PRN RC FEVER / MILD PAIN 1-3 IF NPO 12/13/24 20:30 01/12/25 20:29 Atorvastatin Calcium (LIPItor 40MG) 80 mg DAILY PO 12/15/24 09:00 01/14/25 08:59 Carvedilol (Coreg 3.125MG) 3.125 mg BID PO 12/14/24 21:00 01/13/25 20:59 Clonidine HCl (CATApres 0.1 mg TAB) 0.1 mg BID PO 12/14/24 21:00 01/13/25 20:59 Docusate Sodium (COLace 100MG CAP) 100 mg BID PRN PO CONSTIPATION 12/13/24 20:30 01/12/25 20:29 Doxazosin Mesylate (Doxazosin Mesylate) 1 mg HS PO 12/14/24 21:00 01/13/25 20:59 Famotidine (Pepcid 20mg Tab) 20 mg Q48H PO 12/13/24 21:00 12/14/24 11:21 DC 12/13/24 22:31 20 MG Gabapentin (NEURontin 100 mg CAP) 100 mg DAILY PO 12/15/24 09:00 01/14/25 08:59 Hydralazine HCl ([id number] TAB) 100 mg TID PO 12/14/24 14:00 01/13/25 13:59 12/14/24 15:40 100 MG Insulin Human Regular (humuLIN R 100 UNIT/ML 3ML) INSULIN SLIDING SCAL... ACHS SQ 12/13/24 21:00 01/12/25 20:59 Labetalol HCl (TRANdate 20MG SYG) 10 mg Q2H PRN IV SBP GREATER THAN 160 12/13/24 20:30 01/12/25 20:29 Lactulose (Constulose 20gm/ 30ml Udcup) 20 gm Q6H PRN PO CONSTIPATION 12/13/24 20:30 01/12/25 20:29 Levothyroxine Sodium (SYNTHroid 88MCG TAB) 88 mcg SYN PO 12/15/24 06:30 01/14/25 06:29 Linagliptin (TradJENTA) 5 mg DAILY PO 12/15/24 09:00 12/14/24 11:20 DC Losartan Potassium (CozAAR 100MG TAB) 100 mg DAILY PO 12/15/24 09:00 01/14/25 08:59 Ondansetron HCl (zoFRAN 4MG INJ) 4 mg Q6H PRN IVP NAUSEA/VOMITING 12/13/24 20:30 01/12/25 20:29 Pantoprazole Sodium (PROTonix 40MG TAB) 40 mg DAILY PO 12/15/24 09:00 01/14/25 08:59 Temazepam (restORIL 15 MG CAP) 15 mg HS PRN PO INSOMNIA/SLEEP 12/13/24 20:30 01/12/25 20:29 Vitamin B Complex/ Vit C/Folic Acid (Nephrovite Tablet) 1 cap DAILY PO 12/15/24 09:00 01/14/25 08:59 Diagnostics / Radiology: [COPY/PASTE HERE IF NO REPORTS PLEASE DELETE SECTION] Assessment: [Right upper quadrant abdominal pain ] Plan: [Case discussed with Dr. Enrique No GI endoscopic intervention recommended at this time Recommend patient continue on pantoprazole 40mg po daily Please call with questions, concerns, and change in clinical status Thank you for this consult. ] KAITLYN ROLDANP Dec 14, 2024 16:35
[2024-12-14] MEDS ORDERED: 0.9% NACL 250ML 250 ML IV SCH (18:30)
[2024-12-14] MEDS: 0.9%NACL 1000ML 1,000 ML IV SCH (18:30)
--- NOTE | 2024-12-14 18:43 | PN ---
[facility] PROGRESS NOTE Date Patient Seen: Dec 14, 2024 Time of Visit: 1330 Supervising Physician: Dr. Humphreys Primary Care Physician: Dr. Bret No Outpatient Specialists: Dr. Mendoza, nephrology Inpatient Consults: Nephrology GI, Cardiology PROBLEM LIST: Intractable abdominal pain, POA Pneumobilia, POA Severe arteriosclerosis of the aorta and major abdominal arteries with significant stenosis, POA Anemia chronic disease Hypochloremia ESRD on hemodialysis T, TH, S Elevated alk-phos Hypoalbuminemia Hypertension, POA Chronic problem list: DM type 2, hypercholesteremia, hypertension, schizophrenia, hypothyroidism, ESRD INTERVAL HISTORY: 12/14 patient was seen and examined by bedside with family present. At time of visit patient denies any chest pain or shortness of breadth. Patient denies any nausea vomiting does report some abdominal pain mainly localized to epigastric and right upper quadrant. At time of visit patient is currently pending evaluation from GI appreciate assistance we will follow their recommendations. Patient we will continue with hemodialysis per Nephrology's recommendations. We will order a chest x-ray for a.m.. And we will continue to monitor patient closely. Patient's LFTs and lipase were unremarkable. REVIEW OF SYSTEMS: 12 point ROS reviewed with patient. Pertinent positives mentioned above. Otherwise negative. PHYSICAL EXAM: GENERAL: Alert, weak, awake oriented x 3 HEENT: EOMI, Sclera non icteric, moist mucosa NECK: Supple, no JVD, trachea midline LUNGS: Clear breath sounds bilaterally. No wheezes HEART: Regular rate and rhythm. Normal S1 and S2, without murmurs ABD: Abdomen soft, nontender. Bowel sounds present. Obese EXT: No clubbing cyanosis or edema NEURO: Alert and oriented to person, follows commands Vital Signs (last 8hr) Date Time Temp Pulse Resp B/P (MAP) Pulse Ox O2 Delivery O2 Flow Rate FiO2 12/14/24 18:30 63 16 181/69 Room Air 12/14/24 18:15 61 16 201/73 Room Air 12/14/24 18:00 98.2 58 16 182/69 Room Air 12/14/24 17:45 98.2 60 18 174/72 Room Air 12/14/24 16:01 97.5 59 20 / 91 Room Air 21 12/14/24 15:40 12/14/24 14:36 Room Air* 0 21 12/14/24 11:15 97.3 65 19 166/82 93 Room Air 21 LABS: Hematology Labs: Test 12/14/24 05:40 12/13/24 12:54 Range/Units White Blood Count 6.3 4.8-10.8 K/uL Red Blood Count 3.00 L 4.00-5.50 MIL/uL Hemoglobin 9.8 L 12.0-16.0 g/dL Hematocrit 31.0 L 36-48 % Mean Corpuscular Volume 103.3 H 79-99 fL Mean Corpuscular Hemoglobin 32.7 27.0-33.0 pg Mean Corpuscular Hemoglobin Concent 31.6 L 32.0-36.0 g/dL Red Cell Distribution Width 14.4 11.0-15.5 % Platelet Count 181 130-400 K/uL Mean Platelet Volume 10.0 7.5-10.5 fL Nucleated Red Blood Cells 0.0 0.0-0.19 % Immature Granulocyte % (Auto) 0.4 0-1 % Neutrophils (%) (Auto) 52.9 40.0-77.0 % Lymphocytes (%) (Auto) 35.4 21.0-51.0 % Monocytes (%) (Auto) 7.3 3.0-13.0 % Eosinophils (%) (Auto) 3.4 0.0-8.0 % Basophils (%) (Auto) 0.6 0.0-5.0 % Neutrophils # (Auto) 3.7 1.8-7.7 K/uL Lymphocytes # (Auto) 2.5 1.0-4.8 K/uL Monocytes # (Auto) 0.5 0.1-1.0 K/uL Eosinophils # (Auto) 0.24 0.00-0.70 K/uL Basophils # (Auto) 0.04 0.00-0.20 K/uL Absolute Immature Granulocyte (auto 0.03 0-1 K/uL Chemistry Labs: Test 12/14/24 15:36 12/14/24 05:40 12/13/24 12:54 Range/Units Whole Blood Glucose 105 70-110 MG/DL Sodium Level 141 136-145 mmol/L Potassium Level 3.8 3.5-5.1 mmol/L Chloride Level 104 101-111 mmol/L Carbon Dioxide Level 26 21-32 mmol/L Blood Urea Nitrogen 37 H 7-18 mg/dL Creatinine 5.7 H 0.5-1.0 mg/dL Glomerular Filtration Rate Calc 7 >90 mL/min Random Glucose 84 70-105 mg/dL Total Calcium 7.1 L 8.5-10.1 mg/dL Phosphorus Level 6.5 H 2.5-4.9 mg/dL Magnesium Level 2.00 1.80-2.40 mg/dL Thyroid Stimulating Hormone (TSH) 3.28 # 0.36-3.74 uIU/mL Lactic Acid Level 1.4 0.8-2.5 mmol/L Total Bilirubin 0.4 0.2-1.0 mg/dL Aspartate Amino Transf (AST/SGOT) 13 10-37 U/L Alanine Aminotransferase (ALT/SGPT) 9 L 12-78 U/L Alkaline Phosphatase 168 H 50-136 U/L Troponin I High Sensitivity 27 4-50 ng/L Total Protein 6.6 6.0-8.3 g/dL Albumin 2.6 L 3.5-5.0 g/dL Lipase 42 16-77 U/L DIAGNOSTICS / RADIOLOGY RESULTS: na PLAN Follow up with GI recommendations Continue hemodialysis per Nephrology's recommendations Continue p.r.n. pain medication Continue p.o. diet as tolerated Follow up with chest x-ray in a.m. NEURO: Minimize central acting medications as possible. Maintain fall precautions, adequate lighting during the day PULMONARY: Supplemental 02 as needed. Maintain aspiration precautions at all times CARDIOVASCULAR: Follow hemodynamics. Vital signs per facility protocol GI & NUTRITION: Continue with nutritional support. Continue stool softeners and laxatives as needed. KIDNEYS & ELECTROLYTES: Strict monitoring of intake, output and overall fluid balance. Avoid nephrotoxic medications to the extent possible. Medications to be dosed according to renal function. Monitor electrolytes and replace as needed ENDOCRINE: Maintain blood glucose between 100-180 at all times. Hypoglycemia protocol in place INFECTIOUS DISEASE: Trend temperature, WBC and procalcitonin level Follow cultures, deescalate antibiotics as soon as possible. Panculture if new onset fever ONCOLOGY/HEMATOLOGY/COAGULATION: Monitor for s/s of bleeding Monitor hemoglobin, coagulation studies as needed SKIN: Pressure ulcer prevention per facility protocol Specialty mattress ORTHO/REHAB: Continue PT/OT Prophylaxis: Continue GI and DVT prophylaxis Code Status: Full Resuscitation Disposition: TBD Case discussed with supervising physician plan of care agreed upon LUCINA LEVY STERILIZATION TECHNICIAN Dec 14, 2024 18:43
--- NOTE | 2024-12-14 18:52 | NUR ---
PER PT'S [place] CLINIC [place] [place] HEP STATUS FOLLOWS: HBSAG - NEGATIVE OF 12/09/2024 HBSAB - <4 OF 09/2024
[2024-12-14] MEDS: DOXAZOSIN MESYLATE 2 MG TABLET PO SCH (22:03)
[2024-12-15] VITALS (8 sets, daily range): BP systolic 132–156; BP diastolic 50–83; PULSE 54–60; RESP 16–19; TEMP 97.9–98.7; O2SAT 95
[2024-12-15 06:02] LABS: NUCLEATED RED BLOOD CELLS 0.0 % (0.0-0.19); PLATELET COUNT (AUTO) 166.0 K/uL (130-400); RED BLOOD CELL COUNT(AUTO) 3.21 MIL/uL (4.00-5.50); RED CELL DISTRIBUTION WIDTH 14.1 % (11.0-15.5); WHITE BLOOD COUNT (AUTO) 6.9 K/uL (4.8-10.8)
[2024-12-15 06:24] LABS: ASPARTATE AMINOTRANSFERASE 7.0 U/L (10-37); CREATININE 4.6 mg/dL (0.5-1.0); GLOMERULAR FILTR. RATE CALC 9.0 mL/min (>90); GLUCOSE,RANDOM 114.0 mg/dL (70-105); PHOSPHORUS 4.9 mg/dL (2.5-4.9); SODIUM SERUM 138.0 mmol/L (136-145); TOTAL PROTEIN, SERUM 6.4 g/dL (6.0-8.3); UREA NITROGEN, BLOOD 29.0 mg/dL (7-18)
[2024-12-15] MEDS: Vitamin B Complex/Vit C/Folic Acid PO SCH (08:33)
--- NOTE | 2024-12-15 10:41 | PN ---
NEPHROLOGY PROGRESS NOTE Date/Time Patient Seen: Dec 15, 2024 SUBJECTIVE: This is a 74-year-old female with a past medical history of end-stage renal disease on hemodialysis Friday, diabetes mellitus type 2, hypertension, anemia, history of liver abscess, schizophrenia She presented to the emergency room via EMS for evaluation of right upper quadrant abdominal pain and nausea. Abdominal CT showed post-cholecystectomy status with pneumobilia. No GI endoscopic intervention as per GI/note, continue with Protonix 40 mg p.o. daily. She continues to complain of abdominal pain She tolerated dialysis without difficulty yesterday. Next dialysis planned for tomorrow She was seen in the medical floor, continues to complain of abdominal pain Family at the bedside Prognosis remains guarded REVIEW OF SYSTEMS: GENERAL: Positive for abdominal pain NEUROLOGIC: Negative for any blurry vision, blind spots, double vision, facial asymmetry, dysphagia, dysarthria, hemiparesis, hemisensory deficits, vertigo, ataxia. HEENT: Negative for any head trauma, neck trauma, neck stiffness, photophobia, phonophobia, sinusitis, rhinitis. CARDIAC: Negative for any chest pain, dyspnea on exertion, paroxysmal nocturnal dyspnea, peripheral edema. PULMONARY: Negative for any shortness of breath, wheezing, COPD, or TB exposure. GASTROINTESTINAL: Negative for any abdominal pain, nausea, vomiting, bright red blood per rectum, melena. GENITOURINARY: Negative for any dysuria, hematuria, incontinence. INTEGUMENTARY: Negative for any rashes, cuts, insect bites. RHEUMATOLOGIC: Negative for any joint pains, photosensitive rashes, history of vasculitis or kidney problems. HEMATOLOGIC: Negative for any abnormal bruising, frequent infections or bleeding. Vital Signs (last 8hr) Date Time Temp Pulse Resp B/P (MAP) Pulse Ox O2 Delivery O2 Flow Rate FiO2 12/15/24 08:34 140/63 12/15/24 08:33 156/84 12/15/24 08:33 140/63 12/15/24 08:20 140/63 12/15/24 08:00 98.8 57 16 156/64 95 Room Air 12/15/24 04:00 98.2 60 18 153/59 91 Room Air 21 PHYSICAL EXAM: GENERAL: Alert and oriented x 3. No acute distress. Well-nourished. EYES: EOMI. Anicteric. HENT: Moist mucous membranes. No scleral icterus. No cervical lymphadenopathy. LUNGS: Clear to auscultation bilaterally. No accessory muscle use. CARDIOVASCULAR: Regular rate and rhythm. No murmur. No JVD. ABDOMEN: Soft, non-tender and non-distended. No palpable masses. EXTREMITIES: No edema. Non-tender. SKIN: No rashes or lesions. Warm. NEUROLOGIC: No focal neurological deficits. CN II-XII grossly intact, but not individually tested. PSYCHIATRIC: Cooperative. Appropriate mood and affect. Current Medications Medications (Trade) Dose Ordered Sig/Brandon Route Start Time Stop Time Status Last Admin Dose Admin Atorvastatin Calcium (LIPItor 40MG) 80 mg DAILY PO 12/15/24 09:00 01/14/25 08:59 12/15/24 08:33 80 MG Carvedilol (Coreg 3.125MG) 3.125 mg BID PO 12/14/24 21:00 01/13/25 20:59 12/15/24 08:33 3.125 MG Clonidine HCl (CATApres 0.1 mg TAB) 0.1 mg BID PO 12/14/24 21:00 01/13/25 20:59 12/15/24 08:33 0.1 MG Doxazosin Mesylate (Doxazosin Mesylate) 1 mg HS PO 12/14/24 21:00 01/13/25 20:59 12/14/24 22:03 1 MG Famotidine (Pepcid 20mg Tab) 20 mg Q48H PO 12/13/24 21:00 12/14/24 11:21 DC 12/13/24 22:31 20 MG Gabapentin (NEURontin 100 mg CAP) 100 mg DAILY PO 12/15/24 09:00 01/14/25 08:59 12/15/24 08:34 100 MG Hydralazine HCl ([id number] TAB) 100 mg TID PO 12/14/24 14:00 01/13/25 13:59 12/15/24 08:34 100 MG Insulin Human Regular (humuLIN R 100 UNIT/ML 3ML) INSULIN SLIDING SCAL... ACHS SQ 12/13/24 21:00 01/12/25 20:59 Levothyroxine Sodium (SYNTHroid 88MCG TAB) 88 mcg SYN PO 12/15/24 06:30 01/14/25 06:29 12/15/24 07:32 88 MCG Linagliptin (TradJENTA) 5 mg DAILY PO 12/15/24 09:00 12/14/24 11:20 DC Losartan Potassium (CozAAR 100MG TAB) 100 mg DAILY PO 12/15/24 09:00 01/14/25 08:59 12/15/24 08:34 100 MG Pantoprazole Sodium (PROTonix 40MG TAB) 40 mg DAILY PO 12/15/24 09:00 01/14/25 08:59 12/15/24 08:33 40 MG Sodium Chloride 250 ml @ 0 mls/hr AD IV 12/14/24 18:30 01/13/25 18:29 Sodium Chloride 1,000 ml @ 0 mls/hr ONCE IV 12/14/24 18:30 01/13/25 18:29 Vitamin B Complex/ Vit C/Folic Acid (Nephrovite Tablet) 1 cap DAILY PO 12/15/24 09:00 01/14/25 08:59 12/15/24 08:33 1 CAP LABORATORY: [ ] Hematology Labs: Test 12/15/24 05:34 12/13/24 12:54 Range/Units White Blood Count 6.9 4.8-10.8 K/uL Red Blood Count 3.21 L 4.00-5.50 MIL/uL Hemoglobin 10.5 L 12.0-16.0 g/dL Hematocrit 32.4 L 36-48 % Mean Corpuscular Volume 100.9 H 79-99 fL Mean Corpuscular Hemoglobin 32.7 27.0-33.0 pg Mean Corpuscular Hemoglobin Concent 32.4 32.0-36.0 g/dL Red Cell Distribution Width 14.1 11.0-15.5 % Platelet Count 166 130-400 K/uL Mean Platelet Volume 10.1 7.5-10.5 fL Nucleated Red Blood Cells 0.0 0.0-0.19 % Immature Granulocyte % (Auto) 0.4 0-1 % Neutrophils (%) (Auto) 52.9 40.0-77.0 % Lymphocytes (%) (Auto) 35.4 21.0-51.0 % Monocytes (%) (Auto) 7.3 3.0-13.0 % Eosinophils (%) (Auto) 3.4 0.0-8.0 % Basophils (%) (Auto) 0.6 0.0-5.0 % Neutrophils # (Auto) 3.7 1.8-7.7 K/uL Lymphocytes # (Auto) 2.5 1.0-4.8 K/uL Monocytes # (Auto) 0.5 0.1-1.0 K/uL Eosinophils # (Auto) 0.24 0.00-0.70 K/uL Basophils # (Auto) 0.04 0.00-0.20 K/uL Absolute Immature Granulocyte (auto 0.03 0-1 K/uL Chemistry Labs: Test 12/15/24 05:34 12/15/24 05:28 12/14/24 05:40 12/13/24 12:54 Range/Units Sodium Level 138 136-145 mmol/L Potassium Level 3.8 3.5-5.1 mmol/L Chloride Level 99 L 101-111 mmol/L Carbon Dioxide Level 29 21-32 mmol/L Blood Urea Nitrogen 29 H 7-18 mg/dL Creatinine 4.6 H 0.5-1.0 mg/dL Glomerular Filtration Rate Calc 9 >90 mL/min Random Glucose 114 H 70-105 mg/dL Total Calcium 7.8 L 8.5-10.1 mg/dL Phosphorus Level 4.9 2.5-4.9 mg/dL Total Bilirubin 0.5 0.2-1.0 mg/dL Aspartate Amino Transf (AST/SGOT) 7 L 10-37 U/L Alanine Aminotransferase (ALT/SGPT) 7 L 12-78 U/L Alkaline Phosphatase 162 H 50-136 U/L Total Protein 6.4 6.0-8.3 g/dL Albumin 2.5 L 3.5-5.0 g/dL Thyroid Stimulating Hormone (TSH) 3.28 0.36-3.74 uIU/mL Whole Blood Glucose 124 H 70-110 MG/DL Magnesium Level 2.00 1.80-2.40 mg/dL Lactic Acid Level 1.4 0.8-2.5 mmol/L Troponin I High Sensitivity 27 4-50 ng/L Lipase 42 16-77 U/L DIAGNOSTICS / RADIOLOGY: [address] [address] IMAGING REPORT Signed PATIENT: MADHAVI SABILLON MR#: [id number] : 1950 SEX: F AGE: 74 LOCATION: [facility] ORDER 142 STATUS: [employer] REPORT#: [id number] SERVICE 21 REASON: Right upper quadrant pain tenderness one month pneumobilia on ultrasound ORDERING PHYSICIAN: CARISSA REYES NP PROCEDURE: ABD PEL WO - CT ABDOMEN/PELVIS W/O CONTRAST EXAM: CT Abdomen and Pelvis Without IV contrast CLINICAL HISTORY: Right upper quadrant pain tenderness one month pneumobilia on ultrasound TECHNIQUE: Axial computed tomography images of the abdomen and pelvis without intravenous contrast. CONTRAST: No IV contrast. COMPARISON: Study dated 02/17/24. FINDINGS: LUNG BASES: There is mild dependent airspace disease within the bilateral lower lobes that is presumed to reflect atelectasis. No pleural effusions are seen. Cardiomegaly. LIVER: The liver is enlarged in size. The right hepatic lobe measures up to 16 cm. GALLBLADDER AND BILE DUCTS: Post-cholecystectomy status with pneumobilia. No biliary ductal dilatation is evident. PANCREAS: Unremarkable. SPLEEN: Unremarkable. ADRENAL GLANDS: Unremarkable. KIDNEYS, URETERS, AND BLADDER: There are a few well-defined hypodense lesions in the bilateral kidneys, the largest of which is 3.5 x 3.4 cm in the mid pole of the right kidney and 1.5 x 1.4 cm in the mid pole of the left kidney, likely simple renal cysts. (Recommendation for ultrasonography correlation) Bilateral perinephric fat stranding that is concerning for renal parenchymal disease. There is no hydronephrosis or hydroureter. No urinary calculi are seen. STOMACH AND BOWEL: Unremarkable appearance of the stomach and bowel. No evidence of bowel obstruction. No evidence suggesting enteritis or colitis. APPENDIX: No evidence of acute appendicitis on CT examination. PERITONEUM: No free fluid. No free air. LYMPH NODES: No lymphadenopathy is evident. REPRODUCTIVE: Multiple calcified intramural fibroids, the largest of which being 4 x 3.7 cm in the anterior wall of the uterus. VASCULATURE: No evidence of abdominal aortic aneurysm. Severe atherosclerotic changes in the aorta and origin of the celiac, superior mesenteric artery, and bilateral renal arteries, causing significant stenosis. BONES: No aggressive appearing osseous lesion. No acute osseous pathology evident. Severe degenerative changes in the form of multilevel air vacuum phenomena and osteophytes. Grade I anterolisthesis of the L4 over the L5 vertebra. IMPRESSION: 1. Post-cholecystectomy status with pneumobilia. 2. Severe atherosclerosis of the aorta and major abdominal arteries with significant stenosis. 3. No acute findings. /[place] DICTATED BY: DEMETRIS HERNANDEZ MD DATE: 12/13/241651 ELECTRONICALLY SIGNED BY: DEMETRIS HERNANDEZ MD DATE: 12/13/241651 [place] [address] [place] [address] [id number] IMAGING REPORT Signed PATIENT: MADHAVI SABILLON MR#: [id number] : 1950 SEX: F AGE: 74 LOCATION: [facility] ORDER [id number] STATUS: [employer] REPORT#: [id number] SERVICE 1245 REASON: Adominal Pain ORDERING PHYSICIAN: CARISSA REYES NP PROCEDURE: ABDRUQLTD - US ABDOMINAL RUQ\LTD EXAM: US Abdomen, Right Upper Quadrant. CLINICAL HISTORY: Adominal Pain TECHNIQUE: Right upper quadrant sonography performed with image documentation. COMPARISON: None provided. FINDINGS: Liver: The liver measures 16.1 cm, indicating mild hepatomegaly. Parenchymal echotexture is normal. No focal hepatic lesion is identified. No intrahepatic biliary dilatation is seen. Gallbladder: Gallbladder is not visualized, consistent with post-cholecystectomy status. Common Bile Duct (CBD): Pneumobilia is noted. CBD is visualized and measures 6 mm in diameter, which is within normal limits for post-cholecystectomy status. No evidence of choledocholithiasis or biliary dilatation. Pancreas: Head and body of pancreas appear within normal limits. The tail is obscured by overlying bowel gas. No focal lesion or peripancreatic collection is seen. Right Kidney: Right kidney measures 7.1 x 3.5 x 4 cm. A renal cortical cyst is seen in the inferior pole of the right kidney, measuring 3 x 3 x 2.2 cm. The right kidney appears echogenic, suggestive of medical renal disease. No hydronephrosis or renal calculi are seen. Corticomedullary differentiation is reduced. No perinephric collection. IMPRESSION: 1. Mild hepatomegaly with liver span of 16.1 cm. 2. Post-cholecystectomy status with pneumobilia. 3. Right renal cortical cyst measuring 3 x 3 x 2.2 cm. 4. Echogenic appearance of right kidney suggestive of medical renal disease. /[place] DICTATED BY: DEMETRIS HERNANDEZ MD DATE: 12/13/241520 ELECTRONICALLY SIGNED BY: DEMETRIS HERNANDEZ MD DATE: 12/13/241520 ASSESSMENT: End-stage renal disease Anemia Intractable abdominal pain Pneumobilia Severe arteriosclerosis of the aorta and major abdominal arteries with significant stenosis Anemia chronic disease Hypoalbuminemia Hypertension DM type 2 Hyperlipidemia Hypertension Schizophrenia Hypothyroidism History of liver abscess PLAN: Labs and Diagnostics/ Radiology personally reviewed and interpreted by myself and supervising physician We have reviewed dialysis and external records in detail Continue dialysis schedule Friday 1.5 L fluid restriction Continue to monitor H&H Epogen on dialysis days, as needed Continue with frequent monitoring of renal function, anemia, and electrolytes Order CBC, BMP, and electrolytes in the morning May use Dilaudid 0.5 mg IV every 6 hours as needed for severe pain Monitor blood pressure adjust medication doses as needed Maintain normotensive state Strict intake, output, and daily weight should be monitored Please renally adjust medications. Avoid nephrotoxics and nonsteroidal drugs. We will continue to monitor the patient closely We have discussed with the other team physicians in detail about the care plan ATTESTATION BY PHYSICIAN I have seen and examined the patient. I reviewed the documentation, medical decision making, and treatment plan as noted by the mid-level provider above. I agree with the findings and plan of care. YANCY MANZO MD, [facility] EXECUTIVE OFFICER Dec 15, 2024 10:41
--- NOTE | 2024-12-15 11:20 | NUR ---
PROVIDER ROUND PHILIPPE HAJI AT BEDSIDE. STATES NO CARDIO CONSULT AT THIS TIME. NO FURTHER ORDERS GIVEN.
[2024-12-15] MEDS ORDERED: PHARMACY COMMUNICATION MISC SCH (15:00)
[2024-12-15] MEDS ORDERED: COMPOUND PO MISCELLANEOUS 1 EACH MISC MISC PRN (15:30)
[2024-12-15] MEDS: LIDO 2% VISC 30ML+MAG/AL/SIMETH 30ML+DICYCLOMINE 20MG 10ML PO ONE (15:47)
--- NOTE | 2024-12-15 15:58 | PN ---
[facility] PROGRESS NOTE Date Patient Seen: Dec 15, 2024 Time of Visit: 1104 Supervising Physician: Dr. Watkins Primary Care Physician: Dr. Bret No Outpatient Specialists: Dr. Mendoza, nephrology Inpatient Consults: Nephrology GI, Cardiology PROBLEM LIST: Intractable abdominal pain, POA Pneumobilia, POA Severe arteriosclerosis of the aorta and major abdominal arteries with significant stenosis, POA Anemia chronic disease Hypochloremia ESRD on hemodialysis T, , S Elevated alk-phos Hypoalbuminemia Hypertension, POA Chronic problem list: DM type 2, hypercholesteremia, hypertension, schizophrenia, hypothyroidism, ESRD INTERVAL HISTORY: 12/14 patient was seen and examined by bedside with family present. At time of visit patient denies any chest pain or shortness of breadth. Patient denies any nausea vomiting does report some abdominal pain mainly localized to epigastric and right upper quadrant. At time of visit patient is currently pending evaluation from GI appreciate assistance we will follow their recommendations. Patient we will continue with hemodialysis per Nephrology's recommendations. We will order a chest x-ray for a.m.. And we will continue to monitor patient closely. Patient's LFTs and lipase were unremarkable. 12/15 patient was seen and examined at bedside with no family present. At time of visit patient is still complains of epigastric pain that radiates to right upper quadrant. Patient is still voicing can not tolerate p.o. diet very well. As per GI no recommendations of EGD at this time to continue with the Protonix daily and to follow up outpatient. At this time we will start patient on Reglan5 mg b.i.d., and give a one time dose of GI cocktail. And continue to try to advance diet as tolerated. Patient however does deny chest pain or shortness of breadth. Has remained hemodynamically stable. We will continue with hemodialysis per Nephrology's recommendations. As per primary nurse no acute events to be reported at this time REVIEW OF SYSTEMS: 12 point ROS reviewed with patient. Pertinent positives mentioned above. Otherwise negative. PHYSICAL EXAM: GENERAL: Alert, weak, awake oriented x 3 HEENT: EOMI, Sclera non icteric, moist mucosa NECK: Supple, no JVD, trachea midline LUNGS: Clear breath sounds bilaterally. No wheezes HEART: Regular rate and rhythm. Normal S1 and S2, without murmurs ABD: Abdomen soft, nontender. Bowel sounds present. Obese EXT: No clubbing cyanosis or edema NEURO: Alert and oriented to person, follows commands Vital Signs (last 8hr) Date Time Temp Pulse Resp B/P (MAP) Pulse Ox O2 Delivery O2 Flow Rate FiO2 12/15/24 13:41 145/58 12/15/24 13:38 145/58 12/15/24 12:00 97.9 54 16 155/61 99 Room Air 12/15/24 08:34 140/63 12/15/24 08:33 156/84 12/15/24 08:33 140/63 12/15/24 08:20 140/63 12/15/24 08:00 98.8 57 16 156/64 95 Room Air LABS: Hematology Labs: Test 12/15/24 05:34 Range/Units White Blood Count 6.9 4.8-10.8 K/uL Red Blood Count 3.21 L 4.00-5.50 MIL/uL Hemoglobin 10.5 L 12.0-16.0 g/dL Hematocrit 32.4 L 36-48 % Mean Corpuscular Volume 100.9 H 79-99 fL Mean Corpuscular Hemoglobin 32.7 27.0-33.0 pg Mean Corpuscular Hemoglobin Concent 32.4 32.0-36.0 g/dL Red Cell Distribution Width 14.1 11.0-15.5 % Platelet Count 166 130-400 K/uL Mean Platelet Volume 10.1 7.5-10.5 fL Nucleated Red Blood Cells 0.0 0.0-0.19 % Chemistry Labs: Test 12/15/24 15:13 12/15/24 05:34 12/14/24 05:40 Range/Units Whole Blood Glucose 111 H 70-110 MG/DL Sodium Level 138 136-145 mmol/L Potassium Level 3.8 3.5-5.1 mmol/L Chloride Level 99 L 101-111 mmol/L Carbon Dioxide Level 29 21-32 mmol/L Blood Urea Nitrogen 29 H 7-18 mg/dL Creatinine 4.6 H 0.5-1.0 mg/dL Glomerular Filtration Rate Calc 9 >90 mL/min Random Glucose 114 H 70-105 mg/dL Total Calcium 7.8 L 8.5-10.1 mg/dL Phosphorus Level 4.9 2.5-4.9 mg/dL Total Bilirubin 0.5 0.2-1.0 mg/dL Aspartate Amino Transf (AST/SGOT) 7 L 10-37 U/L Alanine Aminotransferase (ALT/SGPT) 7 L 12-78 U/L Alkaline Phosphatase 162 H 50-136 U/L Total Protein 6.4 6.0-8.3 g/dL Albumin 2.5 L 3.5-5.0 g/dL Thyroid Stimulating Hormone (TSH) 3.28 0.36-3.74 uIU/mL Magnesium Level 2.00 1.80-2.40 mg/dL DIAGNOSTICS / RADIOLOGY RESULTS: na PLAN As per GI no indication for EGD at this time continue with Protonix 40 mg daily follow up outpatient Start Reglan 5 mg t.i.d. Give GI cocktail x1 now Continue hemodialysis per Nephrology's recommendations Continue p.r.n. pain medication Continue p.o. diet as tolerated NEURO: Minimize central acting medications as possible. Maintain fall precautions, adequate lighting during the day PULMONARY: Supplemental 02 as needed. Maintain aspiration precautions at all times CARDIOVASCULAR: Follow hemodynamics. Vital signs per facility protocol GI & NUTRITION: Continue with nutritional support. Continue stool softeners and laxatives as needed. KIDNEYS & ELECTROLYTES: Strict monitoring of intake, output and overall fluid balance. Avoid nephrotoxic medications to the extent possible. Medications to be dosed according to renal function. Monitor electrolytes and replace as needed ENDOCRINE: Maintain blood glucose between 100-180 at all times. Hypoglycemia protocol in place INFECTIOUS DISEASE: Trend temperature, WBC and procalcitonin level Follow cultures, deescalate antibiotics as soon as possible. Panculture if new onset fever ONCOLOGY/HEMATOLOGY/COAGULATION: Monitor for s/s of bleeding Monitor hemoglobin, coagulation studies as needed SKIN: Pressure ulcer prevention per facility protocol Specialty mattress ORTHO/REHAB: Continue PT/OT Prophylaxis: Continue GI and DVT prophylaxis Code Status: Full Resuscitation Disposition: TBD Case discussed with supervising physician plan of care agreed upon LUCINA LEVY Dec 15, 2024 15:58
[2024-12-15 16:15] LABS: HEPATITIS B CORE AB TOTAL Non-Reactive (Nonreactive); HEPATITIS B SURFACE ANTIBODY Negative (Reactive)
--- NOTE | 2024-12-15 16:35 | HMCIMG ---
EXAM: CR Chest, 1 View. CLINICAL HISTORY: pna COMPARISON: 06/22/2024 FINDINGS: LUNGS: There is no mass, infiltrate, or acute pulmonary abnormality. PLEURAL SPACES: No pleural effusion or pneumothorax. MEDIASTINUM: The cardiomediastinal silhouette is enlarged BONES: No acute osseous abnormality. IMPRESSION: No acute cardiopulmonary pathology is evident. /[place]
--- NOTE | 2024-12-15 20:12 | NUR ---
JOON SABILLON [phone], NIECE OF PT CALLED FOR UPDATE. PT GAVE OKAY TO GIVE INFORMATION. ANSWERED ALL QUESTIONS.
[2024-12-16] VITALS (24 sets, daily range): BP systolic 114–174; BP diastolic 43–68; PULSE 53–85; RESP 16–18; TEMP 97.5–99; O2SAT 94
[2024-12-16 05:04] LABS: NUCLEATED RED BLOOD CELLS 0.0 % (0.0-0.19); PLATELET COUNT (AUTO) 178.0 K/uL (130-400); RED BLOOD CELL COUNT(AUTO) 3.02 MIL/uL (4.00-5.50); RED CELL DISTRIBUTION WIDTH 14.4 % (11.0-15.5); WHITE BLOOD COUNT (AUTO) 8.8 K/uL (4.8-10.8)
[2024-12-16 05:26] LABS: ASPARTATE AMINOTRANSFERASE 12.0 U/L (10-37); CREATININE 6.0 mg/dL (0.5-1.0); GLOMERULAR FILTR. RATE CALC 7.0 mL/min (>90); GLUCOSE,RANDOM 95.0 mg/dL (70-105); PHOSPHORUS 6.2 mg/dL (2.5-4.9); SODIUM SERUM 137.0 mmol/L (136-145); TOTAL PROTEIN, SERUM 5.8 g/dL (6.0-8.3); UREA NITROGEN, BLOOD 37.0 mg/dL (7-18)
[2024-12-16] MEDS ORDERED: COMPOUND PO MISCELLANEOUS 1 EACH MISC MISC PRN (11:00)
[2024-12-16] MEDS ORDERED: PHARMACY COMMUNICATION MISC SCH (11:00)
[2024-12-16] MEDS: LIDO 2% VISC 30ML+MAG/AL/SIMETH 30ML+DICYCLOMINE 20MG 10ML PO ONE (12:18)
--- NOTE | 2024-12-16 15:20 | DS ---
[facility] DISCHARGE SUMMARY Date Patient Seen: Dec 16, 2024 Time of Visit: 1053 Supervising Physician: Dr. Watkins Primary Care Physician: Dr. Bret No Outpatient Specialists: Dr. Mendoza, nephrology Inpatient Consults: Nephrology GI, Cardiology PROBLEM LIST: Intractable abdominal pain, POA, resolved Chronic Pneumobilia, POA Severe arteriosclerosis of the aorta and major abdominal arteries with significant stenosis, POA Anemia chronic disease Hypochloremia ESRD on hemodialysis T, , Elevated alk-phos Hypoalbuminemia Hypertension, POA Chronic problem list: DM type 2, hypercholesteremia, hypertension, schizophrenia, hypothyroidism, ESRD HOSPITAL COURSE: HPI (per admitting provider)Ms. Conway is a 74-year-old female with a history of the thyroid, diabetes-type II, high cholesterol, hypertension, schizophrenia, and a recent liver abscess who presented to [facility] via EMS for evaluation of interm ittent achy right upper quadrant pain with nausea onset one month. The patient denied vomiting, fever, chills, chest pain, back pain, and no sob. She does go to hemodialysis on Friday, and Saturdays with Dr. Mendoza. VS: HR 52 bmp, RR 16 bmp, BP 184/68, 96% RA, 97.9 F. Labs: Hematology: RBC 3.28, Hgb 11.1, Hct 33.5, MCV 102.1, MCH 33.8, Chemistry: Chloride 100, BUN 35, Creatinine 5.3, Total Calcium 7.6, ALT 9, Alkaline Phosphatase 168, Albumin 2.6. Abdomen/Pelvis CT: 1. Post-cholecystectomy status with pneumobilia. 2. Severe atherosclerosis of the aorta and major abdominal arteries with significant stenosis. 3. No acute findings. Abdomen US: 1. Mild hepatomegaly with liver span of 16.1 cm. 2. Post-cholecystectomy status with pneumobilia. 3. Right renal cortical cyst measuring 3 x 3 x 2.2 cm. 4. Echogenic appearance of right kidney suggestive of medical renal disease. Patient was seen and examined at bedside with no family present. At time of visit patient has no chest pain or shortness of breadth. Patient reports tolerating p.o. diet much better today than yesterday. Patient reports GI cocktail helped with her symptoms. Patient denies any reoccurrence abdominal pain denies any nausea vomiting. Patient is scheduled for hemodialysis today. Instructed patient she is medically cleared for discharge after she has completed hemodialysis. Also instructed patient will need to follow up with GI and PCP within 3-5 days upon discharge. Patient voices understanding and agrees with plan has no questions at this time The patient was treated for the following problems: ACTIVE PROBLEM LIST FOR THE HOSPITALIZATION: CHRONIC PROBLEMS: continue previous management per PCP unless otherwise indicated [facility] FINDINGS/RECOMMENDATIONS: na PROCEDURES: as mentioned above DISCHARGE MEDICATIONS: Pt hemodynamically stable and afebrile at time of discharge. PCP notified of patients admission, hospital course and discharge. Continued Medications: Carvedilol (Carvedilol) 3.125 Mg Tablet 1 TAB PO BID for 30 Days, #60 TAB 0 Refills Clonidine HCl (Clonidine HCl) 0.1 Mg Tablet 0.1 MG PO BID, TAB Doxazosin Mesylate (Doxazosin Mesylate) 1 Mg Tablet 1 TAB PO HS for 30 Days, #30 TAB 0 Refills Gabapentin (Gabapentin) 100 Mg Capsule 100 MG PO DAILY, CAP Hydralazine HCl (Hydralazine HCl) 100 Mg Tablet 100 MG PO TID, TAB Levothyroxine Sodium (Levothyroxine) 88 Mcg Capsule 88 MCG PO DAILY, CAP Linagliptin (Tradjenta) 5 Mg Tablet 5 MG PO DAILY, TAB Losartan Potassium (Losartan Potassium) 100 Mg Tablet 1 TAB PO DAILY for 30 Days, #30 TAB 0 Refills Pantoprazole Sodium (Pantoprazole Sodium) 40 Mg Tablet.dr 1 TAB PO DAILY for 30 Days, #30 TAB 0 Refills Rosuvastatin Calcium (Rosuvastatin Calcium) 20 Mg Tablet 20 MG PO DAILY, TAB PHYSICAL EXAM: GENERAL: Alert, weak, awake oriented x 3 HEENT: EOMI, Sclera non icteric, moist mucosa NECK: Supple, no JVD, trachea midline LUNGS: Clear breath sounds bilaterally. No wheezes HEART: Regular rate and rhythm. Normal S1 and S2, without murmurs ABD: Abdomen soft, nontender. Bowel sounds present. Obese EXT: No clubbing cyanosis or edema NEURO: Alert and oriented to person, follows commands FOLLOW-UP: Follow-up with PCP in 2-3 days RECOMMENDATIONS: See Discharge Instructions This case was seen and discussed with my supervising physician. 35 minutes spent on discharge process, including evaluation of the patient, discussion with nursing staff, medication reconciliation and follow-up appointments LUCINA LEVY Dec 16, 2024 15:20
--- NOTE | 2024-12-16 19:00 | NUR ---
RECEIVED PT RECEIVED CURRENTLY ON HD, TOLERATING TREATMENT WELL. REPORT RECEIVED FROM AM NURSE MICHAEL, PENDING D/C HOME AFTER HD. NURSE'S ROUNDS DONE.
--- NOTE | 2024-12-16 20:25 | NUR ---
ZONIA BLOUNT, DIALYSIS NURSE, INFORMS PANTOGRAPH MACHINE OPERATOR THAT PT IS DONE WITH HD TREATMENT WITH 2.8 LITERS OUT IN 3 HOURS.
--- NOTE | 2024-12-16 20:50 | NUR ---
PAPERS PT IS ALREADY ON THE PHONE WITH HER NIECE JUANITA. SPOKE WITH PT'S NIECE VIA PHONE UPDATED ON PT'S STATUS OF D/C AT THIS TIME. QUESTIONS ANSWERED ABOUT PT'S CONDITION AND INFORMED ABOUT FOLLOW UP WITH DOCTORS. PT AND FAMILY VERBALIZES UNDERSTANDING. PT SIGNED DISCHARGE PAPERS. DISCONTINUED PIV WITH CATHETER INTACT. REMOVED TELE MONITOR. PCP ASSISTED PT TO CHANGE. PT READY FOR D/C PENDING FAMILY TO [facility].
--- NOTE | 2024-12-16 21:24 | NUR ---
D/C FAMILY CALLED PT THAT THEY ARE WAITING BY ER ENTRANCE. PCP WHEELED PT DOWN. D/C PT IN STABLE CONDITION.
--- NOTE | 2024-12-17 04:29 | PN ---
NEPHROLOGY NOTE SUBJECTIVE: This patient has been evaluated and seen for dialysis multiple times. The patient is generally weak. The patient has renal failure, anemia, underlying multiple other comorbidities. The patient has underlying hypertension. No other associated findings. No other aggravating or relieving factor. No other associated symptoms. Other systemic review is unchanged. PHYSICAL EXAMINATION: GENERAL: Pale, no other distress or deformities, lying in bed. VITAL SIGNS: Blood pressure is 118/70. Respiratory rate is 18. Afebrile. HEENT: Head is atraumatic. Pupils are round and reactive. Sclerae are anicteric. Conjunctivae not pale. Oral mucosa is not dry. NECK: Without masses or bruits. Thyroid palpable. Neck has no bruits. CHEST: Shows equal thoracic percussion, note being resonant in all areas. CARDIAC: Regular rhythm. No rub, no S3 or S4. No parasternal heave. ABDOMEN: No guarding or tenderness. Bowel sounds are normoactive. No free fluid. EXTREMITIES: Warm with no edema. No signs of clubbing. Labs have been reviewed. Old records reviewed. Imaging studies are personally reviewed. PROBLEMS: Renal failure. Anemia. Multiple other comorbidities. Underlying hypertension. PLAN: Plan is to continue dialysis support. Continue monitoring of renal function. Continue monitoring of electrolytes. We will follow up closely. The patient has abdominal pain, being followed by primary team. The patient has underlying hypertension. Plan will be close monitoring. Seen for dialysis. Seen several times. TID: [id number] RECEIPT: [id number]
--- NOTE | 2024-12-17 04:31 | PN ---
NEPHROLOGY NOTE SUBJECTIVE: Tolerating the dialysis. The patient has no other associated findings. The patient has intermittent abdominal pain, obesity. Close monitoring to continue. No fevers, chills, or rigors. No cough, expectoration or hemoptysis or other associated symptoms. PHYSICAL EXAMINATION: GENERAL: Pale, no other distress. VITAL SIGNS: Blood pressure is 118/70. Respiratory rate is 18. Afebrile. HEENT: Head is atraumatic, normocephalic. Pupils are round and reactive to light. Sclerae are anicteric. Conjunctivae not pale. Oral mucosa is not dry. NECK: Without masses or bruits. Thyroid is palpable. Neck has no bruits. CHEST: Shows equal thoracic percussion note being resonant in all areas. CARDIAC: Regular rhythm. No redness. ABDOMEN: No guarding, tenderness, bowel sounds. BACK: No tenderness. No back deformity. LABORATORY DATA: We have reviewed available labs in detail and old records reviewed. PROBLEMS: * Renal failure. * Anemia. * Multiple other comorbidities PLAN: Continue dialysis support. Continue monitoring of renal function, electrolytes, and anemia. The patient has been evaluated and seen for dialysis and seen several times. I have discussed with other team physicians. TID: [id number] RECEIPT: [id number]
== END 2024-12-16 21:48 | disposition home or self-care (01) | DRG 444 ==
LOC: EDH 12:37 → EDHIP 18:34 → 3CH 22:59 → OBSVTOIN 12-15 09:30
PROVIDERS: ADMIT Internal Medicine; ATTEND Internal Medicine
PROC: 5A1D70Z Performance of Urinary Filtration, Intermittent, Less than 6 Hours Per Day (ICD-10-PCS; principal; 2024-12-14)
PROC: 5A1D70Z Performance of Urinary Filtration, Intermittent, Less than 6 Hours Per Day (ICD-10-PCS; 2024-12-16)
DX: K83.8 Other specified diseases of biliary tract (principal); N18.6 End stage renal disease; I12.0 Hypertensive chronic kidney disease with stage 5 chronic kidney disease or end stage renal disease; I70.0 Atherosclerosis of aorta; D63.1 Anemia in chronic kidney disease; E78.00 Pure hypercholesterolemia, unspecified; E11.22 Type 2 diabetes mellitus with diabetic chronic kidney disease; E88.09 Other disorders of plasma-protein metabolism, not elsewhere classified; E03.9 Hypothyroidism, unspecified; F20.9 Schizophrenia, unspecified; E87.8 Other disorders of electrolyte and fluid balance, not elsewhere classified; N28.1 Cyst of kidney, acquired; K59.00 Constipation, unspecified; E66.9 Obesity, unspecified; Z99.2 Dependence on renal dialysis
CPT/HCPCS: 36415; 71045; 74176; 76705; 80048; 80053; 81001; 82948; 83605; 83690; 83735; 84100; 84443; 84484; 85025; 85027; 86704; 86706; 87040; 87340; 90935; 96361; 96374; 99285; G0378; J2405; J7030

== ENCOUNTER 2024-12-23 22:10 | Emergency (ER) | payer OTHER, MEDICAID ==
[~2024-12-23] VITALS: Ht 162.6 cm; Wt 92.1 kg
[~2024-12-23 22:10] MED LIST changes: -AMLO-258 PO; -AMLO-915 PO; +CARV3.12 PO; -CINA30TA5 PO; -CORTSOL OT; -FURO80TA3 PO; -ISOS30TA92 PO; +PANT40TA54 PO
--- NOTE | 2024-12-23 22:50 | NUR ---
PT CARE ASSUMED AT THIS TIME
[2024-12-23 22:58] LABS: IMMATURE GRANULOCYTE ABSOLUTE 0.06 K/uL (0-1); NUCLEATED RED BLOOD CELLS 0.0 % (0.0-0.19); PLATELET COUNT (AUTO) 183 K/uL (130-400); RED BLOOD CELL COUNT(AUTO) 3.55 MIL/uL (4.00-5.50); RED CELL DISTRIBUTION WIDTH 14.0 % (11.0-15.5); WHITE BLOOD COUNT (AUTO) 9.8 K/uL (4.8-10.8)
[2024-12-23 23:07] LABS: CREATININE 3.3 mg/dL (0.5-1.0); GLOMERULAR FILTR. RATE CALC 14.0 mL/min (>90); GLUCOSE,RANDOM 118.0 mg/dL (70-105); SODIUM SERUM 136.0 mmol/L (136-145); UREA NITROGEN, BLOOD 12.0 mg/dL (7-18)
[2024-12-23 23:37] LABS: ASPARTATE AMINOTRANSFERASE 14.0 U/L (10-37); TOTAL PROTEIN, SERUM 6.7 g/dL (6.0-8.3)
[2024-12-23] MEDS: ORPHENADRINE 60MG/2ML IVP ONE (23:41)
[2024-12-23] MEDS: LACTATED RINGERS 1000ML IV STA (23:48)
--- NOTE | 2024-12-24 00:01 | ERN ---
General Chief Complaint: Abdominal Pain Stated Complaint: ABD PAIN Time Seen by MD: 22:18 Source: patient, family History of Present Illness Initial Comments Patient is a 74-year-old female with a past medical history of renal failure on dialysis. In addition she has hypercholesterolemia hypertension and schizophrenia diagnoses. She comes in complaining of right upper quadrant pain, liver pain, and inability to keep even liquids down. She was admitted to this hospital approximately a week ago with the same complaints. She was given a GI cocktail among other things and the GI cocktail relieved her symptoms and she was able to eat and she was discharged home. She comes in with the exact same complaints. Timing/Duration: 1 week, getting worse Severity: moderate Allergies: Coded Allergies: No Known Drug Allergies (Unverified Allergy, Unknown, 10/20/14) Home Meds Reported Medications Pantoprazole Sodium (Pantoprazole Sodium) 40 Mg Tablet.dr, 1 TAB PO DAILY for 30 Days, #30 TAB 0 Refills 12/13/24 Carvedilol (Carvedilol) 3.125 Mg Tablet, 1 TAB PO BID for 30 Days, #60 TAB 0 Refills 12/13/24 Clonidine HCl (Clonidine HCl) 0.1 Mg Tablet, 0.1 MG PO BID, TAB 12/13/24 Rosuvastatin Calcium (Rosuvastatin Calcium) 20 Mg Tablet, 20 MG PO DAILY, TAB 06/23/24 Doxazosin Mesylate (Doxazosin Mesylate) 1 Mg Tablet, 1 TAB PO HS for 30 Days, #30 TAB 0 Refills 02/18/24 Losartan Potassium (Losartan Potassium) 100 Mg Tablet, 1 TAB PO DAILY for 30 Days, #30 TAB 0 Refills 02/18/24 Hydralazine HCl (Hydralazine HCl) 100 Mg Tablet, 100 MG PO TID, TAB 08/07/22 Linagliptin (Tradjenta) 5 Mg Tablet, 5 MG PO DAILY, TAB 08/07/22 Gabapentin (Gabapentin) 100 Mg Capsule, 100 MG PO DAILY, CAP 08/07/22 Levothyroxine Sodium (Levothyroxine) 88 Mcg Capsule, 88 MCG PO DAILY, CAP 08/07/22 Past Medical History Past Medical History: Diabetes-Type II, High Cholesterol, Hypertension, Schizophrenia, Other Medical History Other: THYROID Past Surgical History: Cholecystectomy, LAVA Surgical History Other: DIALYSIS SHUNT/PORT TO CHEST Social History Social History: Negative, Other Female( History) History: Not Applicable Constitutional: (-) chills, (-) diaphoresis, (-) fever, (-) malaise, (-) weakness, (-) other documentation EENTM: (-) eye pain, (-) blurred vision, (-) tearing, (-) double vision, (-) ea r pain, (-) ear discharge, (-) nose pain, (-) nose congestion, (-) throat pain, (-) Throat swelling, (-) mouth pain, (-) tooth pain, (-) mouth swelling, (-) other documentation Respiratory: (-) cough, (-) orthopnea, (-) short of breath, (-) stridor, (-) wheezing, (-) other documentation Cardiovascular: (-) chest pain, (-) edema, (-) palpitations, (-) syncope, (-) dyspnea on exertion, (-) other documentation Gastrointestinal/Abdominal: (+) nausea, (+) vomiting, (+) abdominal pain Genitourinary: (-) vaginal discharge, (-) vaginal bleeding, (-) dysuria, (-) frequency, (-) hematuria, (-) pain, (-) other documentation Musculoskeletal: (-) Neck pain, (-) back pain, (-) Flank Pain, (-) joint pain, (-) joint swelling, (-) muscle pain, (-) muscle stiffness, (-) gout, (-) other documentation Physical Exam General Appearance: (+) moderate distress Orientation: (+) alert, (+) oriented x 3 Head/Face Trauma: No Eye: bilateral eye normal inspection, bilateral eye PERRL, bilateral eye EOMI Ear, Nose, Throat: (+) hearing grossly normal, (+) normal ENT inspection, (+) moist mucous membraine Neck: (+) normal inspection, (+) supple, (+) full range of motion Respiratory: (+) chest non-tender, (+) lungs clear, (+) well ventilated Heart: (+) regular, (+) no gallop Vascular: (+) no edema, (+) normal peripheral pulse Gastrointestinal: (+) soft, (+) bowel sound present Gastrointestinal Comment Patient's right abdomen does appear to be enlarged compared to her left abdomen. I do not know if this is a hernia from her prior surgery which was a cholecystectomy. She does have abdominal pain but it appears to be musculoskeletal as the pain is along her right rectus she is in the pain is wor sened when she lifts her head up off the bed. Genital: (-) normal vaginal exam, (-) vaginal Bleeding, (-) vaginal discharge, (-) vaginal lesion, (-) deferred, (-) other documentation Results Laboratory and Microbiology Lab and Micro Result Laboratory Tests Test 12/23/24 22:50 White Blood Count 9.8 K/uL (4.8-10.8) Red Blood Count 3.55 MIL/uL (4.00-5.50) L Hemoglobin 11.7 g/dL (12.0-16.0) L Hematocrit 36.3 % (36-48) Mean Corpuscular Volume 102.3 fL (79-99) H Mean Corpuscular Hemoglobin 33.0 pg (27.0-33.0) Mean Corpuscular Hemoglobin Concent 32.2 g/dL (32.0-36.0) Red Cell Distribution Width 14.0 % (11.0-15.5) Platelet Count 183 K/uL (130-400) Mean Platelet Volume 9.7 fL (7.5-10.5) Immature Granulocyte % (Auto) 0.6 % (0-1) Neutrophils (%) (Auto) 70.3 % (40.0-77.0) Lymphocytes (%) (Auto) 18.6 % (21.0-51.0) L Monocytes (%) (Auto) 8.3 % (3.0-13.0) Eosinophils (%) (Auto) 1.7 % (0.0-8.0) Basophils (%) (Auto) 0.5 % (0.0-5.0) Neutrophils # (Auto) 6.9 K/uL (1.8-7.7) Lymphocytes # (Auto) 1.8 K/uL (1.0-4.8) Monocytes # (Auto) 0.8 K/uL (0.1-1.0) Eosinophils # (Auto) 0.17 K/uL (0.00-0.70) Basophils # (Auto) 0.05 K/uL (0.00-0.20) Absolute Immature Granulocyte (auto 0.06 K/uL (0-1) Nucleated Red Blood Cells 0.0 % (0.0-0.19) Sodium Level 136 mmol/L (136-145) Potassium Level 3.5 mmol/L (3.5-5.1) Chloride Level 98 mmol/L (101-111) L Carbon Dioxide Level 27 mmol/L (21-32) Blood Urea Nitrogen 12 mg/dL (7-18) Creatinine 3.3 mg/dL (0.5-1.0) H Glomerular Filtration Rate Calc 14 mL/min (>90) Random Glucose 118 mg/dL (70-105) H Total Calcium 8.5 mg/dL (8.5-10.1) Total Bilirubin 0.5 mg/dL (0.2-1.0) Direct Bilirubin 0.2 mg/dL (0.0-0.3) Aspartate Amino Transf (AST/SGOT) 14 U/L (10-37) Alanine Aminotransferase (ALT/SGPT) 11 U/L (12-78) L Alkaline Phosphatase 143 U/L (50-136) H Total Protein 6.7 g/dL (6.0-8.3) Albumin 2.6 g/dL (3.5-5.0) L Lipase 35 U/L (16-77) MDM MDM: Differential diagnosis: Biliary pain, hepatomegaly, musculoskeletal pain, dehydration, uremia, constipation, GERD. Given the patient's exam I will give her fluid and also muscle relaxants and pain control. I will also get a CBC and CMP. Defer a CT scan at this point as she had one 11 days ago. Rationale: Tests considered and ordered secondary to shared decision making include: Previous outside records reviewed: Old ER visits. Risk of complication and/or morbidity or mortality of patient management: None Medications-Per medication reconciliation Need for hospitalization: Patient does meet criteria for hospitalization. Need for emergency major/minor surgery: No There are no social concerns with this patient. Prescription drug management Prescriptions will include symptomatic care Patient's prior external medical records from other ER visits were reviewed by me as indicated. Prior testing and results from previous visits were reviewed. Prior tests were taken into account with medical decision making and resource utilization, independent historian/historians were used to obtain complete medical history. I independently interpreted the test that were performed, results were reviewed by me and considered findings on radiology if ordered. Ultrasound of the patient's abdomen shows complete collapse of the IVC even without taking a breath. I am giving the patient some IV fluid as well as some muscle relaxants and some IV pain medications. After that I will give her a GI cocktail. I will defer another CT scan as she had one recently. The CT scan did show hepatomegaly. It also showed post cholecystectomy status with pneumobilia. Discussing the patient's medical history with her daughter I could not tell if the patient has had an ERCP. The cholecystectomy was not performed here and it was many years ago. Laboratory analysis here shows a normal white count with a microcytic anemia. Chemistry panel shows a mild hypochloremia, obvious renal failure, and a mildly elevated alkaline phosphatase level. I performed an ultrasound of her abdomen and saw that her inferior vena cava was completely collapsed. I gave her a L of fluid and patient said she felt better. She was able to eat a little bit of jello. Patient's blood pressure went up to 188 during her time here in the emergency room and gave her a bolus of hydralazine 20 mg and her blood pressure came back down to 160 systolic. Discharged her home. I discussed her condition with her family member stating that I think patient was being dialyzed too aggressively. Patient should try and eat broth soft foods Pedialyte milk shakes protein shakes to keep herself nourished and hydrated. In the meantime patient should see her GI doctor to try and workup the cause of her dysphagia. ED Course Orders Procedure Category Date Status Time Vital Signs Per CPOE 12/23/24 Transmitted Routine 22:20 Saline Lock Iv CPOE 12/23/24 Transmitted 22:20 Cbc With Differential LAB 12/23/24 Complete 22:20 Lipase LAB 12/23/24 Complete 22:20 Urinalysis Profile LAB 12/23/24 Logged 22:20 Basic Metabolic Panel LAB 12/23/24 Complete 22:20 Hepatic Function Panel LAB 12/23/24 Complete 22:59 Orphenadrine Citrate PHA 12/23/24 Complete (Norflex) 23:00 Ondansetron 4mg Inj PHA 12/23/24 Complete (Zofran 4mg Inj) 23:00 Lidocaine Hcl 2% PHA 12/23/24 Complete Viscous (Lidocaine Hcl 23:00 Mag/Alum/Simeth 30ml PHA 12/23/24 Complete (Maalox Plus 30ml) 23:00 Dicyclomine Hcl PHA 12/23/24 Complete (Bentyl 10mg/5ml 23:00 Morphine 4mg Syg PHA 12/23/24 Complete (Morphine 4mg Syg) 23:30 Lactated Ringers PHA 12/23/24 Complete 1000ml (Lactated 23:21 Hydralazine 20mg Inj PHA 12/24/24 Complete (Apresoline 20mg In 03:00 Current Medications Medications (Trade) Dose Ordered Sig/Brandon Route PRN Reason Start Time Stop Time Status Last Admin Dose Admin Al Hydroxide/Mg Hydroxide (MAALox PLUS 30ML) 30 ml ONCE ONCE PO 12/23/24 23:00 12/23/24 23:03 DC 12/24/24 00:36 Dicyclomine HCl (Bentyl 10mg/5ml Syrup) 10 mg ONCE ONCE PO 12/23/24 23:00 12/23/24 23:03 DC 12/24/24 00:36 Hydralazine HCl (APRESOLine 20MG INJ) 20 mg ONCE ONCE IV 12/24/24 03:00 12/24/24 03:04 DC 12/24/24 03:17 Ketorolac Tromethamine (toRADol) 30 mg ONCE ONCE IVP 12/23/24 23:00 12/23/24 23:01 UNV Lactated Ringer's (Lactated Ringers 1000ml) 1,000 ml BOLUS STAT IV 12/23/24 23:21 12/23/24 23:22 DC 12/23/24 23:48 Lidocaine HCl (Lidocaine HCl 2% Viscous) 10 ml ONCE ONCE PO 12/23/24 23:00 12/23/24 23:03 DC 12/24/24 00:36 Morphine Sulfate (morPHINE 4MG SYG) 2 mg ONCE ONCE IVP 12/23/24 23:30 12/23/24 23:31 DC 12/23/24 23:41 Ondansetron HCl (zoFRAN 4MG INJ) 4 mg ONCE ONCE IVP 12/23/24 23:00 12/23/24 23:03 DC 12/23/24 23:40 Orphenadrine Citrate (Norflex) 60 mg ONCE ONCE IVP 12/23/24 23:00 12/23/24 23:03 DC 12/23/24 23:41 Vital Signs Date Time Temp Pulse Resp B/P (MAP) Pulse Ox O2 Delivery O2 Flow Rate FiO2 12/24/24 03:17 192/53 12/24/24 00:40 59 166/60 99 Nasal Cannula* 2 28 12/23/24 22:50 99.1 62 16 152/68 96 Room Air* 0 21 12/23/24 22:16 99.1 64 16 169/56 97 Room Air DX & DISP Disposition: Discharge Departure Impression: Primary Impression: ESRD (end stage renal disease) on dialysis Additional Impressions: Postprandial nausea, Hypochloremia Condition: Stable Assign Patient to: I am not sure but it appears to me you arrived to the emergency room extremely dehydrated. Laboratory analysis here confirmed the end-stage renal disease but otherwise had few abnormalities. The abnormalities were a very mild increase in one of your liver enzymes and a mild decrease in your serum chloride level. With the fluids and medications your now able to tolerate eating some food and feel better. I will discharge you with some anti emetic medications. Please call the GI office to get an appointment as quickly as possible to investigate your dysphagia. Scripts Ondansetron (Ondansetron Odt) 4 Mg Tab.rapdis 1 TAB PO Q6HPRN PRN for nausea/vomiting for 4 Days, #16 TAB 0 Refills Prov: CORETTA TIAN MD 12/24/24 Referrals: GERBER HOLLIS (PCP) CORETTA TIAN MD Dec 24, 2024 00:01
[2024-12-24] MEDS: MAG/ALUM/SIMETH 30 ML UDCUP PO ONE (00:36)
[2024-12-24] MEDS: DICYCLOMINE HCL 10 MG/5 ML ML PO ONE (00:36)
[2024-12-24] MEDS: LIDOCAINE HCL 2% VISCOUS 15 ML UDCUP PO ONE (00:36)
[2024-12-24 03:52] VITALS: BP 166/45; PULSE 55; RESP 14; TEMP 99; O2SAT 100
[2024-12-24] MEDS ORDERED: ONDA-243 PO (03:58)
[2024-12-25] MEDS ORDERED: DOXA1TAB2 PO (20:03)
[2024-12-25] MEDS ORDERED: LOSA50TA64 PO (20:03)
== END 2024-12-24 04:07 | disposition home or self-care (01) ==
LOC: EDH 22:10
DX: I12.0 Hypertensive chronic kidney disease with stage 5 chronic kidney disease or end stage renal disease (principal); N18.6 End stage renal disease; E11.22 Type 2 diabetes mellitus with diabetic chronic kidney disease; E87.8 Other disorders of electrolyte and fluid balance, not elsewhere classified; R11.0 Nausea; E78.00 Pure hypercholesterolemia, unspecified; F20.9 Schizophrenia, unspecified; Z90.49 Acquired absence of other specified parts of digestive tract; Z79.899 Other long term (current) drug therapy; Z79.84 Long term (current) use of oral hypoglycemic drugs; Z99.2 Dependence on renal dialysis
CPT/HCPCS: 99285; 96374; 96375 ×2; 96361; 80076; 80048; 83690; 85025; 36415; J7120; J2405; J2270; J0360; J2360